=== PATIENT | female | born 1960 | race Caucasian/White ===

== ENCOUNTER 2016-09-26 15:59 | Emergency (ER) | payer BC ==
[~2016-09-26] VITALS: Ht 165.1 cm; Wt 80.0 kg
[~2016-09-26 15:59] MED LIST: AMIO200T PO; APIX5TAB PO; ASPI81 PO; ATEN-102 PO; ATOR80TA PO; CARB25TA PO; CYCL1PAK PO; FURO10S PO; GABA300C3 PO; IMDU30TA PO; IPRAAER IN; JANU50TA PO; LEVACET PO; METF500 PO; NEXI40CA PO; POTA20IN3 PO; RANI150T PO; TOPI100T OR; VENL-39 OR
[2016-09-26 16:07] VITALS: BP 98/54; PULSE 64; RESP 18; TEMP 98.2; O2SAT 94
[2016-09-26 16:12] VITALS: BP 98/54; PULSE 61; RESP 18; O2SAT 100
[2016-09-26] MEDS ORDERED: SODIUM CHLORIDE 0.9% FLUSH 10 ML FLUSH IVF PRN (16:15)
--- NOTE | 2016-09-26 16:16 | PD ---
HPI Chief Complaint: Chest Pain Time Seen by Provider: 16:13 Travel History International Travel<30 days: No Contact w/Intl Traveler<30days: No Traveled to known affect area: No History of Present Illness HPI 55-year-old female presents to the emergency department for evaluation of midsternal chest pain that started around 1 PM this afternoon. Patient states she took aspirin 324 mg by mouth at home and nitroglycerin 1. Patient called EMS stating the pain was severe. When EMS gave her IV fluids and assessed her, the pain resolved. She is currently chest pain-free. She denies any radiation of the pain when she had it. Patient stated the pain is 10/10 when it she had it. She does report history of cardiomyopathy, CHF, A. fib, Lazara-Parkinson- White syndrome. She also has AICD/pacemaker. She denies any recent firing of the AICD stating loss firing was approximately one year ago. Patient denies any recent stress test or cardiac catheterization. She states her last stress test was approximately 2 years ago. Her outreach team member is Dr. Bejarano. Patient is on Eliquis. [facility] Past Medical History Atrial Fibrillation: Yes Cancer: No Cardiovascular Problems: Yes High Cholesterol: Yes Chest Pain: No Congestive Heart Failure: Yes Diabetes: Yes Gastrointestinal Disorders: No GERD: Yes Glaucoma: No Headaches: Yes Hepatitis: No Hiatal Hernia: No Hypertension: Yes Integumentary: No Thyroid Disease: No ?: Not Past Surgical History Cardiac Surgery: Yes (ABLASION X2) Hysterectomy: Yes Pacemaker: Yes Thoracic Surgery: Yes (AICD LEFT CHEST) Social History Alcohol Use: No Tobacco Use: Yes (1PPD) Substance Use: No Allergies-Medications (Allergen,Severity, Reaction): Coded Allergies: Prednisone (Verified Allergy, Severe, 03/03/16) Verapamil (Verified Allergy, Severe, 03/03/16) Zoloft (Verified Allergy, Severe, 03/03/16) Reported Meds & Prescriptions Reported Meds & Active Scripts Active Reported Januvia (Sitagliptin Phosphate) 50 Mg Tab 50 Mg PO DAILY Combivent Respimat (Albuterol/Ipratropium) Respimat Aer 1 Inhalation IN Gabapentin 300 Mg Cap 300 Mg PO BID Potassium Chloride CR 20 meq 20 Meq Tab 1 Tab PO DAILY Furosemide 10 Mg/Ml Elsa 20 Mg PO DAILY Glucophage 500 mg (Metformin HCl) 500 Mg Tab 500 Mg PO DAILY Eliquis (Apixaban) 5 Mg Tab 5 Mg PO BID Sinemet 25/100 (Carbidopa/Levodopa) 25 Mg/100 Mg Tab 1 Tab PO HS Atorvastatin 80 mg (Atorvastatin Calcium) 80 Mg Tab 80 Mg PO HS Atenolol 50 Mg Tab 50 Mg PO BID Topiramate 100 Mg Tab 100 Mg OR BID Venlafaxine Hcl Er (Venlafaxine HCl) 75 Mg Tab 75 Mg OR HS Nexium (Esomeprazole Magnesium) 40 Mg Cap 40 Mg PO DAILY Amiodarone Hcl (Amiodarone HCl) 200 Mg Tab 200 Mg PO DAILY Ranitidine 150 mg (Ranitidine HCl) 150 Mg Tab 150 Mg PO BID Cyclobenzaprine Hcl (Cyclobenzaprine HCl) 10 Mg Tab 10 Mg PO TID Imdur (Isosorbide Mononitrate) 30 Mg Tab 30 Mg PO DAILY Aspirin 81 Mg Tab 325 Mg PO DAILY [Levacet] 1 Tab PO BID Review of Systems Except as stated in HPI: all other systems reviewed are Neg Physical Exam Narrative GENERAL: Well-nourished, well-developed female patient, afebrile. SKIN: Focused skin assessment warm/dry. HEAD: Normocephalic. Atraumatic. EYES: No scleral icterus. No injection or drainage. NECK: Supple, trachea midline. No JVD or lymphadenopathy. CARDIOVASCULAR: Regular rate and rhythm without murmurs, gallops, or rubs. RESPIRATORY: Breath sounds equal bilaterally. No accessory muscle use. Lungs sounds are clear to auscultation. GASTROINTESTINAL: Abdomen soft, non-tender, nondistended. MUSCULOSKELETAL: No cyanosis, or edema. BACK: Nontender without obvious deformity. No CVA tenderness. Data Data Last Documented VS Vital Signs Date Time Temp Pulse Resp B/P Pulse Ox O2 Delivery O2 Flow Rate FiO2 09/26/16 17:51 60 18 95/53 98 Room Air 09/26/16 16:17 2 09/26/16 16:07 98.2 Orders Electrocardiogram (09/26/16 ) Electrocardiogram (09/26/16 16:12) Basic Metabolic Panel (Bmp) (09/26/16 16:12) Ckmb (Isoenzyme) Profile (09/26/16 16:12) Complete Blood Count With Diff (09/26/16 16:12) Magnesium (Mg) (09/26/16 16:12) Prothrombin Time / Inr (Pt) (09/26/16 16:12) Act Partial Throm Time (Ptt) (09/26/16 16:12) Troponin I (09/26/16 16:12) Chest, Single Ap (09/26/16 16:12) Ecg Monitoring (09/26/16 16:12) Bilateral Bp Monitoring (09/26/16 16:12) Iv Access Insert/Monitor (09/26/16 16:12) Oximetry (09/26/16 16:12) Oxygen Administration (09/26/16 16:12) Sodium Chloride 0.9% Flush (Ns Flush) (09/26/16 16:15) B-Type Natriuretic Peptide (09/26/16 16:16) CKMB (09/26/16 16:20) CKMB% (09/26/16 16:20) Labs Laboratory Tests Test 09/26/16 16:20 White Blood Count 5.8 TH/MM3 Red Blood Count 4.77 MIL/MM3 Hemoglobin 10.4 GM/DL Hematocrit 37.2 % Mean Corpuscular Volume 77.9 FL Mean Corpuscular Hemoglobin 21.8 PG Mean Corpuscular Hemoglobin 28.0 % Concent Red Cell Distribution Width 19.7 % Platelet Count 294 TH/MM3 Mean Platelet Volume 9.2 FL Neutrophils (%) (Auto) 58.4 % Lymphocytes (%) (Auto) 28.0 % Monocytes (%) (Auto) 8.8 % Eosinophils (%) (Auto) 3.3 % Basophils (%) (Auto) 1.5 % Neutrophils # (Auto) 3.4 TH/MM3 Lymphocytes # (Auto) 1.6 TH/MM3 Monocytes # (Auto) 0.5 TH/MM3 Eosinophils # (Auto) 0.2 TH/MM3 Basophils # (Auto) 0.1 TH/MM3 CBC Comment AUTO DIFF Differential Comment AUTO DIFF CONFIRMED Platelet Estimate NORMAL Platelet Morphology Comment NORMAL Prothrombin Time 11.4 SEC Prothromb Time International 1.0 RATIO Ratio Activated Partial 25.5 SEC Thromboplast Time Sodium Level 143 MEQ/L Potassium Level 4.5 MEQ/L Chloride Level 111 MEQ/L Carbon Dioxide Level 26.3 MEQ/L Anion Gap 6 MEQ/L Blood Urea Nitrogen 24 MG/DL Creatinine 1.33 MG/DL Estimat Glomerular Filtration 42 ML/MIN Rate Random Glucose 181 MG/DL Calcium Level 8.3 MG/DL Magnesium Level 2.1 MG/DL Total Creatine Kinase 103 U/L Creatine Kinase MB 2.0 NG/ML Troponin I 0.03 NG/ML MDM Medical Decision Making Medical Screen Exam Complete: Yes Emergency Medical Condition: Yes Medical Record Reviewed: Yes Interpretation(s) Last Impressions Chest X-Ray 09/26/16 1612 Signed Impressions: Service Date/Time: Monday, September 26, 2016 16:13 - CONCLUSION: No acute disease. Zohaib Blood MD Differential Diagnosis ACS versus chest wall pain versus atypical chest pain Narrative Course 55-year-old female presents to the emergency department for evaluation of midsternal chest pain that resolved prior to arrival. Patient took nitroglycerin 1 and aspirin 324 mg by mouth prior to arrival. EKG shows sinus rhythm, left ventricular hypertrophy, heart rate 62. CBC, BMP, CK, troponin, magnesium, BNP, PTT, PTT/INR are ordered and pending. Chest x-ray is ordered and pending. CBC shows no acute abnormality, hemoglobin 10.4. BMP shows BUNs 24, creatinine 1.33, glucose 181. CK .is 103. Troponin is 0.03. Magnesium is 2.1. Coags are unremarkable. Chest x-ray shows no acute disease. I discussed the case with my attending physician, Dr. syed, who agrees on chest pain center admission to rule out ACS. I discussed this with the patient who states that she does not want to stay. She states she cannot afford to stay. I discussed the consequences of possibly leaving AGAINST MEDICAL ADVICE up to and including . She verbalizes understanding and states that she wants to leave AGAINST MEDICAL ADVICE. AMA: The risks of leaving against medical advice without further evaluation treatment were discussed with the patient. These risks include cardiac dysfunction, cardiac dysrhythmia, possible heart attack, possible stroke or . The patient indicated understanding of these risks and appeared to have the capacity to make this decision. Diagnosis Primary Impression: Left against medical advice Additional Impression: Chest pain Qualified Code: R07.9 - Chest pain, unspecified type Disposition: 07 AGAINST MEDICAL ADVICE Jo Schulte Sep 26, 2016 16:16
[2016-09-26 16:17] VITALS: BP_SYST 105; BP_SYST 98; BP_DIAS 56; BP_DIAS 58; PULSE 60; RESP 18; O2SAT 100
[2016-09-26 16:31] LABS: AUTOMATED NEUTROPHIL # 3.4 TH/MM3 (1.8-7.7); BASOPHIL # 0.1 TH/MM3 (0-0.2); BASOPHIL % 1.5 % (0.0-2.0); EOSINOPHIL # 0.2 TH/MM3 (0-0.4); EOSINOPHIL % 3.3 % (0.0-4.0); HEMATOCRIT 37.2 % (35.0-46.0); LYMPHOCYTE # 1.6 TH/MM3 (1.0-4.8); MEAN CELL VOLUME 77.9 FL (80.0-100.0); MEAN CORPUSCULAR HEMOGLOBIN 21.8 PG (27.0-34.0); MONO % 8.8 % (0.0-8.0); NEUT % 58.4 % (16.0-70.0); PLATELET COUNT 294 TH/MM3 (150-450); RED BLOOD COUNT 4.77 MIL/MM3 (4.00-5.30); RED CELL DISTRIBUTION WIDTH 19.7 % (11.6-17.2); WHITE BLOOD COUNT 5.8 TH/MM3 (4.0-11.0)
[2016-09-26 16:33] LABS: HEMO FLAGS AUTO DIFF
--- NOTE | 2016-09-26 16:39 | RADRPT ---
EXAM DATE/TIME: 09/26/2016 16:13 [facility] COMPARISON: CHEST SINGLE AP, March 03, 2016, 2:19. INDICATIONS : Chest pain. MEDICAL HISTORY : Chronic obstructive pulmonary disease. SURGICAL HISTORY : Pacemaker. ENCOUNTER: Initial ACUITY: 1 day PAIN SCORE: 2/10 LOCATION: middle chest. FINDINGS: A single view of the chest demonstrates the lungs to be symmetrically aerated without evidence of mas s, infiltrate or effusion. The cardiomediastinal contours are unremarkable. Osseous structures are intact. The left subclavian AV sequential transvenous pacer remains in place. CONCLUSION: No acute disease. Zohaib Blood MD on September 26, 2016 at 16:36 Board Certified Radiologist. This report was verified electronically.
[2016-09-26 16:48] LABS: APTT (PATIENT) 25.5 SEC (24.3-30.1); PROTHROMBIN TIME - PATIENT 11.4 SEC (9.8-11.6)
[2016-09-26 17:01] LABS: ANION GAP 6 MEQ/L (5-15); BICARBONATE 26.3 MEQ/L (21.0-32.0); BLOOD UREA NITROGEN 24 MG/DL (7-18); CHLORIDE 111 MEQ/L (98-107); GLOMERULAR FILTRATION RATE 42 ML/MIN (>89); MAGNESIUM 2.1 MG/DL (1.5-2.5); POTASSIUM 4.5 MEQ/L (3.5-5.1); SODIUM (NA) 143 MEQ/L (136-145)
[2016-09-26 17:05] LABS: CREATINE KINASE 103 U/L (26-192)
[2016-09-26 17:25] LABS: PLATELET ESTIMATE SMEAR NORMAL (NORMAL); PLATELET MORPHOLOGY NORMAL (NORMAL); SCAN/DIFF AUTO DIFF CONFIRMED
[2016-09-26 17:51] VITALS: BP 95/53; PULSE 60; RESP 18; O2SAT 98
--- NOTE | 2016-09-26 18:51 | PD ---
Data Data Last Documented VS Vital Signs Date Time Temp Pulse Resp B/P Pulse Ox O2 Delivery O2 Flow Rate FiO2 09/26/16 17:51 60 18 95/53 98 Room Air 09/26/16 16:17 2 09/26/16 16:07 98.2 Orders Electrocardiogram (09/26/16 ) Electrocardiogram (09/26/16 16:12) Basic Metabolic Panel (Bmp) (09/26/16 16:12) Ckmb (Isoenzyme) Profile (09/26/16 16:12) Complete Blood Count With Diff (09/26/16 16:12) Magnesium (Mg) (09/26/16 16:12) Prothrombin Time / Inr (Pt) (09/26/16 16:12) Act Partial Throm Time (Ptt) (09/26/16 16:12) Troponin I (09/26/16 16:12) Chest, Single Ap (09/26/16 16:12) Ecg Monitoring (09/26/16 16:12) Bilateral Bp Monitoring (09/26/16 16:12) Iv Access Insert/Monitor (09/26/16 16:12) Oximetry (09/26/16 16:12) Oxygen Administration (09/26/16 16:12) Sodium Chloride 0.9% Flush (Ns Flush) (09/26/16 16:15) B-Type Natriuretic Peptide (09/26/16 16:16) CKMB (09/26/16 16:20) CKMB% (09/26/16 16:20) Labs Laboratory Tests Test 09/26/16 09/26/16 16:20 17:50 White Blood Count 5.8 TH/MM3 Red Blood Count 4.77 MIL/MM3 Hemoglobin 10.4 GM/DL Hematocrit 37.2 % Mean Corpuscular Volume 77.9 FL Mean Corpuscular Hemoglobin 21.8 PG Mean Corpuscular Hemoglobin 28.0 % Concent Red Cell Distribution Width 19.7 % Platelet Count 294 TH/MM3 Mean Platelet Volume 9.2 FL Neutrophils (%) (Auto) 58.4 % Lymphocytes (%) (Auto) 28.0 % Monocytes (%) (Auto) 8.8 % Eosinophils (%) (Auto) 3.3 % Basophils (%) (Auto) 1.5 % Neutrophils # (Auto) 3.4 TH/MM3 Lymphocytes # (Auto) 1.6 TH/MM3 Monocytes # (Auto) 0.5 TH/MM3 Eosinophils # (Auto) 0.2 TH/MM3 Basophils # (Auto) 0.1 TH/MM3 CBC Comment AUTO DIFF Differential Comment AUTO DIFF CONFIRMED Platelet Estimate NORMAL Platelet Morphology Comment NORMAL Prothrombin Time 11.4 SEC Prothromb Time International 1.0 RATIO Ratio Activated Partial 25.5 SEC Thromboplast Time Sodium Level 143 MEQ/L Potassium Level 4.5 MEQ/L Chloride Level 111 MEQ/L Carbon Dioxide Level 26.3 MEQ/L Anion Gap 6 MEQ/L Blood Urea Nitrogen 24 MG/DL Creatinine 1.33 MG/DL Estimat Glomerular Filtration 42 ML/MIN Rate Random Glucose 181 MG/DL Calcium Level 8.3 MG/DL Magnesium Level 2.1 MG/DL Total Creatine Kinase 103 U/L Creatine Kinase MB 2.0 NG/ML Troponin I 0.03 NG/ML B-Type Natriuretic Peptide 790 PG/ML MDM Supervised Visit with CARO: Yes Narrative Course The history, exam, and medical decision-making in the associated mid-level provider note were completed with my assistance. I reviewed and agree with the findings presented. I attest that I had a [id number] encounter with the patient on the same day, and personally performed and documented my assessment and findings in the medical record. *My assessment and Findings: 54 year-old woman of multiple medical problems including extensive cardiac history presented emergency department with chest pain. I participated in the patient's evaluation and workup with Jo. When I went to evaluate the patient she was leaving the hospital and she states she cannot afford to stay for observation. Diagnosis Primary Impression: Left against medical advice Additional Impression: Chest pain Qualified Code: R07.9 - Chest pain, unspecified type Disposition: 07 AGAINST MEDICAL ADVICE Robert Loyola MD Sep 26, 2016 18:51
--- NOTE | 2016-09-27 10:56 | EKG ---
Date Performed: 09/26/2016 Time Performed: 16:11:48 PTAGE: 55 years EKG: Sinus rhythm LEFT VENTRICULAR HYPERTROPHY AND ST-T CHANGE ABNORMAL ECG PREVIOUS TRACING : 03/03/2016 01.37 Compared to prior tracing no significant change DOCTOR: Geena Ann Interpretating Date/Time 09/27/2016 10:55:03
== END 2016-09-26 19:02 | disposition left against medical advice (07) ==
LOC: NEPE 15:59
DX: R07.9 Chest pain, unspecified (principal); R94.31 Abnormal electrocardiogram [ECG] [EKG]; I50.9 Heart failure, unspecified
CPT/HCPCS: 71010; 80048; 82550; 82552; 83735; 83880; 84484; 85025; 85610; 85730; 93005

== ENCOUNTER 2017-05-07 08:57 | Emergency (ER) | payer BC ==
[2017-05-07 08:59] VITALS: BP 161/74; PULSE 75; RESP 18; TEMP 98.3; O2SAT 98
[2017-05-07] MEDS ORDERED: ASPIRIN 81 MG CHEW TAB ONE (09:14)
[2017-05-07] MEDS ORDERED: NITROGLYCERIN 0.4 MG SL 25 TABS/BTL SL ONE (09:14)
[2017-05-07] MEDS ORDERED: ASPIRIN 325 MG TAB PO ONE (09:15)
[2017-05-07 09:16] VITALS: BP 175/84; PULSE 73; RESP 24; O2SAT 97
[2017-05-07] MEDS ORDERED: EFFE150C PO (09:19)
[2017-05-07] MEDS ORDERED: VENL75XR PO (09:19)
[2017-05-07] MEDS ORDERED: ARMO60TA PO (09:19)
[2017-05-07] MEDS ORDERED: KLOR20TA3 PO (09:19)
[2017-05-07] MEDS ORDERED: METO50TA PO (09:27)
[2017-05-07] MEDS ORDERED: XARE20TA PO (09:27)
[2017-05-07] MEDS ORDERED: ATOR80TA45 PO (09:27)
[2017-05-07] MEDS ORDERED: ISOS20TA PO (09:27)
[2017-05-07] MEDS ORDERED: GABA300C5 PO (09:27)
[2017-05-07] MEDS ORDERED: GABA600T PO (09:27)
[2017-05-07] MEDS ORDERED: ASPI-516 CHEW (09:27)
[2017-05-07] MEDS ORDERED: FURO20TA PO (09:27)
[2017-05-07] MEDS ORDERED: TOPI200T7 PO (09:27)
[2017-05-07] MEDS ORDERED: IPRAAER INH (09:27)
[2017-05-07] MEDS ORDERED: DULE200A INH (09:27)
[2017-05-07] MEDS: NITROGLYCERIN 0.4 MG SL 25 TABS/BTL SL SCH ×3 (09:28→09:39)
[2017-05-07 09:34] VITALS: BP 133/71; PULSE 67; RESP 17; O2SAT 97
--- NOTE | 2017-05-07 09:44 | PD ---
HPI Chief Complaint: Cardiac Complaint Time Seen by Provider: 09:08 Travel History International Travel<30 days: No Contact w/Intl Traveler<30days: No Traveled to known affect area: No History of Present Illness HPI 56yo F with PMH of cardiomyopathy, CHF, afib, WPW, s/p AICD presents to the ED with c/o midsternal chest pain since yesterday. Said it is sharp, constant and worst with deep breathing. Associated with sob, nausea. Pt is a heavy smoker and has COPD/asthma. Denies any fever, vomiting, abdominal pain, focal weakness or numbness. Pt follows with order booker Dr. Bejarano. Last cardiac cath is [address] Juares. [facility] Past Medical History Hx Anticoagulant Therapy: Yes (XARELTO) Atrial Fibrillation: Yes Cancer: No Cardiovascular Problems: Yes High Cholesterol: Yes Chest Pain: No Congestive Heart Failure: Yes Diabetes: Yes Patient Takes Glucophage: Yes Gastrointestinal Disorders: No GERD: Yes Glaucoma: No Headaches: Yes Hepatitis: No Hiatal Hernia: No Hypertension: Yes Respiratory: Yes Integumentary: No Thyroid Disease: No ?: Not Past Surgical History Cardiac Surgery: Yes (ABLASION X2) Hysterectomy: Yes Pacemaker: Yes Thoracic Surgery: Yes (AICD LEFT CHEST) Social History Alcohol Use: No Tobacco Use: Yes (1PPD) Substance Use: No Allergies-Medications (Allergen,Severity, Reaction): Coded Allergies: prednisone (Verified Allergy, Severe, hives, 05/07/17) sertraline (Verified Allergy, Severe, hives, 05/07/17) verapamil (Verified Allergy, Severe, rash, 05/07/17) Reported Meds & Prescriptions Reported Meds & Active Scripts Active Reported Combivent Respimat Inh (Ipratropium-Albuterol Inh) 20-100 [place]/Act Aero 1 Puff INH QID Xarelto (Rivaroxaban) 20 Mg Tab 20 Mg PO DAILY Dulera 120 Act Inh (Mometasone-Formoterol 120 Act Inh) 200-5 Mcg/Act Inh 1 Puff INH BID Aspirin 81 Mg Chew 81 Mg CHEW DAILY Gabapentin 600 Mg Tab 600 Mg PO HS Gabapentin 300 Mg Cap 300 Mg PO DAILY Isosorbide Mononitrate 20 Mg Tab 30 Mg PO HS Take 2 doses 7 hours apart. Metoprolol Tartrate 50 Mg Tab 50 Mg PO DAILY Topiramate 200 Mg Tab 100 Mg PO BID Atorvastatin (Atorvastatin Calcium) 80 Mg Tab 80 Mg PO HS Furosemide 20 Mg Tab 20 Mg PO DAILY Klor-Con M20 (Potassium Chloride Microencaps) 20 Meq Tab 20 Meq PO DAILY Effexor XR 24 HR (Venlafaxine HCl) 150 Mg Cap 150 Mg PO HS Effexor XR 24 HR (Venlafaxine HCl) 75 Mg Cap 75 Mg PO DAILY [place] Thyroid (Thyroid) 60 Mg Tab 60 Mg PO DAILY Review of Systems Except as stated in HPI: all other systems reviewed are Neg Physical Exam Narrative GENERAL: 56yo F in mild distress. SKIN: Focused skin assessment warm/dry. HEAD: Atraumatic. Normocephalic. EYES: Pupils equal and round. No scleral icterus. No injection or drainage. CARDIOVASCULAR: Regular rate and rhythm. No murmur appreciated. RESPIRATORY: No accessory muscle use. End expiratory wheezing. GASTROINTESTINAL: Abdomen soft, non-tender, nondistended. MUSCULOSKELETAL: No obvious deformities. No clubbing. No cyanosis. No edema. NEUROLOGICAL: Awake and alert. No obvious cranial nerve deficits. Motor grossly within normal limits. Normal speech. PSYCHIATRIC: Appropriate mood and affect; insight and judgment normal. Data Data Last Documented VS Vital Signs Date Time Temp Pulse Resp B/P (MAP) Pulse Ox O2 Delivery O2 Flow Rate FiO2 05/07/17 10:15 97.8 69 17 126/ 97 Room Air 05/07/17 09:50 21 Orders Orders Aspirin Chew (Aspirin Chew) (05/07/17 09:14) Nitroglycerin Sl (Nitrostat Sl) (05/07/17 09:14) Basic Metabolic Panel (Bmp) (05/07/17 09:15) B-Type Natriuretic Peptide (05/07/17 09:15) Complete Blood Count With Diff (05/07/17 09:15) Magnesium (Mg) (05/07/17 09:15) Prothrombin Time / Inr (Pt) (05/07/17 09:15) Act Partial Throm Time (Ptt) (05/07/17 09:15) Troponin I (05/07/17 09:15) Chest, Single Ap (05/07/17 09:15) Aspirin (Aspirin) (05/07/17 09:15) Nitroglycerin Sl (Nitrostat Sl) (05/07/17 09:15) Albuterol-Ipratropium Neb (Duoneb Neb) (05/07/17 09:45) Electrocardiogram (05/07/17 09:12) Labs Laboratory Tests Test 05/07/17 09:21 White Blood Count 7.8 TH/MM3 Red Blood Count 4.06 MIL/MM3 Hemoglobin 10.4 GM/DL Hematocrit 34.2 % Mean Corpuscular Volume 84.2 FL Mean Corpuscular Hemoglobin 25.6 PG Mean Corpuscular Hemoglobin Concent 30.4 % Red Cell Distribution Width 17.7 % Platelet Count 338 TH/MM3 Mean Platelet Volume 8.4 FL Neutrophils (%) (Auto) 57.0 % Lymphocytes (%) (Auto) 28.8 % Monocytes (%) (Auto) 8.3 % Eosinophils (%) (Auto) 4.3 % Basophils (%) (Auto) 1.6 % Neutrophils # (Auto) 4.4 TH/MM3 Lymphocytes # (Auto) 2.2 TH/MM3 Monocytes # (Auto) 0.6 TH/MM3 Eosinophils # (Auto) 0.3 TH/MM3 Basophils # (Auto) 0.1 TH/MM3 CBC Comment DIFF FINAL Differential Comment Prothrombin Time 10.2 SEC Prothromb Time International Ratio 1.0 RATIO Activated Partial Thromboplast Time 24.9 SEC Blood Urea Nitrogen 13 MG/DL Creatinine 1.08 MG/DL Random Glucose 124 MG/DL Calcium Level 9.3 MG/DL Magnesium Level 2.0 MG/DL Sodium Level 139 MEQ/L Potassium Level 4.2 MEQ/L Chloride Level 106 MEQ/L Carbon Dioxide Level 29.6 MEQ/L Anion Gap 3 MEQ/L Estimat Glomerular Filtration Rate 53 ML/MIN Troponin I LESS THAN 0.02 NG/ML MDM Medical Decision Making Medical Screen Exam Complete: Yes Emergency Medical Condition: Yes Interpretation(s) EKG: NSR 71bpm. Normal axis. LVH. St segment elevation aVR, aVL, diffuse ST depression and TWI but these are similar to prior EKG. Only difference is new 1mm ST segment elevation V2. Differential Diagnosis ACS vs. Pneumonia vs. COPD exacerbation vs. pericarditis Narrative Course 56yo F with midsternal chest pain that sounds more pleuritic since yesterday. EKG is concerning but similar to prior EKG. Pt has been here for chest pain before but AMA twice. She was here last for chest pain in 09/2016. I discussed case with Dr. Bejarano, pt's order booker and he agrees with chest pain center. Pt has not had recent stress test due to financial reasons. Labs reviewed, no leukocytosis. H/H 10.4/34.2. This is baseline. Troponin negative. BNP pending. CXR negative. Pt given duonebs x3 but no steroid because she said she is allergic to it. Pt also given aspirin and sublingual nitro which resolved the chest pain. Pt reevaluated at bedside and feels better. Speaking in complete sentences and saturating at 96% on RA. Pt does not want to stay and is signing out against medical advice. AMA: The risks of leaving against medical advice without further evaluation treatment were discussed with the patient. These risks include cardiac dysfunction, cardiac dysrhythmia, possible heart attack, possible stroke or . The patient indicated understanding of these risks and appeared to have the capacity to make this decision. Diagnosis Primary Impression: Chest pain Qualified Codes: R07.9 - Chest pain, unspecified Additional Impression: COPD exacerbation Patient Instructions: General Instructions Departure Forms: Tests/Procedures Additional Instructions: Please follow up with Dr. Bejarano. Return to the ED if symptoms worsen. Med/Other Pt SpecificInfo: Prescription(s) given Scripts Albuterol 18 GM Inh (Ventolin Hfa 18 GM Inh) 90 Mcg/Act Aer 2 PUFF INH Q4H Y for SHORTNESS OF BREATH, #1 INHALER 0 Refills Prov: Dina Corrigan DO 05/07/17 Disposition: 07 AGAINST MEDICAL ADVICE Condition: Stable Dina Corrigan DO May 07, 2017 09:44
[2017-05-07 09:46] LABS: AUTOMATED NEUTROPHIL # 4.4 TH/MM3 (1.8-7.7); BASOPHIL # 0.1 TH/MM3 (0-0.2); BASOPHIL % 1.6 % (0.0-2.0); EOSINOPHIL # 0.3 TH/MM3 (0-0.4); EOSINOPHIL % 4.3 % (0.0-4.0); HEMATOCRIT 34.2 % (35.0-46.0); HEMO FLAGS DIFF FINAL; LYMPH % 28.8 % (9.0-44.0); LYMPHOCYTE # 2.2 TH/MM3 (1.0-4.8); MEAN CELL VOLUME 84.2 FL (80.0-100.0); MEAN CORPUSCULAR HEMOGLOBIN 25.6 PG (27.0-34.0); MEAN CORPUSCULAR HGB CONC 30.4 % (32.0-36.0); MONO % 8.3 % (0.0-8.0); PLATELET COUNT 338 TH/MM3 (150-450); RED BLOOD COUNT 4.06 MIL/MM3 (4.00-5.30); RED CELL DISTRIBUTION WIDTH 17.7 % (11.6-17.2); WHITE BLOOD COUNT 7.8 TH/MM3 (4.0-11.0)
--- NOTE | 2017-05-07 09:46 | RADRPT ---
EXAM DATE/TIME: 05/07/2017 09:20 [facility] COMPARISON: CHEST SINGLE AP, September 26, 2016, 16:13. INDICATIONS : Chest pain and shortness of breath. MEDICAL HISTORY : Congestive heart failure. Gastroesophageal reflux disease. Hypercholesterolemia. Hypertension, AF IB, Diabetes. SURGICAL HISTORY : Ablasion, AICD left chest, Pacemaker. ENCOUNTER: Initial ACUITY: 2 days PAIN SCORE: 8/10 LOCATION: Bilateral chest FINDINGS: Portable AP view of the chest demonstrates a normal-sized cardiac silhouette. No effusion, consolidat ion, or pneumothorax is visualized. The bones and soft tissues demonstrate no acute abnormality. Left chest wall cardiac pacing device/AICD is present. There is mild atelectasis at the lung bases. CONCLUSION: No acute cardiopulmonary abnormality is identified. Khadar Farrell MD on May 07, 2017 at 9:43 Board Certified Radiologist. This report was verified electronically.
[2017-05-07 09:50] VITALS: O2SAT 96
[2017-05-07] MEDS: RESP: ALBUTEROL 2.5 MG/IPRATROPIUM 0.5 MG NEB (SCH) INH ×2 (09:50→09:51)
[2017-05-07 09:54] LABS: APTT (PATIENT) 24.9 SEC (24.3-30.1); PROTHROMBIN TIME - PATIENT 10.2 SEC (9.8-11.6)
[2017-05-07 10:08] LABS: ANION GAP 3 MEQ/L (5-15); BICARBONATE 29.6 MEQ/L (21.0-32.0); BLOOD UREA NITROGEN 13 MG/DL (7-18); CHLORIDE 106 MEQ/L (98-107); GLOMERULAR FILTRATION RATE 53 ML/MIN (>89); POTASSIUM 4.2 MEQ/L (3.5-5.1); SODIUM (NA) 139 MEQ/L (136-145)
[2017-05-07 10:15] VITALS: BP_SYST 126; PULSE 69; RESP 17; TEMP 97.8; O2SAT 97
[2017-05-07] MEDS ORDERED: VENTAER INH (11:26)
[2017-05-07 11:35] VITALS: BP 130/71; TEMP 97.8
--- NOTE | 2017-05-07 19:22 | EKG ---
Date Performed: 05/07/2017 Time Performed: 09:12:19 PTAGE: 56 years EKG: Sinus rhythm POSSIBLE LEFT ATRIAL ENLARGEMENT LEFT VENTRICULAR HYPERTROPHY AND ST-T CHANGE Since previous tracing , no significant change noted ABNORMAL ECG PREVIOUS TRACING : 09/26/2016 16.11.48 DOCTOR: Joe Matos Interpretating Date/Time 05/07/2017 19:20:02
== END 2017-05-07 11:40 | disposition left against medical advice (07) ==
LOC: NEPC 08:57
DX: J44.1 Chronic obstructive pulmonary disease with (acute) exacerbation (principal); R07.89 Other chest pain; I51.7 Cardiomegaly; R94.31 Abnormal electrocardiogram [ECG] [EKG]; I11.0 Hypertensive heart disease with heart failure; I50.9 Heart failure, unspecified; I48.91 Unspecified atrial fibrillation; E11.9 Type 2 diabetes mellitus without complications; I45.6 Pre-excitation syndrome
CPT/HCPCS: 71010; 80048; 83735; 83880; 84484; 85025; 85610; 85730; 93005; 94640; 94664; 99285

== ENCOUNTER 2017-06-18 16:45 | Observation (INO) | payer BC ==
[~2017-06-18] VITALS: Ht 162.6 cm; Wt 75.0 kg
[~2017-06-18 16:45] MED LIST changes: -AMIO200T PO; -APIX5TAB PO; +ARMO60TA PO; +ASPI-516 PO; -ASPI81 PO; -ATEN-102 PO; -ATOR80TA PO; +ATOR80TA45 PO; -CARB25TA PO; -CYCL1PAK PO; +DULE200A INH; +EFFE150C PO; -FURO10S PO; +FURO20TA PO; -GABA300C3 PO; +GABA300C5 PO; +GABA600T PO; -IMDU30TA PO; -IPRAAER IN; +IPRAAER INH; +ISOS20TA PO; -JANU50TA PO; +KLOR20TA3 PO; -LEVACET PO; -METF500 PO; +METO50TA PO; -NEXI40CA PO; -POTA20IN3 PO; -RANI150T PO; -TOPI100T OR; +TOPI200T7 PO; -VENL-39 OR; +VENL75XR PO; +VENTAER INH; +XARE20TA PO
[2017-06-18 16:47] VITALS: BP 196/88; PULSE 120; RESP 18; TEMP 98.1; O2SAT 98
[2017-06-18 17:01] VITALS: BP 152/70; PULSE 103; RESP 26; O2SAT 98
--- NOTE | 2017-06-18 17:11 | PD ---
HPI Chief Complaint: Respiratory Symptoms Time Seen by Provider: 16:58 Travel History International Travel<30 days: No Contact w/Intl Traveler<30days: No Traveled to known affect area: No History of Present Illness HPI 56-year-old noncompliant female with a history of congestive heart failure, A. fib on Xarelto, COPD with tobacco dependence presents emergency department complaining of shortness of breath and chest pain for 1 month. Patient states she decided to come in today because she "cannot handle the pain anymore". States her pain is located on the left sternal border radiating to the left flank and chest wall. Laying supine increases her pain. Denies cough. Says that her legs have been more swollen than usual. States that she also has felt nauseous without vomiting. Patient states that she was here in May and left AMA twice because she "could not afford the bill". Patient has not followed up with a bulk sealer operator but does states she is compliant with medications. Her last heart catheter was in 2011 and no stents were placed. Says her next appointment with cardiology is July. PFSH Past Medical History Hx Anticoagulant Therapy: Yes (Xarelto) Atrial Fibrillation: Yes Cancer: No Cardiovascular Problems: Yes (HTN, A-fib, AICD, cadiomyopathy, CHF) High Cholesterol: Yes Chest Pain: No Congestive Heart Failure: Yes Cerebrovascular Accident: Yes (2014) Diabetes: Yes Patient Takes Glucophage: No Gastrointestinal Disorders: No GERD: Yes Glaucoma: No Headaches: Yes Hepatitis: No Hiatal Hernia: No Hypertension: Yes Respiratory: Yes (COPD) Integumentary: No Thyroid Disease: No ?: Not Past Surgical History Cardiac Surgery: Yes (ABLATION X2) Hysterectomy: Yes Pacemaker: Yes Thoracic Surgery: Yes (AICD LEFT CHEST MEDTRONIC ) Social History Alcohol Use: No Tobacco Use: Yes (1PPD) Substance Use: No Allergies-Medications (Allergen,Severity, Reaction): Coded Allergies: prednisone (Verified Allergy, Severe, hives, 06/18/17) sertraline (Verified Allergy, Severe, hives, 06/18/17) verapamil (Verified Allergy, Severe, rash, 06/18/17) Reported Meds & Prescriptions Reported Meds & Active Scripts Active Ventolin Hfa 18 GM Inh (Albuterol Sulfate) 90 Mcg/Act Aer 2 Puff INH Q4H PRN Reported Stool Softener (Docusate Sodium) 100 Mg Tab 100-200 Mg PO HS Tylenol Extra Strength (Acetaminophen) 500 Mg Tablet 500 Mg PO Q6HR PRN Isosorbide Mononitrate ER (Isosorbide Mononitrate) 30 Mg Leonie 30 Mg PO HS Combivent Respimat Inh (Ipratropium-Albuterol Inh) 20-100 Alf/Act Aero 1 Puff INH QID PRN Xarelto (Rivaroxaban) 20 Mg Tab 20 Mg PO DAILY Dulera 120 Act Inh (Mometasone-Formoterol 120 Act Inh) 200-5 Mcg/Act Inh 1 Puff INH BID Aspirin 81 Mg Chew 81 Mg PO DAILY Gabapentin 600 Mg Tab 600 Mg PO HS Gabapentin 300 Mg Cap 300 Mg PO DAILY Metoprolol Tartrate 50 Mg Tab 50 Mg PO DAILY Topiramate 200 Mg Tab 100 Mg PO BID Atorvastatin (Atorvastatin Calcium) 80 Mg Tab 80 Mg PO HS Klor-Con M20 (Potassium Chloride Microencaps) 20 Meq Tab 20 Meq PO DAILY [place] Thyroid (Thyroid) 60 Mg Tab 60 Mg PO DAILY Review of Systems Except as stated in HPI: all other systems reviewed are Neg Physical Exam Narrative GENERAL: Well-developed well-nourished in moderate distress SKIN: Focused skin assessment warm/dry. HEAD: Atraumatic. Normocephalic. EYES: Pupils equal and round. No scleral icterus. No injection or drainage. ENT: No nasal bleeding or discharge. Mucous membranes pink and moist. NECK: Trachea midline. No JVD. CARDIOVASCULAR: Regular rate and rhythm. No murmur appreciated. RESPIRATORY: No accessory muscle use. Clear to auscultation. Breath sounds equal bilaterally. GASTROINTESTINAL: Abdomen soft, non-tender, nondistended. Hepatic and splenic margins not palpable. no Chest wall tenderness. MUSCULOSKELETAL: No obvious deformities. No clubbing. No cyanosis. No edema. NEUROLOGICAL: Awake and alert. No obvious cranial nerve deficits. Motor grossly within normal limits. Normal speech. PSYCHIATRIC: Appropriate mood and affect; insight and judgment normal. Data Data Last Documented VS Vital Signs Date Time Temp Pulse Resp B/P (MAP) Pulse Ox O2 Delivery O2 Flow Rate FiO2 06/18/17 18:30 110 22 156/72 (100) 97 Room Air 06/18/17 16:47 98.1 Orders Orders Electrocardiogram (06/18/17 17:06) B-Type Natriuretic Peptide (06/18/17 17:06) Ckmb (Isoenzyme) Profile (06/18/17 17:06) Complete Blood Count With Diff (06/18/17 17:06) Comprehensive Metabolic Panel (06/18/17 17:06) Magnesium (Mg) (06/18/17 17:06) Prothrombin Time / Inr (Pt) (06/18/17 17:06) Act Partial Throm Time (Ptt) (06/18/17 17:06) Troponin I (06/18/17 17:06) Lipase (06/18/17 17:06) Chest, Single Ap (06/18/17 17:06) Aspirin Chew (Aspirin Chew) (06/18/17 17:15) Nitroglycerin 2% Oint (Nitroglycerin 2% (06/18/17 17:15) Albuterol-Ipratropium Neb (Duoneb Neb) (06/18/17 17:30) Morphine Inj (Morphine Inj) (06/18/17 18:15) Morphine Inj (Morphine Inj) (06/18/17 18:15) CKMB (06/18/17 17:23) CKMB% (06/18/17 17:23) Furosemide Inj (Lasix Inj) (06/18/17 18:30) Admit Order (Ed Use Only) (06/18/17 ) Consult Cardiology (06/18/17 ) Labs Laboratory Tests Test 06/18/17 17:23 White Blood Count 7.5 TH/MM3 Red Blood Count 4.45 MIL/MM3 Hemoglobin 11.6 GM/DL Hematocrit 36.8 % Mean Corpuscular Volume 82.8 FL Mean Corpuscular Hemoglobin 26.0 PG Mean Corpuscular Hemoglobin Concent 31.4 % Red Cell Distribution Width 17.4 % Platelet Count 479 TH/MM3 Mean Platelet Volume 7.7 FL Neutrophils (%) (Auto) 67.3 % Lymphocytes (%) (Auto) 22.7 % Monocytes (%) (Auto) 5.3 % Eosinophils (%) (Auto) 3.2 % Basophils (%) (Auto) 1.5 % Neutrophils # (Auto) 5.1 TH/MM3 Lymphocytes # (Auto) 1.7 TH/MM3 Monocytes # (Auto) 0.4 TH/MM3 Eosinophils # (Auto) 0.2 TH/MM3 Basophils # (Auto) 0.1 TH/MM3 CBC Comment DIFF FINAL Differential Comment Prothrombin Time 11.4 SEC Prothromb Time International Ratio 1.1 RATIO Activated Partial Thromboplast Time 28.3 SEC Blood Urea Nitrogen 16 MG/DL Creatinine 1.47 MG/DL Random Glucose 160 MG/DL Total Protein 8.4 GM/DL Albumin 4.1 GM/DL Calcium Level 9.4 MG/DL Magnesium Level 1.9 MG/DL Alkaline Phosphatase 169 U/L Aspartate Amino Transf (AST/SGOT) 22 U/L Alanine Aminotransferase (ALT/SGPT) 27 U/L Total Bilirubin 0.3 MG/DL Sodium Level 133 MEQ/L Potassium Level 4.6 MEQ/L Chloride Level 98 MEQ/L Carbon Dioxide Level 27.1 MEQ/L Anion Gap 8 MEQ/L Estimat Glomerular Filtration Rate 37 ML/MIN Total Creatine Kinase 170 U/L Creatine Kinase MB 3.4 NG/ML Troponin I 0.02 NG/ML B-Type Natriuretic Peptide 615 PG/ML Lipase 166 U/L MDM Medical Decision Making Medical Screen Exam Complete: Yes Emergency Medical Condition: Yes Differential Diagnosis CHF, COPD exacerbation, PNA, NSTEMI, atypical chest pain, anxiety Narrative Course 56-year-old noncompliant female with a history of congestive heart failure, A. fib on Xarelto, COPD with tobacco dependence presents emergency department complaining of shortness of breath and chest pain for 1 month. Patient states she decided to come in today because she "cannot handle the pain anymore". States her pain is located on the left sternal border radiating to the left flank and chest wall. Laying supine increases her pain. Denies cough. Says that her legs have been more swollen than usual. States that she also has felt nauseous without vomiting. Patient states that she was here in May and left AMA twice because she "could not afford the bill". Patient has not followed up with a bulk sealer operator but does states she is compliant with medications. Her last heart catheter was in 2011 and no stents were placed. Says her next appointment with cardiology is July. Vital signs- tachycardic at 100-120s. 162 ASA, Nitro paste, lasix, duoneb, and 6mg morphine total administered for persistent chest pain. Pt improved with interventions. Pt in no apparent distress. Please see my attending, Dr. Ahuja's note as well regarding this patient. Chest xay- not acute process. Troponin negative, BNP 615. CKMB elevated. Pt will be admitted to obs for CHF exacerbation. Cardio consult placed for Dr. Bejarano. Possible echo in the morning. Diagnosis Primary Impression: Congestive heart failure Qualified Codes: I50.9 - Heart failure, unspecified Admitting Information Admitting Physician Requests: Admit Scripts Furosemide (Furosemide) 20 Mg Tab 20 MG PO DAILY for Blood Pressure Management, #30 TAB 0 Refills Prov: Irma Francisco MD 06/20/17 Condition: Stable Kanika López Jun 18, 2017 17:11
[2017-06-18] MEDS ORDERED: ASPIRIN 81 MG CHEW TAB PO ONE (17:15)
[2017-06-18] MEDS ORDERED: NITROGLYCERIN 2% OINT 1 GM PACKET TOPICAL ONE (17:15)
--- NOTE | 2017-06-18 17:26 | RADRPT ---
EXAM DATE/TIME: 06/18/2017 17:12 [facility] COMPARISON: CHEST SINGLE AP, May 07, 2017, 9:20. INDICATIONS : Shortness of breath, chest pain MEDICAL HISTORY : Congestive heart failure. Gastroesophageal reflux disease. Hypercholeste rolemia. Hypertension, AFIB, Diabetes. SURGICAL HISTORY : Ablasion, AICD left chest, Pacemaker ENCOUNTER: [employer]ela ACUITY: 1 month PAIN SCORE: 4/10 LOCATION: Bilateral chest FINDINGS: A single view of the chest demonstrates the lungs to be symmetrically aerated without evidence of mas s, infiltrate or effusion. The cardiomediastinal contours are unremarkable. Osseous structures are intact. Pacemaker AICD device again noted to overlie the left hemithorax CONCLUSION: Stable chest. No acute cardiopulmonary process. Rey Stafford MD on June 18, 2017 at 17:22 Board Certified Radiologist. This report was verified electronically.
[2017-06-18] MEDS ORDERED: RESP: ALBUTEROL 2.5 MG/IPRATROPIUM 0.5 MG NEB (SCH) NEB ONE (17:30)
--- NOTE | 2017-06-18 17:30 | PD ---
Physical Exam Date Seen by Provider: Jun 18, 2017 Time Seen by Provider: 17:27 Narrative The patient is a 56-year-old female was initially evaluated by the mid-level provider. Please refer to the initial history, physical, diagnostic evaluation , and treatment modality plan. Data Data Last Documented VS Vital Signs Date Time Temp Pulse Resp B/P (MAP) Pulse Ox O2 Delivery O2 Flow Rate FiO2 06/18/17 17:01 106 26 98 Room Air 06/18/17 17:01 152/70 (97) 06/18/17 16:47 98.1 Orders Orders Electrocardiogram (06/18/17 17:06) B-Type Natriuretic Peptide (06/18/17 17:06) Ckmb (Isoenzyme) Profile (06/18/17 17:06) Complete Blood Count With Diff (06/18/17 17:06) Comprehensive Metabolic Panel (06/18/17 17:06) Magnesium (Mg) (06/18/17 17:06) Prothrombin Time / Inr (Pt) (06/18/17 17:06) Act Partial Throm Time (Ptt) (06/18/17 17:06) Troponin I (06/18/17 17:06) Lipase (06/18/17 17:06) Chest, Single Ap (06/18/17 17:06) Aspirin Chew (Aspirin Chew) (06/18/17 17:15) Nitroglycerin 2% Oint (Nitroglycerin 2% (06/18/17 17:15) Albuterol-Ipratropium Neb (Duoneb Neb) (06/18/17 17:30) Morphine Inj (Morphine Inj) (06/18/17 18:15) Morphine Inj (Morphine Inj) (06/18/17 18:15) CKMB (06/18/17 17:23) CKMB% (06/18/17 17:23) Furosemide Inj (Lasix Inj) (06/18/17 18:30) Labs Laboratory Tests Test 06/18/17 17:23 White Blood Count 7.5 TH/MM3 Red Blood Count 4.45 MIL/MM3 Hemoglobin 11.6 GM/DL Hematocrit 36.8 % Mean Corpuscular Volume 82.8 FL Mean Corpuscular Hemoglobin 26.0 PG Mean Corpuscular Hemoglobin Concent 31.4 % Red Cell Distribution Width 17.4 % Platelet Count 479 TH/MM3 Mean Platelet Volume 7.7 FL Neutrophils (%) (Auto) 67.3 % Lymphocytes (%) (Auto) 22.7 % Monocytes (%) (Auto) 5.3 % Eosinophils (%) (Auto) 3.2 % Basophils (%) (Auto) 1.5 % Neutrophils # (Auto) 5.1 TH/MM3 Lymphocytes # (Auto) 1.7 TH/MM3 Monocytes # (Auto) 0.4 TH/MM3 Eosinophils # (Auto) 0.2 TH/MM3 Basophils # (Auto) 0.1 TH/MM3 CBC Comment DIFF FINAL Differential Comment Prothrombin Time 11.4 SEC Prothromb Time International Ratio 1.1 RATIO Activated Partial Thromboplast Time 28.3 SEC Blood Urea Nitrogen 16 MG/DL Creatinine 1.47 MG/DL Random Glucose 160 MG/DL Total Protein 8.4 GM/DL Albumin 4.1 GM/DL Calcium Level 9.4 MG/DL Magnesium Level 1.9 MG/DL Alkaline Phosphatase 169 U/L Aspartate Amino Transf (AST/SGOT) 22 U/L Alanine Aminotransferase (ALT/SGPT) 27 U/L Total Bilirubin 0.3 MG/DL Sodium Level 133 MEQ/L Potassium Level 4.6 MEQ/L Chloride Level 98 MEQ/L Carbon Dioxide Level 27.1 MEQ/L Anion Gap 8 MEQ/L Estimat Glomerular Filtration Rate 37 ML/MIN Total Creatine Kinase 170 U/L Troponin I 0.02 NG/ML B-Type Natriuretic Peptide 615 PG/ML Lipase 166 U/L [facility] Medical Record Reviewed: Yes Supervised Visit with CARO: Yes Interpretation(s) EKG reveals sinus tachycardia with a heart rate of 102. Left ventricular hypertrophy with inverted T waves in lead V4, V5, V6, 1, aVL, 2, 3, and aVF. Last Impressions Chest X-Ray 06/18/17 2952 Signed Impressions: Service Date/Time: Sunday, June 18, 2017 17:12 - CONCLUSION: Stable chest. No acute cardiopulmonary process. Rey Stafford MD Laboratory Tests Test 06/18/17 17:23 White Blood Count 7.5 TH/MM3 Red Blood Count 4.45 MIL/MM3 Hemoglobin 11.6 GM/DL Hematocrit 36.8 % Mean Corpuscular Volume 82.8 FL Mean Corpuscular Hemoglobin 26.0 PG Mean Corpuscular Hemoglobin Concent 31.4 % Red Cell Distribution Width 17.4 % Platelet Count 479 TH/MM3 Mean Platelet Volume 7.7 FL Neutrophils (%) (Auto) 67.3 % Lymphocytes (%) (Auto) 22.7 % Monocytes (%) (Auto) 5.3 % Eosinophils (%) (Auto) 3.2 % Basophils (%) (Auto) 1.5 % Neutrophils # (Auto) 5.1 TH/MM3 Lymphocytes # (Auto) 1.7 TH/MM3 Monocytes # (Auto) 0.4 TH/MM3 Eosinophils # (Auto) 0.2 TH/MM3 Basophils # (Auto) 0.1 TH/MM3 CBC Comment DIFF FINAL Differential Comment Prothrombin Time 11.4 SEC Prothromb Time International Ratio 1.1 RATIO Activated Partial Thromboplast Time 28.3 SEC Blood Urea Nitrogen 16 MG/DL Creatinine 1.47 MG/DL Random Glucose 160 MG/DL Total Protein 8.4 GM/DL Albumin 4.1 GM/DL Calcium Level 9.4 MG/DL Magnesium Level 1.9 MG/DL Alkaline Phosphatase 169 U/L Aspartate Amino Transf (AST/SGOT) 22 U/L Alanine Aminotransferase (ALT/SGPT) 27 U/L Total Bilirubin 0.3 MG/DL Sodium Level 133 MEQ/L Potassium Level 4.6 MEQ/L Chloride Level 98 MEQ/L Carbon Dioxide Level 27.1 MEQ/L Anion Gap 8 MEQ/L Estimat Glomerular Filtration Rate 37 ML/MIN Total Creatine Kinase 170 U/L Troponin I 0.02 NG/ML B-Type Natriuretic Peptide 615 PG/ML Lipase 166 U/L Differential Diagnosis Differential diagnosis includes cardiomyopathy, congestive heart failure, pulmonary edema, pleural effusion, pulmonary embolism, acute coronary syndrome, pneumonia, bronchitis, arrhythmia. Narrative Course I, Dr. Ahuja, have reviewed the advance practice practitioner's documentation and am in agreement, met with the patient face to face, made the diagnosis, and the medical decision making was done by me. *My assessment and Findings: The patient is a 56-year-old female was initially evaluated by the mid-level provider, please refer to the initial history, physical, diagnostic evaluation, treatment modality plan. The patient does have a history of cardiomyopathy, states she has been sick since the beginning of May. The patient is unable to see her primary physician until later this month and is unable to see her commercial hvac technician, Dr. Bejarano, to the beginning of July. The patient notes increasing shortness of breath that is worse with exertion and lying supine. The patient is currently on Xarelto for history of atrial fibrillation, denies any known history of pulmonary embolism or DVT. The patient's symptoms are moderate, worse with exertion and there are no alleviating factors. Physical examination does reveal sinus tachycardia with a heart rate in the low 100s, she does have some wheezing in the lower lobes bilateral. Chest x-ray was obtained. EKG was ordered and interpreted. BNP level was sent to lab. BNP is elevated greater than 600, x-ray reveals cardiomegaly but no other acute findings. The patient was tachycardic with a heart rate over 100 and then an initial respiratory rate of 26. The patient was administered aspirin, Nitropaste, and Lasix. The patient has a cardiomyopathy with progressing symptoms for one month, may need several days of diuresis and possible echocardiogram. Therefore, patient will be 23 hour observation to the medical service. Sepsis Criteria SIRS Criteria (2 or more): Heart rate over 90, RR > 20 or PaCO2 < 32 Criteria Outcome: Meets SIRS criteria Physician Communication [facility] Communication [facility]. Diagnosis Primary Impression: Congestive heart failure Qualified Codes: I50.9 - Heart failure, unspecified Additional Impressions: Cardiomyopathy Qualified Codes: I42.9 - Cardiomyopathy, unspecified SIRS (systemic inflammatory response syndrome) Admitting Information Admitting Physician Requests: Observation Condition: Stable Jose R Ahuja MD Jun 18, 2017 17:30
[2017-06-18 17:44] LABS: AUTOMATED NEUTROPHIL # 5.1 TH/MM3 (1.8-7.7); BASOPHIL # 0.1 TH/MM3 (0-0.2); BASOPHIL % 1.5 % (0.0-2.0); EOSINOPHIL # 0.2 TH/MM3 (0-0.4); EOSINOPHIL % 3.2 % (0.0-4.0); HEMATOCRIT 36.8 % (35.0-46.0); HEMOGLOBIN 11.6 GM/DL (11.6-15.3); LYMPH % 22.7 % (9.0-44.0); LYMPHOCYTE # 1.7 TH/MM3 (1.0-4.8); MEAN CELL VOLUME 82.8 FL (80.0-100.0); MEAN CORPUSCULAR HGB CONC 31.4 % (32.0-36.0); MEAN PLATELET VOLUME 7.7 FL (7.0-11.0); MONO % 5.3 % (0.0-8.0); MONOCYTE # 0.4 TH/MM3 (0-0.9); NEUT % 67.3 % (16.0-70.0); PLATELET COUNT 479 TH/MM3 (150-450); RED BLOOD COUNT 4.45 MIL/MM3 (4.00-5.30); RED CELL DISTRIBUTION WIDTH 17.4 % (11.6-17.2); WHITE BLOOD COUNT 7.5 TH/MM3 (4.0-11.0)
[2017-06-18] MEDS ORDERED: ACET-822 PO (17:49)
[2017-06-18] MEDS ORDERED: STOO100T PO (17:49)
[2017-06-18] MEDS ORDERED: ISOS30TA3 PO (17:49)
[2017-06-18 17:55] LABS: INTERNATIONAL NORMALIZED RATIO 1.1 RATIO; PROTHROMBIN TIME - PATIENT 11.4 SEC (9.8-11.6)
[2017-06-18 18:12] LABS: ALT (GPT) 27 U/L (10-53)
[2017-06-18 18:15] LABS: ALKALINE PHOSPHATASE 169 U/L (45-117); TOTAL BILIRUBIN ADULT 0.3 MG/DL (0.2-1.0); TOTAL PROTEIN 8.4 GM/DL (6.4-8.2); TROPONIN I 0.02 NG/ML (0.02-0.05)
[2017-06-18] MEDS ORDERED: MORPHINE SULFATE 2 MG/ML INJ IV ONE (18:15)
[2017-06-18] MEDS ORDERED: MORPHINE SULFATE 2 MG/ML INJ IV PUSH ONE (18:15)
[2017-06-18 18:16] LABS: ALBUMIN 4.1 GM/DL (3.4-5.0); AST (GOT) 22 U/L (15-37); BICARBONATE 27.1 MEQ/L (21.0-32.0); BLOOD UREA NITROGEN 16 MG/DL (7-18); CALCIUM 9.4 MG/DL (8.5-10.1); CHLORIDE 98 MEQ/L (98-107); CREATININE 1.47 MG/DL (0.50-1.00); GLOMERULAR FILTRATION RATE 37 ML/MIN (>89); GLUCOSE,RANDOM 160 MG/DL (74-106); LIPASE 166 U/L (73-393); MAGNESIUM 1.9 MG/DL (1.5-2.5); SODIUM (NA) 133 MEQ/L (136-145)
[2017-06-18 18:30] VITALS: BP 156/72; PULSE 110; RESP 22; O2SAT 97
[2017-06-18] MEDS ORDERED: FUROSEMIDE 40 MG/4 ML VIAL IV PUSH ONE (18:30)
[2017-06-18] MEDS ORDERED: SODIUM CHLORIDE 0.9% FLUSH 10 ML FLUSH IV FLUSH PRN (20:15)
[2017-06-18] MEDS ORDERED: NALOXONE HCL 0.4 MG/ML AMP IV PUSH PRN (20:15)
[2017-06-18 20:30] VITALS: BP 133/75; PULSE 103; RESP 20; O2SAT 98
[2017-06-18] MEDS ORDERED: MORPHINE SULFATE 2 MG/ML INJ IM ONE (20:30)
[2017-06-18 22:17] VITALS: BP 134/95; PULSE 95; RESP 17; TEMP 97.7; O2SAT 98
[2017-06-18 23:55] LABS: TROPONIN I 0.02 NG/ML (0.02-0.05)
[2017-06-19] VITALS (8 sets, daily range): BP systolic 102–178; BP diastolic 65–89; PULSE 65–105; RESP 16–18; TEMP 97.2–98.3; O2SAT 94–97
[2017-06-19] MEDS: SODIUM CHLORIDE 0.9% FLUSH 10 ML FLUSH IV FLUSH SCH ×3 (01:01→21:52)
[2017-06-19] MEDS: ONDANSETRON HCL 4 MG/2 ML VIAL IV PUSH PRN (01:02)
[2017-06-19] MEDS: MORPHINE SULFATE 2 MG/ML INJ IV PUSH PRN ×4 (01:03→15:10)
[2017-06-19] MEDS ORDERED: EFFE150C PO (02:33)
--- NOTE | 2017-06-19 05:07 | HHI.HP ---
H[facility] Liz Thorne M.D. Admission Diagnosis CHF exacerbation Diagnoses: Chief Complaint: sob and chest pain Travel History International Travel<30 Days: No Contact w/Intl Traveler <30 Da: No Traveled to Known Affected Are: No History of Present Illness 56 y/o female with a history of CHF, AFIB, HLD, CKD, COPD with tobacco dependance, AICD, and Migraines presented to the ED with complaints of SOB and Chest pain for the last few weeks. She states she hasn't been wanting to come in sooner because she can not afford the bill. She states the pain is 10/10, mid chest with radiation to her arms and back, worse with deep breaths and associated SOB. Morphine IV has been helping her. She states she is compliant with most medications that she can afford, but some she is not and is unsure which ones, but she states she does take her Lasix daily. She did make a suicidal statement to the nurse, but she tells me she does not have a plan and is very stressed due to money issues and caring for her . She denies any fever, chills, nausea or vomiting. PCP DR. Melvin Flight Agent Dr. Bejarano, next appointment Jul. Review of Systems Except as stated in HPI: all other systems reviewed are Neg Past Family Social History Past Medical History CHF AFIB HLD CKD COPD Migraines Past Surgical History AICD Hysterectomy Reported Medications Reported Meds & Active Scripts Active Ventolin Hfa 18 GM Inh (Albuterol Sulfate) 90 Mcg/Act Aer 2 Puff INH Q4H PRN Reported Effexor XR 24 HR (Venlafaxine HCl) 150 Mg Cap 150 Mg PO DAILY Stool Softener (Docusate Sodium) 100 Mg Tab 100-200 Mg PO HS Tylenol Extra Strength (Acetaminophen) 500 Mg Tablet 500 Mg PO Q6HR PRN Isosorbide Mononitrate ER (Isosorbide Mononitrate) 30 Mg Leonie 30 Mg PO HS Combivent Respimat Inh (Ipratropium-Albuterol Inh) 20-100 Detention/Act Aero 1 Puff INH QID PRN Xarelto (Rivaroxaban) 20 Mg Tab 20 Mg PO DAILY Dulera 120 Act Inh (Mometasone-Formoterol 120 Act Inh) 200-5 Mcg/Act Inh 1 Puff INH BID Aspirin 81 Mg Chew 81 Mg PO DAILY Gabapentin 600 Mg Tab 600 Mg PO HS Gabapentin 300 Mg Cap 300 Mg PO DAILY Metoprolol Tartrate 50 Mg Tab 50 Mg PO DAILY Topiramate 200 Mg Tab 100 Mg PO BID Atorvastatin (Atorvastatin Calcium) 80 Mg Tab 80 Mg PO HS Furosemide 20 Mg Tab 20 Mg PO DAILY Klor-Con M20 (Potassium Chloride Microencaps) 20 Meq Tab 20 Meq PO DAILY [place] Thyroid (Thyroid) 60 Mg Tab 60 Mg PO DAILY Allergies: Coded Allergies: prednisone (Verified Allergy, Severe, hives, 06/18/17) sertraline (Verified Allergy, Severe, hives, 06/18/17) verapamil (Verified Allergy, Severe, rash, 06/18/17) Active Ordered Medications Current Medications Medications (Trade) Dose Ordered Sig/[place] Route Start Time Stop Time Status Last Admin (NS Flush) 2 ml UNSCH PRN IV FLUSH 06/18/17 20:15 (NS Flush) 2 ml BID IV FLUSH 06/18/17 21:00 06/19/17 01:01 (Narcan Inj) 0.4 mg UNSCH PRN IV PUSH 06/18/17 20:15 (Lasix Inj) 40 mg BID@,18 IV PUSH 06/19/17 07:00 (Zofran Inj) 4 mg Q6H PRN IV PUSH 06/19/17 00:30 06/19/17 01:02 (Morphine Inj) 2 mg Q3H PRN IV PUSH 06/19/17 00:30 06/19/17 01:03 Family History Mom: heart disease, DM Dad: DM Social History Tobacco use: 1 PPD Alcohol use: Denies Illicit drug use: Denies Physical Exam Vital Signs Vital Signs Date Time Temp Pulse Resp B/P (MAP) Pulse Ox O2 Delivery O2 Flow Rate FiO2 06/19/17 04:34 97.8 94 16 161/75 (103) 95 06/19/17 00:32 89 06/19/17 00:23 97.5 88 16 178/89 (118) 97 06/18/17 22:17 97.7 95 17 134/95 (108) 98 06/18/17 21:15 06/18/17 20:30 103 20 133/75 (94) 98 Room Air 06/18/17 18:30 110 22 156/72 (100) 97 Room Air 06/18/17 17:01 106 26 98 Room Air 06/18/17 17:01 103 26 152/70 (97) 98 Room Air 06/18/17 16:47 98.1 120 18 196/88 (124) 98 Physical Exam GENERAL: This is a well-nourished, well-developed patient, who appears restless and painful SKIN: 3 Round lesions on left davis HEAD: Atraumatic. Normocephalic. EYES: Pupils equal round and reactive. Extraocular motions intact. ENT: Nose without bleeding, purulent drainage or septal hematoma. Airway patent. NECK: Trachea midline. No JVD or lymphadenopathy. Supple, nontender, no meningeal signs. CARDIOVASCULAR: Tachycardic rate and rhythm with S3 gallop heard. RESPIRATORY: Diminished Breath sounds at bases. No wheezes, rales, or rhonchi. GASTROINTESTINAL: Abdomen soft, non-tender, nondistended. No hepato-splenomegaly , or palpable masses. MUSCULOSKELETAL: Extremities without clubbing, cyanosis, or edema. No joint tenderness, effusion, or edema noted. No calf tenderness. NEUROLOGICAL: Awake and alert. Motor and sensory grossly within normal limits.Normal speech. Laboratory Laboratory Tests Test 06/18/17 17:23 06/18/17 23:16 White Blood Count 7.5 Red Blood Count 4.45 Hemoglobin 11.6 Hematocrit 36.8 Mean Corpuscular Volume 82.8 Mean Corpuscular Hemoglobin 26.0 Mean Corpuscular Hemoglobin Concent 31.4 Red Cell Distribution Width 17.4 Platelet Count 479 Mean Platelet Volume 7.7 Neutrophils (%) (Auto) 67.3 Lymphocytes (%) (Auto) 22.7 Monocytes (%) (Auto) 5.3 Eosinophils (%) (Auto) 3.2 Basophils (%) (Auto) 1.5 Neutrophils # (Auto) 5.1 Lymphocytes # (Auto) 1.7 Monocytes # (Auto) 0.4 Eosinophils # (Auto) 0.2 Basophils # (Auto) 0.1 CBC Comment DIFF FINAL Differential Comment Prothrombin Time 11.4 Prothromb Time International Ratio 1.1 Activated Partial Thromboplast Time 28.3 Blood Urea Nitrogen 16 Creatinine 1.47 Random Glucose 160 Total Protein 8.4 Albumin 4.1 Calcium Level 9.4 Magnesium Level 1.9 Alkaline Phosphatase 169 Aspartate Amino Transf (AST/SGOT) 22 Alanine Aminotransferase (ALT/SGPT) 27 Total Bilirubin 0.3 Sodium Level 133 Potassium Level 4.6 Chloride Level 98 Carbon Dioxide Level 27.1 Anion Gap 8 Estimat Glomerular Filtration Rate 37 Total Creatine Kinase 170 193 Creatine Kinase MB 3.4 4.2 Troponin I 0.02 0.02 B-Type Natriuretic Peptide 615 Lipase 166 Creatine Kinase MB % 2.2 Result Diagram: 06/18/17 1723 06/18/17 1723 Imaging Last Impressions Chest X-Ray 06/18/17 1706 Signed Impressions: Service Date/Time: Sunday, June 18, 2017 17:12 - CONCLUSION: Stable chest. No acute cardiopulmonary process. MD Abimbola Reyes VTE Risk Assessment Abimbola VTE Risk Assessment: Mod/High Risk (score >= 2) Caprini Risk Assessment Model Point Value = 1 Point Value = 2 Point Value = 3 Point Value = 5 Age 41-60 Minor surgery BMI > 25 kg/m2 Swollen legs Varicose veins or History of unexplained or recurrent spontaneous Oral contraceptives or hormone replacement Sepsis (< 1 month) Serious lung disease, including pneumonia (< 1 month) Abnormal pulmonary function Acute myocardial infarction Congestive heart failure (< 1 month) History of inflammatory bowel disease Medical patient at bed rest Age 61-74 Arthroscopic surgery Major open surgery (> 45 min) Laparoscopic surgery (> 45 min) Malignancy Confined to bed (> 72 hours) Immobilizing plaster cast Central venous access Age >= 75 History of VTE Family history of VTE Factor V Leiden Prothrombin [id number] Lupus anticoagulant Anticardiolipin antibodies Elevated serum homocysteine Heparin-induced thrombocytopenia Other congenital or acquired thrombophilia Stroke (< 1 month) Elective arthroplasty Hip, pelvis, or leg fracture Acute spinal cord injury (< 1 month) Prophylaxis Regimen Total Risk Factor Score Risk Level Prophylaxis Regimen 0-1 Low Early ambulation 2 Moderate Order ONE of the following: *Sequential Compression Device (SCD) *Heparin 5000 units SQ BID 3-4 Higher Order ONE of the following medications: *Heparin 5000 units SQ TID *Enoxaparin/Lovenox 40 mg SQ daily (WT < 150 kg, CrCl > 30 mL/min) *Enoxaparin/Lovenox 30 mg SQ daily (WT < 150 kg, CrCl > 10-29 mL/min) *Enoxaparin/Lovenox 30 mg SQ BID (WT < 150 kg, CrCl > 30 mL/min) AND/OR *Sequential Compression Device (SCD) 5 or more Highest Order ONE of the following medications: *Heparin 5000 units SQ TID (Preferred with Epidurals) *Enoxaparin/Lovenox 40 mg SQ daily (WT < 150 kg, CrCl > 30 mL/min) *Enoxaparin/Lovenox 30 mg SQ daily (WT < 150 kg, CrCl > 10-29 mL/min) *Enoxaparin/Lovenox 30 mg SQ BID (WT < 150 kg, CrCl > 30 mL/min) AND *Sequential Compression Device (SCD) Assessment and Plan Problem List: (1) Chest pain ICD Code: R07.9 - Chest pain, unspecified Status: Acute (2) Congestive heart failure ICD Code: I50.9 - Heart failure, unspecified Status: Acute (3) Afib ICD Code: I48.91 - Unspecified atrial fibrillation Status: Chronic (4) Suicidal ideation ICD Code: R45.851 - Suicidal ideations Status: Acute Assessment and Plan 56 y/o female with a history of CHF, AFIB, HLD, CKD, COPD with tobacco dependance, AICD, and Migraines presented to the ED with complaints of SOB and Chest pain for the last few weeks. CHF exacerbation, BNP 615 Chest x ray reviewed and shows no acute disease -Lasix IV BID ordered -2D echo ordered -Consult cardiology for recommendations Chest pain, suspect due to CHF, r/o ACS and PE EKG reviewed and shows SR with PVCs, troponin .02 -Serial troponin and EKGs -Morphine IV for pain management -Nitropaste ordered -D dimer ordered Afib, chronic -Monitor tele -Cont home Xarelto, and metoprolol Suicidal ideation, patient made statement to nurse, likely due to stress -Sitter at bedside -Psychiatry consult Fungal infection, left davis, suspect ring worm -clotrimazole BID ordered COPD, chronic -Resume home medications Tobacco abuse, chronic -Encouraged to quit DVT prophylaxis: Xarelto Discussed Condition With Patient Problem Qualifiers (1) Congestive heart failure: Qualified Codes: I50.9 - Heart failure, unspecified (2) Afib: Qualified Codes: I48.2 - Chronic atrial fibrillation Viridiana Bautista Jun 19, 2017 05:07
[2017-06-19] MEDS ORDERED: ALBUTEROL SULFATE 90 MCG/ACT HFA 8 GM INHALER INH PRN (05:15)
[2017-06-19 05:40] LABS: AUTOMATED NEUTROPHIL # 5.7 TH/MM3 (1.8-7.7); BASOPHIL # 0.1 TH/MM3 (0-0.2); BASOPHIL % 1.5 % (0.0-2.0); EOSINOPHIL # 0.3 TH/MM3 (0-0.4); EOSINOPHIL % 3.3 % (0.0-4.0); HEMATOCRIT 34.2 % (35.0-46.0); HEMOGLOBIN 10.5 GM/DL (11.6-15.3); LYMPH % 24.5 % (9.0-44.0); LYMPHOCYTE # 2.2 TH/MM3 (1.0-4.8); MEAN CELL VOLUME 82.6 FL (80.0-100.0); MEAN CORPUSCULAR HEMOGLOBIN 25.4 PG (27.0-34.0); MEAN CORPUSCULAR HGB CONC 30.7 % (32.0-36.0); MEAN PLATELET VOLUME 7.4 FL (7.0-11.0); MONO % 7.8 % (0.0-8.0); MONOCYTE # 0.7 TH/MM3 (0-0.9); NEUT % 62.9 % (16.0-70.0); PLATELET COUNT 413 TH/MM3 (150-450); RED BLOOD COUNT 4.14 MIL/MM3 (4.00-5.30); RED CELL DISTRIBUTION WIDTH 17.5 % (11.6-17.2); WHITE BLOOD COUNT 9.1 TH/MM3 (4.0-11.0)
[2017-06-19 05:58] LABS: BICARBONATE 28.2 MEQ/L (21.0-32.0); CALCIUM 9.2 MG/DL (8.5-10.1); CREATININE 1.25 MG/DL (0.50-1.00)
[2017-06-19] MEDS: FUROSEMIDE 40 MG/4 ML VIAL IV PUSH SCH ×2 (06:09→18:36)
[2017-06-19 06:36] LABS: TROPONIN I 0.04 NG/ML (0.02-0.05)
[2017-06-19] MEDS ORDERED: VENLAFAXINE HCL XR 75 MG CAP PO SCH (09:00)
[2017-06-19] MEDS: ASPIRIN 81 MG CHEW TAB PO SCH (09:00)
[2017-06-19] MEDS: METOPROLOL TARTRATE 50 MG TAB PO SCH (09:00)
[2017-06-19] MEDS: RIVAROXABAN 20 MG TAB PO SCH (09:00)
[2017-06-19] MEDS: POTASSIUM CHLORIDE 20 MEQ CONTROLLED RELEASE TAB PO SCH (09:00)
[2017-06-19] MEDS ORDERED: POLYETHYLENE GLYCOL 17 GM PKG PO ONE ×2 (09:15→14:00)
[2017-06-19] MEDS ORDERED: DOCUSATE SODIUM 50 MG/SENNA 8.6 MG TAB PO ONE (09:15)
[2017-06-19] MEDS ORDERED: GLUCAGON 1 MG/ML VIAL OTHER PRN (09:30)
[2017-06-19] MEDS ORDERED: RESP: ALBUTEROL 2.5 MG/IPRATROPIUM 0.5 MG NEB (PRN) NEB (09:30)
[2017-06-19] MEDS ORDERED: DEXTROSE 50% IN WATER 50 ML VIAL(D50) IV PUSH PRN (09:30)
[2017-06-19] MEDS ORDERED: NITROGLYCERIN 0.4 MG SL 25 TABS/BTL SL PRN (09:30)
--- NOTE | 2017-06-19 09:35 | HHI.PR ---
Subjective Remarks Follow up on patient with dyspnea and chest pain. Patient seen and examined. She reports total body pain. She complains of chest pain, bilateral rib pain and abdominal pain. States her breathing is much improved. Denies any fever or chills. She complains of nausea and diffuse abdominal pain. States she is urinating well with some hesitancy. She denies any dysuria. She reports she's not had a bowel movement since [place]. She has a history of chronic constipation. Objective Vitals Vital Signs Date Time Temp Pulse Resp B/P (MAP) Pulse Ox O2 Delivery O2 Flow Rate FiO2 06/19/17 08:00 98.1 105 18 163/73 (103) 96 06/19/17 04:34 97.8 94 16 161/75 (103) 95 06/19/17 00:32 89 06/19/17 00:23 97.5 88 16 178/89 (118) 97 06/18/17 22:17 97.7 95 17 134/95 (108) 98 06/18/17 21:15 06/18/17 20:30 103 20 133/75 (94) 98 Room Air 06/18/17 18:30 110 22 156/72 (100) 97 Room Air 06/18/17 17:01 106 26 98 Room Air 06/18/17 17:01 103 26 152/70 (97) 98 Room Air 06/18/17 16:47 98.1 120 18 196/88 (124) 98 Result Diagram: 06/19/17 0524 06/19/17 0524 Imaging Last Impressions Chest X-Ray 06/18/17 1706 Signed Impressions: Service Date/Time: Sunday, June 18, 2017 17:12 - CONCLUSION: Stable chest. No acute cardiopulmonary process. Rey Stafford MD Objective Remarks GENERAL: Well-nourished, well-developed overweight female patient in NAD. Awake and alert. Sitter at the bedside. SKIN: Warm and dry. No rash. HEAD: Normocephalic. Atraumatic. EYES: Pupils equal and round. No scleral icterus. No injection or drainage. ENT: No nasal bleeding or discharge. Mucous membranes pink and moist. NECK: Supple. Trachea midline. CARDIOVASCULAR: Tachycardic, (+)murmur RESPIRATORY: Nonlabored. Clear to auscultation. Breath sounds equal bilaterally. GASTROINTESTINAL: Abdomen soft, nondistended. (+)diffuse tenderness to palpation. Normoactive bowel sounds x4. MUSCULOSKELETAL: No obvious deformities. Extremities without clubbing, cyanosis , or edema. NEUROLOGICAL: Awake and alert. Able to move all extremities spontaneously. No focal neurologic finding appreciated. Normal speech. Medications and IVs Current Medications Medications (Trade) Dose Ordered Sig/[place] Route Start Time Stop Time Status Last Admin (NS Flush) 2 ml UNSCH PRN IV FLUSH 06/18/17 20:15 (NS Flush) 2 ml BID IV FLUSH 06/18/17 21:00 06/19/17 01:01 (Narcan Inj) 0.4 mg UNSCH PRN IV PUSH 06/18/17 20:15 (Lasix Inj) 40 mg BID@ IV PUSH 06/19/17 07:00 06/19/17 06:09 (Zofran Inj) 4 mg Q6H PRN IV PUSH 06/19/17 00:30 06/19/17 01:02 (Morphine Inj) 2 mg Q3H PRN IV PUSH 06/19/17 00:30 06/19/17 05:25 (Aspirin Chew) 81 mg DAILY PO 06/19/17 09:00 (Lipitor) 80 mg HS PO 06/19/17 21:00 (Imdur) 30 mg HS PO 06/19/17 21:00 (Lopressor) 50 mg DAILY PO 06/19/17 09:00 (KCl) 20 meq DAILY PO 06/19/17 09:00 (Xarelto) 20 mg DAILY PO 06/19/17 09:00 ([place] Thyroid) 60 mg DAILY PO 06/19/17 09:00 (Topamax) 100 mg BID PO 06/19/17 09:00 (Effexor Xr) 150 mg DAILY PO 06/19/17 09:00 (Proair Hfa Inh) 1 puff QID PRN INH 06/19/17 05:15 (Lotrimin 1% Cream) 1 applic Q12HR TOPICAL 06/19/17 09:00 A/P Problem List: (1) Chest pain ICD Code: R07.9 - Chest pain, unspecified Status: Acute (2) Congestive heart failure ICD Code: I50.9 - Heart failure, unspecified Status: Acute (3) Afib ICD Code: I48.91 - Unspecified atrial fibrillation Status: Chronic (4) Suicidal ideation ICD Code: R45.851 - Suicidal ideations Status: Acute Assessment and Plan 56 y/o female with a history of CHF, AFIB, HLD, CKD, COPD with tobacco dependance, AICD, and Migraines presented to the ED with complaints of SOB and Chest pain for the last few weeks. CHF exacerbation, BNP 615 Chest x ray reviewed and shows no acute disease -Lasix IV BID ordered. Monitor electrolytes. -sodium restricted diet -2D echo ordered/pending -Consult cardiology for recommendations Chest pain, suspect due to CHF, r/o ACS EKG reviewed and shows SR with PVCs, troponin .02 -serial troponins negative -ASA daily -Morphine IV and sl Nitro prn chest pain LUL on CKD -improving -avoid nephrotoxic agents -continue to monitor kidney function Hyperglycemia -no reported hx of diabetes -accuchecks -ISS -obtain HgbA1c Anemia, mild, chronic, hypochromic -iron studies, B12, folate ordered -continue to monitor CBC Afib, chronic -rate controlled -Monitor tele -Cont home Xarelto and metoprolol Suicidal ideation, patient made statement to nurse, likely due to stress -Sitter at bedside -Psychiatry consult, appreciate recommendations Fungal infection, left davis, suspect ring worm -clotrimazole BID ordered COPD, chronic, not in acute exacerbation -Resume home medications -Duonebs prn -continue to monitor respiratory function Tobacco abuse, chronic -counselled on smoking cessation Abdominal pain Constipation -bowel regimen and monitor for BM -obtain UA DVT prophylaxis: Xarelto Problem Qualifiers (1) Congestive heart failure: Qualified Codes: I50.9 - Heart failure, unspecified (2) Afib: Qualified Codes: I48.2 - Chronic atrial fibrillation Dede Long Jun 19, 2017 09:35
--- NOTE | 2017-06-19 10:35 | PD.PSY.CON ---
Provisional Diagnosis Admission Date Jun 18, 2017 at 19:47 [place] I. Adjustment disorder with depressed mood, history of depression [place] II. Deferred [place] III. CHF, AFIB, HLD, CKD, COPD, Migraines, IBS History of Present Illness Service Psychiatry Consult Requested By ER team Reason for Consult SI Primary Care Physician Liz Thorne M.D. HPI The patient is a 56 year old woman, domiciled with her in [facility], unemployed, with psychiatric history of depression, no previous psychiatric hospitalizations, she has a suicidal attempt by overdose and 30 years ago, she is on Effexor 150 mg daily prescribed by PCP, with extensive medical history of CHF, AFIB, HLD, CKD, COPD with tobacco dependance, AICD, and Migraines presented to the ED with complaints of SOB and Chest pain for the last few weeks. She states she hasn't been wanting to come in sooner because she can not afford the bill. She states the pain is 10/10, mid chest with radiation to her arms and back, worse with deep breaths and associated SOB. Morphine IV has been helping her. She states she is compliant with most medications that she can afford, but some she is not and is unsure which ones, but she states she does take her Lasix daily. She did make a suicidal statement to the nurse, but she tells me she does not have a plan and is very stressed due to money issues and caring for her . Patient was consulted to psychiatry for this reason. On psychiatric evaluation the patient is calm, cooperative, pleasant. Patient says that she was misunderstood, she says that she had suicidal thoughts due to her current medical situation and economical struggling, but she will never kill herself. Patient says that she loves her , she knows how to needed and useful she is for him and also for her niece and daughter and she does want to . However, she has been feeling overwhelmed and distressed with medical decompensations, hospital bills and her economical situation. She says that her has been having memory problems and has been more dependent on her. The patient reports sadness, but denies hopelessness, she denies helplessness, she is future oriented, motivated to continue medical recommendations and treatment. She denies suicidal and homicidal ideation, she denies visual and auditory hallucinations. She is fully oriented 3, no attention deficit, no fluctuation of consciousness, no paranoia, agitation or behavior dysregulation noted. I spoke with her Zohaib Hampton, , who confirms that he was here when the patient made a suicidal statement, but he is absolutely sure that she was just frustrated and very anxious and she doesn't want to kill herself. Doesn't have any safety concern about taking his back home once medically clear. Does not think that the patient needs psychiatric hospitalization and she can continue her medical care in outpatient if necessary. Review of Systems Constitutional: DENIES: Diaphoretic episodes, Fatigue, Fever, Weight gain, Weight loss, Chills, Dizziness, Change in appetite, Night Sweats Endocrine: DENIES: Abnorml menstrual pattern, Heat/cold intolerance, Polydipsia , Polyuria, Polyphagia Eyes: DENIES: Blurred vision, Diplopia, Eye inflammation, Eye pain, Vision loss , Photosensitivity, Double Vision Ears, nose, mouth, throat: DENIES: Tinnitus, Hearing loss, Vertigo, Nasal discharge, Oral lesions, Throat pain, Hoarseness, Ear Pain, Running Nose, Epistaxis, Sinus Pain, Toothache, Odynophagia Respiratory: DENIES: Apneas, Cough, Snoring, Wheezing, Hemoptysis, Sputum production, Shortness of breath Cardiovascular: DENIES: Chest pain, Palpitations, Syncope, Dyspnea on Exertion , PND, Lower Extremity Edema, Orthopnea, Claudication Gastrointestinal: DENIES: Abdominal pain, Black stools, Bloody stools, Constipation, Diarrhea, Nausea, Vomiting, Difficulty Swallowing, Anorexia Genitourinary: DENIES: Abnormal vaginal bleeding, Dysmenorrhea, Dyspareunia, Sexual dysfunction, Urinary frequency, Urinary incontinence, Urgency, Hematuria , Dysuria, Nocturia, Vaginal discharge Musculoskeletal: DENIES: Joint pain, Muscle aches, Stiffness, Joint Swelling, Back pain, Neck pain Integumentary: DENIES: Abnormal pigmentation, Pruritus, Rash, Nail changes, Breast masses, Breast skin changes, Nipple discharge Hematologic/lymphatic: DENIES: Bruising, Lymphadenopathy Immunologic/allergic: DENIES: Eczema, Urticaria Neurologic: DENIES: Abnormal gait, Headache, Localized weakness, Paresthesias, Seizures, Speech Problems, Tremor, Poor Balance Psychiatric: COMPLAINS OF: Mood changes, Depression, DENIES: Anxiety, Confusion , Hallucinations, Agitation, Suicidal Ideation, Homicidal Ideation, Delusions Past Family Social History Coded Allergies: prednisone (Verified Allergy, Severe, hives, 06/18/17) sertraline (Verified Allergy, Severe, hives, 06/18/17) verapamil (Verified Allergy, Severe, rash, 06/18/17) Active Scripts Albuterol 18 GM Inh (Ventolin Hfa 18 GM Inh) 90 Mcg/Act Aer, 2 PUFF INH Q4H Y for SHORTNESS OF BREATH, #1 INHALER 0 Refills Prov:Dina Corrigan DO 05/07/17 Reported Medications Venlafaxine ER 24 HR (Effexor XR 24 HR) 150 Mg Cap, 150 MG PO DAILY, #30 CAP 0 Refills 06/19/17 Docusate Sodium (Stool Softener) 100 Mg Tab, 100-200 MG PO HS 06/18/17 Acetaminophen (Tylenol Extra Strength) 500 Mg Tablet, 500 MG PO Q6HR Y for MILD PAIN 06/18/17 Isosorbide Mononitrate ER (Isosorbide Mononitrate ER) 30 Mg Leonie, 30 MG PO HS for Prevent Chest Pain, #30 TAB 0 Refills 06/18/17 Ipratropium-Albuterol Inh (Combivent Respimat Inh) 20-100 Skilled Nursing/Act Aero, 1 PUFF INH QID Y for SHORTNESS OF BREATH, #1 INHALER 0 Refills 05/07/17 Rivaroxaban (Xarelto) 20 Mg Tab, 20 MG PO DAILY for Blood Clot Prevention, TAB 0 Refills 05/07/17 Mometasone-Formoterol 120 Act Inh (Dulera 120 Act Inh) 200-5 Mcg/Act Inh, 1 PUFF INH BID for Asthma Management, #1 INHALER 0 Refills 05/07/17 Aspirin (Aspirin) 81 Mg Chew, 81 MG PO DAILY, TAB 0 Refills 05/07/17 Gabapentin (Gabapentin) 600 Mg Tab, 600 MG PO HS, #30 TAB 0 Refills 05/07/17 Gabapentin (Gabapentin) 300 Mg Cap, 300 MG PO DAILY, #60 CAP 0 Refills 05/07/17 Metoprolol Tartrate (Metoprolol Tartrate) 50 Mg Tab, 50 MG PO DAILY, #30 TAB 0 Refills 05/07/17 Topiramate (Topiramate) 200 Mg Tab, 100 MG PO BID for Control Seizures, #60 TAB 0 Refills 05/07/17 Atorvastatin (Atorvastatin) 80 Mg Tab, 80 MG PO HS for Cholesterol Management, # 30 TAB 0 Refills 05/07/17 Furosemide (Furosemide) 20 Mg Tab, 20 MG PO DAILY, #30 TAB 0 Refills 05/07/17 Potassium Chloride Microencaps (Klor-Con M20) 20 Meq Tab, 20 MEQ PO DAILY for Electrolyte Replacement, #30 TAB 0 Refills 05/07/17 Thyroid ([place] Thyroid) 60 Mg Tab, 60 MG PO DAILY for Thyroid Supplement, #30 TAB 0 Refills 05/07/17 Discontinued Reported Medications Isosorbide Mononitrate (Isosorbide Mononitrate) 20 Mg Tab, 30 MG PO HS for Prevent Chest Pain, #60 TAB 0 Refills Take 2 doses 7 hours apart. 05/07/17 Venlafaxine ER 24 HR (Effexor XR 24 HR) 150 Mg Cap, 150 MG PO HS, #30 CAP 0 Refills 05/07/17 Venlafaxine ER 24 HR (Effexor XR 24 HR) 75 Mg Cap, 75 MG PO DAILY, #30 CAP 0 Refills 05/07/17 Current Medications Medications (Trade) Dose Ordered Sig/[place] Route Start Time Stop Time Status Last Admin (NS Flush) 2 ml UNSCH PRN IV FLUSH 06/18/17 20:15 (NS Flush) 2 ml BID IV FLUSH 06/18/17 21:00 06/19/17 01:01 (Narcan Inj) 0.4 mg UNSCH PRN IV PUSH 06/18/17 20:15 (Lasix Inj) 40 mg BID@,18 IV PUSH 06/19/17 07:00 06/19/17 06:09 (Zofran Inj) 4 mg Q6H PRN IV PUSH 06/19/17 00:30 06/19/17 01:02 (Aspirin Chew) 81 mg DAILY PO 06/19/17 09:00 (Lipitor) 80 mg HS PO 06/19/17 21:00 (Imdur) 30 mg HS PO 06/19/17 21:00 (Lopressor) 50 mg DAILY PO 06/19/17 09:00 (KCl) 20 meq DAILY PO 06/19/17 09:00 (Xarelto) 20 mg DAILY PO 06/19/17 09:00 ([place] Thyroid) 60 mg DAILY PO 06/19/17 09:00 (Topamax) 100 mg BID PO 06/19/17 09:00 (Effexor Xr) 150 mg DAILY PO 06/19/17 09:00 (Proair Hfa Inh) 1 puff QID PRN INH 06/19/17 05:15 (Lotrimin 1% Cream) 1 applic Q12HR TOPICAL 06/19/17 09:00 (Izabela-Colace) 1 tab BID PO 06/19/17 21:00 (Nitrostat Sl) 0.4 mg Q5M PRN SL 06/19/17 09:30 (Morphine Inj) 2 mg Q3H PRN IV PUSH 06/19/17 09:30 (D50w (Vial) Inj) 50 ml UNSCH PRN IV PUSH 06/19/17 09:30 (Glucagon Inj) 1 mg UNSCH PRN OTHER 06/19/17 09:30 (NovoLOG SUPPLEMENTAL SCALE) 1 ACHS SLIDING SCALE SQ 06/19/17 12:00 (Duoneb Neb) 1 ampule Q4HR NEB PRN NEB 06/19/17 09:30 Family Psych History Patient denies family psychiatric history Social History She was born and raised in [place], she lives in [facility] with her , she is unemployed, her highest level of education is 12th grade Patient's Strengths (min. 2) Family support Physical Exam No tremors, no EPS, no psychomotor retardation or agitation, no stiffness Vital Signs Vital Signs Date Time Temp Pulse Resp B/P (MAP) Pulse Ox O2 Delivery O2 Flow Rate FiO2 06/19/17 08:00 98.1 105 18 163/73 (103) 96 06/18/17 20:30 Room Air Lab Results Test 06/18/17 17:23 06/18/17 23:16 06/19/17 05:24 White Blood Count 7.5 TH/MM3 9.1 TH/MM3 Red Blood Count 4.45 MIL/MM3 4.14 MIL/MM3 Hemoglobin 11.6 GM/DL 10.5 GM/DL Hematocrit 36.8 % 34.2 % Mean Corpuscular Volume 82.8 FL 82.6 FL Mean Corpuscular Hemoglobin 26.0 PG 25.4 PG Mean Corpuscular Hemoglobin Concent 31.4 % 30.7 % Red Cell Distribution Width 17.4 % 17.5 % Platelet Count 479 TH/MM3 413 TH/MM3 Mean Platelet Volume 7.7 FL 7.4 FL Neutrophils (%) (Auto) 67.3 % 62.9 % Lymphocytes (%) (Auto) 22.7 % 24.5 % Monocytes (%) (Auto) 5.3 % 7.8 % Eosinophils (%) (Auto) 3.2 % 3.3 % Basophils (%) (Auto) 1.5 % 1.5 % Neutrophils # (Auto) 5.1 TH/MM3 5.7 TH/MM3 Lymphocytes # (Auto) 1.7 TH/MM3 2.2 TH/MM3 Monocytes # (Auto) 0.4 TH/MM3 0.7 TH/MM3 Eosinophils # (Auto) 0.2 TH/MM3 0.3 TH/MM3 Basophils # (Auto) 0.1 TH/MM3 0.1 TH/MM3 CBC Comment DIFF FINAL DIFF FINAL Differential Comment Prothrombin Time 11.4 SEC Prothromb Time International Ratio 1.1 RATIO Activated Partial Thromboplast Time 28.3 SEC Blood Urea Nitrogen 16 MG/DL 17 MG/DL Creatinine 1.47 MG/DL 1.25 MG/DL Random Glucose 160 MG/DL 198 MG/DL Total Protein 8.4 GM/DL Albumin 4.1 GM/DL Calcium Level 9.4 MG/DL 9.2 MG/DL Magnesium Level 1.9 MG/DL Alkaline Phosphatase 169 U/L Aspartate Amino Transf (AST/SGOT) 22 U/L Alanine Aminotransferase (ALT/SGPT) 27 U/L Total Bilirubin 0.3 MG/DL Sodium Level 133 MEQ/L 133 MEQ/L Potassium Level 4.6 MEQ/L 4.1 MEQ/L Chloride Level 98 MEQ/L 98 MEQ/L Carbon Dioxide Level 27.1 MEQ/L 28.2 MEQ/L Anion Gap 8 MEQ/L 7 MEQ/L Estimat Glomerular Filtration Rate 37 ML/MIN 45 ML/MIN Total Creatine Kinase 170 U/L 193 U/L 582 U/L Creatine Kinase MB 3.4 NG/ML 4.2 NG/ML 6.7 NG/ML Troponin I 0.02 NG/ML 0.02 NG/ML 0.04 NG/ML B-Type Natriuretic Peptide 615 PG/ML Lipase 166 U/L Creatine Kinase MB % 2.2 % 1.2 % D-Dimer Quantitative (PE/DVT) 0.42 MG/L FEU Mental Status Examination Appearance: Appropriate Consciousness: Alert Orientation: x4 Motor Activity: Normal gait Speech: Unremarkable Language: Adequate Fund of Knowledge: Adequate Attention and Concentration: Adequate Memory: Unremarkable Mood: Sad Affect: Appropriate Thought Process & Associations: Intact Thought Content: Appropriate Hallucination Type: None Delusion Type: None Suicidal Ideation: No Suicidal Plan: No Suicidal Intention: No Homicidal Ideation: No Homicidal Plan: No Homicidal Intention: No Insight: Adequate Judgment: Adequate Assessment & Plan Problem List: (1) Adjustment disorder with depressed mood ICD Codes: F43.21 - Adjustment disorder with depressed mood Assessment & Plan: At the moment of this evaluation the patient presents increase sense of frustration, overwhelmingness, sadness in the context of acute medical problems and increased economical struggling. She denies hopelessness, she denies helplessness, she denies anhedonia, she denies sense of worthlessness, she denies suicidal and homicidal ideation, she denies visual and auditory hallucinations. The patient is logical, coherent and relevant. Oriented 3. She does not meet criteria for involuntary psychiatric admission at this moment. For her depressive symptoms I will increase Effexor to 225 mg daily, patient can continue psychiatric or outpatient. I will follow up while the patient is in the hospital Assessment & Plan Estimated LOS: Chidi Muller MD Jun 19, 2017 10:35
[2017-06-19 10:37] LABS: CHOLESTEROL 215 MG/DL (120-200); IRON (FE) 20 MCG/DL (50-170)
[2017-06-19 11:02] LABS: % SATURATION IRON PROFILE 4.2 % (20-50); CHOLESTEROL/ HDL RATIO 5.32 RATIO; FERRITIN 19 NG/ML (8-252); FOLATE 15.9 NG/ML (3.1-17.5); HDL CHOLESTEROL 40.4 MG/DL (40.0-60.0); LDL CHOLESTEROL 151 MG/DL (0-99); TOTAL IRON BINDING CAPACITY 479 MCG/DL (250-450); TRIGLYCERIDES 119 MG/DL (42-150)
[2017-06-19] MEDS: CLOTRIMAZOLE 1% CREAM 15 GM TOPICAL SCH ×2 (11:38→21:51)
[2017-06-19] MEDS: THYROID 60 MG TAB PO SCH (11:39)
[2017-06-19] MEDS: TOPIRAMATE 100 MG TAB PO SCH ×2 (11:39→21:52)
[2017-06-19] MEDS: INSULIN ASPART SUPPLEMENTAL SCALE SQ SCH ×3 (12:00→22:08)
[2017-06-19] MEDS ORDERED: PILL SPLITTER OTHER PRN (14:00)
--- NOTE | 2017-06-19 15:35 | EKG ---
Date Performed: 06/18/2017 Time Performed: 17:06:04 PTAGE: 56 years EKG: SINUS TACHYCARDIA POSSIBLE LEFT ATRIAL ENLARGEMENT LEFT VENTRICULAR HYPERTROPHY AND ST-T CH JEFFRY Since previous tracing, no significant change noted ABNORMAL ECG PREVIOUS TRACING : 05/07/2017 09.12 DOCTOR: Jessica Ashton Interpretating Date/Time 06/19/2017 15:35:33
--- NOTE | 2017-06-19 15:38 | EKG ---
Date Performed: 06/19/2017 Time Performed: 05:31:25 PTAGE: 56 years EKG: Sinus rhythm WITH SHORT [place] INTERVAL Since previous tracing, no significant change noted ABNORMAL ECG PREVIOUS TRACING : 06/19/2017 00.28 DOCTOR: Jessica Ashton Interpretating Date/Time 06/19/2017 15:36:13
--- NOTE | 2017-06-19 15:38 | EKG ---
Date Performed: 06/19/2017 Time Performed: 00:28:25 PTAGE: 56 years EKG: Sinus rhythm WITH SHORT MO INTERVAL WITH OCCASIONAL VENTRICULAR PREMATURE COMPLEXES LEFT VENTRICULAR HYPERTROPHY AND ST-T CHANGE Since previous tracing, no significant change noted ABNORMAL ECG PREVIOUS TRACING : 06/18/2017 17.06 DOCTOR: Jessica Ashton Interpretating Date/Time 06/19/2017 15:35:53
[2017-06-19 18:22] LABS: BILIRUBIN, URINE NEG (NEG); BLOOD, URINE NEG (NEG); GLUCOSE,URINE NEG (NEG); KETONE, URINE NEG (NEG); NITRITE,URINE NEG (NEG); PH, URINE 7.5 (5.0-8.5); SQUAMOUS EPITHELIAL CELL URINE 1 /hpf (0-5); URINE COLOR LIGHT-YELLOW (YELLW/STRAW); URINE LEUKOCYTE ESTERASE NEG (NEG)
--- NOTE | 2017-06-19 18:27 | MB ---
cc: DEJA PANIAGUA M.D. DATE OF CONSULTATION: 06/19/2017 REASON FOR CARDIOLOGY CONSULTATION: Epigastric pain since May 12, 2017. HISTORY OF PRESENT ILLNESS This is a 56-year-old white female with history of COPD, atrial fibrillation, renal insufficiency, ventricular tachycardia, WPW and paroxysmal atrial fibrillation. She has been followed by Dr. Bejarano. The last visit was February. At that time the patient had epigastric pain already. Nuclear stress test showed fixed anterior defect according Dr. Bejarano's note. On a good day she cannot walk more than ten feet without fatigue. She is very depressed. She said that pressing on the epigastric area will reproduce the pain. The pain also went down to the lower abdomen. She has been constipated. She is known to have hypertension, diabetes, and hyperlipidemia. She still smokes a pack of cigarettes a day. She is a nondrinkr. In 2013, the patient had revision of her defibrillator lead and since then there has been no ICD discharge. In February 2017, ICD interrogation showed paroxysmal atrial fibrillation and flutter, and some nonsustained ventricular tachycardia. The patient is known to have asystole in the past. Her echocardiogram according to Dr. Bejarano's note showed normal ejection fraction. MEDICATIONS: At home: According to Dr. Bejarano's note: 1. [place] thyroid 120 milligrams, 1/2 tablet daily. 2. Baby aspirin a day. 3. Atenolol 100 milligrams twice a day. 4. Lipitor 80 milligrams daily. 5. Combivent inhaler 2 puffs twice a day. 6. Effexor 75 milligrams daily. 7. Eliquis 5 milligrams twice a day. 8. Lasix 20 milligrams daily. 9. Neurontin 600 milligrams, 1/2 in the morning, one tablet in the evening. 10. Imdur 30 milligrams daily. 11. Potassium chloride 20 milliequivalents daily. 12. Metoprolol 50 mg b.i.d. 13. Nexium 20 milligrams daily. 14. Zantac 150 milligrams twice a day. 15. Topiramate 100 milligrams twice a day. 16. Tylenol p.r.n. SOCIAL HISTORY: The patient is and retired. FAMILY HISTORY: Father age 77 of coronary artery disease. Mother age 66 of coronary artery disease. PAST MEDICAL HISTORY: 1. Paroxysmal atrial fibrillation. 2. Ventricular fibrillation. 3. Asystole. 4. WPW. 5. ICD implant. 6. COPD. 7. Hypertension. 8. Diabetes. 9. Hyperlipidemia. 10. Renal failure. 11. Depression. REVIEW OF SYSTEMS: As stated in the chart. ALLERGIES: Prednisone, sertraline and verapamil. PHYSICAL EXAMINATION: VITAL SIGNS: Blood pressure 120/65, pulse 65 per minute, afebrile. CHEST: Decreased air entry with severe degree of bronchospasm. CARDIOVASCULAR: Normal neck veins, S1-S2 normal. No S3. No murmur. ABDOMEN: Reveals tenderness on palpation of the epigastric area, voluntary guarding. DIRECTOR PHYSICAL THERAPY: The patient is very anxious. She wants to go home. Moving all four limbs. ASSESSMENT: 1. Epigastric pain since May 12 with normal enzymes, EKG was unchanged and the pain can be reproduced by pressing at there epigastric area. I doubt very much this is cardiac ischemia in origin. 2. Paroxysmal atrial fibrillation and nonsustained ventricular tachycardia from ICD interrogation in February. 3. Hypertension, diabetes and hyperlipidemia. 4. Renal insufficiency. PLAN From cardiac standpoint the patient can be discharged to be followed by Dr. Bejarano. MD OSITO Aguilar/ELVI /5:30 PM /5:48 PM
--- NOTE | 2017-06-19 19:56 | ECHRPT ---
Indication: Heart failure, unspecified CONCLUSIONS Technically limited study. The left ventricular systolic function is mildly reduced with an estimated ejection fraction of 45%. Wall thickness is normal. Normal left ventricular size. BP: 161 / 75 HR: 94 Rhythm: Sinus MEASUREMENTS (Male / Female) Normal Values Technical Quality:Technically difficult study 2D ECHO LV Diastolic Diameter PLAX 3.2 cm 4.2 - 5.9 / 3.9 - 5.3 cm LV Systolic Diameter PLAX 2.7 cm IVS Diastolic Thickness 0.8 cm 0.6 - 1.0 / 0.6 - 0.9 cm LVPW Diastolic Thickness 0.8 cm 0.6 - 1.0 / 0.6 - 0.9 cm LV Relative Wall Thickness 0.5 LVOT Diameter 1.8 cm DOPPLER AV Peak Velocity 126.0 cm/s AV Peak Gradient 6.4 mmHg LVOT Peak Velocity 57.3 cm/s LVOT Peak Gradient 1.3 mmHg AV Area Cont Eq pk 1.2 cm PV Peak Velocity 111.0 cm/s PV Peak Gradient 4.9 mmHg FINDINGS LEFT VENTRICLE Technically limited study. The left ventricular systolic function is mildly reduced with an estimated ejection fraction of 45%. Wall thickness is normal. Normal left ventricular size. RIGHT VENTRICLE Normal right ventricular size and systolic function. LEFT ATRIUM The left atrial size is normal. RIGHT ATRIUM The right atrial size is normal. ATRIAL SEPTUM Normal atrial septal thickness without atrial level shunting by limited color doppler interrogation. AORTA The aortic root and proximal ascending aorta are normal in size on limited imaging. MITRAL VALVE Structurally normal mitral valve. No mitral valve stenosis or regurgitation. AORTIC VALVE Trileaflet aortic valve. No aortic valve stenosis or regurgitation. TRICUSPID VALVE Structurally normal tricuspid valve. No tricuspid valve stenosis or regurgitation. PULMONARY VALVE The pulmonary valve is not well visualized. VESSELS The inferior vena cava is normal in size. PERICARDIUM No pericardial effusion. Delano Torrez MD, FACC (Electronically Signed) Final Date:19 June 2017 19:55
[2017-06-19] MEDS ORDERED: ISOSORBIDE MONONITRATE 30 MG TAB PO SCH (21:00)
[2017-06-19] MEDS ORDERED: ATORVASTATIN 80 MG TAB PO SCH (21:00)
[2017-06-19] MEDS: FERROUS SULFATE 325 MG (65 MG ELEMENTAL IRON) TAB PO SCH (21:52)
[2017-06-19] MEDS: DOCUSATE SODIUM 50 MG/SENNA 8.6 MG TAB PO SCH (21:52)
[2017-06-19] MEDS: ASCORBIC ACID 500 MG TAB PO SCH (21:52)
[2017-06-20 00:05] VITALS: PULSE 86
[2017-06-20 02:18] VITALS: BP 119/73; PULSE 86; RESP 18; TEMP 98.2; O2SAT 93
[2017-06-20 07:13] VITALS: BP 120/67; PULSE 89; RESP 18; TEMP 98.1; O2SAT 92
[2017-06-20 08:40] VITALS: PULSE 87
[2017-06-20] MEDS ORDERED: VENLAFAXINE HCL XR 75 MG CAP PO SCH (09:00)
[2017-06-20] MEDS: THYROID 60 MG TAB PO SCH (09:22)
[2017-06-20] MEDS: POTASSIUM CHLORIDE 20 MEQ CONTROLLED RELEASE TAB PO SCH (09:23)
[2017-06-20] MEDS: DOCUSATE SODIUM 50 MG/SENNA 8.6 MG TAB PO SCH (09:23)
[2017-06-20] MEDS: METOPROLOL TARTRATE 50 MG TAB PO SCH (09:23)
[2017-06-20] MEDS: RIVAROXABAN 20 MG TAB PO SCH (09:24)
[2017-06-20] MEDS: TOPIRAMATE 100 MG TAB PO SCH (09:24)
[2017-06-20] MEDS: FERROUS SULFATE 325 MG (65 MG ELEMENTAL IRON) TAB PO SCH (09:24)
[2017-06-20] MEDS: ASPIRIN 81 MG CHEW TAB PO SCH (09:24)
[2017-06-20] MEDS: FUROSEMIDE 40 MG/4 ML VIAL IV PUSH SCH (09:26)
[2017-06-20] MEDS: SODIUM CHLORIDE 0.9% FLUSH 10 ML FLUSH IV FLUSH SCH (09:26)
[2017-06-20] MEDS: CLOTRIMAZOLE 1% CREAM 15 GM TOPICAL SCH (09:27)
[2017-06-20] MEDS: ASCORBIC ACID 500 MG TAB PO SCH (09:27)
[2017-06-20] MEDS: INSULIN ASPART SUPPLEMENTAL SCALE SQ SCH ×2 (09:39→12:18)
[2017-06-20 09:44] LABS: AUTOMATED NEUTROPHIL # 5.5 TH/MM3 (1.8-7.7); BASOPHIL # 0.1 TH/MM3 (0-0.2); BASOPHIL % 1.1 % (0.0-2.0); EOSINOPHIL # 0.2 TH/MM3 (0-0.4); EOSINOPHIL % 2.5 % (0.0-4.0); HEMATOCRIT 36.1 % (35.0-46.0); HEMOGLOBIN 11.1 GM/DL (11.6-15.3); LYMPH % 22.2 % (9.0-44.0); LYMPHOCYTE # 1.9 TH/MM3 (1.0-4.8); MEAN CELL VOLUME 82.2 FL (80.0-100.0); MEAN CORPUSCULAR HEMOGLOBIN 25.4 PG (27.0-34.0); MEAN CORPUSCULAR HGB CONC 30.9 % (32.0-36.0); MEAN PLATELET VOLUME 7.8 FL (7.0-11.0); MONO % 9.3 % (0.0-8.0); MONOCYTE # 0.8 TH/MM3 (0-0.9); NEUT % 64.9 % (16.0-70.0); PLATELET COUNT 427 TH/MM3 (150-450); RED BLOOD COUNT 4.39 MIL/MM3 (4.00-5.30); RED CELL DISTRIBUTION WIDTH 17.7 % (11.6-17.2); WHITE BLOOD COUNT 8.5 TH/MM3 (4.0-11.0)
[2017-06-20 10:28] LABS: BICARBONATE 29.3 MEQ/L (21.0-32.0); CALCIUM 9.5 MG/DL (8.5-10.1); CREATININE 1.27 MG/DL (0.50-1.00)
[2017-06-20] MEDS ORDERED: FURO20TA PO (11:07)
--- NOTE | 2017-06-20 11:07 | HHI.DCPOC ---
Discharge Care Plan Goals to Promote Your Health * To prevent worsening of your condition and complications * To maintain your health at the optimal level Directions to Meet Your Goals Take your medications as prescribed Follow your dietary instruction Follow activity as directed Keep your appointments as scheduled Take your immunizations and boosters as scheduled If your symptoms worsen call your PCP, if no PCP go to Urgent Care Center or Emergency Room Smoking is Dangerous to Your Health. Avoid second hand smoke Call the 24-hour hour crisis hotline for domestic abuse at Irma Francisco MD Jun 20, 2017 11:07
[2017-06-20 11:11] VITALS: BP 98/64; PULSE 75; RESP 18; TEMP 98.4; O2SAT 96
--- NOTE | 2017-06-20 11:12 | HHI.PR ---
Subjective Remarks Patient in nad. She is breathing well on room air. No sob, cp, lightheadedness. No LE edema. No abd pain. Denies n/v/d Feels good and wants to go home. Says she doesn't have money to buy meds Objective Vitals Vital Signs Date Time Temp Pulse Resp B/P (MAP) Pulse Ox O2 Delivery O2 Flow Rate FiO2 06/20/17 07:13 98.1 89 18 120/67 (84) 92 06/20/17 02:18 98.2 86 18 119/73 (88) 93 06/20/17 00:05 86 06/19/17 21:21 98.3 76 18 102/66 (78) 94 06/19/17 20:08 73 06/19/17 16:00 97.9 65 17 120/65 (83) 95 06/19/17 15:17 18 06/19/17 12:00 97.2 83 17 121/66 (84) 94 I/O 06/19/17 06/19/17 06/19/17 06/20/17 06/20/17 06/20/17 07:00 15:00 23:00 07:00 15:00 23:00 Intake Total 1680 ml 240 ml Output Total 300 ml Balance 1380 ml 240 ml Intake Oral 1680 ml 240 ml Output Urine Total 300 ml # Voids 6 1 # Bowel Movements 0 Result Diagram: 06/20/17 0840 06/20/17 0840 Imaging Last Impressions Chest X-Ray 06/18/17 1706 Signed Impressions: Service Date/Time: Sunday, June 18, 2017 17:12 - CONCLUSION: Stable chest. No acute cardiopulmonary process. Rey Stafford MD Objective Remarks GENERAL: Well-nourished, well-developed overweight female patient in [facility]. Awake and alert. Sitter at the bedside. CARDIOVASCULAR: Tachycardic, (+)murmur RESPIRATORY: Nonlabored. Clear to auscultation. Breath sounds equal bilaterally. GASTROINTESTINAL: Abdomen soft, nondistended. (+)diffuse tenderness to palpation. Normoactive bowel sounds x4. MUSCULOSKELETAL: No obvious deformities. Extremities without clubbing, cyanosis , or edema. NEUROLOGICAL: Awake and alert. Able to move all extremities spontaneously. No focal neurologic finding appreciated. Normal speech. A/P Problem List: (1) Chest pain ICD Code: R07.9 - Chest pain, unspecified Status: Acute (2) Congestive heart failure ICD Code: I50.9 - Heart failure, unspecified Status: Acute (3) Afib ICD Code: I48.91 - Unspecified atrial fibrillation Status: Chronic (4) Suicidal ideation ICD Code: R45.851 - Suicidal ideations Status: Acute Assessment and Plan 56 y/o female with a history of CHF, AFIB, HLD, CKD, COPD with tobacco dependance, AICD, and Migraines presented to the ED with complaints of SOB and Chest pain for the last few weeks. CHF exacerbation, BNP 615 Chest x ray reviewed and shows no acute disease -Lasix IV BID ordered. Monitor electrolytes. -sodium restricted diet -2D echo ordered/pending -Consult cardiology for recommendations Chest pain, suspect due to CHF, r/o ACS EKG reviewed and shows SR with PVCs, troponin .02 -serial troponins negative -ASA daily -Morphine IV and sl Nitro prn chest pain LUL on CKD -improving -avoid nephrotoxic agents -continue to monitor kidney function Hyperglycemia -no reported hx of diabetes -accuchecks -ISS -obtain HgbA1c Anemia, mild, chronic, hypochromic -iron studies, B12, folate ordered -continue to monitor CBC Afib, chronic -rate controlled -Monitor tele -Cont home Xarelto and metoprolol Suicidal ideation, patient made statement to nurse, likely due to stress -Sitter at bedside -Psychiatry consult, appreciate recommendations Fungal infection, left davis, suspect ring worm -clotrimazole BID ordered COPD, chronic, not in acute exacerbation -Resume home medications -Duonebs prn -continue to monitor respiratory function Tobacco abuse, chronic -counselled on smoking cessation Abdominal pain Constipation -bowel regimen and monitor for BM -obtain UA DVT prophylaxis: Xarelto Discussed with the patient, nurse Discharge Planning DC home in stable condition to follow up as OP with PCP and consultants Diet healthy heart diet Activity ad ulices as tolerated Meds per med reconciliations Problem Qualifiers (1) Congestive heart failure: Qualified Codes: I50.9 - Heart failure, unspecified (2) Afib: Qualified Codes: I48.2 - Chronic atrial fibrillation Irma Francisco MD Jun 20, 2017 11:12
[2017-06-20] MEDS: ONDANSETRON HCL 4 MG/2 ML VIAL IV PUSH PRN (12:12)
[2017-06-20] MEDS ORDERED: SOD PHOSPHATE/SOD BIPHOSPHATE (ADULT) ENEMA 133ML RECTAL ONE (12:15)
[2017-06-20] MEDS ORDERED: BISACODYL 10 MG SUPP RECTAL ONE (12:15)
[2017-06-20 15:14] VITALS: BP 124/67; PULSE 62; RESP 20; TEMP 97.3; O2SAT 95
[2017-06-20 16:27] LABS: HEMOGLOBIN A1C 7.5 % (4.3-6.0)
== END 2017-06-20 18:22 | disposition home or self-care (01) ==
LOC: NEPC 16:45 → NEDA 19:47 → NEPGCP 21:16
PROVIDERS: ADMIT Hospitalist; ATTEND Hospitalist
DX: I50.9 Heart failure, unspecified (principal); I13.0 Hypertensive heart and chronic kidney disease with heart failure and stage 1 through stage 4 chronic kidney disease, or unspecified chronic kidney disease; N18.9 Chronic kidney disease, unspecified; N17.9 Acute kidney failure, unspecified; D63.1 Anemia in chronic kidney disease; I48.2 Chronic atrial fibrillation; I48.92 Unspecified atrial flutter; J44.9 Chronic obstructive pulmonary disease, unspecified; R45.851 Suicidal ideations; I42.9 Cardiomyopathy, unspecified; R65.10 Systemic inflammatory response syndrome (SIRS) of non-infectious origin without acute organ dysfunction; F43.21 Adjustment disorder with depressed mood; E78.5 Hyperlipidemia, unspecified; E11.65 Type 2 diabetes mellitus with hyperglycemia; K59.00 Constipation, unspecified; K21.9 Gastro-esophageal reflux disease without esophagitis; F17.210 Nicotine dependence, cigarettes, uncomplicated; Z79.01 Long term (current) use of anticoagulants; Z79.84 Long term (current) use of oral hypoglycemic drugs; Z86.73 Personal history of transient ischemic attack (TIA), and cerebral infarction without residual deficits; Z86.74 Personal history of sudden cardiac arrest; Z90.710 Acquired absence of both cervix and uterus; Z91.19 Patient's noncompliance with other medical treatment and regimen; Z91.5 Personal history of self-harm
CPT/HCPCS: 71045; 80048; 80053; 80061; 81001; 82550; 82552; 82607; 82728; 82746; 82948; 83036; 83540; 83550; 83690; 83735; 83880; 84443; 84484; 85025; 85379; 85610; 85730; 93005; 93306; 94664; 96372; 96374; 96375; 96376; 99285; G0378; J1815; J1940; J2270; J2405

== ENCOUNTER 2017-07-30 02:55 | Inpatient (IN) | payer BC ==
[~2017-07-30] VITALS: Ht 162.6 cm; Wt 80.0 kg
[2017-07-30] VITALS (12 sets, daily range): BP systolic 107–186; BP diastolic 62–117; PULSE 94–151; RESP 16–24; TEMP 97.8; O2SAT 98–100
[~2017-07-30 02:55] MED LIST changes: +ACET-822 PO; -ISOS20TA PO; +ISOS30TA3 PO; +STOO100T PO; -VENL75XR PO
[2017-07-30] MEDS ORDERED: NITROGLYCERIN 2% OINT 1 GM PACKET TOPICAL ONE (03:15)
[2017-07-30] MEDS ORDERED: ASPIRIN 325 MG TAB PO ONE (03:15)
[2017-07-30] MEDS: METOPROLOL TARTRATE 5 MG/5 ML VIAL IV PUSH PRN ×3 (03:15→03:37)
[2017-07-30] MEDS ORDERED: SODIUM CHLORIDE 0.9% FLUSH 10 ML FLUSH IVF PRN (03:15)
[2017-07-30] MEDS ORDERED: ONDANSETRON HCL 4 MG/2 ML VIAL ONE (03:17)
[2017-07-30] MEDS ORDERED: ONDANSETRON HCL 4 MG/2 ML VIAL IV PUSH ONE (03:30)
[2017-07-30 03:31] LABS: AUTOMATED NEUTROPHIL # 3.5 TH/MM3 (1.8-7.7); BASOPHIL # 0.2 TH/MM3 (0-0.2); BASOPHIL % 2.5 % (0.0-2.0); EOSINOPHIL # 0.2 TH/MM3 (0-0.4); EOSINOPHIL % 2.9 % (0.0-4.0); HEMATOCRIT 32.7 % (35.0-46.0); HEMOGLOBIN 10.2 GM/DL (11.6-15.3); LYMPHOCYTE # 2.2 TH/MM3 (1.0-4.8); MEAN CELL VOLUME 79.8 FL (80.0-100.0); MEAN CORPUSCULAR HEMOGLOBIN 24.9 PG (27.0-34.0); MEAN CORPUSCULAR HGB CONC 31.2 % (32.0-36.0); MEAN PLATELET VOLUME 7.6 FL (7.0-11.0); MONO % 7.2 % (0.0-8.0); MONOCYTE # 0.5 TH/MM3 (0-0.9); NEUT % 53.4 % (16.0-70.0); PLATELET COUNT 381 TH/MM3 (150-450); RED CELL DISTRIBUTION WIDTH 18.2 % (11.6-17.2); WHITE BLOOD COUNT 6.5 TH/MM3 (4.0-11.0)
[2017-07-30 03:42] LABS: INTERNATIONAL NORMALIZED RATIO 1.1 RATIO; PROTHROMBIN TIME - PATIENT 11.4 SEC (9.8-11.6)
[2017-07-30 03:45] LABS: D-DIMER 1.22 MG/L FEU (0.00-0.50)
[2017-07-30 03:53] LABS: ALBUMIN 3.9 GM/DL (3.4-5.0); AST (GOT) 28 U/L (15-37); BICARBONATE 29.1 MEQ/L (21.0-32.0); BLOOD UREA NITROGEN 13 MG/DL (7-18); CALCIUM 9.1 MG/DL (8.5-10.1); CHLORIDE 105 MEQ/L (98-107); CREATININE 1.13 MG/DL (0.50-1.00); GLOMERULAR FILTRATION RATE 50 ML/MIN (>89); GLUCOSE,RANDOM 182 MG/DL (74-106); MAGNESIUM 2.1 MG/DL (1.5-2.5); SODIUM (NA) 140 MEQ/L (136-145)
[2017-07-30 03:58] LABS: ALKALINE PHOSPHATASE 121 U/L (45-117); ALT (GPT) 30 U/L (10-53); TOTAL BILIRUBIN ADULT 0.5 MG/DL (0.2-1.0); TOTAL PROTEIN 7.5 GM/DL (6.4-8.2); TROPONIN I 0.03 NG/ML (0.02-0.05)
[2017-07-30] MEDS ORDERED: HEPARIN-D5W 25,000 U/250 ML 250 ML IV PRN (04:15)
[2017-07-30] MEDS ORDERED: HEPARIN SODIUM - IV 10,000 UNITS/10 ML VIAL IV PUSH ONE (04:15)
--- NOTE | 2017-07-30 04:17 | RADRPT ---
EXAM DATE/TIME: 07/30/2017 03:12 [facility] COMPARISON: CHEST SINGLE AP, June 18, 2017, 17:12. INDICATIONS : Nausea and radiating chest pain MEDICAL HISTORY : Diabetes mellitus type II. Hypertension Hypercholesterolemia. CHF, COPD, GERD, CVA SURGICAL HISTORY : Pacemaker. ENCOUNTER: Initial ACUITY: 2 days PAIN SCORE: 8/10 LOCATION: Bilateral chest FINDINGS: A single view of the chest demonstrates the lungs to be symmetrically aerated without evidence of mas s, infiltrate or effusion. Stable dual-lead AICD device. The cardiomediastinal contours are unremark able. Osseous structures are intact. CONCLUSION: 1. No acute cardiopulmonary disease. Devonte Zhang MD on July 30, 2017 at 4:12 Board Certified Radiologist. This report was verified electronically.
[2017-07-30] MEDS ORDERED: HEPARIN SODIUM - IV 10,000 UNITS/10 ML VIAL ONE (04:18)
[2017-07-30] MEDS ORDERED: IOHEXOL 350 MG/ML 10 ML VIAL (for RAD DIAG) IVCONTRAST ONE (04:37)
--- NOTE | 2017-07-30 05:10 | RADRPT ---
EXAM DATE/TIME: 07/30/2017 04:27 [facility] COMPARISON: No previous studies available for comparison. INDICATIONS : Shortness of breath, elevated d-dimer and patient has not taken her blood thinners; rule out pulmonar y embolus IV CONTRAST: 93 cc Omnipaque 350 (iohexol) IV ; Cumulative dose for multiple exams. RADIATION DOSE: 18.03 CTDIvol (mGy) MEDICAL HISTORY : Cardiovascular disease. Hypertension. Chronic obstructive pulmonary disease.GERD SURGICAL HISTORY : Pacemaker. Hysterectomy. ENCOUNTER: Initial ACUITY: 2 days PAIN SCALE: 3/10 LOCATION: chest TECHNIQUE: Volumetric scanning of the chest was performed using a pulmonary embolism protocol MIP images were re constructed. Using automated exposure control and adjustment of the mA and/or kV according to patien t size, radiation dose was kept as low as reasonably achievable to obtain optimal diagnostic quality images. DICOM format image data is available electronically for review and comparison. Follow-up recommendations for detected pulmonary nodules are based at a minimum on nodule size and pa tient risk factors according to Fleischner Society Guidelines. FINDINGS: PULMONARY ARTERIES: No filling defects are seen in the pulmonary arteries through the segmental level. LUNGS: Diffuse ground glass opacities versus mosaic attenuation. PLEURAE: There is no pleural thickening or pleural effusion. MEDIASTINUM: There is good visualization of the great vessels of the middle mediastinum. No evidence of mediastin al or hilar adenopathy/mass. MUSCULOSKELETAL: Within normal limits for patient age. MISCELLANEOUS: The visualized upper abdominal organs demonstrate no acute abnormality. CONCLUSION: 1. No CT evidence of pulmonary artery embolism. 2. Diffuse groundglass opacities versus mosaic attenuation, favor mosaic attenuation. Differential co nsiderations include small reactive airway disease, air-trapping or less likely infiltrative disease. Devonte Zhang MD on July 30, 2017 at 5:02 Board Certified Radiologist. This report was verified electronically.
--- NOTE | 2017-07-30 05:11 | PD ---
HPI . Chest pain Chief Complaint: Chest Pain Time Seen by Provider: 03:05 Travel History International Travel<30 days: No Contact w/Intl Traveler<30days: No Traveled to known affect area: No History of Present Illness HPI 56-year-old female presents with having acute left sided chest pain, palpitations, tachycardia. Patient is a history of atrial fibrillation with RVR , is noncompliant with medications secondary lobule to afford that, is not had medication for the past 3 months. Patient is a smoker as well. Patient denies having any significant leg pain or leg swelling, notes chest pain is a dull heavy ache in the anterior aspect of her chest which is nonradiating. Patient has no associated diaphoresis. Denies fevers chills sweats. Patient also notes having diffuse abdominal pain is crampy in nature over the past several days. PFSH Past Medical History Narrative Medical Past medical history reviewed Hx Anticoagulant Therapy: Yes (Xarelto) Atrial Fibrillation: Yes Anxiety: No Depression: Yes Cancer: No Cardiovascular Problems: Yes (HTN, A-fib, AICD, cadiomyopathy, CHF) High Cholesterol: Yes Chest Pain: No Congestive Heart Failure: Yes COPD: Yes Cerebrovascular Accident: Yes (2014) Diabetes: Yes (CONTROLLED WITH DIET) Patient Takes Glucophage: No Endocrine: Yes Gastrointestinal Disorders: Yes (GERD) GERD: Yes Glaucoma: No Genitourinary: Yes (HESITANCY) Headaches: Yes Hepatitis: No Hiatal Hernia: No Hypertension: Yes Immune Disorder: No Implanted Vascular Access Dvce: Yes Musculoskeletal: No Neurologic: Yes (BAD BALANCE) Psychiatric: Yes Reproductive: No Respiratory: Yes (COPD) Integumentary: No Thyroid Disease: No ?: Not Past Surgical History Body Medical Devices: AICD Cardiac Surgery: Yes (ABLATION X2) Hysterectomy: Yes Pacemaker: Yes Thoracic Surgery: Yes (AICD LEFT CHEST MEDTRONIC ) Other Surgery: Yes Social History Alcohol Use: No Tobacco Use: Yes (1PPD) Substance Use: No Allergies-Medications (Allergen,Severity, Reaction): Coded Allergies: prednisone (Verified Allergy, Severe, hives, 07/30/17) sertraline (Verified Allergy, Severe, hives, 07/30/17) verapamil (Verified Allergy, Severe, rash, 07/30/17) Reported Meds & Prescriptions Reported Meds & Active Scripts Active Furosemide 20 Mg Tab 20 Mg PO DAILY Ventolin Hfa 18 GM Inh (Albuterol Sulfate) 90 Mcg/Act Aer 2 Puff INH Q4H PRN Reported Effexor XR 24 HR (Venlafaxine HCl) 150 Mg Cap 150 Mg PO DAILY Stool Softener (Docusate Sodium) 100 Mg Tab 100-200 Mg PO HS Tylenol Extra Strength (Acetaminophen) 500 Mg Tablet 500 Mg PO Q6HR PRN Isosorbide Mononitrate ER (Isosorbide Mononitrate) 30 Mg Leonie 30 Mg PO HS Combivent Respimat Inh (Ipratropium-Albuterol Inh) 20-100 Fdc/Act Aero 1 Puff INH QID PRN Xarelto (Rivaroxaban) 20 Mg Tab 20 Mg PO DAILY Dulera 120 Act Inh (Mometasone-Formoterol 120 Act Inh) 200-5 Mcg/Act Inh 1 Puff INH BID Aspirin 81 Mg Chew 81 Mg PO DAILY Gabapentin 300 Mg Cap 300 Mg PO DAILY Metoprolol Tartrate 50 Mg Tab 50 Mg PO DAILY Topiramate 200 Mg Tab 100 Mg PO BID Atorvastatin (Atorvastatin Calcium) 80 Mg Tab 80 Mg PO HS Klor-Con M20 (Potassium Chloride Microencaps) 20 Meq Tab 20 Meq PO DAILY [place] Thyroid (Thyroid) 60 Mg Tab 60 Mg PO DAILY Narrative Medication Allergies and medications reviewed Review of Systems Except as stated in HPI: all other systems reviewed are Neg General / Constitutional: No: Fever Eyes: No: Visual changes HENT: No: Headaches Cardiovascular: Positive: Chest Pain or Discomfort, Palpitations, Tachycardia, Dyspnea on exertion, No: Diaphoresis, Syncope, Varicosities, Edema Respiratory: Positive: Shortness of Breath, No: Cough, Wheezing, Sneezing, Orthopnea, Hemoptysis, Stridor, Night Sweats, Pleuritic Pain Gastrointestinal: Positive: Nausea, Abdominal Pain, No: Vomiting, Diarrhea, Hematemesis, Hematochezia Genitourinary: No: Urgency, Frequency, Dysuria, Hematuria Musculoskeletal: No: Edema, Pain Skin: No Rash Neurologic: No: Weakness Psychiatric: No: Depression Endocrine: No: Polydipsia Hematologic/Lymphatic: No: Easy Bruising Physical Exam Narrative GENERAL: Awake and alert, oriented 3, moderate distress. Heart rate tachycardic at 150 bpm irregularly irregular, atrial fibrillation with a dependency on shelter monitor. Markedly hypertensive 186/110. Afebrile SKIN: Warm and dry. Skin slightly sallow, no cyanosis diaphoresis or pallor HEAD: Atraumatic. Normocephalic. EYES: Pupils equal and round. No scleral icterus. No injection or drainage. ENT: No nasal bleeding or discharge. Mucous membranes pink and moist. NECK: Trachea midline. No JVD. Supple full range of motion no stridor no goiter appreciated CARDIOVASCULAR: Tachycardia as noted above 150 bpm, irregularly irregular, difficult to appreciate heart sounds distinctly, no obvious murmurs rubs or gallops RESPIRATORY: No accessory muscle use. Clear to auscultation. Breath sounds equal bilaterally. GASTROINTESTINAL: Abdomen soft, non-tender, nondistended. Hepatic and splenic margins not palpable. MUSCULOSKELETAL: Extremities without clubbing, cyanosis, or edema. No obvious deformities. NEUROLOGICAL: Awake and alert. No obvious gross focal deficits PSYCHIATRIC: Appropriate mood and affect; insight and judgment normal. Pleasant Data Data Last Documented VS Vital Signs Date Time Temp Pulse Resp B/P (MAP) Pulse Ox O2 Delivery O2 Flow Rate FiO2 07/30/17 05:00 114 16 120/100 (107) 100 Room Air 2.00 07/30/17 02:56 97.8 Orders Orders Electrocardiogram (07/30/17 03:05) B-Type Natriuretic Peptide (07/30/17 03:05) Ckmb (Isoenzyme) Profile (07/30/17 03:05) Complete Blood Count With Diff (07/30/17 03:05) Comprehensive Metabolic Panel (07/30/17 03:05) D-Dimer (07/30/17 03:05) Magnesium (Mg) (07/30/17 03:05) Prothrombin Time / Inr (Pt) (07/30/17 03:05) Act Partial Throm Time (Ptt) (07/30/17 03:05) Troponin I (07/30/17 03:05) Chest, Single Ap (07/30/17 03:05) Ecg Monitoring (07/30/17 03:05) Bilateral Bp Monitoring (07/30/17 03:05) Iv Access Insert/Monitor (07/30/17 03:05) Oximetry (07/30/17 03:05) Oxygen Administration (07/30/17 03:05) Sodium Chloride 0.9% Flush (Ns Flush) (07/30/17 03:15) Metoprolol Tartrate Inj (Lopressor Inj) (07/30/17 03:15) Nitroglycerin 2% Oint (Nitroglycerin 2% (07/30/17 03:15) Aspirin (Aspirin) (07/30/17 03:15) Ondansetron Inj (Zofran Inj) (07/30/17 03:30) Ondansetron Inj (Zofran Inj) (07/30/17 03:17) Lactic Acid (07/30/17 03:19) Ct Pulmonary Angiogram (07/30/17 ) Ct Abd/Pel W Iv Contrast(Rout) (07/30/17 ) CKMB (07/30/17 03:10) CKMB% (07/30/17 03:10) Electrocardiogram (07/30/17 ) Heparin Inj (Heparin Inj) (07/30/17 04:15) Heparin-D5w 25,000 U/250 Ml (Heparin-D5w (07/30/17 04:15) Act Partial Throm Time (Ptt) (07/30/17 04:13) Prothrombin Time / Inr (Pt) (07/30/17 04:13) Cbc No Diff, Includes Plts (07/30/17 04:13) Cbc No Diff, Includes Plts (08/02/17 06:00) Act Partial Throm Time (Ptt) (07/30/17 11:13) Occult Blood (Hemoccult) Stool (07/30/17 04:13) Heparin Inj (Heparin Inj) (07/30/17 04:18) Iohexol 350 Inj (Omnipaque 350 Inj) (07/30/17 04:37) Admit Order (Ed Use Only) (07/30/17 05:54) Us Abdomen Gallbladder (07/30/17 ) Labs Laboratory Tests Test 07/30/17 03:10 07/30/17 03:25 White Blood Count 6.5 TH/MM3 Red Blood Count 4.10 MIL/MM3 Hemoglobin 10.2 GM/DL Hematocrit 32.7 % Mean Corpuscular Volume 79.8 FL Mean Corpuscular Hemoglobin 24.9 PG Mean Corpuscular Hemoglobin Concent 31.2 % Red Cell Distribution Width 18.2 % Platelet Count 381 TH/MM3 Mean Platelet Volume 7.6 FL Neutrophils (%) (Auto) 53.4 % Lymphocytes (%) (Auto) 34.0 % Monocytes (%) (Auto) 7.2 % Eosinophils (%) (Auto) 2.9 % Basophils (%) (Auto) 2.5 % Neutrophils # (Auto) 3.5 TH/MM3 Lymphocytes # (Auto) 2.2 TH/MM3 Monocytes # (Auto) 0.5 TH/MM3 Eosinophils # (Auto) 0.2 TH/MM3 Basophils # (Auto) 0.2 TH/MM3 CBC Comment DIFF FINAL Differential Comment Prothrombin Time 11.4 SEC Prothromb Time International Ratio 1.1 RATIO Activated Partial Thromboplast Time 23.9 SEC D-Dimer Quantitative (PE/DVT) 1.22 MG/L FEU Blood Urea Nitrogen 13 MG/DL Creatinine 1.13 MG/DL Random Glucose 182 MG/DL Total Protein 7.5 GM/DL Albumin 3.9 GM/DL Calcium Level 9.1 MG/DL Magnesium Level 2.1 MG/DL Alkaline Phosphatase 121 U/L Aspartate Amino Transf (AST/SGOT) 28 U/L Alanine Aminotransferase (ALT/SGPT) 30 U/L Total Bilirubin 0.5 MG/DL Sodium Level 140 MEQ/L Potassium Level 4.2 MEQ/L Chloride Level 105 MEQ/L Carbon Dioxide Level 29.1 MEQ/L Anion Gap 6 MEQ/L Estimat Glomerular Filtration Rate 50 ML/MIN Total Creatine Kinase 221 U/L Creatine Kinase MB 2.7 NG/ML Creatine Kinase MB % 1.2 % Troponin I 0.03 NG/ML B-Type Natriuretic Peptide 550 PG/ML Lactic Acid Level 1.2 mmol/L MDM Medical Decision Making Medical Screen Exam Complete: Yes Emergency Medical Condition: Yes Medical Record Reviewed: Yes Differential Diagnosis Chest pain, atrial fibrillation with RVR, ischemic bowel, pulmonary embolus, Narrative Course EKG atrial fibrillation with RVR rate approximately 150 bpm with aberrancy, probable left bundle branch block Chest x-ray no acute infiltrates, no pulmonary edema appreciated. Laboratory examinations reviewed, patient has elevated d-dimer. Patient is BNP is mildly elevated at 500. Consideration for patient's probable prolonged atrial fibrillation uncontrolled rate with RVR, and diffuse abdominal pain and mild tenderness, patient has high risk for ischemic bowel. CT chest abdomen pelvis performed pulmonary angiogram , no pulmonary embolus seen, mild emphysematous disease. Patient has increased thickening of bowel wall diffusely left lower. Patient also has a slightly enlarged gallbladder with wall enhanced slightly thickened wall. No shan- cholecystic fluid noted. Secondary to patient's chest pain, prolonged atrial fibrillation with RVR, and abdominal pain noted above, patient was started on heparin ACS protocol, for treatment of potential acute coronary syndrome, ischemic bowel, and anticoagulation for possible spontaneous and/or elective cardioversion. Patient has a history of chest pain with verapamil, upon presentation was administered Lopressor 5 mg every 5 minutes, aspirin 325 mg orally, nitro paste to chest wall, With resolution of patient's tachycardia, rate controlled 90s to low 100s, pressure 119/65, chest pain-free. Patient states she feels greatly improved Patient quite concerned about her who is newly diagnosed with Alzheimer' s being home alone. Patient feels significantly approved, has decided to sign AGAINST MEDICAL ADVICE. Extensive conversation with patient regarding the nature of her disease, and strong recommendation that the patient takes medications as prescribed. Case management called to evaluate to for assistance for patient for medication regimen as outpatient. Patient expressed understanding of the potential for significant worsening of her disease process , significant morbidity and potential mortality. Patient also instructed that she is welcome to come back and get care at the [facility] if needed at any time despite signing out AGAINST MEDICAL ADVICE. Diagnosis Primary Impression: Atrial fibrillation with RVR Additional Impression: Abdominal pain Qualified Codes: R10.84 - Generalized abdominal pain Scripts Thyroid ([place] Thyroid) 120 Mg Tab 120 MG PO DAILY for Thyroid Supplement, #30 TAB 0 Refills Prov: Moses Wilkerson MD 07/30/17 Isosorbide Mononitrate (Isosorbide Mononitrate) 10 Mg Tab 10 MG PO BID for Prevent Chest Pain, #60 TAB Take 2 doses 7 hours apart. Prov: Moses Wilkerson MD 07/30/17 Topiramate (Topiramate) 50 Mg Tab 50 MG PO BID for Control Seizures, #60 TAB 0 Refills Prov: Moses Wilkerson MD 07/30/17 Metoprolol Tartrate (Metoprolol Tartrate) 50 Mg Tab 50 MG PO BID, #60 TAB 0 Refills Prov: Moses Wilkerson MD 07/30/17 Rivaroxaban (Xarelto) 20 Mg Tab 20 MG PO DAILY for Blood Clot Prevention, #30 TAB 0 Refills Prov: Moses Wilkerson MD 07/30/17 Ipratropium-Albuterol Inh (Combivent Respimat Inh) 20-100 Fdc/Act Aero 1 PUFF INH QID for Asthma Management, #1 INHALER 0 Refills Prov: Moses Wilkerson MD 07/30/17 Disposition: 07 AGAINST MEDICAL ADVICE Condition: Fair Moses Wilkerson MD Jul 30, 2017 05:11
--- NOTE | 2017-07-30 05:23 | RADRPT ---
EXAM DATE/TIME: 07/30/2017 04:27 [facility] COMPARISON: No previous studies available for comparison. INDICATIONS : Abdominal pain with nausea X 2 days. IV CONTRAST: 93 cc Omnipaque 350 (iohexol) IV ; Cumulative dose for multiple exams. ORAL CONTRAST: No oral contrast ingested. RADIATION DOSE: 10.73 CTDIvol (mGy) MEDICAL HISTORY : Cardiovascular disease. Chronic obstructive pulmonary disease. Hypertension.GERD SURGICAL HISTORY : Pacemaker. Hysterectomy. ENCOUNTER: Initial ACUITY: 2 days PAIN SCALE: 6/10 LOCATION: abdomen TECHNIQUE: Volumetric scanning of the abdomen and pelvis was performed. Using automated exposure control and ad justment of the mA and/or kV according to patient size, radiation dose was kept as low as reasonably achievable to obtain optimal diagnostic quality images. DICOM format image data is available electro nically for review and comparison. FINDINGS: LIVER: Diffusely decreased hepatic density. Liver is enlarged measuring up to 21 cm. No focal hepatic mass o r intrahepatic ductal dilatation. There is mild diffuse gallbladder wall thickening. No calcified gal lstones. SPLEEN: Normal size without lesion. PANCREAS: Within normal limits. KIDNEYS: Normal in size and shape. There is no mass, stone or hydronephrosis. ADRENAL GLANDS: Within normal limits. VASCULAR: There is no aortic aneurysm. BOWEL/MESENTERY: Appendix is visualized and normal in appearance. The cecum is in the left lower quadrant but not dist ended and otherwise unremarkable. Bowel appears unremarkable without evidence for obstruction. Trace amount of free fluid in the deep pelvis. ABDOMINAL WALL: Within normal limits. RETROPERITONEUM: There is no lymphadenopathy. BLADDER: No wall thickening or mass. REPRODUCTIVE: Uterus is surgically absent. INGUINAL: There is no lymphadenopathy or hernia. MUSCULOSKELETAL: Within normal limits for patient age. CONCLUSION: 1. Cecum is in the left lower quadrant but otherwise unremarkable without evidence for obstruction or inflammatory change. This likely reflects a mobile cecum rather than cecal volvulus. 2. Normal appendix. 3. Trace free fluid in the deep pelvis. Given lack of correlative findings, this may be physiologic. 4. Hepatomegaly with diffusely decreased density consistent with hepatic steatosis. Devonte Zhang MD on July 30, 2017 at 5:10 Board Certified Radiologist. This report was verified electronically.
[2017-07-30] MEDS ORDERED: SODIUM CHLOR 0.9% 1000 ML INJ 1,000 ML IV SCH (05:55)
[2017-07-30] MEDS ORDERED: LACTULOSE SYRUP 20 GM/30 ML CUP PO PRN (06:00)
[2017-07-30] MEDS ORDERED: BISACODYL 10 MG SUPP RECTAL PRN (06:00)
[2017-07-30] MEDS ORDERED: NON-FORMULARY DRUG (Ipratropium-Albuterol Inh (Combivent Respimat Inh) 1 PUFF) INH PRN (06:00)
[2017-07-30] MEDS ORDERED: MORPHINE SULFATE 2 MG/ML INJ IV PUSH PRN (06:00)
[2017-07-30] MEDS ORDERED: ONDANSETRON HCL 4 MG/2 ML VIAL IVP PRN (06:00)
[2017-07-30] MEDS ORDERED: MAGNESIUM HYDROXIDE SUSP 30 ML CUP PO PRN (06:00)
[2017-07-30] MEDS ORDERED: ALBUTEROL SULFATE 90 MCG/ACT HFA 8 GM INHALER INH PRN (06:00)
[2017-07-30] MEDS ORDERED: SENNOSIDES 8.6 MG TAB PO PRN (06:00)
[2017-07-30] MEDS ORDERED: SODIUM CHLORIDE 0.9% FLUSH 10 ML FLUSH IV FLUSH PRN (06:00)
[2017-07-30] MEDS ORDERED: ACETAMINOPHEN 325 MG TAB PO PRN (06:00)
[2017-07-30] MEDS ORDERED: ACETAMINOPHEN/HYDROcodone 325 MG/5 MG TAB PO PRN (06:00)
[2017-07-30] MEDS ORDERED: METOPROLOL TARTRATE 5 MG/5 ML VIAL IV PUSH ONE (07:30)
[2017-07-30] MEDS ORDERED: METOPROLOL TARTRATE 50 MG TAB PO ONE (07:30)
[2017-07-30] MEDS ORDERED: METO50TA PO (07:35)
[2017-07-30] MEDS ORDERED: TOPI50TA7 PO (07:35)
[2017-07-30] MEDS ORDERED: ISOS10TA3 PO (07:35)
[2017-07-30] MEDS ORDERED: IPRAAER INH (07:35)
[2017-07-30] MEDS ORDERED: XARE20TA PO (07:35)
[2017-07-30] MEDS ORDERED: ARMO120T PO (07:35)
[2017-07-30] MEDS ORDERED: TIOTROPIUM BROMIDE 18 MCG INH INH SCH (09:00)
[2017-07-30] MEDS ORDERED: METOPROLOL TARTRATE 50 MG TAB PO SCH (09:00)
[2017-07-30] MEDS ORDERED: ASPIRIN 81 MG CHEW TAB PO SCH (09:00)
[2017-07-30] MEDS ORDERED: DOCUSATE SODIUM 50 MG/SENNA 8.6 MG TAB PO SCH (09:00)
[2017-07-30] MEDS ORDERED: ALBUTEROL SULFATE 90 MCG/ACT HFA 8 GM INHALER INH SCH ×2 (09:00)
[2017-07-30] MEDS ORDERED: SODIUM CHLORIDE 0.9% FLUSH 10 ML FLUSH IV FLUSH SCH (09:00)
[2017-07-30] MEDS ORDERED: VENLAFAXINE HCL XR 75 MG CAP PO SCH (09:00)
[2017-07-30] MEDS ORDERED: TOPIRAMATE 200 MG TAB PO SCH (09:00)
[2017-07-30] MEDS ORDERED: GABAPENTIN 300 MG CAP PO SCH (09:00)
[2017-07-30] MEDS ORDERED: FUROSEMIDE 20 MG TAB PO SCH (09:00)
[2017-07-30] MEDS ORDERED: MOMETASONE FORMOTEROL INH SCH (09:00)
--- NOTE | 2017-07-30 15:29 | EKG ---
Date Performed: 07/30/2017 Time Performed: 03:04:54 PTAGE: 56 years EKG: ATRIAL FIBRILLATION WITH RAPID VENTRICULAR RESPONSE POSSIBLE LEFT VENTRICULAR HYPERTROPHY S T DEVIATION AND MARKED T-WAVE ABNORMALITY, CONSIDER LATERAL ISCHEMIA ST DEVIATION AND MARKED T-WAVE A BNORMALITY, CONSIDER INFERIOR ISCHEMIA Compared to previous tracing, atrial fibrillation is new. [place] parul QRS and ST changes are largely unchanged Clinical correlation is recommended ABNORMAL ECG NO PREVIOUS TRACING DOCTOR: Heber Delgado Interpretating Date/Time 07/30/2017 15:28:52
--- NOTE | 2017-07-30 15:30 | PD.AMA ---
Against Medical Advice Note Diagnosis: (1) Afib (2) Left against medical advice (3) Arrhythmia (4) Chest pain Discharge Disposition: Against Medical Advice Pt Condition on Discharge: Fair AMA Statement Patient Telma Hampton has decided to leave the hospital against medical advice. This patient has the capacity to refuse care and understands the risks of leaving, including permanent disability and/or , and has had an opportunity to ask questions about her condition. The patient has been informed that she may return for care at any time, and follow up has been arranged/ advised. Richy Ta MD Jul 30, 2017 15:30
--- NOTE | 2017-07-30 15:30 | EKG ---
Date Performed: 07/30/2017 Time Performed: 04:08:59 PTAGE: 56 years EKG: ATRIAL FIBRILLATION WITH RAPID VENTRICULAR RESPONSE POSSIBLE LEFT VENTRICULAR HYPERTROPHY S T DEVIATION AND MARKED T-WAVE ABNORMALITY, CONSIDER ANTEROLATERAL ISCHEMIA ST DEVIATION AND MARKED T- WAVE ABNORMALITY, CONSIDER INFERIOR ISCHEMIA Compared to previous tracing, rate has slowed but atrial fibrillation persists. Pacer spike is noted Clinical correlation is recommended ABNORMAL ECG PREVIOUS TRACING : 06/19/2017 05.31 DOCTOR: Heber Delgado Interpretating Date/Time 07/30/2017 15:29:24
[2017-07-30] MEDS ORDERED: ISOSORBIDE MONONITRATE 30 MG CR TAB (IMDUR) PO SCH (21:00)
[2017-07-30] MEDS ORDERED: ATORVASTATIN 80 MG TAB PO SCH (21:00)
== END 2017-07-30 08:49 | disposition left against medical advice (07) | DRG 310 ==
LOC: NEPC 02:55 → NEDA 05:57
PROVIDERS: ADMIT Hospitalist; ATTEND Hospitalist
DX: I48.91 Unspecified atrial fibrillation (principal); I11.0 Hypertensive heart disease with heart failure; R10.84 Generalized abdominal pain; E78.00 Pure hypercholesterolemia, unspecified; J44.9 Chronic obstructive pulmonary disease, unspecified; I44.7 Left bundle-branch block, unspecified; E11.9 Type 2 diabetes mellitus without complications; R00.0 Tachycardia, unspecified; K82.8 Other specified diseases of gallbladder; K21.9 Gastro-esophageal reflux disease without esophagitis; Z95.810 Presence of automatic (implantable) cardiac defibrillator; F17.210 Nicotine dependence, cigarettes, uncomplicated; Z86.73 Personal history of transient ischemic attack (TIA), and cerebral infarction without residual deficits; Z91.14 Patient's other noncompliance with medication regimen; Z79.01 Long term (current) use of anticoagulants
CPT/HCPCS: 71045; 71275; 74177; 80053; 82550; 82552; 83605; 83735; 83880; 84484; 85025; 85379; 85610; 85730; 93005; 96365; 96375; J1644; J2405; Q9967

== ENCOUNTER 2017-08-10 16:52 | Inpatient (IN) | payer BC ==
[2017-08-10] VITALS (7 sets, daily range): BP systolic 112–162; BP diastolic 78–98; PULSE 108–162; RESP 18; TEMP 97.8–98.2; O2SAT 99–100
[~2017-08-10] VITALS: Ht 162.6 cm; Wt 77.2 kg
[~2017-08-10 16:52] MED LIST changes: +ARMO120T PO; -GABA600T PO; +ISOS10TA3 PO; +TOPI50TA7 PO
[2017-08-10] MEDS ORDERED: SODIUM CHLORIDE 0.9% FLUSH 10 ML FLUSH IVF PRN (17:00)
[2017-08-10] MEDS ORDERED: DILTIAZEM HCL 25 MG/5 ML VIAL IV PUSH ONE (17:15)
[2017-08-10] MEDS ORDERED: METOPROLOL TARTRATE 5 MG/5 ML VIAL IV PUSH STA ×2 (17:17→19:13)
--- NOTE | 2017-08-10 17:24 | RADRPT ---
EXAM DATE/TIME: 08/10/2017 17:09 [facility] COMPARISON: CHEST SINGLE AP, July 30, 2017, 3:12. INDICATIONS : Chest pain 30 mins ago and shortness of breath for 2 days. MEDICAL HISTORY : Congetive heart failure. Cerebral vascular accident. Diabetes mellitus type II. Hypertension Hypercho lesterolemia.COPD, GERD. SURGICAL HISTORY : Pacemaker, defibrillator. ENCOUNTER: Initial ACUITY: 1 day PAIN SCORE: 9/10 LOCATION: Bilateral chest middle of chest FINDINGS: A single view of the chest demonstrates the lungs to be symmetrically aerated without evidence of mas s, infiltrate or effusion. The cardiomediastinal contours are unremarkable. Osseous structures are intact. Pacing device overlies the left chest. CONCLUSION: No acute disease. Kole Whitney Jr., MD on August 10, 2017 at 17:20 Board Certified Radiologist. This report was verified electronically.
--- NOTE | 2017-08-10 17:28 | PD ---
HPI Chief Complaint: Chest Pain Time Seen by Provider: 16:53 Travel History International Travel<30 days: No Contact w/Intl Traveler<30days: No Traveled to known affect area: No History of Present Illness HPI 56-year-old female presents with palpitations and chest pain. She states she has been off her medications since she left the hospital. She states she left the hospital because she had to take care of her demented . She states she has someone here to help her with her now. She states she can still not afford her medication. She states she feels short of breath as well. She denies specific modifying factors other than movement. Patient is a poor historian. PFSH Past Medical History Hx Anticoagulant Therapy: Yes (Xarelto) Atrial Fibrillation: Yes Anxiety: No Depression: Yes Cancer: No Cardiovascular Problems: Yes (HTN, A-fib, AICD, cadiomyopathy, CHF) High Cholesterol: Yes Chest Pain: No Congestive Heart Failure: Yes COPD: Yes Cerebrovascular Accident: Yes (2014) Diabetes: Yes (CONTROLLED WITH DIET) Endocrine: Yes Gastrointestinal Disorders: Yes (GERD) GERD: Yes Glaucoma: No Genitourinary: Yes (HESITANCY) Headaches: Yes Hepatitis: No Hiatal Hernia: No Hypertension: Yes Immune Disorder: No Implanted Vascular Access Dvce: Yes Musculoskeletal: No Neurologic: Yes (BAD BALANCE) Psychiatric: Yes Reproductive: No Respiratory: Yes (COPD) Integumentary: No Thyroid Disease: No ?: Not Past Surgical History Body Medical Devices: AICD Cardiac Surgery: Yes (ABLATION X2) Hysterectomy: Yes Pacemaker: Yes Thoracic Surgery: Yes (AICD LEFT CHEST MEDTRONIC ) Other Surgery: Yes Social History Alcohol Use: No Tobacco Use: Yes (1PPD) Substance Use: No Allergies-Medications (Allergen,Severity, Reaction): Coded Allergies: prednisone (Verified Allergy, Severe, hives, 07/30/17) sertraline (Verified Allergy, Severe, hives, 07/30/17) verapamil (Verified Allergy, Severe, rash, 07/30/17) Reported Meds & Prescriptions Reported Meds & Active Scripts Active Metoprolol Tartrate 50 Mg Tab 50 Mg PO BID Xarelto (Rivaroxaban) 20 Mg Tab 20 Mg PO DAILY Furosemide 20 Mg Tab 20 Mg PO DAILY Ventolin Hfa 18 GM Inh (Albuterol Sulfate) 90 Mcg/Act Aer 2 Puff INH Q4H PRN Reported Effexor XR 24 HR (Venlafaxine HCl) 150 Mg Cap 150 Mg PO DAILY Tylenol Extra Strength (Acetaminophen) 500 Mg Tablet 500 Mg PO Q6HR PRN Isosorbide Mononitrate ER (Isosorbide Mononitrate) 30 Mg Leonie 30 Mg PO HS Dulera 120 Act Inh (Mometasone-Formoterol 120 Act Inh) 200-5 Mcg/Act Inh 1 Puff INH BID Aspirin 81 Mg Chew 81 Mg PO DAILY Klor-Con M20 (Potassium Chloride Microencaps) 20 Meq Tab 20 Meq PO DAILY Review of Systems ROS Limitations: Poor Historian Except as stated in HPI: all other systems reviewed are Neg Physical Exam Exam Limitations: Poor Historian Narrative GENERAL: 56-year-old female in no apparent distress SKIN: Focused skin assessment warm/dry. HEAD: Atraumatic. Normocephalic. EYES: No scleral icterus. No injection or drainage. ENT: No nasal bleeding or discharge. Mucous membranes pink and moist. NECK: Trachea midline. No JVD. CARDIOVASCULAR: irregular rate and rhythm. RESPIRATORY: No accessory muscle use. Clear to auscultation. Breath sounds equal bilaterally. GASTROINTESTINAL: Abdomen soft, non-tender, nondistended. MUSCULOSKELETAL: No obvious deformities. No clubbing. No cyanosis. NEUROLOGICAL: Awake. Motor grossly within normal limits. Normal speech. Data Data Last Documented VS Vital Signs Date Time Temp Pulse Resp B/P (MAP) Pulse Ox O2 Delivery O2 Flow Rate FiO2 08/10/17 18:13 112 18 99 Nasal Cannula 2.00 08/10/17 18:13 132/98 (109) 08/10/17 16:57 98.2 Orders Orders Electrocardiogram (08/10/17 16:54) B-Type Natriuretic Peptide (08/10/17 16:54) Ckmb (Isoenzyme) Profile (08/10/17 16:54) Complete Blood Count With Diff (08/10/17 16:54) Comprehensive Metabolic Panel (08/10/17 16:54) Magnesium (Mg) (08/10/17 16:54) Prothrombin Time / Inr (Pt) (08/10/17 16:54) Act Partial Throm Time (Ptt) (08/10/17 16:54) Troponin I (08/10/17 16:54) Chest, Single Ap (08/10/17 16:54) Ecg Monitoring (08/10/17 16:54) Bilateral Bp Monitoring (08/10/17 16:54) Iv Access Insert/Monitor (08/10/17 16:54) Oximetry (08/10/17 16:54) Sodium Chloride 0.9% Flush (Ns Flush) (08/10/17 17:00) Metoprolol Tartrate Inj (Lopressor Inj) (08/10/17 17:17) Ondansetron Inj (Zofran Inj) (08/10/17 17:30) Metoprolol Tartrate (Lopressor) (08/10/17 18:00) CKMB (08/10/17 17:08) CKMB% (08/10/17 17:08) Metoprolol Tartrate Inj (Lopressor Inj) (08/10/17 19:13) Admit Order (Ed Use Only) (08/10/17 19:13) Labs Laboratory Tests Test 08/10/17 17:08 White Blood Count 8.3 TH/MM3 Red Blood Count 4.24 MIL/MM3 Hemoglobin 10.0 GM/DL Hematocrit 33.5 % Mean Corpuscular Volume 79.0 FL Mean Corpuscular Hemoglobin 23.6 PG Mean Corpuscular Hemoglobin Concent 29.9 % Red Cell Distribution Width 18.2 % Platelet Count 587 TH/MM3 Mean Platelet Volume 7.6 FL Neutrophils (%) (Auto) 73.4 % Lymphocytes (%) (Auto) 18.4 % Monocytes (%) (Auto) 4.9 % Eosinophils (%) (Auto) 1.9 % Basophils (%) (Auto) 1.4 % Neutrophils # (Auto) 6.1 TH/MM3 Lymphocytes # (Auto) 1.5 TH/MM3 Monocytes # (Auto) 0.4 TH/MM3 Eosinophils # (Auto) 0.2 TH/MM3 Basophils # (Auto) 0.1 TH/MM3 CBC Comment DIFF FINAL Differential Comment Prothrombin Time 12.3 SEC Prothromb Time International Ratio 1.2 RATIO Activated Partial Thromboplast Time 25.6 SEC Blood Urea Nitrogen 16 MG/DL Creatinine 1.36 MG/DL Random Glucose 138 MG/DL Total Protein 8.1 GM/DL Albumin 4.0 GM/DL Calcium Level 9.0 MG/DL Magnesium Level 2.2 MG/DL Alkaline Phosphatase 117 U/L Aspartate Amino Transf (AST/SGOT) 65 U/L Alanine Aminotransferase (ALT/SGPT) 36 U/L Total Bilirubin 0.7 MG/DL Sodium Level 138 MEQ/L Potassium Level 5.6 MEQ/L Chloride Level 105 MEQ/L Carbon Dioxide Level 25.4 MEQ/L Anion Gap 8 MEQ/L Estimat Glomerular Filtration Rate 41 ML/MIN Total Creatine Kinase 317 U/L Creatine Kinase MB 4.7 NG/ML Creatine Kinase MB % 1.5 % Troponin I LESS THAN 0.02 NG/ML B-Type Natriuretic Peptide 309 PG/ML MDM Medical Decision Making Medical Screen Exam Complete: Yes Emergency Medical Condition: Yes Medical Record Reviewed: Yes (Past history confirmed) Interpretation(s) CBC & BMP Diagram 08/10/17 17:08 Total Protein 8.1, Albumin 4.0, Calcium Level 9.0, Magnesium Level 2.2, Alkaline Phosphatase 117, Aspartate Amino Transf (AST/SGOT) 65 H, Alanine Aminotransferase (ALT/SGPT) 36, Total Bilirubin 0.7 Last 24 hours Impressions Chest X-Ray 08/10/17 1654 Signed Impressions: Service Date/Time: Thursday, August 10, 2017 17:09 - CONCLUSION: No acute disease. Kole Whitney Jr., MD Differential Diagnosis Anemia, A. fib with RVR, SVT, electrolyte abnormality, CHF Narrative Course We will check blood work, chest x-ray and place back on metoprolol and reevaluate Patient with persistent tachycardia will dose with home metoprolol and reevaluate Patient with persistent tachycardia will repeat bolus and admit Critical Care Narrative Aggregate critical care time was 31 minutes. Time to perform other separately billable procedures was not included in the critical care time. My time did not include minutes spent treating any other patients simultaneously or on activities that did not directly contribute to the patient's treatment. The services I provided to this patient were to treat and/or prevent clinically significant deterioration that could result in: Persistent tachycardia, arrhythmia I provided critical care services requiring my management, as noted below: Chart data review, documentation time, medication orders and management, vital sign assessments/reviewing monitor data, ordering and reviewing lab tests, ordering and interpreting/reviewing x-rays and diagnostic studies, care of the patient and discussion of the patient with the admitting physicians. Physician Communication Physician Communication dr hartley agrees to admit Diagnosis Primary Impression: Atrial fibrillation with RVR Additional Impression: Chest pain Qualified Codes: R07.9 - Chest pain, unspecified Admitting Information Admitting Physician Requests: Admit Dorinda Gordon MD Aug 10, 2017 17:28
[2017-08-10] MEDS ORDERED: ONDANSETRON HCL 4 MG/2 ML VIAL IV PUSH ONE (17:30)
[2017-08-10 17:54] LABS: INTERNATIONAL NORMALIZED RATIO 1.2 RATIO; PROTHROMBIN TIME - PATIENT 12.3 SEC (9.8-11.6)
[2017-08-10 18:00] LABS: ALT (GPT) 36 U/L (10-53); AST (GOT) 65 U/L (15-37); BICARBONATE 25.4 MEQ/L (21.0-32.0); BLOOD UREA NITROGEN 16 MG/DL (7-18); CHLORIDE 105 MEQ/L (98-107); CREATININE 1.36 MG/DL (0.50-1.00); GLOMERULAR FILTRATION RATE 41 ML/MIN (>89); GLUCOSE,RANDOM 138 MG/DL (74-106); MAGNESIUM 2.2 MG/DL (1.5-2.5); SODIUM (NA) 138 MEQ/L (136-145)
[2017-08-10] MEDS ORDERED: METOPROLOL TARTRATE 50 MG TAB PO ONE (18:00)
[2017-08-10 18:02] LABS: ALKALINE PHOSPHATASE 117 U/L (45-117); TOTAL BILIRUBIN ADULT 0.7 MG/DL (0.2-1.0); TOTAL PROTEIN 8.1 GM/DL (6.4-8.2); TROPONIN I LESS THAN 0.02 NG/ML (0.02-0.05)
[2017-08-10 18:11] LABS: AUTOMATED NEUTROPHIL # 6.1 TH/MM3 (1.8-7.7); BASOPHIL # 0.1 TH/MM3 (0-0.2); BASOPHIL % 1.4 % (0.0-2.0); EOSINOPHIL # 0.2 TH/MM3 (0-0.4); EOSINOPHIL % 1.9 % (0.0-4.0); HEMATOCRIT 33.5 % (35.0-46.0); LYMPH % 18.4 % (9.0-44.0); LYMPHOCYTE # 1.5 TH/MM3 (1.0-4.8); MEAN CORPUSCULAR HEMOGLOBIN 23.6 PG (27.0-34.0); MEAN CORPUSCULAR HGB CONC 29.9 % (32.0-36.0); MEAN PLATELET VOLUME 7.6 FL (7.0-11.0); MONO % 4.9 % (0.0-8.0); MONOCYTE # 0.4 TH/MM3 (0-0.9); NEUT % 73.4 % (16.0-70.0); PLATELET COUNT 587 TH/MM3 (150-450); RED BLOOD COUNT 4.24 MIL/MM3 (4.00-5.30); RED CELL DISTRIBUTION WIDTH 18.2 % (11.6-17.2); WHITE BLOOD COUNT 8.3 TH/MM3 (4.0-11.0)
--- NOTE | 2017-08-10 19:22 | HHI.HP ---
HPI Service [facility] Primary Care Physician Liz Thorne M.D. Admission Diagnosis afib with rvr Diagnoses: (1) Atrial fibrillation with RVR Diagnosis: Principal (2) Chest pain Diagnosis: Principal (3) COPD (chronic obstructive pulmonary disease) Diagnosis: Principal (4) Tobacco abuse Diagnosis: Principal Travel History International Travel<30 Days: No Contact w/Intl Traveler <30 Da: No Traveled to Known Affected Are: No History of Present Illness This is a 56-year-old female with a PMH of HTN, COPD, A. fib on Xarelto, Depression, CHF (Echo 06/19/17 w/ EF 45%), s/p AICD, Diet-Controlled DM, GERD and Tobacco Abuse who presented to the ER w/ complaints of chest pain and palpitations starting earlier today. Previous ER presentation on 07/30/17 for similar complaints, patient offered admission however LEFT AMA to take care of her who has Dementia. Returns now w/ ongoing complaints. Does not have Cardiology follow up. Reports chest pain is substernal, intermittent, 8/10 , associated w/ SOB, worse w/ movement. Denies fever, chills or cough. On arrival, patient found to be in A. fib with RVR, HR 155, BP 162/83, O2 sat 100% on 2L NC, Afebrile. CBC essentially at baseline. Creatinine 1.36, producing 1.13 on 07/30/17. Troponin negative. BNP 309. CPK 317. CXR with no acute findings. Reports h/o ALLERGY to Verapamil w/ hives/rash, however doesn't know if she has allergy to Cardizem. S/p Metoprolol IV and PO in ER, HR 120's. Review of Systems Except as stated in HPI: all other systems reviewed are Neg ROS: 14 point review of systems otherwise negative. Past Family Social History Past Medical History PMH: HTN, COPD, A. fib on Xarelto, Depression, CHF (Echo 06/19/17 w/ EF 45%), s/ p AICD, Diet-Controlled DM, GERD and Tobacco Abuse Past Surgical History PAST SURGICAL HISTORY: AICD, Cardiac Ablation, Hysterectomy Allergies: Coded Allergies: prednisone (Verified Allergy, Severe, hives, 07/30/17) sertraline (Verified Allergy, Severe, hives, 07/30/17) verapamil (Verified Allergy, Severe, rash, 07/30/17) Family History PAST FAMILY HISTORY: Reviewed. No h/o DM or CAD Social History PAST SOCIAL HISTORY: Negative for alcohol or drugs. Positive for tobacco. Physical Exam Vital Signs Vital Signs Date Time Temp Pulse Resp B/P (MAP) Pulse Ox O2 Delivery O2 Flow Rate FiO2 08/10/17 18:13 112 18 99 Nasal Cannula 2.00 08/10/17 18:13 125 18 132/98 (109) 99 Nasal Cannula 2.00 08/10/17 17:00 162 162/83 (109) 158/80 (106) 08/10/17 16:57 98.2 155 18 162/83 (109) 100 Nasal Cannula 2.00 08/10/17 16:55 18 100 Room Air Physical Exam PE: GENERAL: Middle-aged white female in no acute distress. HEENT: PERRLA, EOMI. No scleral icterus or conjunctival pallor. No lid lag or facial droop. CARDIOVASCULAR: Irregularly irregular, in A. fib, HR 120s. No obvious murmurs to auscultation. No chest tenderness to palpation. RESPIRATORY: No obvious rhonchi or wheezing. Clear to auscultation. Breath sounds equal bilaterally. GASTROINTESTINAL: Abdomen soft, non-tender, nondistended. BS normal. MUSCULOSKELETAL: Extremities without clubbing, cyanosis, or edema. No obvious deformities. NEUROLOGICAL: Awake, alert and oriented x4. No focal neurologic deficits. Moving both upper and lower extremities spontaneously. Laboratory Laboratory Tests Test 08/10/17 17:08 White Blood Count 8.3 Red Blood Count 4.24 Hemoglobin 10.0 Hematocrit 33.5 Mean Corpuscular Volume 79.0 Mean Corpuscular Hemoglobin 23.6 Mean Corpuscular Hemoglobin Concent 29.9 Red Cell Distribution Width 18.2 Platelet Count 587 Mean Platelet Volume 7.6 Neutrophils (%) (Auto) 73.4 Lymphocytes (%) (Auto) 18.4 Monocytes (%) (Auto) 4.9 Eosinophils (%) (Auto) 1.9 Basophils (%) (Auto) 1.4 Neutrophils # (Auto) 6.1 Lymphocytes # (Auto) 1.5 Monocytes # (Auto) 0.4 Eosinophils # (Auto) 0.2 Basophils # (Auto) 0.1 CBC Comment DIFF FINAL Differential Comment Prothrombin Time 12.3 Prothromb Time International Ratio 1.2 Activated Partial Thromboplast Time 25.6 Blood Urea Nitrogen 16 Creatinine 1.36 Random Glucose 138 Total Protein 8.1 Albumin 4.0 Calcium Level 9.0 Magnesium Level 2.2 Alkaline Phosphatase 117 Aspartate Amino Transf (AST/SGOT) 65 Alanine Aminotransferase (ALT/SGPT) 36 Total Bilirubin 0.7 Sodium Level 138 Potassium Level 5.6 Chloride Level 105 Carbon Dioxide Level 25.4 Anion Gap 8 Estimat Glomerular Filtration Rate 41 Total Creatine Kinase 317 Creatine Kinase MB 4.7 Creatine Kinase MB % 1.5 Troponin I LESS THAN 0.02 B-Type Natriuretic Peptide 309 Result Diagram: 08/10/17170708/10/171707 Caprini VTE Risk Assessment Caprini VTE Risk Assessment: Mod/High Risk (score >= 2) Caprini Risk Assessment Model Point Value = 1 Point Value = 2 Point Value = 3 Point Value = 5 Age 41-60 Minor surgery BMI > 25 kg/m2 Swollen legs Varicose veins or History of unexplained or recurrent spontaneous Oral contraceptives or hormone replacement Sepsis (< 1 month) Serious lung disease, including pneumonia (< 1 month) Abnormal pulmonary function Acute myocardial infarction Congestive heart failure (< 1 month) History of inflammatory bowel disease Medical patient at bed rest Age 61-74 Arthroscopic surgery Major open surgery (> 45 min) Laparoscopic surgery (> 45 min) Malignancy Confined to bed (> 72 hours) Immobilizing plaster cast Central venous access Age >= 75 History of VTE Family history of VTE Factor V Leiden Prothrombin [id number] Lupus anticoagulant Anticardiolipin antibodies Elevated serum homocysteine Heparin-induced thrombocytopenia Other congenital or acquired thrombophilia Stroke (< 1 month) Elective arthroplasty Hip, pelvis, or leg fracture Acute spinal cord injury (< 1 month) Prophylaxis Regimen Total Risk Factor Score Risk Level Prophylaxis Regimen 0-1 Low Early ambulation 2 Moderate Order ONE of the following: *Sequential Compression Device (SCD) *Heparin 5000 units SQ BID 3-4 Higher Order ONE of the following medications: *Heparin 5000 units SQ TID *Enoxaparin/Lovenox 40 mg SQ daily (WT < 150 kg, CrCl > 30 mL/min) *Enoxaparin/Lovenox 30 mg SQ daily (WT < 150 kg, CrCl > 10-29 mL/min) *Enoxaparin/Lovenox 30 mg SQ BID (WT < 150 kg, CrCl > 30 mL/min) AND/OR *Sequential Compression Device (SCD) 5 or more Highest Order ONE of the following medications: *Heparin 5000 units SQ TID (Preferred with Epidurals) *Enoxaparin/Lovenox 40 mg SQ daily (WT < 150 kg, CrCl > 30 mL/min) *Enoxaparin/Lovenox 30 mg SQ daily (WT < 150 kg, CrCl > 10-29 mL/min) *Enoxaparin/Lovenox 30 mg SQ BID (WT < 150 kg, CrCl > 30 mL/min) AND *Sequential Compression Device (SCD) Assessment and Plan Problem List: (1) Atrial fibrillation with RVR ICD Code: I48.91 - Unspecified atrial fibrillation Status: Acute (2) Chest pain ICD Code: R07.9 - Chest pain, unspecified Status: Acute (3) COPD (chronic obstructive pulmonary disease) ICD Code: J44.9 - Chronic obstructive pulmonary disease, unspecified (4) Tobacco abuse ICD Code: Z72.0 - Tobacco use Assessment and Plan A/P: 1. A. fib w/ RVR: Recurrent, recent ER presentation for same 07/30/17 however LEFT AMA, returns now w/ HR 150's in A-fib, questionable ALLERGY to Cardizem, pt unsure. S/p Metoprolol IV and PO x3 doses in ER w/ HR 120's. Continue w/ Metoprolol. Admit to [facility], telemetry. Consult Cardiology for further recommendations regarding management. Resume Xarelto. 2. Chest Pain: Likely secondary to above. Trop negative, check serial cardiac enzymes to eval for underlying ischemia. ASA, Metoprolol, start Statin. NTG/Morphine prn. 3. COPD: Chronic Respiratory Failure, CXR w/ no acute findings, images reviewed by me. Resume home medications, caution w/ DuoNeb-switch to Xopenex in light of A-fib 4. Tobacco Abuse: Pt counselled. No NicoDerm to avoid vasoconstriction. Ativan prn if needed. 5. DVT Prophylaxis: Resume Xarelto 6. Social work for DC planning as needed. 7. Case discussed at length with ER physician, lab/records/imaging reviewed by me. Physician Certification 2 Midnight Certification Type: Admission for Inpatient Services Order for Inpatient Services The services are ordered in accordance with Medicare regulations or non- Medicare payer requirements, as applicable. In the case of services not specified as inpatient-only, they are appropriately provided as inpatient services in accordance with the 2-midnight benchmark. Estimated LOS (days): 2 days is the estimated time the patient will need to remain in the hospital, assuming treatment plan goals are met and no additional complications. Post-Hospital Plan: Not yet determined Problem Qualifiers (1) Chest pain: Qualified Codes: R07.9 - Chest pain, unspecified Anu Donald MD Aug 10, 2017 19:22
[2017-08-10] MEDS ORDERED: BISACODYL 10 MG SUPP RECTAL PRN (19:30)
[2017-08-10] MEDS ORDERED: SENNOSIDES 8.6 MG TAB PO PRN (19:30)
[2017-08-10] MEDS ORDERED: LACTULOSE SYRUP 20 GM/30 ML CUP PO PRN (19:30)
[2017-08-10] MEDS ORDERED: SODIUM CHLORIDE 0.9% FLUSH 10 ML FLUSH IV FLUSH PRN (19:30)
[2017-08-10] MEDS ORDERED: MAGNESIUM HYDROXIDE SUSP 30 ML CUP PO PRN (19:30)
[2017-08-10] MEDS ORDERED: NITROGLYCERIN 2% OINT 1 GM PACKET TOPICAL PRN (20:15)
[2017-08-10] MEDS: MORPHINE SULFATE 2 MG/ML INJ IV PUSH PRN ×2 (20:36→23:24)
[2017-08-10] MEDS: ONDANSETRON HCL 4 MG/2 ML VIAL IVP PRN (20:38)
[2017-08-10] MEDS ORDERED: FORMOTEROL INH SCH (21:00)
[2017-08-10] MEDS: SODIUM CHLORIDE 0.9% FLUSH 10 ML FLUSH IV FLUSH SCH (21:00)
[2017-08-10] MEDS ORDERED: MOMETASONE INH SCH (21:00)
[2017-08-10] MEDS: ISOSORBIDE MONONITRATE 30 MG CR TAB (IMDUR) PO SCH (21:23)
[2017-08-10] MEDS: SODIUM CHLOR 0.9% 1000 ML INJ 1,000 ML IV SCH (21:23)
[2017-08-10] MEDS: DOCUSATE SODIUM 50 MG/SENNA 8.6 MG TAB PO SCH (21:23)
[2017-08-10] MEDS: METOPROLOL TARTRATE 25 MG TAB PO SCH (21:23)
[2017-08-10] MEDS: ACETAMINOPHEN/HYDROcodone 325 MG/5 MG TAB PO PRN (22:49)
[2017-08-10] MEDS ORDERED: PROCHLORPERAZINE INJ 10 MG/2 ML VIAL IV PUSH ONE (23:15)
[2017-08-11] VITALS (27 sets, daily range): BP systolic 101–146; BP diastolic 70–89; PULSE 96–134; RESP 18–20; TEMP 97.3–97.7; O2SAT 92–100
[2017-08-11] MEDS: ACETAMINOPHEN/HYDROcodone 325 MG/5 MG TAB PO PRN ×4 (04:04→23:12)
[2017-08-11] MEDS: ONDANSETRON HCL 4 MG/2 ML VIAL IVP PRN (04:04)
[2017-08-11] MEDS: SODIUM CHLOR 0.9% 1000 ML INJ 1,000 ML IV SCH ×3 (05:18→19:42)
[2017-08-11] MEDS: METOPROLOL TARTRATE 25 MG TAB PO SCH ×3 (05:42→21:10)
[2017-08-11 05:47] LABS: AUTOMATED NEUTROPHIL # 6.3 TH/MM3 (1.8-7.7); BASOPHIL # 0.1 TH/MM3 (0-0.2); BASOPHIL % 1.2 % (0.0-2.0); EOSINOPHIL # 0.1 TH/MM3 (0-0.4); EOSINOPHIL % 0.8 % (0.0-4.0); HEMATOCRIT 29.6 % (35.0-46.0); HEMOGLOBIN 8.8 GM/DL (11.6-15.3); LYMPH % 16.8 % (9.0-44.0); LYMPHOCYTE # 1.4 TH/MM3 (1.0-4.8); MEAN CELL VOLUME 80.2 FL (80.0-100.0); MEAN CORPUSCULAR HEMOGLOBIN 23.8 PG (27.0-34.0); MEAN PLATELET VOLUME 7.5 FL (7.0-11.0); MONO % 7.6 % (0.0-8.0); MONOCYTE # 0.7 TH/MM3 (0-0.9); NEUT % 73.6 % (16.0-70.0); PLATELET COUNT 455 TH/MM3 (150-450); RED BLOOD COUNT 3.69 MIL/MM3 (4.00-5.30); RED CELL DISTRIBUTION WIDTH 17.5 % (11.6-17.2); WHITE BLOOD COUNT 8.6 TH/MM3 (4.0-11.0)
[2017-08-11 06:03] LABS: MEAN CORPUSCULAR HGB CONC 29.7 % (32.0-36.0)
[2017-08-11 06:04] LABS: ALBUMIN 3.6 GM/DL (3.4-5.0); AST (GOT) 40 U/L (15-37); BICARBONATE 25.8 MEQ/L (21.0-32.0); BLOOD UREA NITROGEN 24 MG/DL (7-18); CALCIUM 8.6 MG/DL (8.5-10.1); CHLORIDE 104 MEQ/L (98-107); CREATININE 1.45 MG/DL (0.50-1.00); GLOMERULAR FILTRATION RATE 38 ML/MIN (>89); GLUCOSE,RANDOM 181 MG/DL (74-106); SODIUM (NA) 135 MEQ/L (136-145)
[2017-08-11 06:06] LABS: ALT (GPT) 42 U/L (10-53)
[2017-08-11 06:09] LABS: ALKALINE PHOSPHATASE 109 U/L (45-117); TOTAL BILIRUBIN ADULT 0.7 MG/DL (0.2-1.0); TOTAL PROTEIN 6.9 GM/DL (6.4-8.2); TROPONIN I LESS THAN 0.02 NG/ML (0.02-0.05)
--- NOTE | 2017-08-11 09:14 | HHI.PR ---
Subjective Remarks This is a 56-year-old female with a PMH of HTN, COPD, A. fib on Xarelto, Depression, CHF (Echo 06/19/17 w/ EF 45%), s/p AICD, Diet-Controlled DM, GERD and Tobacco Abuse who presented to the ER w/ complaints of chest pain and palpitations starting earlier today. Previous ER presentation on 07/30/17 for similar complaints, patient offered admission however LEFT AMA to take care of her who has Dementia. Returns now w/ ongoing complaints. Does not have Cardiology follow up. Reports chest pain is substernal, intermittent, 01/11, associated w/ SOB, worse w/ movement. Denies fever, chills or cough. On arrival, patient found to be in A. fib with RVR, HR 155, BP 162/83, O2 sat 100% on 2L NC, Afebrile. CBC essentially at baseline. Creatinine 1.36, producing 1.13 on 07/30/17. Troponin negative. BNP 309. CPK 317. CXR with no acute findings. Reports h/o ALLERGY to Verapamil w/ hives/rash, however doesn't know if she has allergy to Cardizem. S/p Metoprolol IV and PO in ER, HR 120's. Seen in her bedroom, wants to go home, awaiting management by employment training specialist. Objective Vital Signs Date Time Temp Pulse Resp B/P (MAP) Pulse Ox O2 Delivery O2 Flow Rate FiO2 08/11/17 07:00 127 08/11/17 06:00 124 08/11/17 05:00 126 08/11/17 04:19 97.6 111 111/78 (89) 97 08/11/17 04:00 130 08/11/17 03:00 117 08/11/17 02:00 120 08/11/17 01:00 114 08/11/17 00:00 122 08/11/17 00:00 97.3 121 110/70 (83) 100 08/10/17 23:00 108 08/10/17 22:00 110 08/10/17 20:45 97.8 108 112/78 (89) 100 08/10/17 20:45 123 08/10/17 18:13 112 18 99 Nasal Cannula 2.00 08/10/17 18:13 125 18 132/98 (109) 99 Nasal Cannula 2.00 08/10/17 17:00 162 162/83 (109) 158/80 (106) 08/10/17 16:57 98.2 155 18 162/83 (109) 100 Nasal Cannula 2.00 08/10/17 16:55 18 100 Room Air I/O 08/10/17 08/10/17 08/10/17 08/11/17 08/11/17 08/11/17 07:00 15:00 23:00 07:00 15:00 23:00 Intake Total 240 ml Output Total 350 ml Balance -110 ml Intake Oral 240 ml Output Urine Total 350 ml # Voids 1 Result Diagram: 08/11/17 0507 08/11/17 0507 Imaging Last Impressions Chest X-Ray 08/10/17 1654 Signed Impressions: Service Date/Time: Thursday, August 10, 2017 17:09 - CONCLUSION: No acute disease. Kole Whitney Jr., MD Procedures None Other Results Laboratory Tests Test 08/10/17 17:08 08/11/17 05:07 Prothrombin Time 12.3 SEC Prothromb Time International Ratio 1.2 RATIO Activated Partial Thromboplast Time 25.6 SEC Blood Urea Nitrogen 16 MG/DL 24 MG/DL Creatinine 1.36 MG/DL 1.45 MG/DL Random Glucose 138 MG/DL 181 MG/DL Total Protein 8.1 GM/DL 6.9 GM/DL Albumin 4.0 GM/DL 3.6 GM/DL Calcium Level 9.0 MG/DL 8.6 MG/DL Magnesium Level 2.2 MG/DL Alkaline Phosphatase 117 U/L 109 U/L Aspartate Amino Transf (AST/SGOT) 65 U/L 40 U/L Alanine Aminotransferase (ALT/SGPT) 36 U/L 42 U/L Total Bilirubin 0.7 MG/DL 0.7 MG/DL Sodium Level 138 MEQ/L 135 MEQ/L Potassium Level 5.6 MEQ/L 5.3 MEQ/L Chloride Level 105 MEQ/L 104 MEQ/L Carbon Dioxide Level 25.4 MEQ/L 25.8 MEQ/L Total Creatine Kinase 317 U/L Creatine Kinase MB 4.7 NG/ML Creatine Kinase MB % 1.5 % B-Type Natriuretic Peptide 309 PG/ML White Blood Count 8.6 TH/MM3 Red Blood Count 3.69 MIL/MM3 Hemoglobin 8.8 GM/DL Hematocrit 29.6 % Mean Corpuscular Volume 80.2 FL Mean Corpuscular Hemoglobin 23.8 PG Mean Corpuscular Hemoglobin Concent 29.7 % Red Cell Distribution Width 17.5 % Platelet Count 455 TH/MM3 Mean Platelet Volume 7.5 FL Neutrophils (%) (Auto) 73.6 % Lymphocytes (%) (Auto) 16.8 % Monocytes (%) (Auto) 7.6 % Eosinophils (%) (Auto) 0.8 % Basophils (%) (Auto) 1.2 % Neutrophils # (Auto) 6.3 TH/MM3 Lymphocytes # (Auto) 1.4 TH/MM3 Monocytes # (Auto) 0.7 TH/MM3 Eosinophils # (Auto) 0.1 TH/MM3 Basophils # (Auto) 0.1 TH/MM3 CBC Comment DIFF FINAL Differential Comment Anion Gap 5 MEQ/L Estimat Glomerular Filtration Rate 38 ML/MIN Troponin I LESS THAN 0.02 NG/ML Objective Remarks GENERAL: Middle-aged white female in no acute distress. HEENT: PERRLA, EOMI. No scleral icterus or conjunctival pallor. No lid lag or facial droop. CARDIOVASCULAR: Irregularly irregular, in A. fib, HR 120s. No obvious murmurs to auscultation. No chest tenderness to palpation. RESPIRATORY: No obvious rhonchi or wheezing. Clear to auscultation. Breath sounds equal bilaterally. GASTROINTESTINAL: Abdomen soft, non-tender, nondistended. BS normal. MUSCULOSKELETAL: Extremities without clubbing, cyanosis, or edema. No obvious deformities. NEUROLOGICAL: Awake, alert and oriented x4. No focal neurologic deficits. Moving both upper and lower extremities spontaneously. Medications and IVs Current Medications Medications (Trade) Dose Ordered Sig/[place] Route Start Time Stop Time Status Last Admin (Lopressor) 25 mg Q8HR PO 08/10/17 22:00 08/11/17 05:42 Sodium Chloride 1,000 ml @ 100 mls/hr Q10H IV 08/10/17 19:18 08/10/17 21:23 (NS Flush) 2 ml UNSCH PRN IV FLUSH 08/10/17 19:30 (NS Flush) 2 ml BID IV FLUSH 08/10/17 21:00 08/10/17 21:00 (Zofran Inj) 4 mg Q6H PRN IVP 08/10/17 19:30 08/11/17 04:04 (Tylenol) 650 mg Q6H PRN PO 08/10/17 19:30 ([place] 5-325 Mg) 1 tab Q4H PRN PO 08/10/17 19:30 08/11/17 04:04 (Morphine Inj) 2 mg Q3H PRN IV PUSH 08/10/17 19:30 08/10/17 23:24 ([place]-Colace) 1 tab BID PO 08/10/17 21:00 08/10/17 21:23 (Milk Of Magnesia Liq) 30 ml Q12H PRN PO 08/10/17 19:30 (Senokot) 17.2 mg Q12H PRN PO 08/10/17 19:30 (Dulcolax Supp) 10 mg DAILY PRN RECTAL 08/10/17 19:30 (Lactulose Liq) 30 ml DAILY PRN PO 08/10/17 19:30 (Aspirin Chew) 81 mg DAILY PO 08/11/17 09:00 (Lasix) 20 mg DAILY PO 08/11/17 09:00 (Imdur) 30 mg HS PO 08/10/17 21:00 08/10/17 21:23 (Xarelto) 20 mg DAILY PO 08/11/17 09:00 (Effexor Xr) 150 mg DAILY PO 08/11/17 09:00 Patient Own Medication PT OWN MED: Inhale Mometasone-Formot... BID INH 08/10/17 21:00 Future Hold (Pravachol) 40 mg DAILY PO 08/11/17 09:00 (Nitroglycerin 2% Oint) 0.5 inch Q6HR PRN TOPICAL 08/10/17 20:15 08/10/17 21:30 A/P Assessment and Plan (1) Atrial fibrillation with RVR ICD Code: I48.91 - Unspecified atrial fibrillation Status: Acute (2) Chest pain ICD Code: R07.9 - Chest pain, unspecified Status: Acute (3) COPD (chronic obstructive pulmonary disease) ICD Code: J44.9 - Chronic obstructive pulmonary disease, unspecified (4) Tobacco abuse ICD Code: Z72.0 - Tobacco use Assessment and Plan A/P: 1. A. fib w/ RVR: Recurrent, recent ER presentation for same 07/30/17 however LEFT AMA, returns now w/ HR 150's in A-fib, questionable ALLERGY to Cardizem, pt unsure. S/p Metoprolol IV and PO x3 doses in ER w/ HR 120's. Continue w/ Metoprolol. Admit to [facility], telemetry. Consult Cardiology for further recommendations regarding management. Resume Xarelto. 2. Chest Pain: Likely secondary to above. Trop negative, check serial cardiac enzymes to eval for underlying ischemia. ASA, Metoprolol, start Statin. NTG/Morphine prn. 3. COPD: Chronic Respiratory Failure, CXR w/ no acute findings, images reviewed by me. Resume home medications, caution w/ DuoNeb-switch to Xopenex in light of A-fib 4. Tobacco Abuse: Pt counselled. No NicoDerm to avoid vasoconstriction. Ativan prn if needed. 5. Obesity strongly recommended diet and exercise. DVT Prophylaxis: Resume Xarelto Discharge Planning once cleared by employment training specialist. Loc Clemons MD Aug 11, 2017 09:14
[2017-08-11] MEDS: RIVAROXABAN 20 MG TAB PO SCH (09:26)
[2017-08-11] MEDS: DOCUSATE SODIUM 50 MG/SENNA 8.6 MG TAB PO SCH ×2 (09:26→21:10)
[2017-08-11] MEDS: VENLAFAXINE HCL XR 75 MG CAP PO SCH (09:26)
[2017-08-11] MEDS: FUROSEMIDE 20 MG TAB PO SCH (09:26)
[2017-08-11] MEDS: PRAVASTATIN SOD 40 MG TAB PO SCH (09:26)
[2017-08-11] MEDS: ASPIRIN 81 MG CHEW TAB PO SCH (09:26)
[2017-08-11] MEDS: SODIUM CHLORIDE 0.9% FLUSH 10 ML FLUSH IV FLUSH SCH ×2 (09:27→21:00)
[2017-08-11] MEDS ORDERED: DIGOXIN 0.5 MG/2 ML VIAL IV PUSH ONE (12:00)
[2017-08-11] MEDS ORDERED: AMIODARONE 150 MG/D5W 97 ML BOLUS 60 MINUTES IV ONE ×2 (18:00)
[2017-08-11] MEDS: AMIODARONE INJ 450 MG in SODIUM CHLOR 0.9% (EXCEL) INJ 241 ML IV PRN (18:56)
[2017-08-11] MEDS: RESP: IPRATROPIUM 0.5 MG/2.5 ML NEB NEB SCH ×2 (19:49→23:31)
[2017-08-11] MEDS: guaiFENesin E.R. 600 MG TAB PO SCH (21:10)
[2017-08-11] MEDS: ISOSORBIDE MONONITRATE 30 MG CR TAB (IMDUR) PO SCH (21:10)
[2017-08-12] VITALS (25 sets, daily range): BP systolic 115–143; BP diastolic 86–95; PULSE 67–120; RESP 16–20; TEMP 97–98.8; O2SAT 94–97
--- NOTE | 2017-08-12 00:19 | EKG ---
Date Performed: 08/10/2017 Time Performed: 16:46:24 PTAGE: 56 years EKG: ATRIAL FIBRILLATION WITH RAPID VENTRICULAR RESPONSE POSSIBLE LEFT VENTRICULAR HYPERTROPHY S T DEVIATION AND MODERATE T-WAVE ABNORMALITY, CONSIDER ANTEROLATERAL ISCHEMIA ST DEVIATION AND MARKED T-WAVE ABNORMALITY, CONSIDER INFERIOR ISCHEMIA ABNORMAL ECG INTERPRETATION BASED ON A DEFAULT AGE OF 40 YEARS PREVIOUS TRACING : 07/30/2017 04.08 Since the prior tracing, there has been no significan t change DOCTOR: Daljit Lira Interpretating Date/Time 08/12/2017 00:17:50
[2017-08-12] MEDS: RESP: IPRATROPIUM 0.5 MG/2.5 ML NEB NEB SCH ×5 (03:28→21:59)
--- NOTE | 2017-08-12 04:47 | MB ---
cc: Marquez Collier MD DATE OF CONSULT: 08/11/2017 REASON FOR CARDIOLOGY CONSULTATION: Atrial fibrillation and chest pain. HISTORY OF PRESENT ILLNESS: This is a 56-year-old white female who was seen here in June for upper quadrant pain, chest pain and neck pain. The pain was reproduced by pressing on the abdomen and chest wall at that time. She was sent home and the pain continued for 3 months. She could not get to the hospital again because nobody has been taking care of her until today. She has had history of cardiomyopathy with ejection fraction about 45%. She has been followed by Dr. Bejarano with ICD implant. Dr. Bejarano also had done ablation for WPW syndrome. She is know to have paroxysmal atrial fibrillation. After admission she was found to have atrial fibrillation and fast ventricular rate. Three to four years ago the patient had nuclear stress test which showed fixed anterior defect according to Dr. Bejarano's note. She is known to have hypertension, hyperlipidemia and diabetes. She continues to smoke a pack of cigarettes a day. On a good day the patient could not walk more than 20 feet because of the shortness of breath. SOCIAL STATUS: The patient is and retired. has Alzheimer disease. FAMILY HISTORY: Father age 77 of coronary artery disease. Mother at age 66 of coronary artery disease. PAST MEDICAL HISTORY: Paroxysmal atrial fibrillation, ventricular fibrillation, asystole, WPW, ICD implant, COPD, hypertension, diabetes, hyperlipidemia, renal failure and depression. REVIEW OF SYSTEMS: As stated in the chart. ALLERGIES: TO PREDNISONE, SERTRALINE AND VERAPAMIL. MEDICATIONS AT HOME: The patient is taking Xarelto and the rest of it is stated in the chart. PHYSICAL EXAMINATION ON DAY OF CONSULTATION: VITAL SIGNS: Showed blood pressure of 130/90, pulse is 90-100 per minute, irregular. HEAD AND NECK: Showed normal oral exam. Neck was supple. CHEST: Showed decreased air entry. CARDIOVASCULAR: Normal ____ S1, S2, decreased, irregular, no murmur. ABDOMEN: Revealed liver and spleen not palpable. Some tenderness on palpation of the upper quadrants both sides. No mass felt. MUSCULOSKELETAL: Tenderness on palpation of the chest wall and moving the neck. CENTRAL NERVOUS SYSTEM: The patient is very anxious and depressed. DIAGNOSTIC IMPRESSION: 1. Chronic chest pain for 3 months with normal enzymes. Electrocardiogram showed atrial fibrillation and fast ventricular rate. 2. Paroxysmal atrial fibrillation with fast ventricular rate. History of VT and PAF from implantable cardioverter defibrillator interrogation 02/2017. 3. Hypertension, diabetes and hyperlipidemia. 4. Renal insufficiency. 5. Hemoglobin drops 1 gm may be from hydration, rule out gastrointestinal bleed. PLAN: I would start IV amiodarone to load her up and hopefully this will convert her back to normal sinus rhythm. I would recommend watching her hemoglobin and a stool for occult blood. Will continue metoprolol. MD OSITO Aguilar/rt , 07:05 PM , 04:46 AM MTDD
[2017-08-12] MEDS: METOPROLOL TARTRATE 25 MG TAB PO SCH (05:47)
[2017-08-12] MEDS: AMIODARONE INJ 450 MG in SODIUM CHLOR 0.9% (EXCEL) INJ 241 ML IV PRN ×2 (05:48→23:11)
[2017-08-12] MEDS: SODIUM CHLOR 0.9% 1000 ML INJ 1,000 ML IV SCH ×2 (05:48→20:49)
[2017-08-12] MEDS: ACETAMINOPHEN 325 MG TAB PO PRN ×2 (05:50→19:41)
--- NOTE | 2017-08-12 06:03 | PD.CARD.PN ---
Subjective Subjective Remarks She is still in AF with rate slightly better on IV amiodarone. CP has bone. Trop normal. Objective Medications Current Medications Medications (Trade) Dose Ordered Sig/[place] Route Start Time Stop Time Status Last Admin (Lopressor) 25 mg Q8HR PO 08/10/17 22:00 08/12/17 05:47 Sodium Chloride 1,000 ml @ 100 mls/hr Q10H IV 08/10/17 19:18 08/12/17 05:48 (NS Flush) 2 ml UNSCH PRN IV FLUSH 08/10/17 19:30 (NS Flush) 2 ml BID IV FLUSH 08/10/17 21:00 08/10/17 21:00 (Zofran Inj) 4 mg Q6H PRN IVP 08/10/17 19:30 08/11/17 04:04 (Tylenol) 650 mg Q6H PRN PO 08/10/17 19:30 08/12/17 05:50 ([place] 5-325 Mg) 1 tab Q4H PRN PO 08/10/17 19:30 08/11/17 23:12 (Morphine Inj) 2 mg Q3H PRN IV PUSH 08/10/17 19:30 08/10/17 23:24 (Izabela-Colace) 1 tab BID PO 08/10/17 21:00 08/11/17 21:10 (Milk Of Magnesia Liq) 30 ml Q12H PRN PO 08/10/17 19:30 (Senokot) 17.2 mg Q12H PRN PO 08/10/17 19:30 (Dulcolax Supp) 10 mg DAILY PRN RECTAL 08/10/17 19:30 (Lactulose Liq) 30 ml DAILY PRN PO 08/10/17 19:30 (Aspirin Chew) 81 mg DAILY PO 08/11/17 09:00 08/11/17 09:26 (Lasix) 20 mg DAILY PO 08/11/17 09:00 08/11/17 09:26 (Imdur) 30 mg HS PO 08/10/17 21:00 08/11/17 21:10 (Xarelto) 20 mg DAILY PO 08/11/17 09:00 08/11/17 09:26 (Effexor Xr) 150 mg DAILY PO 3/10/18 09:00 08/11/17 09:26 Patient Own Medication PT OWN MED: Inhale Mometasone-Formot... BID INH 08/10/17 21:00 Future Hold (Pravachol) 40 mg DAILY PO 08/11/17 09:00 08/11/17 09:26 (Nitroglycerin 2% Oint) 0.5 inch Q6HR PRN TOPICAL 08/10/17 20:15 08/10/17 21:30 Amiodarone HCl 450 mg/Sodium Chloride 250 ml @ 33.33 mls/ hr TITRATE PRN IV 08/11/17 18:00 08/12/17 05:48 (Atrovent Neb) 0.5 mg Q4HR NEB NEB 08/11/17 20:00 08/12/17 03:28 (Mucinex Er) 600 mg BID PO 08/11/17 21:00 08/11/17 21:10 Vital Signs / I&O Vital Signs Date Time Temp Pulse Resp B/P (MAP) Pulse Ox O2 Delivery O2 Flow Rate FiO2 08/12/17 05:48 95 08/12/17 04:11 96 20 127/92 (104) 95 08/12/17 03:00 109 08/12/17 01:46 101 08/12/17 01:00 104 08/12/17 00:00 102 08/11/17 23:00 107 20 139/87 (104) 92 08/11/17 23:00 113 08/11/17 22:00 104 08/11/17 21:00 108 08/11/17 20:00 108 08/11/17 20:00 97.6 114 20 146/86 (106) 95 08/11/17 19:00 96 08/11/17 18:56 108 146/87 08/11/17 18:03 128 08/11/17 17:51 121 131/97 08/11/17 17:03 110 08/11/17 16:05 109 08/11/17 16:05 97.6 109 18 124/74 (91) 97 08/11/17 15:00 127 08/11/17 14:00 116 08/11/17 13:02 18 08/11/17 13:00 134 08/11/17 12:00 131 08/11/17 11:35 97.6 115 18 114/89 (97) 95 08/11/17 11:00 111 08/11/17 10:00 127 08/11/17 09:00 127 08/11/17 08:00 122 08/11/17 07:05 97.7 117 18 101/75 (84) 94 08/11/17 07:00 127 08/11/17 06:00 124 I/O 08/11/17 08/11/17 08/11/17 08/12/17 08/12/17 08/12/17 07:00 15:00 23:00 07:00 15:00 23:00 Intake Total 240 ml 1000 ml 2399 ml 240 ml Output Total 350 ml 350 ml 450 ml Balance -110 ml 1000 ml 2049 ml -210 ml Intake Oral 240 ml 480 ml 240 ml IV Total 1000 ml 1919 ml Output Urine Total 350 ml 350 ml 450 ml Stool Total 0 ml # Voids 1 Physical Exam GENERAL: SKIN: Warm and dry. HEAD: Normocephalic. EYES: No scleral icterus. No injection or drainage. NECK: Supple, trachea midline. No JVD or lymphadenopathy. CARDIOVASCULAR: irregular and at times fast RESPIRATORY: Breath sounds equal bilaterally. No accessory muscle use. GASTROINTESTINAL: Abdomen soft, non-tender, nondistended. MUSCULOSKELETAL: No cyanosis, or edema. BACK: Nontender without obvious deformity. No CVA tenderness. Assessment and Plan Problem List: (1) Atrial fibrillation with RVR ICD Codes: I48.91 - Unspecified atrial fibrillation Status: Acute Plan: will increase betablocker. Continue IV amiodarone. ECHO and IV Lexiscan to be performed (2) Chest pain ICD Codes: R07.9 - Chest pain, unspecified Status: Acute (3) COPD (chronic obstructive pulmonary disease) ICD Codes: J44.9 - Chronic obstructive pulmonary disease, unspecified (4) Arrhythmia ICD Codes: I49.9 - Cardiac arrhythmia, unspecified Status: Acute Problem Qualifiers (1) Chest pain: Qualified Codes: R07.9 - Chest pain, unspecified Marquez Collier MD Aug 12, 2017 06:03
[2017-08-12] MEDS: VENLAFAXINE HCL XR 75 MG CAP PO SCH (09:38)
[2017-08-12] MEDS: FUROSEMIDE 20 MG TAB PO SCH (09:38)
[2017-08-12] MEDS: ASPIRIN 81 MG CHEW TAB PO SCH (09:39)
[2017-08-12] MEDS: DOCUSATE SODIUM 50 MG/SENNA 8.6 MG TAB PO SCH ×2 (09:39→20:46)
[2017-08-12] MEDS: RIVAROXABAN 20 MG TAB PO SCH (09:39)
[2017-08-12] MEDS: guaiFENesin E.R. 600 MG TAB PO SCH ×2 (09:39→20:46)
[2017-08-12] MEDS: METOPROLOL TARTRATE 50 MG TAB PO SCH ×2 (09:39→20:46)
[2017-08-12] MEDS: PRAVASTATIN SOD 40 MG TAB PO SCH (09:41)
[2017-08-12] MEDS: SODIUM CHLORIDE 0.9% FLUSH 10 ML FLUSH IV FLUSH SCH ×2 (09:41→20:45)
--- NOTE | 2017-08-12 12:51 | HHI.PR ---
Subjective Remarks This is a 56-year-old female with a PMH of HTN, COPD, A. fib on Xarelto, Depression, CHF (Echo 06/19/17 w/ EF 45%), s/p AICD, Diet-Controlled DM, GERD and Tobacco Abuse who presented to the ER w/ complaints of chest pain and palpitations starting earlier today. Previous ER presentation on 07/30/17 for similar complaints, patient offered admission however LEFT AMA to take care of her who has Dementia. Returns now w/ ongoing complaints. Does not have Cardiology follow up. Reports chest pain is substernal, intermittent, 01/11, associated w/ SOB, worse w/ movement. Denies fever, chills or cough. On arrival, patient found to be in A. fib with RVR, HR 155, BP 162/83, O2 sat 100% on 2L NC, Afebrile. CBC essentially at baseline. Creatinine 1.36, producing 1.13 on 07/30/17. Troponin negative. BNP 309. CPK 317. CXR with no acute findings. Reports h/o ALLERGY to Verapamil w/ hives/rash, however doesn't know if she has allergy to Cardizem. S/p Metoprolol IV and PO in ER, HR 120's. Seen in her bedroom, wants to go home, awaiting management by biomedical equipment specialist. 08/12: Seen in her bedroom in the presence of her Mr. Zohaib Hampton and her Daughter Miss Culp they are trying to convince the patient to wait for Cardiology workup to be complete she is been started on Amiodarone IV, her Beta gloria was increased Echo and IV Lexiscan to be performed Not yet clear for discharge by biomedical equipment specialist. No nausea, vomit or diarrhea. Objective Vital Signs Date Time Temp Pulse Resp B/P (MAP) Pulse Ox O2 Delivery O2 Flow Rate FiO2 08/12/17 07:30 97.0 120 18 143/95 (111) 95 08/12/17 07:30 120 08/12/17 06:00 106 08/12/17 05:48 95 08/12/17 05:00 120 08/12/17 04:11 96 20 127/92 (104) 95 08/12/17 04:00 108 08/12/17 03:00 109 08/12/17 01:46 101 08/12/17 01:00 104 08/12/17 00:00 102 08/11/17 23:00 107 20 139/87 (104) 92 08/11/17 23:00 113 08/11/17 22:00 104 08/11/17 21:00 108 08/11/17 20:00 108 08/11/17 20:00 97.6 114 20 146/86 (106) 95 08/11/17 19:00 96 08/11/17 18:56 108 146/87 08/11/17 18:03 128 08/11/17 17:51 121 131/97 08/11/17 17:03 110 08/11/17 16:05 109 08/11/17 16:05 97.6 109 18 124/74 (91) 97 08/11/17 15:00 127 08/11/17 14:00 116 08/11/17 13:02 18 08/11/17 13:00 134 I/O 08/11/17 08/11/17 08/11/17 08/12/17 08/12/17 08/12/17 07:00 15:00 23:00 07:00 15:00 23:00 Intake Total 240 ml 1000 ml 2399 ml 1490 ml Output Total 350 ml 350 ml 450 ml Balance -110 ml 1000 ml 2049 ml 1040 ml Intake Oral 240 ml 480 ml 240 ml IV Total 1000 ml 1919 ml 1250 ml Output Urine Total 350 ml 350 ml 450 ml Stool Total 0 ml # Voids 1 Result Diagram: 08/11/17 0507 08/11/17 0507 Imaging Last Impressions Chest X-Ray 08/10/17 1654 Signed Impressions: Service Date/Time: Thursday, August 10, 2017 17:09 - CONCLUSION: No acute disease. Kole Whitney Jr., MD Procedures None Other Results Laboratory Tests Test 08/10/17 17:08 08/11/17 05:07 Prothrombin Time 12.3 SEC Prothromb Time International Ratio 1.2 RATIO Activated Partial Thromboplast Time 25.6 SEC Blood Urea Nitrogen 16 MG/DL 24 MG/DL Creatinine 1.36 MG/DL 1.45 MG/DL Random Glucose 138 MG/DL 181 MG/DL Total Protein 8.1 GM/DL 6.9 GM/DL Albumin 4.0 GM/DL 3.6 GM/DL Calcium Level 9.0 MG/DL 8.6 MG/DL Magnesium Level 2.2 MG/DL Alkaline Phosphatase 117 U/L 109 U/L Aspartate Amino Transf (AST/SGOT) 65 U/L 40 U/L Alanine Aminotransferase (ALT/SGPT) 36 U/L 42 U/L Total Bilirubin 0.7 MG/DL 0.7 MG/DL Sodium Level 138 MEQ/L 135 MEQ/L Potassium Level 5.6 MEQ/L 5.3 MEQ/L Chloride Level 105 MEQ/L 104 MEQ/L Carbon Dioxide Level 25.4 MEQ/L 25.8 MEQ/L Total Creatine Kinase 317 U/L Creatine Kinase MB 4.7 NG/ML Creatine Kinase MB % 1.5 % B-Type Natriuretic Peptide 309 PG/ML White Blood Count 8.6 TH/MM3 Red Blood Count 3.69 MIL/MM3 Hemoglobin 8.8 GM/DL Hematocrit 29.6 % Mean Corpuscular Volume 80.2 FL Mean Corpuscular Hemoglobin 23.8 PG Mean Corpuscular Hemoglobin Concent 29.7 % Red Cell Distribution Width 17.5 % Platelet Count 455 TH/MM3 Mean Platelet Volume 7.5 FL Neutrophils (%) (Auto) 73.6 % Lymphocytes (%) (Auto) 16.8 % Monocytes (%) (Auto) 7.6 % Eosinophils (%) (Auto) 0.8 % Basophils (%) (Auto) 1.2 % Neutrophils # (Auto) 6.3 TH/MM3 Lymphocytes # (Auto) 1.4 TH/MM3 Monocytes # (Auto) 0.7 TH/MM3 Eosinophils # (Auto) 0.1 TH/MM3 Basophils # (Auto) 0.1 TH/MM3 CBC Comment DIFF FINAL Differential Comment Anion Gap 5 MEQ/L Estimat Glomerular Filtration Rate 38 ML/MIN Troponin I LESS THAN 0.02 NG/ML Objective Remarks GENERAL: Middle-aged white female in no acute distress. HEENT: PERRLA, EOMI. No scleral icterus or conjunctival pallor. No lid lag or facial droop. CARDIOVASCULAR: Irregularly irregular, in A. fib, HR 120s. No obvious murmurs to auscultation. No chest tenderness to palpation. RESPIRATORY: No obvious rhonchi or wheezing. Clear to auscultation. Breath sounds equal bilaterally. GASTROINTESTINAL: Abdomen soft, non-tender, nondistended. BS normal. MUSCULOSKELETAL: Extremities without clubbing, cyanosis, or edema. No obvious deformities. NEUROLOGICAL: Awake, alert and oriented x4. No focal neurologic deficits. Moving both upper and lower extremities spontaneously. Medications and IVs Current Medications Medications (Trade) Dose Ordered Sig/[place] Route Start Time Stop Time Status Last Admin Sodium Chloride 1,000 ml @ 100 mls/hr Q10H IV 08/10/17 19:18 08/12/17 05:48 (NS Flush) 2 ml UNSCH PRN IV FLUSH 08/10/17 19:30 (NS Flush) 2 ml BID IV FLUSH 08/10/17 21:00 08/12/17 09:41 (Zofran Inj) 4 mg Q6H PRN IVP 08/10/17 19:30 08/11/17 04:04 (Tylenol) 650 mg Q6H PRN PO 08/10/17 19:30 08/12/17 05:50 ([place] 5-325 Mg) 1 tab Q4H PRN PO 08/10/17 19:30 08/11/17 23:12 (Morphine Inj) 2 mg Q3H PRN IV PUSH 08/10/17 19:30 08/10/17 23:24 (Izabela-Colace) 1 tab BID PO 08/10/17 21:00 08/12/17 09:39 (Milk Of Magnesia Liq) 30 ml Q12H PRN PO 08/10/17 19:30 (Senokot) 17.2 mg Q12H PRN PO 08/10/17 19:30 (Dulcolax Supp) 10 mg DAILY PRN RECTAL 08/10/17 19:30 (Lactulose Liq) 30 ml DAILY PRN PO 08/10/17 19:30 (Aspirin Chew) 81 mg DAILY PO 08/11/17 09:00 08/12/17 09:39 (Lasix) 20 mg DAILY PO 08/11/17 09:00 08/12/17 09:38 (Imdur) 30 mg HS PO 08/10/17 21:00 08/11/17 21:10 (Xarelto) 20 mg DAILY PO 08/11/17 09:00 08/12/17 09:39 (Effexor Xr) 150 mg DAILY PO 08/11/17 09:00 08/12/17 09:38 Patient Own Medication PT OWN MED: Inhale Mometasone-Formot... BID INH 08/10/17 21:00 Future Hold (Pravachol) 40 mg DAILY PO 08/11/17 09:00 08/12/17 09:41 (Nitroglycerin 2% Oint) 0.5 inch Q6HR PRN TOPICAL 08/10/17 20:15 08/10/17 21:30 Amiodarone HCl 450 mg/Sodium Chloride 250 ml @ 33.33 mls/ hr TITRATE PRN IV 08/11/17 18:00 08/12/17 05:48 (Atrovent Neb) 0.5 mg Q4HR NEB NEB 08/11/17 20:00 08/12/17 09:11 (Mucinex Er) 600 mg BID PO 08/11/17 21:00 08/12/17 09:39 (Lopressor) 50 mg BID PO 08/12/17 09:00 08/12/17 09:39 A/P Assessment and Plan (1) Atrial fibrillation with RVR ICD Code: I48.91 - Unspecified atrial fibrillation Status: Acute (2) Chest pain ICD Code: R07.9 - Chest pain, unspecified Status: Acute (3) COPD (chronic obstructive pulmonary disease) ICD Code: J44.9 - Chronic obstructive pulmonary disease, unspecified (4) Tobacco abuse ICD Code: Z72.0 - Tobacco use Assessment and Plan A/P: 1. A. fib w/ RVR: Recurrent, recent ER presentation for same 07/30/17 however LEFT AMA, returns now w/ HR 150's in A-fib, questionable ALLERGY to Cardizem, pt unsure. S/p Metoprolol IV and PO x3 doses in ER w/ HR 120's. Continue w/ Metoprolol. Admit to [facility], telemetry. Resume Xarelto. at this time on Amiodarone Drip and increased Beta gloria by Cardiology also recommended for Stress test and Echocardiogram. 2. Chest Pain: Likely secondary to above. Trop negative, check serial cardiac enzymes to eval for underlying ischemia. ASA, Metoprolol, start Statin. NTG/Morphine prn. Cardiac enzymes negative awaiting for Stress test and Echocardiogram. 3. COPD: Non exacerbated, continue Bronchodilator, Mucolytic and incentive spirometry. 4. Tobacco Abuse: she smokes 3 to 4 packs daily. as per her and Daughter, No NicoDerm to avoid vasoconstriction. Ativan prn if needed. 5. Obesity strongly recommended diet and exercise. discussed on MDR, patient wanted to sign AMA but her family convinced to be here and await for Cardiac Workup. DVT Prophylaxis: Resume Xarelto Discharge Planning once cleared by biomedical equipment specialist. Loc Clemons MD Aug 12, 2017 12:51
[2017-08-12] MEDS: ISOSORBIDE MONONITRATE 30 MG CR TAB (IMDUR) PO SCH (20:46)
[2017-08-13] VITALS (27 sets, daily range): BP systolic 117–148; BP diastolic 68–95; PULSE 78–112; RESP 18–20; TEMP 97.1–98.5; O2SAT 93–95
[2017-08-13] MEDS: RESP: IPRATROPIUM 0.5 MG/2.5 ML NEB NEB SCH ×6 (04:26→23:36)
[2017-08-13] MEDS: SODIUM CHLOR 0.9% 1000 ML INJ 1,000 ML IV SCH ×2 (06:23→18:30)
[2017-08-13] MEDS: VENLAFAXINE HCL XR 75 MG CAP PO SCH (08:02)
[2017-08-13] MEDS: ASPIRIN 81 MG CHEW TAB PO SCH (08:02)
[2017-08-13] MEDS: RIVAROXABAN 20 MG TAB PO SCH (08:02)
[2017-08-13] MEDS: DOCUSATE SODIUM 50 MG/SENNA 8.6 MG TAB PO SCH ×2 (08:02→21:40)
[2017-08-13] MEDS: PRAVASTATIN SOD 40 MG TAB PO SCH (08:02)
[2017-08-13] MEDS: METOPROLOL TARTRATE 50 MG TAB PO SCH ×2 (08:02→21:40)
[2017-08-13] MEDS: guaiFENesin E.R. 600 MG TAB PO SCH ×2 (08:02→21:40)
[2017-08-13] MEDS: FUROSEMIDE 20 MG TAB PO SCH (08:02)
[2017-08-13] MEDS: SODIUM CHLORIDE 0.9% FLUSH 10 ML FLUSH IV FLUSH SCH ×2 (08:02→21:00)
[2017-08-13] MEDS ORDERED: REGADENOSON INJ 0.4 MG/5 ML SYR ONE (08:49)
--- NOTE | 2017-08-13 09:10 | HHI.PR ---
Subjective Remarks This is a 56-year-old female with a PMH of HTN, COPD, A. fib on Xarelto, Depression, CHF (Echo 06/19/17 w/ EF 45%), s/p AICD, Diet-Controlled DM, GERD and Tobacco Abuse who presented to the ER w/ complaints of chest pain and palpitations starting earlier today. Previous ER presentation on 07/30/17 for similar complaints, patient offered admission however LEFT AMA to take care of her who has Dementia. Returns now w/ ongoing complaints. Does not have Cardiology follow up. Reports chest pain is substernal, intermittent, 01/11, associated w/ SOB, worse w/ movement. Denies fever, chills or cough. On arrival, patient found to be in A. fib with RVR, HR 155, BP 162/83, O2 sat 100% on 2L NC, Afebrile. CBC essentially at baseline. Creatinine 1.36, producing 1.13 on 07/30/17. Troponin negative. BNP 309. CPK 317. CXR with no acute findings. Reports h/o ALLERGY to Verapamil w/ hives/rash, however doesn't know if she has allergy to Cardizem. S/p Metoprolol IV and PO in ER, HR 120's. Seen in her bedroom, wants to go home, awaiting management by hvac specialist. 08/12: Seen in her bedroom in the presence of her Mr. Zohaib Hampton and her Daughter Miss Culp they are trying to convince the patient to wait for Cardiology workup to be complete she is been started on Amiodarone IV, her Beta gloria was increased Echo and IV Lexiscan to be performed 08/13: Stable in her bedroom, still awaiting final recommendations By hvac specialist, no nausea, vomit or diarrhea. denies chest pain, sleeping comfortable. Objective Vital Signs Date Time Temp Pulse Resp B/P (MAP) Pulse Ox O2 Delivery O2 Flow Rate FiO2 08/13/17 06:00 102 08/13/17 05:00 98 08/13/17 04:10 98 20 148/95 (112) 95 08/13/17 04:00 104 08/13/17 03:00 78 08/13/17 02:00 94 08/13/17 01:00 98 08/13/17 00:00 98 08/12/17 23:11 98 115/89 08/12/17 23:10 98 20 115/89 (98) 94 08/12/17 23:00 67 08/12/17 22:00 96 08/12/17 21:00 110 08/12/17 20:00 102 08/12/17 19:40 97.6 105 16 141/86 (104) 97 08/12/17 19:00 116 08/12/17 18:00 108 08/12/17 17:00 100 08/12/17 16:00 108 08/12/17 15:30 96 08/12/17 15:30 98.8 100 18 128/90 (103) 96 08/12/17 15:00 96 08/12/17 14:00 102 08/12/17 12:00 104 08/12/17 11:00 98.8 100 18 138/93 (108) 96 08/12/17 11:00 100 08/12/17 11:00 100 08/12/17 10:00 105 I/O 08/12/17 08/12/17 08/12/17 08/13/17 08/13/17 08/13/17 07:00 15:00 23:00 07:00 15:00 23:00 Intake Total 1490 ml 2141 ml 1490 ml Output Total 450 ml 600 ml 450 ml Balance 1040 ml 1541 ml 1040 ml Intake Oral 240 ml 960 ml 240 ml IV Total 1250 ml 1181 ml 1250 ml Output Urine Total 450 ml 600 ml 450 ml Stool Total 0 ml # Bowel Movements 0 0 Result Diagram: 08/11/17 0507 08/11/17 0507 Imaging Last Impressions Chest X-Ray 08/10/17 1654 Signed Impressions: Service Date/Time: Thursday, August 10, 2017 17:09 - CONCLUSION: No acute disease. Kole Whitney Jr., MD Procedures None Other Results Laboratory Tests Test 08/10/17 17:08 08/11/17 05:07 Prothrombin Time 12.3 SEC Prothromb Time International Ratio 1.2 RATIO Activated Partial Thromboplast Time 25.6 SEC Blood Urea Nitrogen 16 MG/DL 24 MG/DL Creatinine 1.36 MG/DL 1.45 MG/DL Random Glucose 138 MG/DL 181 MG/DL Total Protein 8.1 GM/DL 6.9 GM/DL Albumin 4.0 GM/DL 3.6 GM/DL Calcium Level 9.0 MG/DL 8.6 MG/DL Magnesium Level 2.2 MG/DL Alkaline Phosphatase 117 U/L 109 U/L Aspartate Amino Transf (AST/SGOT) 65 U/L 40 U/L Alanine Aminotransferase (ALT/SGPT) 36 U/L 42 U/L Total Bilirubin 0.7 MG/DL 0.7 MG/DL Sodium Level 138 MEQ/L 135 MEQ/L Potassium Level 5.6 MEQ/L 5.3 MEQ/L Chloride Level 105 MEQ/L 104 MEQ/L Carbon Dioxide Level 25.4 MEQ/L 25.8 MEQ/L Total Creatine Kinase 317 U/L Creatine Kinase MB 4.7 NG/ML Creatine Kinase MB % 1.5 % B-Type Natriuretic Peptide 309 PG/ML White Blood Count 8.6 TH/MM3 Red Blood Count 3.69 MIL/MM3 Hemoglobin 8.8 GM/DL Hematocrit 29.6 % Mean Corpuscular Volume 80.2 FL Mean Corpuscular Hemoglobin 23.8 PG Mean Corpuscular Hemoglobin Concent 29.7 % Red Cell Distribution Width 17.5 % Platelet Count 455 TH/MM3 Mean Platelet Volume 7.5 FL Neutrophils (%) (Auto) 73.6 % Lymphocytes (%) (Auto) 16.8 % Monocytes (%) (Auto) 7.6 % Eosinophils (%) (Auto) 0.8 % Basophils (%) (Auto) 1.2 % Neutrophils # (Auto) 6.3 TH/MM3 Lymphocytes # (Auto) 1.4 TH/MM3 Monocytes # (Auto) 0.7 TH/MM3 Eosinophils # (Auto) 0.1 TH/MM3 Basophils # (Auto) 0.1 TH/MM3 CBC Comment DIFF FINAL Differential Comment Anion Gap 5 MEQ/L Estimat Glomerular Filtration Rate 38 ML/MIN Troponin I LESS THAN 0.02 NG/ML Objective Remarks GENERAL:No acute distress. HEENT: PERRLA, EOMI. CARDIOVASCULAR: Irregularly irregular, in A. fib, HR 120s. RESPIRATORY: Decreased breath sounds bilateral, GASTROINTESTINAL: Abdomen soft, non-tender, nondistended. BS normal. MUSCULOSKELETAL: Extremities without clubbing, cyanosis, or edema. NEUROLOGICAL: Awake, alert and oriented x4. No focal neurologic deficits. Medications and IVs Current Medications Medications (Trade) Dose Ordered Sig/[place] Route Start Time Stop Time Status Last Admin Sodium Chloride 1,000 ml @ 100 mls/hr Q10H IV 08/10/17 19:18 08/13/17 06:23 (NS Flush) 2 ml UNSCH PRN IV FLUSH 08/10/17 19:30 (NS Flush) 2 ml BID IV FLUSH 08/10/17 21:00 08/13/17 08:02 (Zofran Inj) 4 mg Q6H PRN IVP 08/10/17 19:30 08/11/17 04:04 (Tylenol) 650 mg Q6H PRN PO 08/10/17 19:30 08/12/17 19:41 ([place] 5-325 Mg) 1 tab Q4H PRN PO 08/10/17 19:30 08/11/17 23:12 (Morphine Inj) 2 mg Q3H PRN IV PUSH 08/10/17 19:30 08/10/17 23:24 (Izabela-Colace) 1 tab BID PO 08/10/17 21:00 08/13/17 08:02 (Milk Of Magnesia Liq) 30 ml Q12H PRN PO 08/10/17 19:30 (Senokot) 17.2 mg Q12H PRN PO 08/10/17 19:30 (Dulcolax Supp) 10 mg DAILY PRN RECTAL 08/10/17 19:30 (Lactulose Liq) 30 ml DAILY PRN PO 08/10/17 19:30 (Aspirin Chew) 81 mg DAILY PO 08/11/17 09:00 08/13/17 08:02 (Lasix) 20 mg DAILY PO 08/11/17 09:00 08/13/17 08:02 (Imdur) 30 mg HS PO 08/10/17 21:00 08/12/17 20:46 (Xarelto) 20 mg DAILY PO 08/11/17 09:00 08/13/17 08:02 (Effexor Xr) 150 mg DAILY PO 08/11/17 09:00 08/13/17 08:02 Patient Own Medication PT OWN MED: Inhale Mometasone-Formot... BID INH 08/10/17 21:00 Future Hold (Pravachol) 40 mg DAILY PO 08/11/17 09:00 08/13/17 08:02 (Nitroglycerin 2% Oint) 0.5 inch Q6HR PRN TOPICAL 08/10/17 20:15 08/10/17 21:30 Amiodarone HCl 450 mg/Sodium Chloride 250 ml @ 33.33 mls/ hr TITRATE PRN IV 08/11/17 18:00 08/12/17 23:11 (Atrovent Neb) 0.5 mg Q4HR NEB NEB 08/11/17 20:00 08/12/17 09:11 (Mucinex Er) 600 mg BID PO 08/11/17 21:00 08/13/17 08:02 (Lopressor) 50 mg BID PO 08/12/17 09:00 08/13/17 08:02 A/P Assessment and Plan (1) Atrial fibrillation with RVR ICD Code: I48.91 - Unspecified atrial fibrillation Status: Acute (2) Chest pain ICD Code: R07.9 - Chest pain, unspecified Status: Acute (3) COPD (chronic obstructive pulmonary disease) ICD Code: J44.9 - Chronic obstructive pulmonary disease, unspecified (4) Tobacco abuse ICD Code: Z72.0 - Tobacco use Assessment and Plan A/P: 1. A. fib w/ RVR: Recurrent, recent ER presentation for same 07/30/17 however LEFT AMA, returns now w/ HR 150's in A-fib, questionable ALLERGY to Cardizem, pt unsure. S/p Metoprolol IV and PO x3 doses in ER w/ HR 120's. Continue w/ Metoprolol. continue Cardiac Monitoring, Xarelto, Metoprolol, Aspirin, Furosemide, Isosorbide mononitrate. Amiodarone drip, Stress test no ischemia, EF 24%, Not yet cleared by Cardiology for discharge. 2. Congestive Heart failure with reduced Systolic function. EF 24%. Severely reduced left ventricular systolic function. 3. Chest Pain: Likely secondary to above. Trop negative, check serial cardiac enzymes to eval for underlying ischemia. ASA, Metoprolol, start Statin. NTG/Morphine prn. Cardiac enzymes negative. 4. COPD: Non exacerbated, continue Bronchodilator, Mucolytic and incentive spirometry. 5. Tobacco Abuse: she smokes 3 to 4 packs daily. as per her and Daughter, No NicoDerm to avoid vasoconstriction. Ativan prn if needed. 6. Obesity strongly recommended diet and exercise. 7. CKD III stable. DVT Prophylaxis: Resume Xarelto Discharge Planning once cleared by hvac specialist. Loc Clemons MD Aug 13, 2017 09:10
--- NOTE | 2017-08-13 11:00 | RADRPT ---
EXAM DATE/TIME: 08/12/2017 12:40 [place] COMPARISON: No previous studies available for comparison. INDICATIONS : Cardiomyopathy. Angina. Atrial fibrillation. DOSE: 31.2 mCi Tc99m Myoview at stress. 30.1 mCi Tc99m Myoview at rest. 0.4 mg Lexiscan STRESS SYMPTOMS: Nausea and hot. EJECTION FRACTION: 24% MEDICAL HISTORY : Hypertension. Chronic obstructive pulmonary disease. SURGICAL HISTORY : Pacemaker. ENCOUNTER: Initial ACUITY: 1 day PAIN SCALE: 3/10 LOCATION: Bilateral chest TECHNIQUE: The patient underwent pharmacologic stress with infusion of prescribed dose. Continuous ECG tracing was monitored during stress. Gated SPECT imaging was performed after stress and conventional SPECT i maging was performed at rest. The examination was performed on a SPECT/CT scanner, both attenuation and non-corrected datasets were reviewed. FINDINGS: DISTRIBUTION: The maximum perfused segment at stress is in the anteroseptal wall. PERFUSION STUDY: The pattern of perfusion at stress is within normal limits. GATED STUDY: There is diffuse global hypokinesia. CONCLUSION: 1. No evidence for stress-induced ischemia or infarction. 2. Global hypokinesia with reduced EF of 24%. RISK CATEGORY: High (>3% Annual Mortality Rate) Devonte Zhang MD on August 13, 2017 at 10:56 Board Certified Radiologist. This report was verified electronically.
[2017-08-13 11:38] LABS: BICARBONATE 21.8 MEQ/L (21.0-32.0); CALCIUM 8.1 MG/DL (8.5-10.1); CREATININE 1.34 MG/DL (0.50-1.00)
[2017-08-13] MEDS: AMIODARONE INJ 450 MG in SODIUM CHLOR 0.9% (EXCEL) INJ 241 ML IV PRN (16:17)
--- NOTE | 2017-08-13 17:17 | ECHRPT ---
Indication: ATRIAL FIB/FLUTTER CONCLUSIONS Normal left ventricular size. Mild concentric left ventricular hypertrophy. The left ventricular systolic function is low normal with an estimated ejection fraction in the rang e of 50- 55%. A pacemaker wire is noted. The left atrial size is moderately dilated. There is a pacemaker wire present in the right atrial cavity. The right atrial size is dkgi-yn-geaybqmwbs dilated. Mitf-hn-gowcnsqt mitral valve regurgitation. Aortic valve sclerosis is present. There is mild to moderate tricuspid valve regurgitation. The estimated pulmonary arterial pressure is 58 mmHg. Mild pulmonary valve regurgitation. BP: 143 / 95 HR: 111 Rhythm: Atrial fibrillation, Atrial flut ter MEASUREMENTS (Male / Female) Normal Values Technical Quality:Fair 2D ECHO LV Diastolic Diameter PLAX 4.3 cm 4.2 - 5.9 / 3.9 - 5.3 cm LV Systolic Diameter PLAX 3.3 cm IVS Diastolic Thickness 1.3 cm 0.6 - 1.0 / 0.6 - 0.9 cm LVPW Diastolic Thickness 1.3 cm 0.6 - 1.0 / 0.6 - 0.9 cm LV Relative Wall Thickness 0.6 RV Internal Dim ED PLAX 3.0 cm LVOT Diameter 2.2 cm LA Systolic Diameter LX 4.0 cm 3.0 - 4.0 / 2.7 - 3.8 cm M-MODE Aortic Root Diameter MM 2.6 cm LA Systolic Diameter MM 3.9 cm LA Ao Ratio MM 1.5 AV Cusp Separation MM 1.2 cm DOPPLER AV Peak Velocity 171.0 cm/s AV Peak Gradient 11.7 mmHg AV Mean Gradient 6.0 mmHg AV Velocity Time Integral 30.6 cm LVOT Peak Velocity 56.4 cm/s LVOT Peak Gradient 1.3 mmHg LVOT Velocity Time Integral 11.0 cm LVOT Cardiac Index 2411.2 cm/minm AV Area Cont Eq vti 1.4 cm AV Area Cont Eq pk 1.3 cm MV Area PHT 3.6 cm MR Peak Velocity 473.0 cm/s MR Peak Gradient 89.5 mmHg Mitral E Point Velocity 112.0 cm/s Mitral A Point Velocity 29.6 cm/s Mitral E to A Ratio 3.8 LV E' Lateral Velocity 6.2 cm/s Mitral E to LV E' Lateral Ratio 17.9 LV E' Septal Velocity 6.6 cm/s Mitral E to LV E' Septal Ratio 16.9 TR Peak Velocity 347.0 cm/s TR Peak Gradient 48.2 mmHg Right Atrial Pressure 10.0 mmHg Pulmonary Artery Systolic Pressu 58.2 mmHg Right Ventricular Systolic Press 58.2 mmHg FINDINGS LEFT VENTRICLE Normal left ventricular size. Mild concentric left ventricular hypertrophy. The left ventricular systolic function is low normal with an estimated ejection fraction in the rang e of 50- 55%. RIGHT VENTRICLE A pacemaker wire is noted. Normal right ventricular size and systolic function. LEFT ATRIUM The left atrial size is moderately dilated. RIGHT ATRIUM There is a pacemaker wire present in the right atrial cavity. The right atrial size is qmnj-zn-bwyoofjowc dilated. ATRIAL SEPTUM The interatrial septum not well visualized. AORTA The aortic root and proximal ascending aorta are not well visualized. MITRAL VALVE Qvmq-zi-byqsamat mitral valve regurgitation. AORTIC VALVE Aortic valve sclerosis is present. TRICUSPID VALVE There is mild to moderate tricuspid valve regurgitation. The estimated pulmonary arterial pressure is __ mmHg. PULMONARY VALVE Mild pulmonary valve regurgitation. VESSELS The inferior vena cava is normal in size. PERICARDIUM No pericardial effusion. Robert Garcia MD, FACC (Electronically Signed) Final Date:13 August 2017 17:16
[2017-08-13] MEDS: ISOSORBIDE MONONITRATE 30 MG CR TAB (IMDUR) PO SCH (21:40)
--- NOTE | 2017-08-13 22:51 | PD.CARD.PN ---
Subjective Subjective Remarks Feeling better, no chest pain. Tele afib HR 80-150s Objective Medications Current Medications Medications (Trade) Dose Ordered Sig/[place] Route Start Time Stop Time Status Last Admin Sodium Chloride 1,000 ml @ 100 mls/hr Q10H IV 08/10/17 19:18 08/13/17 18:30 (NS Flush) 2 ml UNSCH PRN IV FLUSH 08/10/17 19:30 (NS Flush) 2 ml BID IV FLUSH 08/10/17 21:00 08/13/17 08:02 (Zofran Inj) 4 mg Q6H PRN IVP 08/10/17 19:30 08/11/17 04:04 (Tylenol) 650 mg Q6H PRN PO 08/10/17 19:30 08/12/17 19:41 ([place] 5-325 Mg) 1 tab Q4H PRN PO 08/10/17 19:30 08/11/17 23:12 (Morphine Inj) 2 mg Q3H PRN IV PUSH 08/10/17 19:30 08/10/17 23:24 ([place]-Colace) 1 tab BID PO 08/10/17 21:00 08/13/17 21:40 (Milk Of Magnesia Liq) 30 ml Q12H PRN PO 08/10/17 19:30 (Senokot) 17.2 mg Q12H PRN PO 08/10/17 19:30 (Dulcolax Supp) 10 mg DAILY PRN RECTAL 08/10/17 19:30 (Lactulose Liq) 30 ml DAILY PRN PO 08/10/17 19:30 (Aspirin Chew) 81 mg DAILY PO 08/11/17 09:00 08/13/17 08:02 (Lasix) 20 mg DAILY PO 08/11/17 09:00 08/13/17 08:02 (Imdur) 30 mg HS PO 08/10/17 21:00 08/13/17 21:40 (Effexor Xr) 150 mg DAILY PO 08/11/17 09:00 08/13/17 08:02 Patient Own Medication PT OWN MED: Inhale Mometasone-Formot... BID INH 08/10/17 21:00 Future Hold (Pravachol) 40 mg DAILY PO 08/11/17 09:00 08/13/17 08:02 (Nitroglycerin 2% Oint) 0.5 inch Q6HR PRN TOPICAL 08/10/17 20:15 08/10/17 21:30 Amiodarone HCl 450 mg/Sodium Chloride 250 ml @ 33.33 mls/ hr TITRATE PRN IV 08/11/17 18:00 08/13/17 16:17 (Atrovent Neb) 0.5 mg Q4HR NEB NEB 08/11/17 20:00 08/12/17 09:11 (Mucinex Er) 600 mg BID PO 08/11/17 21:00 08/13/17 21:40 (Lopressor) 50 mg BID PO 08/12/17 09:00 08/13/17 21:40 (Xarelto) 15 mg DAILY PO 08/14/17 09:00 Vital Signs / I&O Vital Signs Date Time Temp Pulse Resp B/P (MAP) Pulse Ox O2 Delivery O2 Flow Rate FiO2 08/13/17 18:00 106 08/13/17 17:00 84 08/13/17 16:17 98 125/68 08/13/17 16:00 96 08/13/17 15:34 98.1 98 18 125/68 (87) 94 08/13/17 15:00 100 08/13/17 14:00 96 08/13/17 13:01 84 08/13/17 12:01 97.3 87 18 134/91 (105) 93 08/13/17 12:00 88 08/13/17 11:00 82 08/13/17 08:15 97.1 100 18 139/87 (104) 93 08/13/17 08:00 106 08/13/17 07:01 98 08/13/17 06:00 102 08/13/17 05:00 98 08/13/17 04:10 98 20 148/95 (112) 95 08/13/17 04:00 104 08/13/17 03:00 78 08/13/17 02:00 94 08/13/17 01:00 98 08/13/17 00:00 98 08/12/17 23:11 98 115/89 08/12/17 23:10 98 20 115/89 (98) 94 08/12/17 23:00 67 I/O 3/11/18 3/04/2108/12/17 08/13/17 08/13/17 08/13/17 07:00 15:00 23:00 07:00 15:00 23:00 Intake Total 1490 ml 2141 ml 1490 ml 1730 ml Output Total 450 ml 600 ml 450 ml 600 ml Balance 1040 ml 1541 ml 1040 ml 1130 ml Intake Oral 240 ml 960 ml 240 ml 480 ml IV Total 1250 ml 1181 ml 1250 ml 1250 ml Output Urine Total 450 ml 600 ml 450 ml 600 ml Stool Total 0 ml # Voids 2 # Bowel Movements 0 0 0 Physical Exam GENERAL: resting comfortable. Obese. SKIN: Warm and dry. HEAD: Normocephalic. EYES: No scleral icterus. No injection or drainage. NECK: Supple, trachea midline. No JVD or lymphadenopathy. CARDIOVASCULAR: irregular and at times fast RESPIRATORY: Breath sounds equal bilaterally. No accessory muscle use. GASTROINTESTINAL: Abdomen soft, non-tender, nondistended. MUSCULOSKELETAL: No cyanosis, or edema. BACK: Nontender without obvious deformity. No CVA tenderness. Laboratory Laboratory Tests Test 08/13/17 10:32 Blood Urea Nitrogen 31 MG/DL Creatinine 1.34 MG/DL Random Glucose 140 MG/DL Calcium Level 8.1 MG/DL Sodium Level 134 MEQ/L Potassium Level 4.6 MEQ/L Chloride Level 104 MEQ/L Carbon Dioxide Level 21.8 MEQ/L Anion Gap 8 MEQ/L Estimat Glomerular Filtration Rate 41 ML/MIN Assessment and Plan Problem List: (1) Atrial fibrillation with RVR ICD Codes: I48.91 - Unspecified atrial fibrillation Status: Acute Plan: ON Xarelto for stroke prevention [place] nuclear stress test today showed no ischemia Echo today showed LVEF 55%, mild to moderate MR and TR PASP in 50s HR still need to be better controlled. Will stop IV Amiodarone, start PO Amiodarone 200 mg BID, Continue Metoprolol 50mg BID. Will add Cardizem 60 mg TID. OK to be discharged home tomorrow from cardiology standpoint, if HR better control. Follow up with her records management engineer Dr Bejarano in 1 week. (2) Chest pain ICD Codes: R07.9 - Chest pain, unspecified Status: Acute (3) COPD (chronic obstructive pulmonary disease) ICD Codes: J44.9 - Chronic obstructive pulmonary disease, unspecified (4) Arrhythmia ICD Codes: I49.9 - Cardiac arrhythmia, unspecified Status: Acute Problem Qualifiers (1) Chest pain: Qualified Codes: R07.9 - Chest pain, unspecified Wing Zaira Mcgrath MD Aug 13, 2017 22:51
[2017-08-13] MEDS ORDERED: AMIODARONE 200 MG TAB PO ONE (23:00)
[2017-08-14] VITALS (8 sets, daily range): BP systolic 133–151; BP diastolic 85–97; PULSE 90–107; RESP 18–20; TEMP 98.4–98.9; O2SAT 94–97
[2017-08-14] MEDS ORDERED: DILTIAZEM HCL 60 MG TAB PO SCH
[2017-08-14] MEDS: RESP: IPRATROPIUM 0.5 MG/2.5 ML NEB NEB SCH ×2 (03:29→07:45)
[2017-08-14] MEDS: SODIUM CHLOR 0.9% 1000 ML INJ 1,000 ML IV SCH (04:18)
[2017-08-14] MEDS ORDERED: AMIODARONE 200 MG TAB PO SCH (09:00)
[2017-08-14] MEDS ORDERED: RIVAROXABAN 15 MG TAB PO SCH (09:00)
[2017-08-14] MEDS: SODIUM CHLORIDE 0.9% FLUSH 10 ML FLUSH IV FLUSH SCH (09:00)
--- NOTE | 2017-08-14 09:13 | HHI.PR ---
Subjective Remarks This is a 56-year-old female with a PMH of HTN, COPD, A. fib on Xarelto, Depression, CHF (Echo 06/19/17 w/ EF 45%), s/p AICD, Diet-Controlled DM, GERD and Tobacco Abuse who presented to the ER w/ complaints of chest pain and palpitations starting earlier today. Previous ER presentation on 07/30/17 for similar complaints, patient offered admission however LEFT AMA to take care of her who has Dementia. Returns now w/ ongoing complaints. Does not have Cardiology follow up. Reports chest pain is substernal, intermittent, 01/11, associated w/ SOB, worse w/ movement. Denies fever, chills or cough. On arrival, patient found to be in A. fib with RVR, HR 155, BP 162/83, O2 sat 100% on 2L NC, Afebrile. CBC essentially at baseline. Creatinine 1.36, producing 1.13 on 07/30/17. Troponin negative. BNP 309. CPK 317. CXR with no acute findings. Reports h/o ALLERGY to Verapamil w/ hives/rash, however doesn't know if she has allergy to Cardizem. S/p Metoprolol IV and PO in ER, HR 120's. Seen in her bedroom, wants to go home, awaiting management by consumer insights specialist. 08/12: Seen in her bedroom in the presence of her Mr. Zohaib Hampton and her Daughter Miss Culp they are trying to convince the patient to wait for Cardiology workup to be complete she is been started on Amiodarone IV, her Beta gloria was increased Echo and IV Lexiscan to be performed 08/13: Stable in her bedroom, still awaiting final recommendations By consumer insights specialist. 08/14: Seen in her bedroom, stable no complaint, rate controlled, Continue Xarelto, Lexiscan no ischemia, Echocardiogram LVEF 55%, Mild to moderate MR and TR, not yet controlled rate, stopped IV Amiodarone started on Amiodarone 200 mg BID, continue Metoprolol 50 mg BID, Cardizem 60 mg TID okay to discharge by Cardiology and follow by Doctor Bejarano in one week. Objective Vital Signs Date Time Temp Pulse Resp B/P (MAP) Pulse Ox O2 Delivery O2 Flow Rate FiO2 08/14/17 06:00 107 08/14/17 05:00 107 08/14/17 04:00 103 08/14/17 04:00 98.9 98 20 133/85 (101) 94 08/14/17 03:00 94 08/14/17 02:00 90 08/14/17 01:00 98 08/14/17 00:00 94 08/13/17 23:15 98.5 87 20 117/90 (99) 94 08/13/17 23:00 90 08/13/17 22:00 110 08/13/17 21:00 110 08/13/17 20:00 112 08/13/17 20:00 97.9 111 20 147/89 (108) 94 08/13/17 19:00 104 08/13/17 18:00 106 08/13/17 17:00 84 08/13/17 16:17 98 125/68 08/13/17 16:00 96 08/13/17 15:34 98.1 98 18 125/68 (87) 94 08/13/17 15:00 100 08/13/17 14:00 96 08/13/17 13:01 84 08/13/17 12:01 97.3 87 18 134/91 (105) 93 08/13/17 12:00 88 08/13/17 11:00 82 I/O 08/13/17 08/13/17 08/13/17 08/14/17 08/14/17 08/14/17 07:00 15:00 23:00 07:00 15:00 23:00 Intake Total 1490 ml 1730 ml 240 ml Output Total 450 ml 600 ml 350 ml Balance 1040 ml 1130 ml -110 ml Intake Oral 240 ml 480 ml 240 ml IV Total 1250 ml 1250 ml Output Urine Total 450 ml 600 ml 350 ml # Voids 2 # Bowel Movements 0 0 0 Result Diagram: 08/11/17 0507 08/13/17 1032 Imaging Last Impressions Myocardial Perfusion Scan Nuc Med 08/12/17 0000 Signed Impressions: Service Date/Time: Saturday, August 12, 2017 12:40 - CONCLUSION: 1. No evidence for stress-induced ischemia or infarction. 2. Global hypokinesia with reduced EF of 24%%. RISK CATEGORY: High (>3%% Annual Mortality Rate) Devonte Zhang MD Chest X-Ray 08/10/17 2175 Signed Impressions: Service Date/Time: Thursday, August 10, 2017 17:09 - CONCLUSION: No acute disease. Kole Whitney Jr., MD Procedures None Other Results Laboratory Tests Test 08/10/17 17:08 08/11/17 05:07 08/13/17 10:32 Prothrombin Time 12.3 SEC Prothromb Time International Ratio 1.2 RATIO Activated Partial Thromboplast Time 25.6 SEC Blood Urea Nitrogen 16 MG/DL 24 MG/DL 31 MG/DL Creatinine 1.36 MG/DL 1.45 MG/DL 1.34 MG/DL Random Glucose 138 MG/DL 181 MG/DL 140 MG/DL Total Protein 8.1 GM/DL 6.9 GM/DL Albumin 4.0 GM/DL 3.6 GM/DL Calcium Level 9.0 MG/DL 8.6 MG/DL 8.1 MG/DL Magnesium Level 2.2 MG/DL Alkaline Phosphatase 117 U/L 109 U/L Aspartate Amino Transf (AST/SGOT) 65 U/L 40 U/L Alanine Aminotransferase (ALT/SGPT) 36 U/L 42 U/L Total Bilirubin 0.7 MG/DL 0.7 MG/DL Sodium Level 138 MEQ/L 135 MEQ/L 134 MEQ/L Potassium Level 5.6 MEQ/L 5.3 MEQ/L 4.6 MEQ/L Chloride Level 105 MEQ/L 104 MEQ/L 104 MEQ/L Carbon Dioxide Level 25.4 MEQ/L 25.8 MEQ/L 21.8 MEQ/L Total Creatine Kinase 317 U/L Creatine Kinase MB 4.7 NG/ML Creatine Kinase MB % 1.5 % B-Type Natriuretic Peptide 309 PG/ML White Blood Count 8.6 TH/MM3 Red Blood Count 3.69 MIL/MM3 Hemoglobin 8.8 GM/DL Hematocrit 29.6 % Mean Corpuscular Volume 80.2 FL Mean Corpuscular Hemoglobin 23.8 PG Mean Corpuscular Hemoglobin Concent 29.7 % Red Cell Distribution Width 17.5 % Platelet Count 455 TH/MM3 Mean Platelet Volume 7.5 FL Neutrophils (%) (Auto) 73.6 % Lymphocytes (%) (Auto) 16.8 % Monocytes (%) (Auto) 7.6 % Eosinophils (%) (Auto) 0.8 % Basophils (%) (Auto) 1.2 % Neutrophils # (Auto) 6.3 TH/MM3 Lymphocytes # (Auto) 1.4 TH/MM3 Monocytes # (Auto) 0.7 TH/MM3 Eosinophils # (Auto) 0.1 TH/MM3 Basophils # (Auto) 0.1 TH/MM3 CBC Comment DIFF FINAL Differential Comment Troponin I LESS THAN 0.02 NG/ML Anion Gap 8 MEQ/L Estimat Glomerular Filtration Rate 41 ML/MIN Objective Remarks GENERAL:No acute distress. HEENT: PERRLA, EOMI. CARDIOVASCULAR: Irregularly irregular, in A. fib, controlled rate. RESPIRATORY: Decreased breath sounds bilateral, GASTROINTESTINAL: Abdomen soft, non-tender, nondistended. BS normal. MUSCULOSKELETAL: Extremities without clubbing, cyanosis, or edema. NEUROLOGICAL: Awake, alert and oriented x4. No focal neurologic deficits. Medications and IVs Current Medications Medications (Trade) Dose Ordered Sig/[place] Route Start Time Stop Time Status Last Admin Sodium Chloride 1,000 ml @ 100 mls/hr Q10H IV 08/10/17 19:18 08/14/17 04:18 (NS Flush) 2 ml UNSCH PRN IV FLUSH 08/10/17 19:30 (NS Flush) 2 ml BID IV FLUSH 08/10/17 21:00 08/13/17 08:02 (Zofran Inj) 4 mg Q6H PRN IVP 08/10/17 19:30 08/11/17 04:04 (Tylenol) 650 mg Q6H PRN PO 08/10/17 19:30 08/12/17 19:41 ([place] 5-325 Mg) 1 tab Q4H PRN PO 08/10/17 19:30 08/11/17 23:12 (Morphine Inj) 2 mg Q3H PRN IV PUSH 08/10/17 19:30 08/10/17 23:24 ([place]-Colace) 1 tab BID PO 08/10/17 21:00 08/13/17 21:40 (Milk Of Magnesia Liq) 30 ml Q12H PRN PO 08/10/17 19:30 (Senokot) 17.2 mg Q12H PRN PO 08/10/17 19:30 (Dulcolax Supp) 10 mg DAILY PRN RECTAL 08/10/17 19:30 (Lactulose Liq) 30 ml DAILY PRN PO 08/10/17 19:30 (Aspirin Chew) 81 mg DAILY PO 08/11/17 09:00 08/13/17 08:02 (Lasix) 20 mg DAILY PO 08/11/17 09:00 08/13/17 08:02 (Imdur) 30 mg HS PO 08/10/17 21:00 08/13/17 21:40 (Effexor Xr) 150 mg DAILY PO 08/11/17 09:00 08/13/17 08:02 Patient Own Medication PT OWN MED: Inhale Mometasone-Formot... BID INH 08/10/17 21:00 Future Hold (Pravachol) 40 mg DAILY PO 08/11/17 09:00 08/13/17 08:02 (Nitroglycerin 2% Oint) 0.5 inch Q6HR PRN TOPICAL 08/10/17 20:15 08/10/17 21:30 (Atrovent Neb) 0.5 mg Q4HR NEB NEB 08/11/17 20:00 08/14/17 07:45 (Mucinex Er) 600 mg BID PO 08/11/17 21:00 08/13/17 21:40 (Lopressor) 50 mg BID PO 08/12/17 09:00 08/13/17 21:40 (Xarelto) 15 mg DAILY PO 08/14/17 09:00 (Cordarone) 200 mg Q12HR PO 08/14/17 09:00 (Cardizem) 60 mg Q6HR PO 08/14/17 00:00 Future Hold A/P Assessment and Plan (1) Atrial fibrillation with RVR ICD Code: I48.91 - Unspecified atrial fibrillation Status: Acute (2) Chest pain ICD Code: R07.9 - Chest pain, unspecified Status: Acute (3) COPD (chronic obstructive pulmonary disease) ICD Code: J44.9 - Chronic obstructive pulmonary disease, unspecified (4) Tobacco abuse ICD Code: Z72.0 - Tobacco use Assessment and Plan A/P: 1. A. fib w/ RVR: Recurrent, recent ER presentation for same 07/30/17 however LEFT AMA, returns now w/ HR 150's in A-fib, questionable ALLERGY to Cardizem, pt unsure. S/p Metoprolol IV and PO x3 doses in ER w/ HR 120's. Continue w/ Metoprolol. continue Cardiac Monitoring, Xarelto, Metoprolol, Aspirin, Furosemide, Isosorbide mononitrate. Amiodarone drip, Stress test no ischemia, EF 24%, stable no complaint, rate controlled, Continue Xarelto, Lexiscan no ischemia, Echocardiogram LVEF 55%, Mild to moderate MR and TR, not yet controlled rate, stopped IV Amiodarone started on Amiodarone 200 mg BID, continue Metoprolol 50 mg BID, Cardizem 60 mg TID okay to discharge by Cardiology and follow by Doctor Bejarano in one week. 2. Congestive Heart failure with reduced Systolic function. EF 24%. Severely reduced left ventricular systolic function. Chronic Systolic heart failure. will need to follow with consumer insights specialist and follow her Cardiac function, may need Defibrillator depending if improve in the next three months. 3. Chest Pain: Likely secondary to above. Trop negative, check serial cardiac enzymes to eval for underlying ischemia. ASA, Metoprolol, start Statin. NTG/Morphine prn. Cardiac enzymes negative. 4. COPD: Non exacerbated, continue Bronchodilator, Mucolytic and incentive spirometry. 5. Tobacco Abuse: she smokes 3 to 4 packs daily. as per her and Daughter, No NicoDerm to avoid vasoconstriction. Ativan prn if needed. strongly recommended to stop smoking. 6. Obesity strongly recommended diet and exercise. 7. CKD III stable. DVT Prophylaxis: Resume Xarelto Discharge Planning discharge home today and follow with PCP and consumer insights specialist. Loc Clemons MD Aug 14, 2017 09:13
[2017-08-14] MEDS: guaiFENesin E.R. 600 MG TAB PO SCH (09:40)
[2017-08-14] MEDS: METOPROLOL TARTRATE 50 MG TAB PO SCH (09:40)
[2017-08-14] MEDS: FUROSEMIDE 20 MG TAB PO SCH (09:40)
[2017-08-14] MEDS: DOCUSATE SODIUM 50 MG/SENNA 8.6 MG TAB PO SCH (09:40)
[2017-08-14] MEDS: PRAVASTATIN SOD 40 MG TAB PO SCH (09:40)
[2017-08-14] MEDS: ASPIRIN 81 MG CHEW TAB PO SCH (09:40)
[2017-08-14] MEDS: VENLAFAXINE HCL XR 75 MG CAP PO SCH (09:40)
[2017-08-14] MEDS ORDERED: DILT60TA33 PO (11:09)
[2017-08-14] MEDS ORDERED: XARE15TA PO (11:09)
[2017-08-14] MEDS ORDERED: guaiFENesin ER PO (11:09)
[2017-08-14] MEDS ORDERED: PRAV40TA PO (11:09)
[2017-08-14] MEDS ORDERED: AMIO200T PO (11:09)
--- NOTE | 2017-08-14 11:13 | HHI.DS ---
Discharge Summary Admission Date Aug 10, 2017 at 19:17 Discharge Date: Aug 14, 2017 Admitting Diagnosis afib with rvr (1) Atrial fibrillation with RVR ICD Code: I48.91 - Unspecified atrial fibrillation Diagnosis: Principal Status: Acute (2) Chest pain ICD Code: R07.9 - Chest pain, unspecified Diagnosis: Principal Status: Acute (3) COPD (chronic obstructive pulmonary disease) ICD Code: J44.9 - Chronic obstructive pulmonary disease, unspecified Diagnosis: Principal (4) Tobacco abuse ICD Code: Z72.0 - Tobacco use Diagnosis: Principal Procedures None Brief History - From Admission This is a 56-year-old female with a PMH of HTN, COPD, A. fib on Xarelto, Depression, CHF (Echo 06/19/17 w/ EF 45%), s/p AICD, Diet-Controlled DM, GERD and Tobacco Abuse who presented to the ER w/ complaints of chest pain and palpitations starting earlier today. Previous ER presentation on 07/30/17 for similar complaints, patient offered admission however LEFT AMA to take care of her who has Dementia. Returns now w/ ongoing complaints. Does not have Cardiology follow up. Reports chest pain is substernal, intermittent, 01/11 , associated w/ SOB, worse w/ movement. Denies fever, chills or cough. On arrival, patient found to be in A. fib with RVR, HR 155, BP 162/83, O2 sat 100% on 2L NC, Afebrile. CBC essentially at baseline. Creatinine 1.36, producing 1.13 on 07/30/17. Troponin negative. BNP 309. CPK 317. CXR with no acute findings. Reports h/o ALLERGY to Verapamil w/ hives/rash, however doesn't know if she has allergy to Cardizem. S/p Metoprolol IV and PO in ER, HR 120's. CBC/BMP: 08/11/17 0507 08/13/17 1032 Significant Findings Laboratory Tests Test 08/13/17 10:32 Blood Urea Nitrogen 31 MG/DL (7-18) Creatinine 1.34 MG/DL (0.50-1.00) Random Glucose 140 MG/DL (74-106) Calcium Level 8.1 MG/DL (8.5-10.1) Sodium Level 134 MEQ/L (136-145) Estimat Glomerular Filtration Rate 41 ML/MIN (>89) Imaging Last Impressions Myocardial Perfusion Scan Nuc Med 08/12/17 0000 Signed Impressions: Service Date/Time: Saturday, August 12, 2017 12:40 - CONCLUSION: 1. No evidence for stress-induced ischemia or infarction. 2. Global hypokinesia with reduced EF of 24%%. RISK CATEGORY: High (>3%% Annual Mortality Rate) Devonte Zhang MD Chest X-Ray 08/10/17 1658 Signed Impressions: Service Date/Time: Thursday, August 10, 2017 17:09 - CONCLUSION: No acute disease. Kole Whitney Jr., MD PE at Discharge GENERAL:No acute distress. HEENT: PERRLA, EOMI. CARDIOVASCULAR: Irregularly irregular, in A. fib, controlled rate. RESPIRATORY: Decreased breath sounds bilateral, GASTROINTESTINAL: Abdomen soft, non-tender, nondistended. BS normal. MUSCULOSKELETAL: Extremities without clubbing, cyanosis, or edema. NEUROLOGICAL: Awake, alert and oriented x4. No focal neurologic deficits. Hospital Course This is a 56-year-old female with a PMH of HTN, COPD, A. fib on Xarelto, Depression, CHF (Echo 06/19/17 w/ EF 45%), s/p AICD, Diet-Controlled DM, GERD and Tobacco Abuse who presented to the ER w/ complaints of chest pain and palpitations starting earlier today. Previous ER presentation on 07/30/17 for similar complaints, patient offered admission however LEFT AMA to take care of her who has Dementia. Returns now w/ ongoing complaints. Does not have Cardiology follow up. Reports chest pain is substernal, intermittent, /, associated w/ SOB, worse w/ movement. Denies fever, chills or cough. On arrival, patient found to be in A. fib with RVR, HR 155, BP 162/83, O2 sat 100% on 2L NC, Afebrile. CBC essentially at baseline. Creatinine 1.36, producing 1.13 on 07/30/17. Troponin negative. BNP 309. CPK 317. CXR with no acute findings. Reports h/o ALLERGY to Verapamil w/ hives/rash, however doesn't know if she has allergy to Cardizem. S/p Metoprolol IV and PO in ER, HR 120's. Seen in her bedroom, wants to go home, awaiting management by marketing graphics specialist. 08/12: Seen in her bedroom in the presence of her Mr. Zohaib Hampton and her Daughter Miss Culp they are trying to convince the patient to wait for Cardiology workup to be complete she is been started on Amiodarone IV, her Beta gloria was increased Echo and IV Lexiscan to be performed 08/13: Stable in her bedroom, still awaiting final recommendations By marketing graphics specialist. 08/14: Seen in her bedroom, stable no complaint, rate controlled, Continue Xarelto, Lexiscan no ischemia, Echocardiogram LVEF 55%, Mild to moderate MR and TR, not yet controlled rate, stopped IV Amiodarone started on Amiodarone 200 mg BID, continue Metoprolol 50 mg BID, Cardizem 60 mg TID okay to discharge by Cardiology and follow by Doctor Bejarano in one week. Assessment and Plan A/P: 1. A. fib w/ RVR: Recurrent, recent ER presentation for same 07/30/17 however LEFT AMA, returns now w/ HR 150's in A-fib, questionable ALLERGY to Cardizem, pt unsure. S/p Metoprolol IV and PO x3 doses in ER w/ HR 120's. Continue w/ Metoprolol. continue Cardiac Monitoring, Xarelto, Metoprolol, Aspirin, Furosemide, Isosorbide mononitrate. Amiodarone drip, Stress test no ischemia, EF 24%, stable no complaint, rate controlled, Continue Xarelto, Lexiscan no ischemia, Echocardiogram LVEF 55%, Mild to moderate MR and TR, not yet controlled rate, stopped IV Amiodarone started on Amiodarone 200 mg BID, continue Metoprolol 50 mg BID, Cardizem 60 mg TID okay to discharge by Cardiology and follow by Doctor Bejarano in one week. 2. Congestive Heart failure with reduced Systolic function. EF 24%. Severely reduced left ventricular systolic function. Chronic Systolic heart failure. will need to follow with marketing graphics specialist and follow her Cardiac function, may need Defibrillator depending if improve in the next three months. 3. Chest Pain: Likely secondary to above. Trop negative, check serial cardiac enzymes to eval for underlying ischemia. ASA, Metoprolol, start Statin. NTG/Morphine prn. Cardiac enzymes negative. 4. COPD: Non exacerbated, continue Bronchodilator, Mucolytic and incentive spirometry. 5. Tobacco Abuse: she smokes 3 to 4 packs daily. as per her and Daughter, No NicoDerm to avoid vasoconstriction. Ativan prn if needed. strongly recommended to stop smoking. 6. Obesity strongly recommended diet and exercise. 7. CKD III stable. DVT Prophylaxis: Resume Xarelto Discharge Planning discharge home today and follow with PCP and marketing graphics specialist. Pt Condition on Discharge: Good Discharge Disposition: Discharge Home Discharge Time: > 30 minutes Discharge Instructions DIET: Follow Instructions for: Heart Healthy Diet Activities you can perform: Regular-No Restrictions Loc Clemons MD Aug 14, 2017 11:13
== END 2017-08-14 11:56 | disposition home or self-care (01) | DRG 309 ==
LOC: NEPC 16:52 → NEDA 19:17 → HCIS 20:48
PROVIDERS: ADMIT Internal Medicine; ATTEND Internal Medicine
DX: I48.0 Paroxysmal atrial fibrillation (principal); I50.22 Chronic systolic (congestive) heart failure; J96.10 Chronic respiratory failure, unspecified whether with hypoxia or hypercapnia; I42.9 Cardiomyopathy, unspecified; I13.0 Hypertensive heart and chronic kidney disease with heart failure and stage 1 through stage 4 chronic kidney disease, or unspecified chronic kidney disease; E11.22 Type 2 diabetes mellitus with diabetic chronic kidney disease; N18.3 Chronic kidney disease, stage 3 (moderate); J44.9 Chronic obstructive pulmonary disease, unspecified; K21.9 Gastro-esophageal reflux disease without esophagitis; F17.210 Nicotine dependence, cigarettes, uncomplicated; G89.29 Other chronic pain; E78.5 Hyperlipidemia, unspecified; F32.9 Major depressive disorder, single episode, unspecified; E66.9 Obesity, unspecified; Z68.29 Body mass index [BMI] 29.0-29.9, adult; Z79.01 Long term (current) use of anticoagulants; Z95.810 Presence of automatic (implantable) cardiac defibrillator; Z86.73 Personal history of transient ischemic attack (TIA), and cerebral infarction without residual deficits
CPT/HCPCS: 71045; 78452; 80048; 80053; 82550; 82552; 83735; 83880; 84484; 85025; 85610; 85730; 93005; 93017; 93306; 94150; 94640; 94664; 96374; 96375; A9502; J0282; J0780; J1160; J2270; J2405; J2785; J7030; J7050; J7644

== ENCOUNTER 2017-08-14 18:52 | Inpatient (IN) | payer BC ==
[~2017-08-14] VITALS: Ht 162.6 cm; Wt 78.0 kg
[~2017-08-14 18:52] MED LIST changes: +AMIO200T PO; -ARMO120T PO; -ARMO60TA PO; -ATOR80TA45 PO; +DILT60TA33 PO; -GABA300C5 PO; -IPRAAER INH; -ISOS10TA3 PO; +PRAV40TA PO; -STOO100T PO; -TOPI200T7 PO; -TOPI50TA7 PO; +XARE15TA PO; +guaiFENesin ER PO
[2017-08-14 19:04] VITALS: BP 179/93; PULSE 136; RESP 22; O2SAT 98
[2017-08-14] MEDS ORDERED: methylPREDNISolone SOD SUCC 125 MG/2 ML VIAL IV PUSH ONE (19:15)
[2017-08-14] MEDS ORDERED: MAGNESIUM SULFATE 1 GM PREMIX 100 ML IV ONE (19:15)
[2017-08-14] MEDS ORDERED: FUROSEMIDE 40 MG/4 ML VIAL IVP ONE (19:15)
--- NOTE | 2017-08-14 19:28 | PD ---
HPI Chief Complaint: Altered Mental Status Time Seen by Provider: 19:04 Travel History International Travel<30 days: No Contact w/Intl Traveler<30days: No Traveled to known affect area: No History of Present Illness HPI Patient was recently admitted for A. fib with RVR and discharge from the hospital. However after being held for a short while the patient was returned to the ER because she was not acting herself, seem more sleepy and confused and also had couple of episodes of nosebleeds which are now resolved. The history is provided by triage since family is no longer at the bedside. And patient is relatively unable to give a great history. Allergy to Prednisone sertraline and verapamil Past medical history significant for hypertension, atrial fibrillation, AICD, congestive heart failure, cardiomyopathy, ablation 2, Xarelto use due to A. fib , COPD hypercholesterolemia, hypertension diabetes, hysterectomy, GERD. PFSH Past Medical History Hx Anticoagulant Therapy: Yes (Xarelto) Atrial Fibrillation: Yes Anxiety: No Depression: Yes Cancer: No Cardiovascular Problems: Yes (HTN, A-fib, AICD, cadiomyopathy, CHF) High Cholesterol: Yes Chest Pain: No Congestive Heart Failure: Yes COPD: Yes Cerebrovascular Accident: Yes (2014) Diabetes: Yes (CONTROLLED WITH DIET) Patient Takes Glucophage: No Endocrine: Yes Gastrointestinal Disorders: Yes (GERD) GERD: Yes Glaucoma: No Genitourinary: Yes (HESITANCY) Headaches: Yes Hepatitis: No Hiatal Hernia: No Hypertension: Yes Immune Disorder: No Implanted Vascular Access Dvce: Yes Musculoskeletal: No Neurologic: Yes (BAD BALANCE) Psychiatric: Yes Reproductive: No Respiratory: Yes (COPD) Integumentary: No Thyroid Disease: No ?: Not Past Surgical History Body Medical Devices: AICD Cardiac Surgery: Yes (ABLATION X2) Hysterectomy: Yes Pacemaker: Yes Thoracic Surgery: Yes (AICD LEFT CHEST MEDTRONIC ) Other Surgery: Yes Social History Alcohol Use: No Tobacco Use: Yes (1PPD) Substance Use: No Allergies-Medications (Allergen,Severity, Reaction): Coded Allergies: prednisone (Verified Allergy, Severe, hives, 07/30/17) sertraline (Verified Allergy, Severe, hives, 07/30/17) verapamil (Verified Allergy, Severe, rash, 07/30/17) Reported Meds & Prescriptions Reported Meds & Active Scripts Active [guaiFENesin ER] 600 MG Tabcr 600 Mg PO BID Cardizem (Diltiazem HCl) 60 Mg Tab 60 Mg PO Q6HR Pravachol (Pravastatin) 40 Mg Tab 40 Mg PO DAILY Amiodarone (Amiodarone HCl) 200 Mg Tab 200 Mg PO Q12HR Xarelto (Rivaroxaban) 15 Mg Tab 15 Mg PO DAILY Metoprolol Tartrate 50 Mg Tab 50 Mg PO BID Furosemide 20 Mg Tab 20 Mg PO DAILY Ventolin Hfa 18 GM Inh (Albuterol Sulfate) 90 Mcg/Act Aer 2 Puff INH Q4H PRN Reported Effexor XR 24 HR (Venlafaxine HCl) 150 Mg Cap 150 Mg PO DAILY Tylenol Extra Strength (Acetaminophen) 500 Mg Tablet 500 Mg PO Q6HR PRN Isosorbide Mononitrate ER (Isosorbide Mononitrate) 30 Mg Leonie 30 Mg PO HS Dulera 120 Act Inh (Mometasone-Formoterol 120 Act Inh) 200-5 Mcg/Act Inh 1 Puff INH BID Aspirin 81 Mg Chew 81 Mg PO DAILY Review of Systems ROS Limitations: Altered Mental Status General / Constitutional: No: Fever Eyes: No: Visual changes HENT: No: Headaches Cardiovascular: Positive: Palpitations, Irregular Rhythm Respiratory: Positive: Shortness of Breath, Wheezing Gastrointestinal: No: Abdominal Pain Genitourinary: No: Dysuria Musculoskeletal: No: Pain Skin: No Rash Neurologic: No: Weakness Psychiatric: No: Depression Endocrine: No: Polydipsia Hematologic/Lymphatic: No: Easy Bruising Physical Exam Exam Limitations: Altered Mental Status Narrative GENERAL: SKIN: Warm and dry. HEAD: Atraumatic. Normocephalic. EYES: Pupils equal and round. No scleral icterus. No injection or drainage. ENT: No nasal bleeding or discharge. Mucous membranes pink and moist. NECK: Trachea midline. No JVD. CARDIOVASCULAR: Tachycardic rate but irregularly irregular rhythm RESPIRATORY: No accessory muscle use. Bilateral wheezing throughout lung campo , decreased tidal volume, tachypneic GASTROINTESTINAL: Abdomen soft, non-tender, nondistended. MUSCULOSKELETAL: Extremities without clubbing, cyanosis, or edema. No obvious deformities. NEUROLOGICAL: Awake and alert. No obvious cranial nerve deficits. Motor grossly within normal limits. Five out of 5 muscle strength in the arms and legs. Normal speech. PSYCHIATRIC: Appropriate mood and affect; insight and judgment normal. Data Data Last Documented VS Vital Signs Date Time Temp Pulse Resp B/P (MAP) Pulse Ox O2 Delivery O2 Flow Rate FiO2 08/14/17 20:00 141 22 162/92 (115) 96 Room Air Orders Orders Electrocardiogram (08/14/17:12) Complete Blood Count With Diff (08/14/17 19:12) Comprehensive Metabolic Panel (08/14/17:12) Creatine Kinase (Cpk) (08/14/17:12) Prothrombin Time / Inr (Pt) (08/14/17:) Act Partial Throm Time (Ptt) (08/14/17:12) Troponin I (08/14/17:) Urinalysis - C+S If Indicated (08/14/17:) Arterial Blood Gas (Abg) (08/14/17:) Chest, Single Ap (08/14/17 19:12) Ct Brain W/O Iv Contrast(Rout) (08/14/17:12) Resp Bipap / Cpap Non Invas Vt (08/14/17:12) Blood Glucose (08/14/17:) Ecg Monitoring (08/14/17:12) Iv Access Insert/Monitor (08/14/17:) Oximetry (08/14/17:12) Sodium Chloride 0.9% Flush (Ns Flush) (08/14/17 19:15) Drug Screen, Random Urine (08/14/17 19:12) Alcohol (Ethanol) (08/14/17 19:12) Tylenol (Acetaminophen) (08/14/17:12) Salicylates (Aspirin) (08/14/17:12) Furosemide Inj (Lasix Inj) (08/14/17 19:15) Methylprednisolone So Succ Inj (Solumedr (08/14/17 19:15) Albuterol Neb (Albuterol Neb) (08/14/17 19:15) Magnesium Sulfate 1 Gm Premix (Magnesium (08/14/17 19:15) CKMB (08/14/17 19:24) CKMB% (08/14/17 19:24) Ammonia (08/14/17 20:21) Ct Abd/Pel W Iv Contrast(Rout) (08/14/17 20:21) Iohexol 350 Inj (Omnipaque 350 Inj) (08/14/17 21:14) Urine Culture (08/14/17 20:29) Metronidazole 500 Mg Inj (Flagyl 500 Mg (08/14/17 22:45) Piperacil-Tazo 3.375 Gm Premix (Zosyn 3. (08/14/17 22:45) Admit Order (Ed Use Only) (08/14/17 23:06) Labs Laboratory Tests Test 08/14/17 19:20 08/14/17 19:24 08/14/17 20:29 08/14/17 20:37 Blood Gas Puncture Site LT RADIAL Blood Gas Patient Temperature 98.6 Blood Gas HCO3 23 mmol/L Blood Gas Base Excess -0.7 mmol/L Blood Gas Oxygen Saturation 91 % Arterial Blood pH 7.41 Arterial Blood Partial Pressure CO2 37 mmHg Arterial Blood Partial Pressure O2 68 mmHG Arterial Blood Oxygen Content 11.1 Vol % Arterial Blood Carboxyhemoglobin 2.5 % Arterial Blood Methemoglobin 0.6 % Blood Gas Hemoglobin 8.7 G/DL Oxygen Delivery Device ROOM AIR Blood Gas Inspired Oxygen 21 % White Blood Count 11.4 TH/MM3 Red Blood Count 3.82 MIL/MM3 Hemoglobin 8.7 GM/DL Hematocrit 30.6 % Mean Corpuscular Volume 80.2 FL Mean Corpuscular Hemoglobin 22.8 PG Mean Corpuscular Hemoglobin Concent 28.4 % Red Cell Distribution Width 18.1 % Platelet Count 451 TH/MM3 Mean Platelet Volume 7.9 FL Neutrophils (%) (Auto) 78.1 % Lymphocytes (%) (Auto) 11.1 % Monocytes (%) (Auto) 9.6 % Eosinophils (%) (Auto) 0.5 % Basophils (%) (Auto) 0.7 % Neutrophils # (Auto) 8.9 TH/MM3 Lymphocytes # (Auto) 1.3 TH/MM3 Monocytes # (Auto) 1.1 TH/MM3 Eosinophils # (Auto) 0.1 TH/MM3 Basophils # (Auto) 0.1 TH/MM3 CBC Comment DIFF FINAL Differential Comment Prothrombin Time 23.5 SEC Prothromb Time International Ratio 2.3 RATIO Activated Partial Thromboplast Time 34.4 SEC Blood Urea Nitrogen 24 MG/DL Creatinine 1.14 MG/DL Random Glucose 127 MG/DL Total Protein 6.7 GM/DL Albumin 3.4 GM/DL Calcium Level 8.4 MG/DL Alkaline Phosphatase 125 U/L Aspartate Amino Transf (AST/SGOT) 1884 U/L Alanine Aminotransferase (ALT/SGPT) 1606 U/L Total Bilirubin 0.8 MG/DL Sodium Level 132 MEQ/L Potassium Level 4.2 MEQ/L Chloride Level 99 MEQ/L Carbon Dioxide Level 25.1 MEQ/L Anion Gap 8 MEQ/L Estimat Glomerular Filtration Rate 50 ML/MIN Total Creatine Kinase 257 U/L Creatine Kinase MB 3.4 NG/ML Creatine Kinase MB % 1.3 % Troponin I LESS THAN 0.02 NG/ML Lipase 240 U/L Salicylates Level LESS THAN 1.7 MG/DL Acetaminophen Level LESS THAN 2.0 MCG/ML Ethyl Alcohol Level LESS THAN 3 MG/DL Urine Color YELLOW Urine Turbidity CLEAR Urine pH 5.5 Urine Specific [place] 1.019 Urine Protein TRACE mg/dL Urine Glucose (UA) NEG mg/dL Urine Ketones NEG mg/dL Urine Occult Blood NEG Urine Nitrite NEG Urine Bilirubin NEG Urine Urobilinogen LESS THAN 2.0 MG/DL Urine Leukocyte Esterase TRACE Urine RBC 1 /hpf Urine WBC 3 /hpf Urine Squamous Epithelial Cells 2 /hpf Urine Bacteria RARE /hpf Microscopic Urinalysis Comment CATH-CULTURE IND Ammonia 29 MCMOL/L MDM Medical Decision Making Medical Screen Exam Complete: Yes Emergency Medical Condition: Yes Medical Record Reviewed: Yes Interpretation(s) EKG shows A. fib with RVR at 124, no evidence of ST elevation at this present time, there is some nonspecific ST-T wave changes ABG: On room air, pH is 7.41, PCO2 of 37, PaO2 of 68, this is all consistent with no hypercapnia and no severe hypoxemia noted. Differential Diagnosis Hypercapnic respiratory failure versus COPD exacerbation versus intracranial hemorrhage versus sepsis Narrative Course CBC & BMP Diagram 08/14/17 19:24 Total Protein 6.7, Albumin 3.4, Calcium Level 8.4 L, Alkaline Phosphatase 125 H , Aspartate Amino Transf (AST/SGOT) 1884 H, Alanine Aminotransferase (ALT/SGPT) 1606 H, Total Bilirubin 0.8 Coagulation profile shows an INR of 2.3 which is consistent with good anticoagulation. Toxicology there is negative Tylenol negative alcohol Chemistry shows sodium 132 BUN of 24 over creatinine 1.14 GFR of 50 however the major abnormalities on this finding today are AST of 1884 ALT of 1606 alk phos of 125 total bilirubin normal at 0.8 the troponin is negative. This is consistent with prerenal azotemia, as well as transaminitis rule out hepatitis versus due to the patient being on Xarelto any type of bleeding into the liver may be causing the elevation of liver enzymes. The patient will be getting a CAT scan of the abdomen and pelvis. Of additional note on August 10 the patient's LFT was 65 August 11 it was 40 and on August 14 is 1884 Diagnosis Primary Impression: COPD (chronic obstructive pulmonary disease) Qualified Codes: J44.1 - Chronic obstructive pulmonary disease with (acute) exacerbation Additional Impression: cholecystitis vs cholangitis Osorio Stephens MD Aug 14, 2017 19:28
[2017-08-14] MEDS: RESP: ALBUTEROL 2.5 MG/3 ML NEB (SCH) INH (19:41)
[2017-08-14 19:47] LABS: INTERNATIONAL NORMALIZED RATIO 2.3 RATIO; PROTHROMBIN TIME - PATIENT 23.5 SEC (9.8-11.6)
[2017-08-14 19:59] LABS: ALBUMIN 3.4 GM/DL (3.4-5.0); BICARBONATE 25.1 MEQ/L (21.0-32.0); BLOOD UREA NITROGEN 24 MG/DL (7-18); CALCIUM 8.4 MG/DL (8.5-10.1); CHLORIDE 99 MEQ/L (98-107); CREATININE 1.14 MG/DL (0.50-1.00); GLOMERULAR FILTRATION RATE 50 ML/MIN (>89); GLUCOSE,RANDOM 127 MG/DL (74-106); SODIUM (NA) 132 MEQ/L (136-145)
[2017-08-14 20:00] VITALS: BP 162/92; PULSE 141; RESP 22; O2SAT 96
[2017-08-14 20:01] LABS: ACETAMINOPHEN LESS THAN 2.0 MCG/ML (10.0-30.0)
--- NOTE | 2017-08-14 20:06 | RADRPT ---
EXAM DATE/TIME: 08/14/2017 19:23 [facility] COMPARISON: CHEST SINGLE AP, August 10, 2017, 17:09. INDICATIONS : Shortness of breath with altered mental status. MEDICAL HISTORY : Congetive heart failure. Cerebral vascular accident. Diabetes mellitus typeII. Hypertension Hyperchol esterolemia.COPD, GERD. SURGICAL HISTORY : Pacemaker, defibrillator. ENCOUNTER: Initial ACUITY: 1 day PAIN SCORE: Non-responsive. LOCATION: Bilateral chest FINDINGS: No infiltrate, effusion or pneumothorax demonstrated. Heart size stable, within normal limits. Cardiac pacer/defibrillator again seen. CONCLUSION: No acute cardiopulmonary disease demonstrated. Khadar Díaz MD on August 14, 2017 at 20:03 Board Certified Radiologist. This report was verified electronically.
--- NOTE | 2017-08-14 20:09 | RADRPT ---
EXAM DATE/TIME: 08/14/2017 19:32 [facility] COMPARISON: No previous studies available for comparison. INDICATIONS : Altered mental status. RADIATION DOSE: 56.35 CTDIvol (mGy) MEDICAL HISTORY : Stroke. Hypertension. SURGICAL HISTORY : Pacemaker. ENCOUNTER: Initial ACUITY: 1 day PAIN SCALE: Non-responsive LOCATION: cranial TECHNIQUE: Multiple contiguous axial images were obtained of the head. Using automated exposure control and adj ustment of the mA and/or kV according to patient size, radiation dose was kept as low as reasonably a chievable to obtain optimal diagnostic quality images. DICOM format image data is available electro nically for review and comparison. FINDINGS: CEREBRUM: The ventricles are normal for age. No evidence of midline shift, mass lesion, hemorrhage or acute in farction. No extra-axial fluid collections are seen. POSTERIOR FOSSA: The cerebellum and brainstem are intact. The 4th ventricle is midline. The cerebellopontine angle i s unremarkable. EXTRACRANIAL: The visualized portion of the orbits is intact. SKULL: The calvaria is intact. No evidence of skull fracture. CONCLUSION: Negative noncontrast head CT. Khadar Díaz MD on August 14, 2017 at 20:07 Board Certified Radiologist. This report was verified electronically.
[2017-08-14 20:13] LABS: ALKALINE PHOSPHATASE 125 U/L (45-117); ALT (GPT) 1606 U/L (10-53); AST (GOT) 1884 U/L (15-37); TOTAL BILIRUBIN ADULT 0.8 MG/DL (0.2-1.0); TOTAL PROTEIN 6.7 GM/DL (6.4-8.2); TROPONIN I LESS THAN 0.02 NG/ML (0.02-0.05)
[2017-08-14] MEDS: SODIUM CHLORIDE 0.9% FLUSH 10 ML FLUSH IV FLUSH PRN (20:20)
[2017-08-14 20:30] LABS: AUTOMATED NEUTROPHIL # 8.9 TH/MM3 (1.8-7.7); BASOPHIL # 0.1 TH/MM3 (0-0.2); BASOPHIL % 0.7 % (0.0-2.0); EOSINOPHIL # 0.1 TH/MM3 (0-0.4); EOSINOPHIL % 0.5 % (0.0-4.0); HEMATOCRIT 30.6 % (35.0-46.0); HEMOGLOBIN 8.7 GM/DL (11.6-15.3); LYMPH % 11.1 % (9.0-44.0); LYMPHOCYTE # 1.3 TH/MM3 (1.0-4.8); MEAN CELL VOLUME 80.2 FL (80.0-100.0); MEAN CORPUSCULAR HEMOGLOBIN 22.8 PG (27.0-34.0); MEAN PLATELET VOLUME 7.9 FL (7.0-11.0); MONO % 9.6 % (0.0-8.0); MONOCYTE # 1.1 TH/MM3 (0-0.9); NEUT % 78.1 % (16.0-70.0); PLATELET COUNT 451 TH/MM3 (150-450); RED BLOOD COUNT 3.82 MIL/MM3 (4.00-5.30); RED CELL DISTRIBUTION WIDTH 18.1 % (11.6-17.2); WHITE BLOOD COUNT 11.4 TH/MM3 (4.0-11.0)
[2017-08-14 20:35] LABS: MEAN CORPUSCULAR HGB CONC 28.4 % (32.0-36.0)
[2017-08-14] MEDS ORDERED: IOHEXOL 350 MG/ML 10 ML VIAL (for RAD DIAG) IVCONTRAST ONE (21:14)
--- NOTE | 2017-08-14 21:47 | RADRPT ---
EXAM DATE/TIME: 08/14/2017 21:10 [facility] COMPARISON: CT ABDOMEN & PELVIS W CONTRAST, July 30, 2017, 4:27. INDICATIONS : Abdominal pain, hemoptysis, elevated liver enzymes. IV CONTRAST: 100 cc Omnipaque 350 (iohexol) IV ORAL CONTRAST: No oral contrast ingested. RADIATION DOSE: 10.09 CTDIvol (mGy) ; Patient motion MEDICAL HISTORY : Stroke. Hypertension. Congestive heart failure.GERD. SURGICAL HISTORY : Hysterectomy. Pacemaker. ENCOUNTER: Initial ACUITY: 1 day PAIN SCALE: 4/10 LOCATION: All quadrants. TECHNIQUE: Volumetric scanning of the abdomen and pelvis was performed. Using automated exposure control and ad justment of the mA and/or kV according to patient size, radiation dose was kept as low as reasonably achievable to obtain optimal diagnostic quality images. DICOM format image data is available electro nically for review and comparison. FINDINGS: Motion degraded study. Small ascites has developed. There is also body wall edema/anasarca and tiny r ight pleural effusion, all new. There is mild right base consolidation. Persistent wall thickening of the gallbladder. Probably some sludge and/or tiny gravel-like stones. Kidneys are excreting contrast. No obstructive uropathy. Liver, spleen, pancreas and adrenal glands a re without focal abnormality. No obstruction or acute inflammatory changes are seen of the gastrointe stinal tract. CONCLUSION: 1. Small, nonspecific ascites has developed. Also anasarca and small right pleural effusion with mild right base atelectasis, all new. 2. Persistent wall thickening and pericholecystic fluid the gallbladder. 3. No acute abnormality seen of the liver. No evidence of biliary obstruction. Khadar Díaz MD on August 14, 2017 at 21:40 Board Certified Radiologist. This report was verified electronically.
[2017-08-14 22:00] LABS: BACTERIA, URINE RARE /hpf; BILIRUBIN, URINE NEG (NEG); BLOOD, URINE NEG (NEG); GLUCOSE,URINE NEG (NEG); KETONE, URINE NEG (NEG); NITRITE,URINE NEG (NEG); PH, URINE 5.5 (5.0-8.5); SQUAMOUS EPITHELIAL CELL URINE 2 /hpf (0-5); URINE COLOR YELLOW (YELLW/STRAW); URINE LEUKOCYTE ESTERASE TRACE (NEG)
[2017-08-14] MEDS ORDERED: PIPERACIL-TAZO 3.375 GM PREMIX 50 ML IV ONE (22:45)
[2017-08-14] MEDS ORDERED: metroNIDAZOLE 500 MG INJ 100 ML IV ONE (22:45)
[2017-08-14 23:14] VITALS: BP 149/84; PULSE 108; RESP 18; O2SAT 94
[2017-08-15] VITALS (13 sets, daily range): BP systolic 119–145; BP diastolic 63–77; PULSE 87–118; RESP 13–18; TEMP 97.5–98.2; O2SAT 93–98
[2017-08-15] MEDS ORDERED: RESP: ALBUTEROL 2.5 MG/3 ML NEB (PRN) INH (00:45)
[2017-08-15] MEDS ORDERED: CHLORHEXIDINE GLUCONATE 2 % 1 PACK (2 CLOTHS) TOP PRN (00:45)
[2017-08-15] MEDS ORDERED: SENNOSIDES 8.6 MG TAB PO PRN (00:45)
[2017-08-15] MEDS ORDERED: LACTULOSE SYRUP 20 GM/30 ML CUP PO PRN (00:45)
[2017-08-15] MEDS ORDERED: ONDANSETRON HCL 4 MG/2 ML VIAL IV PUSH PRN (00:45)
[2017-08-15] MEDS ORDERED: BISACODYL 10 MG SUPP RECTAL PRN (00:45)
[2017-08-15] MEDS ORDERED: SODIUM CHLORIDE 0.9% FLUSH 10 ML FLUSH IV FLUSH PRN (00:45)
[2017-08-15] MEDS ORDERED: MAGNESIUM HYDROXIDE SUSP 30 ML CUP PO PRN (00:45)
[2017-08-15] MEDS ORDERED: MISCELLANEOUS NURSING INFORMATION XX SCH (00:45)
[2017-08-15] MEDS ORDERED: WATER IV ONE ×2 (01:00)
[2017-08-15] MEDS ORDERED: ACETYLCYSTEINE IV ONE ×6 (01:00→06:00)
[2017-08-15] MEDS ORDERED: SODIUM CHLOR 0.9% 1000 ML INJ 1,000 ML IV SCH (01:00)
[2017-08-15] MEDS ORDERED: DEXTROSE 5% IV ONE ×6 (01:00→06:00)
[2017-08-15] MEDS ORDERED: MORPHINE SULFATE 2 MG/ML INJ IV PRN (01:00)
[2017-08-15 01:15] LABS: PHOSPHORUS 1.8 MG/DL (2.5-4.9)
--- NOTE | 2017-08-15 01:24 | HHI.HP ---
HPI Service Critical Care Medicine Primary Care Physician Liz Thorne M.D. Admission Diagnosis Hepatitis ?Cholecystitis Diagnosis: (1) Pacemaker Diagnosis: Secondary (2) HTN (hypertension) Diagnosis: Secondary (3) Atrial fibrillation with RVR Diagnosis: Secondary (4) Systolic heart failure, chronic Diagnosis: Secondary (5) CKD (chronic kidney disease) stage 3, GFR 30-59 ml/min Diagnosis: Secondary (6) Tobacco abuse Diagnosis: Secondary (7) Coagulopathy Diagnosis: Secondary (8) Hepatitis Diagnosis: Principal (9) COPD (chronic obstructive pulmonary disease) Diagnosis: Secondary Travel History International Travel<30 Days: No Contact w/Intl Traveler <30 Da: No Traveled to Known Affected Are: No History of Present Illness Patient is a difficult historian, lethargic. 56 yo with PMH HTN, chronic systolic heart failure EF 45%, AICD, atrial fibrillation status post ablation, chronic anticoagulation with Xarelto, COPD, hyperlipidemia, diabetes, tobacco abuse who was recently admitted to [facility] 08/10-08/14 for atrial fibrillation RVR. She was brought back to the ED due to confusion and was noted to have RUQ tenderness. Transaminases are elevated withh AST 1884 and ALT 1606. Bilirubin is normal and alk phos mildly elevated. CT abd/pelvis shows thickening of gallbladder wall with pericholecystic fluid. There is anasarca. No obstruction. Prior CT from 07/30 showed hepatomegaly and probable hepatic steatosis; there was gallbladder wall thickening at that time as well. No gallstones. WBC is 11.4. INR is 2.3 She states she does not drink EtOH, no travel. During most recent admission she was started on amiodarone drip 08/11-08/13 and then transitioned to amiodarone po bid. She does state she has been taking " a lot of tylenol" due to R shoulder pain for the last week. When she clarifies, she states she is taking about 2 gram/day . She states she has been nauseated and had 2 episodes of nonbloody nonbilious emesis today. No diarrhea. Review of Systems ROS Limitations: Clinical Condition Past Family Social History Allergies: Coded Allergies: prednisone (Verified Allergy, Severe, hives, 08/20/17) sertraline (Verified Allergy, Severe, hives, 08/20/17) verapamil (Verified Allergy, Severe, rash, 08/20/17) Past Medical History Hypertension COPD Atrial fibrillation on chronic anticoagulation with Xarelto Chronic systolic heart failure with ejection pressure 45% GERD Diabetes CK D stage III AICD Tobacco abuse Past Surgical History AICD Afib Ablation Hysterectomy Reported Medications Xarelto 30 mg by mouth daily albuterol 2 puffs every 4 hours Amiodarone 200 mg by mouth every 12 hours Pravastatin 40 mg by mouth daily Albuterol 2 puffs inhaled every 4 hours as needed isosorbide mononitrate 30 mg by mouth daily at bedtime Metoprolol 50 mg by mouth twice a day Cardizem 60 mg by mouth every 6 hours Aspirin 81 mill grams by mouth daily Tylenol 500 mg every 6 hours Effexor 150 mg by mouth daily Lasix 20 mg by mouth daily Dulera 1 puff inhaled twice a day Family History Unable to obtain from patient due to clinical condition. Reviewed EMR which indicates there was no family medical history of diabetes or coronary artery disease. Social History One pack per day smoker No alcohol or illicit drug use Physical Exam Vital Signs Vital Signs Date Time Temp Pulse Resp B/P (MAP) Pulse Ox O2 Delivery O2 Flow Rate FiO2 08/14/17 23:14 108 18 149/84 (105) 94 Room Air 08/14/17 20:00 141 22 162/92 (115) 96 Room Air 08/14/17 19:04 136 22 179/93 (121) 98 Physical Exam GENERAL: Ill appearing female laying in ED stretcher. SKIN: Warm and dry. HEAD: Atraumatic. Normocephalic. EYES: Pupils equal and round, 2mm and reactive No scleral icterus. No injection or drainage. ENT: No nasal bleeding or discharge. Mucous membranes pink , dry NECK: Trachea midline. No JVD. CARDIOVASCULAR: irregularly irregular, tachycardic in the 130s, no mrg. RESPIRATORY: Mildly tachypneic with no accessory muscle use. Bibasilar rales. No wheeze or rhonchi. GASTROINTESTINAL: Abdomen soft, mildly distended with tenderness in epigastrium/ RUQ. No rebound or guarding. \\ MUSCULOSKELETAL: Extremities without clubbing, cyanosis. 1+ pedal edema. NEUROLOGICAL: Lethargic, awakens to voice and answers questions. Oriented to self and place. Moves all extremities to command Laboratory Laboratory Tests Test 08/14/17 19:20 08/14/17 19:24 08/14/17 20:29 08/14/17 20:37 Blood Gas Puncture Site LT RADIAL Blood Gas Patient Temperature 98.6 Blood Gas HCO3 23 Blood Gas Base Excess -0.7 Blood Gas Oxygen Saturation 91 Arterial Blood pH 7.41 Arterial Blood Partial Pressure CO2 37 Arterial Blood Partial Pressure O2 68 Arterial Blood Oxygen Content 11.1 Arterial Blood Carboxyhemoglobin 2.5 Arterial Blood Methemoglobin 0.6 Blood Gas Hemoglobin 8.7 Oxygen Delivery Device ROOM AIR Blood Gas Inspired Oxygen 21 White Blood Count 11.4 Red Blood Count 3.82 Hemoglobin 8.7 Hematocrit 30.6 Mean Corpuscular Volume 80.2 Mean Corpuscular Hemoglobin 22.8 Mean Corpuscular Hemoglobin Concent 28.4 Red Cell Distribution Width 18.1 Platelet Count 451 Mean Platelet Volume 7.9 Neutrophils (%) (Auto) 78.1 Lymphocytes (%) (Auto) 11.1 Monocytes (%) (Auto) 9.6 Eosinophils (%) (Auto) 0.5 Basophils (%) (Auto) 0.7 Neutrophils # (Auto) 8.9 Lymphocytes # (Auto) 1.3 Monocytes # (Auto) 1.1 Eosinophils # (Auto) 0.1 Basophils # (Auto) 0.1 CBC Comment DIFF FINAL Differential Comment Prothrombin Time 23.5 Prothromb Time International Ratio 2.3 Activated Partial Thromboplast Time 34.4 Blood Urea Nitrogen 24 Creatinine 1.14 Random Glucose 127 Total Protein 6.7 Albumin 3.4 Calcium Level 8.4 Alkaline Phosphatase 125 Aspartate Amino Transf (AST/SGOT) 1884 Alanine Aminotransferase (ALT/SGPT) 1606 Total Bilirubin 0.8 Sodium Level 132 Potassium Level 4.2 Chloride Level 99 Carbon Dioxide Level 25.1 Anion Gap 8 Estimat Glomerular Filtration Rate 50 Total Creatine Kinase 257 Creatine Kinase MB 3.4 Creatine Kinase MB % 1.3 Troponin I LESS THAN 0.02 Lipase 240 Salicylates Level LESS THAN 1.7 Acetaminophen Level LESS THAN 2.0 Ethyl Alcohol Level LESS THAN 3 Urine Color YELLOW Urine Turbidity CLEAR Urine pH 5.5 Urine Specific [place] 1.019 Urine Protein TRACE Urine Glucose (UA) NEG Urine Ketones NEG Urine Occult Blood NEG Urine Nitrite NEG Urine Bilirubin NEG Urine Urobilinogen LESS THAN 2.0 Urine Leukocyte Esterase TRACE Urine RBC 1 Urine WBC 3 Urine Squamous Epithelial Cells 2 Urine Bacteria RARE Microscopic Urinalysis Comment CATH-CULTURE IND Ammonia 29 Test 08/15/17 00:36 08/15/17 00:41 Phosphorus Level 1.8 Magnesium Level 2.0 Lactic Acid Level 1.9 Date/Time Source Procedure Growth Status 08/15/17 00:41 Blood Peripheral Aerobic Blood Culture Pending Received 08/15/17 00:41 Blood Peripheral Anaerobic Blood Culture Pending Received 08/14/17 20:29 Urine Catheterized Urine Urine Culture Pending Received Result Diagram: 08/14/17192308/14/171923 Caprini VTE Risk Assessment Caprini VTE Risk Assessment: Mod/High Risk (score >= 2) VTE Pharm Contraindication: Coagulopathy,INR elevated Caprini Risk Assessment Model Point Value = 1 Point Value = 2 Point Value = 3 Point Value = 5 Age 41-60 Minor surgery BMI > 25 kg/m2 Swollen legs Varicose veins or History of unexplained or recurrent spontaneous Oral contraceptives or hormone replacement Sepsis (< 1 month) Serious lung disease, including pneumonia (< 1 month) Abnormal pulmonary function Acute myocardial infarction Congestive heart failure (< 1 month) History of inflammatory bowel disease Medical patient at bed rest Age 61-74 Arthroscopic surgery Major open surgery (> 45 min) Laparoscopic surgery (> 45 min) Malignancy Confined to bed (> 72 hours) Immobilizing plaster cast Central venous access Age >= 75 History of VTE Family history of VTE Factor V Leiden Prothrombin [id number] Lupus anticoagulant Anticardiolipin antibodies Elevated serum homocysteine Heparin-induced thrombocytopenia Other congenital or acquired thrombophilia Stroke (< 1 month) Elective arthroplasty Hip, pelvis, or leg fracture Acute spinal cord injury (< 1 month) Prophylaxis Regimen Total Risk Factor Score Risk Level Prophylaxis Regimen 0-1 Low Early ambulation 2 Moderate Order ONE of the following: *Sequential Compression Device (SCD) *Heparin 5000 units SQ BID 3-4 Higher Order ONE of the following medications: *Heparin 5000 units SQ TID *Enoxaparin/Lovenox 40 mg SQ daily (WT < 150 kg, CrCl > 30 mL/min) *Enoxaparin/Lovenox 30 mg SQ daily (WT < 150 kg, CrCl > 10-29 mL/min) *Enoxaparin/Lovenox 30 mg SQ BID (WT < 150 kg, CrCl > 30 mL/min) AND/OR *Sequential Compression Device (SCD) 5 or more Highest Order ONE of the following medications: *Heparin 5000 units SQ TID (Preferred with Epidurals) *Enoxaparin/Lovenox 40 mg SQ daily (WT < 150 kg, CrCl > 30 mL/min) *Enoxaparin/Lovenox 30 mg SQ daily (WT < 150 kg, CrCl > 10-29 mL/min) *Enoxaparin/Lovenox 30 mg SQ BID (WT < 150 kg, CrCl > 30 mL/min) AND *Sequential Compression Device (SCD) Assessment and Plan Problem List: (1) Hepatitis ICD Code: K75.9 - Inflammatory liver disease, unspecified Status: Acute (2) Coagulopathy ICD Code: D68.9 - Coagulation defect, unspecified Status: Chronic (3) Atrial fibrillation with RVR ICD Code: I48.91 - Unspecified atrial fibrillation Status: Acute (4) CKD (chronic kidney disease) stage 3, GFR 30-59 ml/min ICD Code: N18.3 - Chronic kidney disease, stage 3 (moderate) Status: Chronic (5) HTN (hypertension) ICD Code: I10 - Essential (primary) hypertension Status: Chronic (6) Systolic heart failure, chronic ICD Code: I50.22 - Chronic systolic (congestive) heart failure Status: Chronic (7) Tobacco abuse ICD Code: Z72.0 - Tobacco use Status: Chronic (8) COPD (chronic obstructive pulmonary disease) ICD Code: J44.9 - Chronic obstructive pulmonary disease, unspecified Status: Chronic (9) Pacemaker ICD Code: Z95.0 - Presence of cardiac pacemaker Status: Chronic (10) On rivaroxaban therapy ICD Code: Z79.01 - intermodal dispatcher (current) use of anticoagulants Status: Chronic Assessment and Plan NEURO: Acute toxic metabolic encephalopathy Depression h/o suicidal ideation in past 3/13CT brain negative Ammonia normal. Avoid sedative opioids on hold for hida RESP: COPD Tobacco abuse DuoNeb every 6 hours. Albuterol every 2 hours as needed CXR with cardiomegaly, vascular congestion otherwise clear. Has bilateral rales on exam and I>0 during most recent admission, diurese. CV: Atrial fibrillation RVR status post ablation 2 on chronic anticoagulation with rivaroxaban Hypertension Chronic systolic heart failure pacemaker/ICD in place Echo 06/19/17 EF 45% Echo 08/13/17 EF 50-55%. Left and right atrial dilation, mild to moderate MR, pulmonary artery pressure 50 mmHg Will hold amiodarone due to elevated LFTs. Cardizem drip initiated for rate control Hold Xarelto due to elevated INR, may require procedure Volume status +7 L last admission. Received Lasix 40 mg IV in the ED, continue Lasix 40 mg IV q12. Hold pravastatin due to elevated LFTs GI: Acute hepatitis Hepatic steatosis GERD ? Cholecystitis Gallbladder wall thickening and pericholecystic fluid noted on CT 07/30 and . No evidence of obstruction. Not sure if this is pathologic or related to volume overload/anasarca. F/u RUQ u/s. HIDA scan to evaluate cholecystitis, defer to GI. Transaminitis and elevated INR (on rivaroxaban which can elevate INR though INR previously normal so suspect this is related to hepatic dysfunction). ? secondary to amiodarone started 08/11 (ast mildly elevated 08/10). ?component of congestive as volume status is up. No episodes of hypotension during recent hospitalization. No EtOH use. Tylenol level normal. Pt states taking frequent tyelnol but was not given toxic doses of tylenol during admission. Nontheless with consideration of drug induced liver injury and concomitant tylenol use, will place on Mucomyst. Check viral hepatitis panel Gastroenterology consult Check lipase--> normal. ED discussed with general surgery and Dr. Hogue called and discussed with me. FEN/RENAL: Chronic kidney disease stage III Insert Avalos Lasix as per above ID: Send UA and blood cultures Received Zosyn and Flagyl in the emergency department. Continue Zosyn 3.375 IV every 6 hours HEME: Coagulopathy Chronic anticoagulation with rivaroxaban Last dose of rivaroxaban was in the a.m. 08/14. Will hold in view of coagulopathy , may require cholecystostomy Concerned INR elevation secondary to hepatic dysfunction. Not actively bleeding. Will f/u INR trend. ENDO: Euglycemic PROPH: SCDs for DVT prophylaxis. No pharmacologic DVT prophylaxis currently due to coagulopathy, may require depending on INR trend. Protonix 40 mg IV daily for stress ulcer prophylaxis ACCESS: Peripheral IV providing adequate access at this time. Discussed with Dr. Headley, Discussed with Dr. Hogue. Full code Level 3 H and P Problem Qualifiers (1) HTN (hypertension): Qualified Codes: I10 - Essential (primary) hypertension Anjali Snow MD Aug 15, 2017 01:24
[2017-08-15] MEDS ORDERED: DILTIAZEM HCL 50 MG/10 ML VIAL IV ONE (01:30)
[2017-08-15] MEDS ORDERED: SODIUM PHOSPHATE INJ 15 MMOL in SODIUM CHLORIDE 0.9% INJ 150 ML IV ONE (01:30)
[2017-08-15] MEDS ORDERED: WATE IV ONE ×4 (02:00→06:00)
[2017-08-15] MEDS: DILTIAZEM INJ 125 MG in SODIUM CHLORIDE 0.9% INJ 100 ML IV PRN ×2 (02:03→21:20)
[2017-08-15] MEDS: SODIUM CHLORIDE 0.9% FLUSH 10 ML FLUSH IV FLUSH SCH ×2 (02:03→21:18)
[2017-08-15] MEDS: RESP: ALBUTEROL 2.5 MG/IPRATROPIUM 0.5 MG NEB (SCH) INH ×4 (03:15→21:32)
[2017-08-15] MEDS: CHLORHEXIDINE GLUCONATE 2 % 1 PACK (2 CLOTHS) TOP SCH (04:00)
[2017-08-15] MEDS: FUROSEMIDE 40 MG/4 ML VIAL IV PUSH SCH ×2 (04:23→14:27)
[2017-08-15] MEDS: PIPERACIL-TAZO 3.375 GM PREMIX 50 ML IV SCH ×4 (05:28→21:19)
[2017-08-15] MEDS: PANTOPRAZOLE SODIUM 40 MG VIAL IV PUSH SCH (08:41)
[2017-08-15] MEDS: DOCUSATE SODIUM 50 MG/SENNA 8.6 MG TAB PO SCH ×2 (08:41→21:18)
[2017-08-15] MEDS: SODIUM CHLORIDE 0.9% FLUSH 10 ML FLUSH IV FLUSH PRN ×2 (08:41→14:27)
[2017-08-15] MEDS ORDERED: MOMETASONE FORMOTEROL INH SCH (09:00)
--- NOTE | 2017-08-15 10:32 | PD.CONS ---
cc: Zohaib Hogue MD [facility] Service General Surgery Consult Requested By Dr. Snow Reason for Consult Cholangitis Primary Care Physician Liz Thorne M.D. History of Present Illness This is a 56 year old female with a past medical history of chronic systolic heart failure, atrial fibrillation s/p ablation on Xarelto, COPD, dyslipidemia and diabetes mellitus. Of note, the patient was admitted to [facility] from August 10- for atrial fibrillation, placed on a amiodarone drip and transitioned to oral amiodarone and discharged home. Per reports, after she got home her family reports that she was lethargic, confused and had several episodes of nosebleeds. A CT abdomen/pelvis was obtained which revealed ascites and persistent gallbladder wall thickening and pericholecystic fluid; there is no evidence of biliary obstruction. She has an elevated WBC of 11.4; Hmg 8.7; Hct 30.6; Plt 451. Her liver enzymes are elevated: Total bilirubin 0.8 ; AST 1884; ALT 1606; Alkaline phosphatase 125. She does report nausea but no vomiting. She states she has unintentionally lost 100 pounds over the last 12 months. A General Surgery consultation has been requested. Review of Systems Constitutional: COMPLAINS OF: Fatigue, Weight loss, Change in appetite, DENIES : Fever Endocrine: DENIES: Polydipsia, Polyuria, Polyphagia Eyes: DENIES: Diplopia, Eye inflammation Ears, nose, mouth, throat: DENIES: Hearing loss Respiratory: DENIES: Apneas, Cough Cardiovascular: DENIES: Chest pain Gastrointestinal: COMPLAINS OF: Abdominal pain, Constipation, Nausea, DENIES: Vomiting Genitourinary: DENIES: Urinary frequency Musculoskeletal: DENIES: Joint pain Integumentary: DENIES: Abnormal pigmentation Hematologic/lymphatic: DENIES: Bruising Immunologic/allergic: DENIES: Eczema Neurologic: DENIES: Abnormal gait, Headache, Localized weakness Psychiatric: COMPLAINS OF: Confusion, DENIES: Mood changes Past Family Social History Past Medical History Chronic systolic heart failure Atrial fibrillation s/p ablation on Xarelto COPD---not on oxygen Dyslipidemia Diabetes mellitus ---not on insulin Past Surgical History Hysterectomy Reported Medications Ventolin inhaler Xarelto Amiodarone Pravastatin Isosorbide Metoprolol Diltiazem Aspirin Acetaminophen Eddexor Furosemide Dulera inhaler Mucinex Allergies: Coded Allergies: prednisone (Verified Allergy, Severe, hives, 08/20/17) sertraline (Verified Allergy, Severe, hives, 08/20/17) verapamil (Verified Allergy, Severe, rash, 08/20/17) Active Ordered Medications Current Medications Medications (Trade) Dose Ordered Sig/[place] Route Start Time Stop Time Status Last Admin (NS Flush) 2 ml UNSCH PRN IV FLUSH 08/14/17 19:15 08/15/17 08:41 Acetylcysteine 7750 mg/Dextrose 1,038.75 ml @ 62.5 mls/ hr ONCE ONCE IV 08/15/17 06:00 08/15/17 22:37 08/15/17 06:40 Patient Own Medication PT OWN MED: (Mometasone-Formoter... BID INH 08/15/17 09:00 Future Hold Diltiazem HCl 125 mg/Sodium Chloride 125 ml @ 5 mls/hr TITRATE PRN IV 08/15/17 00:45 08/15/17 02:03 (NS Flush) 2 ml UNSCH PRN IV FLUSH 08/15/17 00:45 (NS Flush) 2 ml BID IV FLUSH 08/15/17 09:00 08/15/17 02:03 (Morphine Inj) 2 mg Q2H PRN IV 08/15/17 01:00 Future Hold 08/15/17 01:03 (Protonix Inj) 40 mg DAILY IV PUSH 08/15/17 09:00 08/15/17 08:41 (Zofran Inj) 4 mg Q6H PRN IV PUSH 08/15/17 00:45 08/15/17 01:03 (Duoneb Neb) 1 ampule Q6HR NEB INH 08/15/17 04:00 08/15/17 09:11 (Albuterol Neb) 2.5 mg Q2HR NEB PRN INH 08/15/17 00:45 Miscellaneous Information 1 Q361D XX 08/15/17 00:45 (Chlorhexidine 2% Cloth) 3 pack Taper DAILY@04 TOP 08/15/17 04:00 08/11/18 03:59 08/15/17 04:00 (Chlorhexidine 2% Cloth) 3 pack UNSCH PRN TOP 08/15/17 00:45 (Izaebla-Colace) 1 tab BID PO 08/15/17 09:00 (Milk Of Magnesia Liq) 30 ml Q12H PRN PO 08/15/17 00:45 (Senokot) 17.2 mg Q12H PRN PO 08/15/17 00:45 (Dulcolax Supp) 10 mg DAILY PRN RECTAL 08/15/17 00:45 (Lactulose Liq) 30 ml DAILY PRN PO 08/15/17 00:45 Piperacillin Sod/ Tazobactam Sod 50 ml @ 100 mls/hr Q6H IV 08/15/17 05:00 08/15/17 05:28 (Lasix Inj) 40 mg Q12H IV PUSH 08/15/17 04:00 08/15/17 04:23 Family History Noncontributory Social History + tobacco use-- 1 ppd Denies ETOH use Denies illicit drug use Patient is unemployed. She lives with her and niece. Physical Exam Vital Signs Vital Signs Date Time Temp Pulse Resp B/P (MAP) Pulse Ox O2 Delivery O2 Flow Rate FiO2 08/15/17 10:00 97 08/15/17 09:11 96 08/15/17 08:00 87 08/15/17 08:00 97.5 87 14 139/77 (97) 97 08/15/17 06:00 92 08/15/17 05:24 98 119/74 08/15/17 05:18 97.9 106 16 119/74 (89) 97 08/15/17 04:14 94 16 133/71 (91) 98 Room Air 08/15/17 03:17 98 08/15/17 02:06 118 18 127/67 (87) 98 Room Air 08/15/17 02:03 103 127/67 08/14/17 23:14 108 18 149/84 (105) 94 Room Air 08/14/17 20:00 141 22 162/92 (115) 96 Room Air 08/14/17 19:04 136 22 179/93 (121) 98 Physical Exam GENERAL: 56 year old female resting in bed in no acute distress. SKIN: Warm and dry. Numerous tattoos over BUE, trunk and BLE. HEAD: Atraumatic. Normocephalic. EYES: Pupils equal and round. No scleral icterus. No injection or drainage. ENT: No nasal bleeding or discharge. Mucous membranes pink and moist. NECK: Trachea midline. CARDIOVASCULAR: Regular rate and rhythm. RESPIRATORY: No accessory muscle use. Clear to auscultation. Breath sounds equal bilaterally. GASTROINTESTINAL: Abdomen soft; distended; Tenderness to palpation in RUQ and RLQ. MUSCULOSKELETAL: Extremities without clubbing, cyanosis, or edema. No obvious deformities. NEUROLOGICAL: Awake and alert. No obvious cranial nerve deficits. Motor grossly within normal limits. Five out of 5 muscle strength in the arms and legs. Normal speech. PSYCHIATRIC: Appropriate mood and affect; insight and judgment normal. Laboratory Laboratory Tests Test 08/14/17 19:20 08/14/17 19:24 08/14/17 20:29 08/14/17 20:37 Blood Gas Puncture Site LT RADIAL Blood Gas Patient Temperature 98.6 Blood Gas HCO3 23 Blood Gas Base Excess -0.7 Blood Gas Oxygen Saturation 91 Arterial Blood pH 7.41 Arterial Blood Partial Pressure CO2 37 Arterial Blood Partial Pressure O2 68 Arterial Blood Oxygen Content 11.1 Arterial Blood Carboxyhemoglobin 2.5 Arterial Blood Methemoglobin 0.6 Blood Gas Hemoglobin 8.7 Oxygen Delivery Device ROOM AIR Blood Gas Inspired Oxygen 21 White Blood Count 11.4 Red Blood Count 3.82 Hemoglobin 8.7 Hematocrit 30.6 Mean Corpuscular Volume 80.2 Mean Corpuscular Hemoglobin 22.8 Mean Corpuscular Hemoglobin Concent 28.4 Red Cell Distribution Width 18.1 Platelet Count 451 Mean Platelet Volume 7.9 Neutrophils (%) (Auto) 78.1 Lymphocytes (%) (Auto) 11.1 Monocytes (%) (Auto) 9.6 Eosinophils (%) (Auto) 0.5 Basophils (%) (Auto) 0.7 Neutrophils # (Auto) 8.9 Lymphocytes # (Auto) 1.3 Monocytes # (Auto) 1.1 Eosinophils # (Auto) 0.1 Basophils # (Auto) 0.1 CBC Comment DIFF FINAL Differential Comment Prothrombin Time 23.5 Prothromb Time International Ratio 2.3 Activated Partial Thromboplast Time 34.4 Blood Urea Nitrogen 24 Creatinine 1.14 Random Glucose 127 Total Protein 6.7 Albumin 3.4 Calcium Level 8.4 Alkaline Phosphatase 125 Aspartate Amino Transf (AST/SGOT) 1884 Alanine Aminotransferase (ALT/SGPT) 1606 Total Bilirubin 0.8 Sodium Level 132 Potassium Level 4.2 Chloride Level 99 Carbon Dioxide Level 25.1 Anion Gap 8 Estimat Glomerular Filtration Rate 50 Total Creatine Kinase 257 Creatine Kinase MB 3.4 Creatine Kinase MB % 1.3 Troponin I LESS THAN 0.02 Lipase 240 Salicylates Level LESS THAN 1.7 Acetaminophen Level LESS THAN 2.0 Ethyl Alcohol Level LESS THAN 3 Urine Color YELLOW Urine Turbidity CLEAR Urine pH 5.5 Urine Specific [place] 1.019 Urine Protein TRACE Urine Glucose (UA) NEG Urine Ketones NEG Urine Occult Blood NEG Urine Nitrite NEG Urine Bilirubin NEG Urine Urobilinogen LESS THAN 2.0 Urine Leukocyte Esterase TRACE Urine RBC 1 Urine WBC 3 Urine Squamous Epithelial Cells 2 Urine Bacteria RARE Microscopic Urinalysis Comment CATH-CULTURE IND Urine Opiates Screen NEG Urine Barbiturates Screen NEG Urine Amphetamines Screen NEG Urine Benzodiazepines Screen NEG Urine Cocaine Screen NEG Urine Cannabinoids Screen NEG Ammonia 29 Test 08/15/17 00:36 08/15/17 00:41 08/15/17 01:19 08/15/17 05:00 Phosphorus Level 1.8 Magnesium Level 2.0 Lactic Acid Level 1.9 B-Type Natriuretic Peptide 1442 Date/Time Source Procedure Growth Status 08/15/17 00:41 Blood Peripheral Aerobic Blood Culture Pending Received 08/15/17 00:41 Blood Peripheral Anaerobic Blood Culture Pending Received 08/14/17 20:29 Urine Catheterized Urine Urine Culture Pending Received Result Diagram: 08/14/17192308/14/171923 Imaging Last 48 hours Impressions Abdomen/Pelvis CT 08/14/172020 Signed Impressions: Service Date/Time: Monday, August 14, 2017 21:10 - CONCLUSION: 1. Small, nonspecific ascites has developed. Also anasarca and small right pleural effusion with mild right base atelectasis, all new. 2. Persistent wall thickening and pericholecystic fluid the gallbladder. 3. No acute abnormality seen of the liver. No evidence of biliary obstruction. Khadar Díaz MD Head CT 08/14/171911 Signed Impressions: Service Date/Time: Monday, August 14, 2017 19:32 - CONCLUSION: Negative noncontrast head CT. Khadar Díaz MD Chest X-Ray 08/14/171911 Signed Impressions: Service Date/Time: Monday, August 14, 2017 19:23 - CONCLUSION: No acute cardiopulmonary disease demonstrated. Khadar Díaz MD Assessment and Plan Assessment and Plan 56 year old female with abdominal pain; epistaxis; recent admission for atrial fibrillation -NPO -Recommend hepatitis panel and tumor markers -GI consult pending -Continue to control HR -No acute GS issue at this time; Will continue to follow -Thank you for this consult Attending Note - Dr. Hogue Patient seen and examined Findings more consistent with acute hepatitis No surgery at this time; will follow with you The exam, history, and the medical decision-making described in the above note were completed with the assistance of the mid-level provider. I reviewed and agree with the findings presented. I attest that I had a [id number] encounter with the patient on the same day, and personally performed and documented my assessment and findings in the medical record. Discussed Condition With Claudia Elizalde Ms./Vp Cardiovascular ARNP Aug 15, 2017 10:32 Zohaib Hogue MD Aug 20, 2017 20:33
[2017-08-15] MEDS ORDERED: SINCALIDE 5 MCG/5 ML VIAL IV ONE (11:07)
--- NOTE | 2017-08-15 11:41 | RADRPT ---
EXAM DATE/TIME: 08/15/2017 07:56 [facility] COMPARISON: No previous studies available for comparison. INDICATIONS : Increased lab values. MEDICAL HISTORY : Chronic obstructive pulmonary disease. Gastroesophageal reflux disease. Hypertension. CVA. Atrial fib rillation. Cardiomyopathy. Congestive heart failure. Diabetes. SURGICAL HISTORY : Hysterectomy. Cardiac ablation. ENCOUNTER: Initial ACUITY: 1 day PAIN SCORE: 7/10 LOCATION: Bilateral Abdomen. MEASUREMENTS: LIVER: 19.4 cm length COMMON DUCT: 8 mm RIGHT KIDNEY: 11.6 x 3.9 x 4.2 cm SPLEEN: 7.9 cm length FINDINGS: Slightly increased liver echogenicity and enlargement to 2.4 cm mass effect is mild fatty infiltratio n. Trace fluid around the gallbladder and spleen and liver. Sludge in gallbladder for gallstones. Abo ut 5 mm. Common bile duct measures about 8 mm in diameter. Right kidney unremarkable without hydronep hrosis. CONCLUSION: 1. Fatty liver enlarged at 19.4 cm. 2. Gallbladder sludge with gallbladder wall thickening and mild biliary ductal dilatation. 3. Trace free fluid. Landon Green MD on August 15, 2017 at 11:36 Board Certified Radiologist. This report was verified electronically.
--- NOTE | 2017-08-15 12:03 | RADRPT ---
EXAM DATE/TIME: 08/15/2017 10:02 [facility] COMPARISON: No previous studies available for comparison. INDICATIONS : Ascending cholangitis. Abdominal pain. DOSE: 4.4 mCi Tc99m Mebrofenin IV MEDICATION: 1.7 mcg Cholecystokinin IV; No symptomatic response. Cholecystokinin was administered by slow infusion over 8 minutes beginning at 60 minutes. MEDICAL HISTORY : Gastroesophageal reflux disease. Chronic obstructive pulmonary disease. Congestive heart failure. SURGICAL HISTORY : Hemorrhoidectomy. ENCOUNTER: Initial ACUITY: 3 days PAIN SCALE: 4/10 LOCATION: Right upper quadrant TECHNIQUE: Following the intravenous administration of radiotracer, dynamic sequential image were performed with continuous acquisition. Time-activity curves were generated. FINDINGS: HEPATIC KINETICS: The Tracer is taken up by the liver the is a diminished rate of excretion.. BILIARY CLEARANCE: Activity is first seen in the extrahepatic biliary system at 20 minutes. GALLBLADDER: Activity is first seen in the gallbladder at 20 minutes. POST CHOLECYSTOKININ: After Cholecystokinin administration, there is no significant emptying of the gallbladder with a less than 20 % ejection fraction. Common bile duct kinetics are normal and there is no evidence of bilia ry obstruction. BILIARY ENTERIC REFLUX: None observed. CONCLUSION: 1. Diminished rate of excretion of contrast from the liver which could be related to hepatocellular d ysfunction or distal biliary obstruction. 2. There is no cystic duct obstruction. However, activity does not pass beyond the area of the distal common duct at 90 minutes. This is suggestive of at least a partial biliary obstruction. It is uncle ar if some of the activity is within the duodenum at 90 minutes. Landon Green MD on August 15, 2017 at 11:55 Board Certified Radiologist. This report was verified electronically.
--- NOTE | 2017-08-15 14:29 | PD.CONS ---
HPI History of Present Illness This is a 56 year old female with AF on xarelto and s/p ablation, systolic heart failure who presented with confusion and "a bloody nose." GI has been consulted for questionable liver failure and cholecystitis. Pt admits constant mid abdominal abd pain for the last 2 months along with nausea, vomiting. Yesterday she saw red blood in her vomit. She admits constipation and blood in her stool but says she hasn't had a BM in 2 weeks. She denies etoh consumption. She denies prior problems with gallbladder or liver. She says she has not been eating. She last had xarelto 2 days ago. Her last colonoscopy was 4 y ago in [facility] and polyps were found. She is a reluctant historian. (Poornima Agrawal) PFSH Past Medical History AF IBS COPD DM HTN Past Surgical History noncontributory (Poornima Agrawal) Coded Allergies: prednisone (Verified Allergy, Severe, hives, 07/30/17) sertraline (Verified Allergy, Severe, hives, 07/30/17) verapamil (Verified Allergy, Severe, rash, 07/30/17) Family History noncontributory Social History denies etoh smokes 1ppd denies illicit drug use (Poornima Agrawal) Review of Systems Constitutional: COMPLAINS OF: Weight loss Endocrine: DENIES: Polydipsia Eyes: DENIES: Blurred vision Ears, nose, mouth, throat: DENIES: Hearing loss Respiratory: DENIES: Cough Cardiovascular: DENIES: Chest pain Gastrointestinal: COMPLAINS OF: Abdominal pain, Bloody stools, Constipation, Nausea, Vomiting, Hematemesis, DENIES: Black stools, Diarrhea Genitourinary: DENIES: Urinary incontinence Musculoskeletal: DENIES: Joint pain Integumentary: DENIES: Abnormal pigmentation Hematologic/lymphatic: DENIES: Bruising Immunologic/allergic: DENIES: Eczema Neurologic: DENIES: Headache Psychiatric: COMPLAINS OF: Confusion (Poornima Agrawal) GI Exam Vitals I&O Vital Signs Date Time Temp Pulse Resp B/P (MAP) Pulse Ox O2 Delivery O2 Flow Rate FiO2 08/15/17 12:00 90 08/15/17 12:00 97.9 90 13 121/63 (82) 95 08/15/17 10:00 97 08/15/17 09:11 96 08/15/17 08:00 87 08/15/17 08:00 97.5 87 14 139/77 (97) 97 08/15/17 06:00 92 08/15/17 05:24 98 119/74 08/15/17 05:18 97.9 106 16 119/74 (89) 97 08/15/17 04:14 94 16 133/71 (91) 98 Room Air 08/15/17 03:17 98 08/15/17 02:06 118 18 127/67 (87) 98 Room Air 08/15/17 02:03 103 127/67 08/14/17 23:14 108 18 149/84 (105) 94 Room Air 08/14/17 20:00 141 22 162/92 (115) 96 Room Air 08/14/17 19:04 136 22 179/93 (121) 98 I/O 08/14/17 08/14/17 08/14/17 08/15/17 08/15/17 08/15/17 07:00 15:00 23:00 07:00 15:00 23:00 Intake Total 100 ml 1132.25 ml Output Total 2400 ml 1900 ml Balance 100 ml -1267.75 ml -1900 ml Intake IV Total 100 ml 1132.25 ml Output Urine Total 2400 ml 1900 ml # Voids 1 Imaging Last Impressions Liver Ultrasound 08/15/17 0000 Signed Impressions: Service Date/Time: Tuesday, August 15, 2017 07:56 - CONCLUSION: 1. Fatty liver enlarged at 19.4 cm. 2. Gallbladder sludge with gallbladder wall thickening and mild biliary ductal dilatation. 3. Trace free fluid. Landon Green MD Hepatobiliary Scan Nuclear Medicine 08/15/17 0000 Signed Impressions: Service Date/Time: Tuesday, August 15, 2017 10:02 - CONCLUSION: 1. Diminished rate of excretion of contrast from the liver which could be related to hepatocellular dysfunction or distal biliary obstruction. 2. There is no cystic duct obstruction. However, activity does not pass beyond the area of the distal common duct at 90 minutes. This is suggestive of at least a partial biliary obstruction. It is unclear if some of the activity is within the duodenum at 90 minutes. Landon Green MD Abdomen/Pelvis CT 08/14/172020 Signed Impressions: Service Date/Time: Monday, August 14, 2017 21:10 - CONCLUSION: 1. Small, nonspecific ascites has developed. Also anasarca and small right pleural effusion with mild right base atelectasis, all new. 2. Persistent wall thickening and pericholecystic fluid the gallbladder. 3. No acute abnormality seen of the liver. No evidence of biliary obstruction. Khadar Díaz MD Head CT 08/14/171911 Signed Impressions: Service Date/Time: Monday, August 14, 2017 19:32 - CONCLUSION: Negative noncontrast head CT. Khadar Díaz MD Chest X-Ray 08/14/171911 Signed Impressions: Service Date/Time: Monday, August 14, 2017 19:23 - CONCLUSION: No acute cardiopulmonary disease demonstrated. Khadar Díaz MD Laboratory Test 08/14/17 19:20 08/14/17 19:24 08/14/17 20:29 08/14/17 20:37 Blood Gas Puncture Site LT RADIAL Blood Gas Patient Temperature 98.6 Blood Gas HCO3 23 mmol/L Blood Gas Base Excess -0.7 mmol/L Blood Gas Oxygen Saturation 91 % Arterial Blood pH 7.41 Arterial Blood Partial Pressure CO2 37 mmHg Arterial Blood Partial Pressure O2 68 mmHG Arterial Blood Oxygen Content 11.1 Vol % Arterial Blood Carboxyhemoglobin 2.5 % Arterial Blood Methemoglobin 0.6 % Blood Gas Hemoglobin 8.7 G/DL Oxygen Delivery Device ROOM AIR Blood Gas Inspired Oxygen 21 % White Blood Count 11.4 TH/MM3 Red Blood Count 3.82 MIL/MM3 Hemoglobin 8.7 GM/DL Hematocrit 30.6 % Mean Corpuscular Volume 80.2 FL Mean Corpuscular Hemoglobin 22.8 PG Mean Corpuscular Hemoglobin Concent 28.4 % Red Cell Distribution Width 18.1 % Platelet Count 451 TH/MM3 Mean Platelet Volume 7.9 FL Neutrophils (%) (Auto) 78.1 % Lymphocytes (%) (Auto) 11.1 % Monocytes (%) (Auto) 9.6 % Eosinophils (%) (Auto) 0.5 % Basophils (%) (Auto) 0.7 % Neutrophils # (Auto) 8.9 TH/MM3 Lymphocytes # (Auto) 1.3 TH/MM3 Monocytes # (Auto) 1.1 TH/MM3 Eosinophils # (Auto) 0.1 TH/MM3 Basophils # (Auto) 0.1 TH/MM3 CBC Comment DIFF FINAL Differential Comment Prothrombin Time 23.5 SEC Prothromb Time International Ratio 2.3 RATIO Activated Partial Thromboplast Time 34.4 SEC Blood Urea Nitrogen 24 MG/DL Creatinine 1.14 MG/DL Random Glucose 127 MG/DL Total Protein 6.7 GM/DL Albumin 3.4 GM/DL Calcium Level 8.4 MG/DL Alkaline Phosphatase 125 U/L Aspartate Amino Transf (AST/SGOT) 1884 U/L Alanine Aminotransferase (ALT/SGPT) 1606 U/L Total Bilirubin 0.8 MG/DL Sodium Level 132 MEQ/L Potassium Level 4.2 MEQ/L Chloride Level 99 MEQ/L Carbon Dioxide Level 25.1 MEQ/L Anion Gap 8 MEQ/L Estimat Glomerular Filtration Rate 50 ML/MIN Total Creatine Kinase 257 U/L Creatine Kinase MB 3.4 NG/ML Creatine Kinase MB % 1.3 % Troponin I LESS THAN 0.02 NG/ML Lipase 240 U/L Salicylates Level LESS THAN 1.7 MG/DL Acetaminophen Level LESS THAN 2.0 MCG/ML Ethyl Alcohol Level LESS THAN 3 MG/DL Urine Color YELLOW Urine Turbidity CLEAR Urine pH 5.5 Urine Specific [place] 1.019 Urine Protein TRACE mg/dL Urine Glucose (UA) NEG mg/dL Urine Ketones NEG mg/dL Urine Occult Blood NEG Urine Nitrite NEG Urine Bilirubin NEG Urine Urobilinogen LESS THAN 2.0 MG/DL Urine Leukocyte Esterase TRACE Urine RBC 1 /hpf Urine WBC 3 /hpf Urine Squamous Epithelial Cells 2 /hpf Urine Bacteria RARE /hpf Microscopic Urinalysis Comment CATH-CULTURE IND Urine Opiates Screen NEG Urine Barbiturates Screen NEG Urine Amphetamines Screen NEG Urine Benzodiazepines Screen NEG Urine Cocaine Screen NEG Urine Cannabinoids Screen NEG Ammonia 29 MCMOL/L Test 08/15/17 00:36 08/15/17 00:41 08/15/17 01:19 08/15/17 05:00 Phosphorus Level 1.8 MG/DL Magnesium Level 2.0 MG/DL Lactic Acid Level 1.9 mmol/L B-Type Natriuretic Peptide 1442 PG/ML Nasal Screen MRSA (PCR) MRSA NOT DETECTED Date/Time Source Procedure Growth Status 08/15/17 00:41 Blood Peripheral Aerobic Blood Culture Pending Received 08/15/17 00:41 Blood Peripheral Anaerobic Blood Culture Pending Received 08/14/17 20:29 Urine Catheterized Urine Urine Culture Pending Received Physical Examination HEENT: PERRL; normocephalic; atraumatic; no jaundice. CHEST: CTA CARDIAC: irr HR, tachy ABDOMEN: Soft, distended, diffuse TTP; bowel sounds hypoactive EXTREMITIES: No clubbing, cyanosis, + BLE edema SKIN: Normal; no rash; no jaundice. 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 liver dz vs gallbladder. US showed fatty liver , GB sludge with GB wall thickening and mild biliary ductal dilatations. HIDA suggestive hepatocellular dysfunction vs distal biliary obstruction, no cystic duct obstruction, poss partial biliary obstruction. GS consulted. hep panel and liver w/u are pending. - anemia, hematemesis, hematochezia - hgb 8.7 on admission and microcytic. blood in vomit yesterday, pt admits bloody stools prior but says she hasn't had BM in 2 weeks, last colonoscopy 4y ago and polyps found. - coagulopathy- INR 2.3 -leukocytosis - wbc 11 ON ADMISSION PLAN - NPO per GS - EGD and colonoscopy, timing TBD - notify GI of active bleeding - await liver w/u - await hepatitis panel - await CA 19-9, CEA - further recs as case unfolds pt seen by myself and Dr Capps and this note is on his behalf (Poornima Agrawal) Physician Comments Agree with above plan. Thank you for the consult. (Ashleigh Capps MD) Poornima Agrawal Aug 15, 2017 14:29 Ashleigh Capps MD Aug 16, 2017 09:37
[2017-08-15 14:37] LABS: AUTOMATED NEUTROPHIL # 6.2 TH/MM3 (1.8-7.7); BASOPHIL % 0.2 % (0.0-2.0); HEMATOCRIT 29.1 % (35.0-46.0); HEMOGLOBIN 8.7 GM/DL (11.6-15.3); LYMPH % 5.6 % (9.0-44.0); LYMPHOCYTE # 0.4 TH/MM3 (1.0-4.8); MEAN CELL VOLUME 76.5 FL (80.0-100.0); MEAN CORPUSCULAR HEMOGLOBIN 22.8 PG (27.0-34.0); MEAN PLATELET VOLUME 7.7 FL (7.0-11.0); MONO % 5.4 % (0.0-8.0); MONOCYTE # 0.4 TH/MM3 (0-0.9); NEUT % 88.8 % (16.0-70.0); PLATELET COUNT 410 TH/MM3 (150-450); RED BLOOD COUNT 3.81 MIL/MM3 (4.00-5.30); RED CELL DISTRIBUTION WIDTH 18.1 % (11.6-17.2)
[2017-08-15 14:39] LABS: MEAN CORPUSCULAR HGB CONC 29.7 % (32.0-36.0)
[2017-08-15 14:49] LABS: INTERNATIONAL NORMALIZED RATIO 1.8 RATIO; PROTHROMBIN TIME - PATIENT 18.7 SEC (9.8-11.6)
[2017-08-15 15:03] LABS: CARCINOEMBRYONIC ANTIGEN 13.5 NG/ML (0.2-5.0)
[2017-08-15 15:20] LABS: ALBUMIN 3.2 GM/DL (3.4-5.0); ALKALINE PHOSPHATASE 103 U/L (45-117); ALT (GPT) 1362 U/L (10-53); AST (GOT) 951 U/L (15-37); BICARBONATE 28.8 MEQ/L (21.0-32.0); BLOOD UREA NITROGEN 17 MG/DL (7-18); CALCIUM 8.9 MG/DL (8.5-10.1); CHLORIDE 96 MEQ/L (98-107); CREATININE 1.01 MG/DL (0.50-1.00); GLOMERULAR FILTRATION RATE 57 ML/MIN (>89); GLUCOSE,RANDOM 259 MG/DL (74-106); MAGNESIUM 1.7 MG/DL (1.5-2.5); SODIUM (NA) 137 MEQ/L (136-145); TOTAL BILIRUBIN ADULT 0.8 MG/DL (0.2-1.0); TOTAL PROTEIN 6.6 GM/DL (6.4-8.2); TROPONIN I 0.02 NG/ML (0.02-0.05)
[2017-08-15 15:39] LABS: CA 19-9 29.2 U/ML (0.0-35.0)
[2017-08-15] MEDS: INSULIN ASPART SUPPLEMENTAL SCALE SQ SCH ×3 (16:24→23:33)
[2017-08-15] MEDS ORDERED: ICU - MAGNESIUM OXIDE 400 MG TAB PO PRN (19:30)
[2017-08-15] MEDS ORDERED: ICU - MAGNESIUM SULFATE 2 GM/NS 100 ML IV PRN ×2 (19:30)
[2017-08-15] MEDS ORDERED: POTASSIUM CHLORIDE 25 MEQ EFFERVESCENT TAB PO PRN (19:30)
[2017-08-15] MEDS ORDERED: ICU - POTASSIUM PHOSPHATE MONOBASIC 500 MG TAB PO PRN (19:30)
[2017-08-15] MEDS ORDERED: ICU - SODIUM PHOSPHATE 30 MMOL/NS 250 ML IV PRN ×2 (19:30)
[2017-08-15] MEDS ORDERED: ICU - MAGNESIUM SULFATE 4 GM/NS 100 ML IV PRN ×2 (19:30)
[2017-08-15] MEDS ORDERED: ICU - POTASSIUM CHLORIDE/AQUEOUS SOLN 40 MEQ/100 ML IVPB IV PRN (19:30)
[2017-08-15] MEDS ORDERED: ICU - CALL ORDERING PHYSICIAN PRN (19:30)
[2017-08-15] MEDS ORDERED: ICU - POTASSIUM PHOSPHATE 30 MMOL/NS 250 ML IV PRN ×2 (19:30)
[2017-08-15] MEDS ORDERED: ICU - D/C ICU ELECTROLYTE ORDERS PRN (19:30)
[2017-08-15] MEDS: ICU - POTASSIUM CHLORIDE/AQUEOUS SOLN 20 MEQ/100 ML IVPB IV PRN (23:34)
--- NOTE | 2017-08-15 23:37 | EKG ---
Date Performed: 08/14/2017 Time Performed: 19:05:32 PTAGE: 56 years EKG: ATRIAL FIBRILLATION WITH RAPID VENTRICULAR RESPONSE ST DEVIATION AND MODERATE T-WAVE ABNORM ALITY, CONSIDER ANTEROLATERAL ISCHEMIA ST DEVIATION AND MODERATE T-WAVE ABNORMALITY, CONSIDER INFERIO R ISCHEMIA ABNORMAL ECG NO PREVIOUS TRACING DOCTOR: Prabhu Cueto Interpretating Date/Time 08/15/2017 23:34:15
[2017-08-15] MEDS ORDERED: MORPHINE SULFATE 2 MG/ML INJ IV PUSH PRN (23:45)
[2017-08-16] VITALS (7 sets, daily range): BP systolic 121–133; BP diastolic 58–68; PULSE 97–120; RESP 10–23; TEMP 98.1–98.4; O2SAT 93–96
[2017-08-16] MEDS: FUROSEMIDE 40 MG/4 ML VIAL IV PUSH SCH ×2 (02:32→15:35)
[2017-08-16] MEDS: ICU - POTASSIUM CHLORIDE/AQUEOUS SOLN 20 MEQ/100 ML IVPB IV PRN ×4 (02:32→23:39)
[2017-08-16 03:31] LABS: INTERNATIONAL NORMALIZED RATIO 1.7 RATIO; PROTHROMBIN TIME - PATIENT 17.4 SEC (9.8-11.6)
[2017-08-16 03:54] LABS: BLOOD UREA NITROGEN 12 MG/DL (7-18)
[2017-08-16] MEDS: CHLORHEXIDINE GLUCONATE 2 % 1 PACK (2 CLOTHS) TOP SCH (04:00)
[2017-08-16] MEDS: RESP: ALBUTEROL 2.5 MG/IPRATROPIUM 0.5 MG NEB (SCH) INH ×4 (04:11→21:21)
[2017-08-16] MEDS: INSULIN ASPART SUPPLEMENTAL SCALE SQ SCH ×5 (04:45→20:00)
[2017-08-16] MEDS: PIPERACIL-TAZO 3.375 GM PREMIX 50 ML IV SCH ×4 (04:46→22:54)
[2017-08-16] MEDS: SODIUM CHLORIDE 0.9% FLUSH 10 ML FLUSH IV FLUSH SCH ×2 (08:33→21:03)
[2017-08-16] MEDS: PANTOPRAZOLE SODIUM 40 MG VIAL IV PUSH SCH (08:34)
[2017-08-16] MEDS: DOCUSATE SODIUM 50 MG/SENNA 8.6 MG TAB PO SCH ×2 (08:34→21:00)
[2017-08-16 09:27] LABS: CREATININE 1.04 MG/DL (0.50-1.00); GLOMERULAR FILTRATION RATE 55 ML/MIN (>89); GLUCOSE,RANDOM 164 MG/DL (74-106)
[2017-08-16 09:28] LABS: ALBUMIN 3.2 GM/DL (3.4-5.0); ALKALINE PHOSPHATASE 96 U/L (45-117); AST (GOT) 378 U/L (15-37); CALCIUM 9.4 MG/DL (8.5-10.1); MAGNESIUM 1.9 MG/DL (1.5-2.5); PHOSPHORUS 1.9 MG/DL (2.5-4.9)
[2017-08-16 09:29] LABS: ALT (GPT) 1021 U/L (10-53); BICARBONATE 34.7 MEQ/L (21.0-32.0); CHLORIDE 97 MEQ/L (98-107); SODIUM (NA) 139 MEQ/L (136-145)
--- NOTE | 2017-08-16 13:47 | HHI.GIFU ---
Subjective Remarks Pt resting in bed Family at bedside She reports no BM in two weeks, however states she had a small one with blood in it Reports emesis yesterday with BRB (Ana Hughes) Objective Vitals I&O Vital Signs Date Time Temp Pulse Resp B/P (MAP) Pulse Ox O2 Delivery O2 Flow Rate FiO2 08/16/17 12:00 98.3 101 15 123/66 (85) 94 08/16/17 12:00 101 08/16/17 08:00 97 08/16/17 08:00 98.1 97 13 132/66 (88) 95 08/16/17 04:00 98 08/16/17 04:00 98.1 98 10 121/58 (79) 95 08/16/17 00:00 102 08/16/17 00:00 98.2 102 16 128/68 (88) 96 08/15/17 21:32 96 21 08/15/17 21:20 98 147/74 08/15/17 20:00 98.2 102 17 145/71 (95) 96 08/15/17 20:00 102 08/15/17 16:00 97.8 98 15 119/69 (86) 93 08/15/17 16:00 98 08/15/17 14:00 95 I/O 08/15/17 08/15/17 08/15/17 08/16/17 08/16/17 08/16/17 07:00 15:00 23:00 07:00 15:00 23:00 Intake Total 1132.25 ml 50 ml 1100 ml 960 ml Output Total 2400 ml 1900 ml 2700 ml 3150 ml Balance -1267.75 ml -1850 ml -1600 ml -2190 ml Intake Oral 240 ml IV Total 1132.25 ml 50 ml 860 ml 960 ml Output Urine Total 2400 ml 1900 ml 2700 ml 3150 ml # Voids 1 # Bowel Movements 0 Laboratory Laboratory Tests Test 08/15/17 14:03 08/16/17 03:00 08/16/17 08:32 White Blood Count 7.0 Red Blood Count 3.81 Hemoglobin 8.7 Hematocrit 29.1 Mean Corpuscular Volume 76.5 Mean Corpuscular Hemoglobin 22.8 Mean Corpuscular Hemoglobin Concent 29.7 Red Cell Distribution Width 18.1 Platelet Count 410 Mean Platelet Volume 7.7 Neutrophils (%) (Auto) 88.8 Lymphocytes (%) (Auto) 5.6 Monocytes (%) (Auto) 5.4 Eosinophils (%) (Auto) 0.0 Basophils (%) (Auto) 0.2 Neutrophils # (Auto) 6.2 Lymphocytes # (Auto) 0.4 Monocytes # (Auto) 0.4 Eosinophils # (Auto) 0.0 Basophils # (Auto) 0.0 CBC Comment AUTO DIFF Differential Comment AUTO DIFF CONFIRMED Prothrombin Time 18.7 17.4 Prothromb Time International Ratio 1.8 1.7 Fibrinogen 376 Blood Urea Nitrogen 17 12 Creatinine 1.01 1.04 Random Glucose 259 164 Total Protein 6.6 6.0 Albumin 3.2 3.2 Calcium Level 8.9 9.4 Magnesium Level 1.7 1.9 Alkaline Phosphatase 103 96 Aspartate Amino Transf (AST/SGOT) 951 378 Alanine Aminotransferase (ALT/SGPT) 1362 1021 Total Bilirubin 0.8 1.0 Sodium Level 137 139 Potassium Level 3.2 3.4 Chloride Level 96 97 Carbon Dioxide Level 28.8 34.7 Anion Gap 12 7 Estimat Glomerular Filtration Rate 57 55 Troponin I 0.02 B-Type Natriuretic Peptide 1162 Tumor Marker Alpha Fetoprotein 2.0 Carcinoembryonic Antigen 13.5 CA 19-9 Antigen 29.2 Ammonia 50 Phosphorus Level 1.9 Date/Time Source Procedure Growth Status 08/15/17 00:41 Blood Peripheral Aerobic Blood Culture - Preliminary NO GROWTH IN 1 DAY Resulted 08/15/17 00:41 Blood Peripheral Anaerobic Blood Culture - Preliminary NO GROWTH IN 1 DAY Resulted 08/14/17 20:29 Urine Catheterized Urine Urine Culture - Final 50-100,000 CFU/ML MIXED GRAM POSITIVE... Complete Imaging Last Impressions Liver Ultrasound 08/15/17 0000 Signed Impressions: Service Date/Time: Tuesday, August 15, 2017 07:56 - CONCLUSION: 1. Fatty liver enlarged at 19.4 cm. 2. Gallbladder sludge with gallbladder wall thickening and mild biliary ductal dilatation. 3. Trace free fluid. Landon Green MD Hepatobiliary Scan Nuclear Medicine 08/15/17 0000 Signed Impressions: Service Date/Time: Tuesday, August 15, 2017 10:02 - CONCLUSION: 1. Diminished rate of excretion of contrast from the liver which could be related to hepatocellular dysfunction or distal biliary obstruction. 2. There is no cystic duct obstruction. However, activity does not pass beyond the area of the distal common duct at 90 minutes. This is suggestive of at least a partial biliary obstruction. It is unclear if some of the activity is within the duodenum at 90 minutes. Landon Green MD Abdomen/Pelvis CT 08/14/172020 Signed Impressions: Service Date/Time: Monday, August 14, 2017 21:10 - CONCLUSION: 1. Small, nonspecific ascites has developed. Also anasarca and small right pleural effusion with mild right base atelectasis, all new. 2. Persistent wall thickening and pericholecystic fluid the gallbladder. 3. No acute abnormality seen of the liver. No evidence of biliary obstruction. Khadar Díaz MD Head CT 08/14/171911 Signed Impressions: Service Date/Time: Monday, August 14, 2017 19:32 - CONCLUSION: Negative noncontrast head CT. Khadar Díaz MD Chest X-Ray 08/14/171911 Signed Impressions: Service Date/Time: Monday, August 14, 2017 19:23 - CONCLUSION: No acute cardiopulmonary disease demonstrated. Khadar Díaz MD Physical Exam HEENT: Normocephalic; atraumatic CHEST: Even/unlabored CARDIAC: Irregularly irregular, rate controlled ABDOMEN: Soft, nondistended, diffuse TTP, bowel sounds active SKIN: Normal; no rash; no jaundice. POLICY LOAN CALCULATOR: No focal deficits; alert and oriented times three. (Ana Hughes) Assessment and Plan Plan ASSESSMENT - elevated LFTs - unk etiology. liver dz vs gallbladder. US showed fatty liver , GB sludge with GB wall thickening and mild biliary ductal dilatations. HIDA suggestive hepatocellular dysfunction vs distal biliary obstruction, no cystic duct obstruction, poss partial biliary obstruction. GS consulted. hep panel and liver w/u are pending. - anemia, hematemesis, hematochezia - hgb 8.7 on admission and microcytic. blood in vomit yesterday, pt admits bloody stools prior but says she hasn't had BM in 2 weeks, last colonoscopy 4y ago and polyps found. - coagulopathy- INR 2.3 -leukocytosis - wbc 11 ON ADMISSION (08/16) --> Pt complaining of continued nausea, emesis yesterday and states BRB. Denies BM in two weeks but states had a small BM yesterday with BRB. Continued abdominal pain. Transaminitis- LFTs trending down. Liver ANDERSON pending. Xarelto on hold for coagulopathy and reports of epistaxis on admission Unintentional weight loss of 100lbs over past year Tumor markers noted- CEA-13.5 CA 19-9 29.2 AFP-2 PLAN - EGD/colonoscopy tomorrow - Obtain consent - Clear liquids today - GoLytely prep - NPO after MN - Repeat CBC - Monitor LFTs - Liver ANDERSON pending - Further recommendations to follow based on findings of above Pt has been seen and examined by myself and Dr. Capps and this note is written on his behalf (Ana Hughes) Physician Comments Agree with plan as above. EGD and Colonoscopy in AM. (Ashleigh Capps MD) Ana Hughes Aug 16, 2017 13:47 Ashleigh Capps MD Aug 16, 2017 14:46
--- NOTE | 2017-08-16 13:59 | EKG ---
Date Performed: 08/15/2017 Time Performed: 14:06:03 PTAGE: 56 years EKG: ATRIAL FIBRILLATION MODERATE INTRAVENTRICULAR CONDUCTION DELAY ST DEVIATION AND MODERATE T- WAVE ABNORMALITY, CONSIDER ANTEROLATERAL ISCHEMIA ST DEVIATION AND MODERATE T-WAVE ABNORMALITY, CONSI ZITA INFERIOR ISCHEMIA Left ventricular hypertrophy Compared to previous tracing atrial fibrillation i s under better control. There has been some slight variation in the nonspecific ST T wave changes ass ociated with the LVH but no other significant serial change ABNORMAL ECG PREVIOUS TRACING : 08/14/2017 19.05 DOCTOR: Jessica Ashton Interpretating Date/Time 08/16/2017 13:53:07
[2017-08-16 14:08] LABS: SMOOTH MUSCLE TOTAL AUTOABS Negative (Negative)
[2017-08-16 15:10] LABS: ALPHA-1-ANTITRYPSIN 275 mg/dL (100 - 190)
[2017-08-16] MEDS ORDERED: PEG (High)/E-LYTE SOLN 4000 ML BTL PO ONE (16:00)
--- NOTE | 2017-08-16 16:40 | HHI.PR ---
Subjective Remarks Resting in bed no acute distress Still having nausea no vomiting today No significant abdominal pain Objective Vitals Vital Signs Date Time Temp Pulse Resp B/P (MAP) Pulse Ox O2 Delivery O2 Flow Rate FiO2 08/16/17 12:00 98.3 101 15 123/66 (85) 94 08/16/17 12:00 101 08/16/17 08:00 97 08/16/17 08:00 98.1 97 13 132/66 (88) 95 08/16/17 04:00 98 08/16/17 04:00 98.1 98 10 121/58 (79) 95 08/16/17 00:00 102 08/16/17 00:00 98.2 102 16 128/68 (88) 96 08/15/17 21:32 96 21 08/15/17 21:20 98 147/74 08/15/17 20:00 98.2 102 17 145/71 (95) 96 08/15/17 20:00 102 I/O 08/15/17 08/15/17 08/15/17 08/16/17 08/16/17 08/16/17 07:00 15:00 23:00 07:00 15:00 23:00 Intake Total 1132.25 ml 50 ml 1100 ml 960 ml Output Total 2400 ml 1900 ml 2700 ml 3150 ml Balance -1267.75 ml -1850 ml -1600 ml -2190 ml Intake Oral 240 ml IV Total 1132.25 ml 50 ml 860 ml 960 ml Output Urine Total 2400 ml 1900 ml 2700 ml 3150 ml # Voids 1 # Bowel Movements 0 Result Diagram: 08/15/17 1403 08/16/17 0832 Objective Remarks GENERAL: This is a well-appearing obese female CARDIOVASCULAR: Irregularly irregular RESPIRATORY: Fair air entry bilaterally y. No wheezes, rales, or rhonchi. GASTROINTESTINAL: Abdomen soft, non-tender, nondistended. Normal active bowel sounds MUSCULOSKELETAL: Extremities without clubbing, cyanosis, or edema. NEURO: Alert & Oriented x4 to person, place, time, situation. Moves all ext x4 A/P Assessment and Plan 08/16: Resting comfortably in bed, pending hepatitis panel and tumor marker, GS and GI on board, plan for EUS, monitor CMP CBC Acute hepatitis Hepatic steatosis GERD ? Cholecystitis Gallbladder wall thickening and pericholecystic fluid noted on CT 07/30 and . No evidence of obstruction. Not sure if this is pathologic or related to volume overload/anasarca. F/u RUQ u/s. HIDA scan to evaluate cholecystitis, defer to GI. Transaminitis and elevated INR (on rivaroxaban which can elevate INR though INR previously normal so suspect this is related to hepatic dysfunction). ? secondary to amiodarone started 08/11 (ast mildly elevated 08/10). ?component of congestive as volume status is up. No episodes of hypotension during recent hospitalization. No EtOH use. Tylenol level normal. Pt states taking frequent tyelnol but was not given toxic doses of tylenol during admission. Nontheless with consideration of drug induced liver injury and concomitant tylenol use, will place on Mucomyst. Check viral hepatitis panel Gastroenterology consult Check lipase--> normal. ED discussed with general surgery and Dr. Hogue called and discussed with me. Acute toxic metabolic encephalopathy Depression h/o suicidal ideation in past 13CT brain negative Ammonia normal. Avoid sedative opioids on hold for hida COPD Tobacco abuse DuoNeb every 6 hours. Albuterol every 2 hours as needed CXR with cardiomegaly, vascular congestion otherwise clear. Has bilateral rales on exam and I>0 during most recent admission, diurese. Atrial fibrillation RVR status post ablation 2 on chronic anticoagulation with rivaroxaban Hypertension Chronic systolic heart failure pacemaker/ICD in place Echo 06/19/17 EF 45% Echo 08/13/17 EF 50-55%. Left and right atrial dilation, mild to moderate MR, pulmonary artery pressure 50 mmHg Will hold amiodarone due to elevated LFTs. Cardizem drip initiated for rate control Hold Xarelto due to elevated INR, may require procedure Volume status +7 L last admission. Received Lasix 40 mg IV in the ED, continue Lasix 40 mg IV q12. Hold pravastatin due to elevated LFTs Chronic kidney disease stage III Insert Avalos Lasix as per above Send UA and blood cultures Received Zosyn and Flagyl in the emergency department. Continue Zosyn 3.375 IV every 6 hours Coagulopathy Chronic anticoagulation with rivaroxaban Last dose of rivaroxaban was in the a.m. 08/14. Will hold in view of coagulopathy , may require cholecystostomy Concerned INR elevation secondary to hepatic dysfunction. Not actively bleeding. Will f/u INR trend. ENDO: Euglycemic PROPH: SCDs for DVT prophylaxis. No pharmacologic DVT prophylaxis currently due to coagulopathy, may require depending on INR trend. Protonix 40 mg IV daily for stress ulcer prophylaxis ACCESS: Peripheral IV providing adequate access at this time. Courtney De La Cruz MD Aug 16, 2017 16:40
[2017-08-16 18:13] LABS: BASOPHIL % 0.1 % (0.0-2.0); EOSINOPHIL % 0.1 % (0.0-4.0); HEMATOCRIT 30.4 % (35.0-46.0); LYMPH % 8.3 % (9.0-44.0); LYMPHOCYTE # 1.1 TH/MM3 (1.0-4.8); MEAN CELL VOLUME 77.1 FL (80.0-100.0); MEAN CORPUSCULAR HEMOGLOBIN 22.9 PG (27.0-34.0); MEAN PLATELET VOLUME 7.8 FL (7.0-11.0); MONO % 4.9 % (0.0-8.0); MONOCYTE # 0.6 TH/MM3 (0-0.9); NEUT % 86.6 % (16.0-70.0); PLATELET COUNT 439 TH/MM3 (150-450); RED BLOOD COUNT 3.94 MIL/MM3 (4.00-5.30); RED CELL DISTRIBUTION WIDTH 17.9 % (11.6-17.2); WHITE BLOOD COUNT 12.8 TH/MM3 (4.0-11.0)
[2017-08-16 18:30] LABS: MEAN CORPUSCULAR HGB CONC 29.7 % (32.0-36.0)
--- NOTE | 2017-08-16 19:10 | HHI.PR ---
cc: Zohaib Hogue MD Subjective Subjective Notes Resting in bed Beginning bowel prep for scope tomorrow Objective Vitals/I&O Vital Signs Date Time Temp Pulse Resp B/P (MAP) Pulse Ox O2 Delivery O2 Flow Rate FiO2 08/16/17 16:00 98.4 111 15 133/68 (89) 94 08/15/17 21:32 21 08/15/17 04:14 Room Air Labs Laboratory Tests Test 08/16/17 03:00 08/16/17 08:32 08/16/17 14:22 08/16/17 16:51 Prothrombin Time 17.4 Prothromb Time International Ratio 1.7 Ammonia 50 Blood Urea Nitrogen 12 Creatinine 1.04 Random Glucose 164 Total Protein 6.0 Albumin 3.2 Calcium Level 9.4 Phosphorus Level 1.9 Magnesium Level 1.9 Alkaline Phosphatase 96 Aspartate Amino Transf (AST/SGOT) 378 Alanine Aminotransferase (ALT/SGPT) 1021 Total Bilirubin 1.0 Sodium Level 139 Potassium Level 3.4 3.1 Chloride Level 97 Carbon Dioxide Level 34.7 Anion Gap 7 Estimat Glomerular Filtration Rate 55 White Blood Count 12.8 Red Blood Count 3.94 Hemoglobin 9.0 Hematocrit 30.4 Mean Corpuscular Volume 77.1 Mean Corpuscular Hemoglobin 22.9 Mean Corpuscular Hemoglobin Concent 29.7 Red Cell Distribution Width 17.9 Platelet Count 439 Mean Platelet Volume 7.8 Neutrophils (%) (Auto) 86.6 Lymphocytes (%) (Auto) 8.3 Monocytes (%) (Auto) 4.9 Eosinophils (%) (Auto) 0.1 Basophils (%) (Auto) 0.1 Neutrophils # (Auto) 11.0 Lymphocytes # (Auto) 1.1 Monocytes # (Auto) 0.6 Eosinophils # (Auto) 0.0 Basophils # (Auto) 0.0 CBC Comment DIFF FINAL Differential Comment Date/Time Source Procedure Growth Status 08/15/17 00:41 Blood Peripheral Aerobic Blood Culture - Preliminary NO GROWTH IN 1 DAY Resulted 08/15/17 00:41 Blood Peripheral Anaerobic Blood Culture - Preliminary NO GROWTH IN 1 DAY Resulted 3/13/18 20:29 Urine Catheterized Urine Urine Culture - Final 50-100,000 CFU/ML MIXED GRAM POSITIVE... Complete Radiology Last 48 hours Impressions Abdomen/Pelvis CT 08/14/172020 Signed Impressions: Service Date/Time: Monday, August 14, 2017 21:10 - CONCLUSION: 1. Small, nonspecific ascites has developed. Also anasarca and small right pleural effusion with mild right base atelectasis, all new. 2. Persistent wall thickening and pericholecystic fluid the gallbladder. 3. No acute abnormality seen of the liver. No evidence of biliary obstruction. Khadar Díaz MD Head CT 08/14/171911 Signed Impressions: Service Date/Time: Monday, August 14, 2017 19:32 - CONCLUSION: Negative noncontrast head CT. Khadar Díaz MD Chest X-Ray 08/14/171911 Signed Impressions: Service Date/Time: Monday, August 14, 2017 19:23 - CONCLUSION: No acute cardiopulmonary disease demonstrated. Khadar Díaz MD Cardiovascular: Regular Lungs: Clear Abdomen: Other Extremities: No edema A/P Assessment and Plan 56 year old female with afib on OAC; abdominal pain -Await hepatitis panal -GI following--plan for scope tomorrow -Clear liquids; NPO after MN -No acute GS issues at the time Attending Note - Dr. Hogue Abdomen soft, still with RUQ discomfort The exam, history, and the medical decision-making described in the above note were completed with the assistance of the mid-level provider. I reviewed and agree with the findings presented. I attest that I had a [id number] encounter with the patient on the same day, and personally performed and documented my assessment and findings in the medical record. Claudia MoraP/Director Of Agriculture DAWN Aug 16, 2017 19:10 Zohaib Hogue MD Aug 20, 2017 20:31
[2017-08-16] MEDS: DILTIAZEM INJ 125 MG in SODIUM CHLORIDE 0.9% INJ 100 ML IV PRN (22:02)
[2017-08-17] VITALS: BP 118/63; PULSE 113; RESP 17; TEMP 98.4; O2SAT 93
[2017-08-17] MEDS: RESP: ALBUTEROL 2.5 MG/IPRATROPIUM 0.5 MG NEB (SCH) INH ×2 (03:27→09:28)
[2017-08-17] MEDS: ICU - POTASSIUM CHLORIDE/AQUEOUS SOLN 20 MEQ/100 ML IVPB IV PRN ×2 (03:56→07:34)
[2017-08-17 04:00] VITALS: BP 127/67; PULSE 117; RESP 16; TEMP 98.3; O2SAT 96
[2017-08-17] MEDS: CHLORHEXIDINE GLUCONATE 2 % 1 PACK (2 CLOTHS) TOP SCH (04:00)
[2017-08-17] MEDS: INSULIN ASPART SUPPLEMENTAL SCALE SQ SCH ×3 (04:00→07:38)
[2017-08-17] MEDS: FUROSEMIDE 40 MG/4 ML VIAL IV PUSH SCH (04:12)
[2017-08-17] MEDS: PIPERACIL-TAZO 3.375 GM PREMIX 50 ML IV SCH (04:13)
[2017-08-17 08:00] VITALS: BP 110/63; PULSE 111; RESP 17; TEMP 98.9; O2SAT 93
[2017-08-17] MEDS: PANTOPRAZOLE SODIUM 40 MG VIAL IV PUSH SCH (08:41)
[2017-08-17] MEDS: DOCUSATE SODIUM 50 MG/SENNA 8.6 MG TAB PO SCH (08:41)
--- NOTE | 2017-08-18 00:05 | HHI.DS ---
Discharge Summary Admission Date Aug 14, 2017 at 23:09 Discharge Date: Aug 18, 2017 Admitting Diagnosis Hepatitis ?Cholecystitis (1) Systolic heart failure, chronic ICD Code: I50.22 - Chronic systolic (congestive) heart failure Status: Chronic (2) Atrial fibrillation with RVR ICD Code: I48.91 - Unspecified atrial fibrillation Status: Chronic (3) CKD (chronic kidney disease) stage 3, GFR 30-59 ml/min ICD Code: N18.3 - Chronic kidney disease, stage 3 (moderate) Status: Chronic (4) HTN (hypertension) ICD Code: I10 - Essential (primary) hypertension Status: Chronic (5) Tobacco abuse ICD Code: Z72.0 - Tobacco use (6) Hepatitis ICD Code: K75.9 - Inflammatory liver disease, unspecified Status: Acute (7) Coagulopathy ICD Code: D68.9 - Coagulation defect, unspecified Status: Acute (8) COPD (chronic obstructive pulmonary disease) ICD Code: J44.9 - Chronic obstructive pulmonary disease, unspecified Status: Chronic (9) Left against medical advice ICD Code: Z53.20 - Procedure and treatment not carried out because of patient' s decision for unspecified reasons Status: Acute (10) Afib ICD Code: I48.91 - Unspecified atrial fibrillation Status: Chronic Procedures See below Brief History - From Admission Patient is a difficult historian, lethargic. 56 yo with PMH HTN, chronic systolic heart failure EF 45%, AICD, atrial fibrillation status post ablation, chronic anticoagulation with Xarelto, COPD, hyperlipidemia, diabetes, tobacco abuse who was recently admitted to [facility] 08/10-08/14 for atrial fibrillation RVR. She was brought back to the ED due to confusion and was noted to have RUQ tenderness. Transaminases are elevated withh AST 1884 and ALT 1606. Bilirubin is normal and alk phos mildly elevated. CT abd/pelvis shows thickening of gallbladder wall with pericholecystic fluid. There is anasarca. No obstruction. Prior CT from 07/30 showed hepatomegaly and probable hepatic steatosis; there was gallbladder wall thickening at that time as well. No gallstones. WBC is 11.4. INR is 2.3 She states she does not drink EtOH, no travel. During most recent admission she was started on amiodarone drip 08/11-08/13 and then transitioned to amiodarone po bid. She does state she has been taking " a lot of tylenol" due to R shoulder pain for the last week. When she clarifies, she states she is taking about 2 gram/day . She states she has been nauseated and had 2 episodes of nonbloody nonbilious emesis today. No diarrhea. CBC/BMP: 08/16/17 1651 08/16/17 1422 Significant Findings Laboratory Tests Test 08/15/17 00:36 08/15/17 00:41 08/15/17 01:19 08/15/17 05:00 Phosphorus Level 1.8 MG/DL (2.5-4.9) B-Type Natriuretic Peptide 1442 PG/ML (0-100) Test 08/15/17 14:03 08/16/17 03:00 08/16/17 08:32 08/16/17 14:22 Red Blood Count 3.81 MIL/MM3 (4.00-5.30) Hemoglobin 8.7 GM/DL (11.6-15.3) Hematocrit 29.1 % (35.0-46.0) Mean Corpuscular Volume 76.5 FL (80.0-100.0) Mean Corpuscular Hemoglobin 22.8 PG (27.0-34.0) Mean Corpuscular Hemoglobin Concent 29.7 % (32.0-36.0) Red Cell Distribution Width 18.1 % (11.6-17.2) Neutrophils (%) (Auto) 88.8 % (16.0-70.0) Lymphocytes (%) (Auto) 5.6 % (9.0-44.0) Lymphocytes # (Auto) 0.4 TH/MM3 (1.0-4.8) Prothrombin Time 18.7 SEC (9.8-11.6) 17.4 SEC (9.8-11.6) Creatinine 1.01 MG/DL (0.50-1.00) 1.04 MG/DL (0.50-1.00) Random Glucose 259 MG/DL (74-106) 164 MG/DL (74-106) Albumin 3.2 GM/DL (3.4-5.0) 3.2 GM/DL (3.4-5.0) Aspartate Amino Transf (AST/SGOT) 951 U/L (15-37) 378 U/L (15-37) Alanine Aminotransferase (ALT/SGPT) 1362 U/L (10-53) 1021 U/L (10-53) Potassium Level 3.2 MEQ/L (3.5-5.1) 3.4 MEQ/L (3.5-5.1) 3.1 MEQ/L (3.5-5.1) Chloride Level 96 MEQ/L (98-107) 97 MEQ/L (98-107) Estimat Glomerular Filtration Rate 57 ML/MIN (>89) 55 ML/MIN (>89) B-Type Natriuretic Peptide 1162 PG/ML (0-100) [id number] 275 mg/dL (100 - 190) Carcinoembryonic Antigen 13.5 NG/ML (0.2-5.0) Ammonia 50 MCMOL/L (11-32) Total Protein 6.0 GM/DL (6.4-8.2) Phosphorus Level 1.9 MG/DL (2.5-4.9) Carbon Dioxide Level 34.7 MEQ/L (21.0-32.0) Test 08/16/17 16:51 08/17/17 02:18 White Blood Count 12.8 TH/MM3 (4.0-11.0) Red Blood Count 3.94 MIL/MM3 (4.00-5.30) Hemoglobin 9.0 GM/DL (11.6-15.3) Hematocrit 30.4 % (35.0-46.0) Mean Corpuscular Volume 77.1 FL (80.0-100.0) Mean Corpuscular Hemoglobin 22.9 PG (27.0-34.0) Mean Corpuscular Hemoglobin Concent 29.7 % (32.0-36.0) Red Cell Distribution Width 17.9 % (11.6-17.2) Neutrophils (%) (Auto) 86.6 % (16.0-70.0) Lymphocytes (%) (Auto) 8.3 % (9.0-44.0) Neutrophils # (Auto) 11.0 TH/MM3 (1.8-7.7) PE at Discharge GENERAL: This is a well-appearing obese female CARDIOVASCULAR: Irregularly irregular RESPIRATORY: Fair air entry bilaterally y. No wheezes, rales, or rhonchi. GASTROINTESTINAL: Abdomen soft, non-tender, nondistended. Normal active bowel sounds MUSCULOSKELETAL: Extremities without clubbing, cyanosis, or edema. NEURO: Alert & Oriented x4 to person, place, time, situation. Moves all ext x4 Hospital Course 56 years old female admitted with acute hepatitis hepatic steatosis possible suspected cholecystitis acute toxic metabolic encephalopathy, GI consulted workup has been done, which include colonoscopy patient is started on colon prep however on 08/17 I was called by the nurse to be notified that the patient decided to go AGAINST MEDICAL ADVICE. Noted that patient had a history of atrial fibrillation RVR status post ablation CHF and hypertension he had a pacemaker and ICD. Patient left the hospital AGAINST MEDICAL ADVICE Pt Condition on Discharge: Deteriorating Discharge Disposition: Discharge Home Discharge Time: <= 30 minutes Courtney De La Cruz MD Aug 18, 2017 00:05
[2017-08-18 19:53] LABS: CERULOPLASMIN 55 mg/dL (18-53)
[2017-08-19 23:52] LABS: MITOCHONDRIAL ABS LESS THAN 20.0 U (<=20.0)
== END 2017-08-17 09:40 | disposition left against medical advice (07) | DRG 441 ==
LOC: NEPE 18:52 → NEDA 23:09 → HIMN 08-15 05:10
PROVIDERS: ADMIT Hospitalist; ATTEND Hospitalist
DX: B17.9 Acute viral hepatitis, unspecified (principal); G93.41 Metabolic encephalopathy; K92.0 Hematemesis; D68.9 Coagulation defect, unspecified; I42.9 Cardiomyopathy, unspecified; E11.22 Type 2 diabetes mellitus with diabetic chronic kidney disease; I50.22 Chronic systolic (congestive) heart failure; N18.3 Chronic kidney disease, stage 3 (moderate); I13.0 Hypertensive heart and chronic kidney disease with heart failure and stage 1 through stage 4 chronic kidney disease, or unspecified chronic kidney disease; K81.9 Cholecystitis, unspecified; I48.91 Unspecified atrial fibrillation; K76.0 Fatty (change of) liver, not elsewhere classified; J44.9 Chronic obstructive pulmonary disease, unspecified; K21.9 Gastro-esophageal reflux disease without esophagitis; F17.210 Nicotine dependence, cigarettes, uncomplicated; F32.9 Major depressive disorder, single episode, unspecified; E78.5 Hyperlipidemia, unspecified; K58.9 Irritable bowel syndrome, unspecified; D50.9 Iron deficiency anemia, unspecified; E78.00 Pure hypercholesterolemia, unspecified; R63.4 Abnormal weight loss; R74.0 Nonspecific elevation of levels of transaminase and lactic acid dehydrogenase [LDH]; Z79.01 Long term (current) use of anticoagulants; Z95.0 Presence of cardiac pacemaker; Z95.810 Presence of automatic (implantable) cardiac defibrillator; Z86.73 Personal history of transient ischemic attack (TIA), and cerebral infarction without residual deficits
CPT/HCPCS: 36600; 51702; 70450; 71045; 74177; 76705; 78227; 80053; 80074; 80307; 81001; 82103; 82105; 82140; 82378; 82390; 82550; 82552; 82805; 83520; 83605; 83690; 83735; 83880; 84100; 84132; 84484; 85025; 85384; 85610; 85730; 86038; 86255; 86301; 86850; 86900; 86901; 87040; 87086; 87641; 93005; 94640; 94664; 96365; 96375; A9537; C9113; J0132; J1815; J1940; J2270; J2405; J2543; J2805; J2930; J3475; J3480; J7050; J7060; J7070; J7613; Q9967

== ENCOUNTER 2017-08-20 05:38 | Inpatient (IN) | payer BC ==
[2017-08-20] VITALS (15 sets, daily range): BP systolic 86–157; BP diastolic 55–84; PULSE 87–145; RESP 16–25; TEMP 97.6–98; O2SAT 96–100
[~2017-08-20] VITALS: Ht 152.4 cm; Wt 75.5 kg
[~2017-08-20 05:38] MED LIST changes: -KLOR20TA3 PO; -XARE20TA PO
[2017-08-20] MEDS ORDERED: DILTIAZEM HCL 50 MG/10 ML VIAL ONE (06:04)
[2017-08-20] MEDS ORDERED: DILTIAZEM HCL 25 MG/5 ML VIAL IV PUSH ONE (06:15)
[2017-08-20] MEDS ORDERED: SODIUM CHLORIDE 0.9% FLUSH 10 ML FLUSH IV FLUSH PRN (06:15)
--- NOTE | 2017-08-20 06:23 | PD ---
HPI Chief Complaint: Respiratory Symptoms Time Seen by Provider: 05:55 Travel History International Travel<30 days: No Contact w/Intl Traveler<30days: No Traveled to known affect area: No History of Present Illness HPI The patient is a 56 year old female who presents to the [facility] emergency department with a history of left-sided chest pain, shortness of breath, a cough productive of green sputum that began 2 days ago when she left the hospital AGAINST MEDICAL ADVICE. The patient was in the hospital related to A. fib with RVR and an associated encephalopathy with possible cholecystitis. The patient reports that she was being prepped for colonoscopy when she was told that she needed to drink another glass of GoLYTELY. She reports that she had already been in the hospital for several days and could not stay any longer to wait to complete the prep for the colonoscopy as the patient has a at home that suffers from dementia. She reports that since she has been home she has not been able to take any of her medications as she cannot afford them. She reports that she has not been on any anticoagulation with Xarelto for a couple of months. She reports that her primary care physician is Dr. Liz Thorne. She reports that the pain in her chest is in the left side of her chest and comes and goes and is worse with taking a deep breath. She reports that she is trying to quit smoking. She has a history of COPD. She has been smoking up to a pack of cigarettes per day. 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 She denies having any known recent fevers,neck pain, chest pain, vomiting, diarrhea, urinary symptoms, or neurologic symptoms. The patient reports that for the last 2 days she has had increasing lower extremity edema. She reports having abdominal pain that is generalized but worse in the right upper quadrant of the abdomen. She reports having nausea. She reports that she last moved her bowels on the 17. She denies having any blood in her stool. [facility]LY [facility] Past Medical History Narrative Medical The patient's past medical history is significant for hypertension, COPD, atrial fibrillation, chronic systolic heart failure with an ejection fraction of 45%, acid reflux, diabetes, chronic renal insufficiency, history of AICD placement which last fired 5 years ago, history of tobacco abuse. Hx Anticoagulant Therapy: Yes (Xarelto) Atrial Fibrillation: Yes Anxiety: No Depression: Yes Cancer: No Cardiovascular Problems: Yes (HTN, A-fib, AICD, cadiomyopathy, CHF) High Cholesterol: Yes Chest Pain: No Congestive Heart Failure: Yes COPD: Yes Cerebrovascular Accident: Yes (2014) Diabetes: Yes (CONTROLLED WITH DIET) Patient Takes Glucophage: No Diminished Hearing: No Endocrine: Yes Gastrointestinal Disorders: Yes (GERD) GERD: Yes Glaucoma: No Genitourinary: Yes (HESITANCY) Headaches: Yes Hepatitis: No Hiatal Hernia: No Hypertension: Yes Immune Disorder: No Implanted Vascular Access Dvce: Yes Musculoskeletal: No Neurologic: Yes (BAD BALANCE) Psychiatric: Yes Reproductive: No Respiratory: Yes (COPD) Integumentary: No Thyroid Disease: No Tetanus Vaccination: Unknown Influenza Vaccination: No ?: Not Past Surgical History Narrative Surgical The patient's past surgical history is significant for AICD placement, cardiac ablation, hysterectomy. Body Medical Devices: AICD Cardiac Surgery: Yes (ABLATION X2) Hysterectomy: Yes Pacemaker: Yes Thoracic Surgery: Yes (AICD LEFT CHEST MEDTRONIC ) Other Surgery: Yes Social History Alcohol Use: No Tobacco Use: Yes (1PPD) Substance Use: No Allergies-Medications (Allergen,Severity, Reaction): Coded Allergies: prednisone (Verified Allergy, Severe, hives, 08/20/17) sertraline (Verified Allergy, Severe, hives, 08/20/17) verapamil (Verified Allergy, Severe, rash, 08/20/17) Reported Meds & Prescriptions Reported Meds & Active Scripts Active [guaiFENesin ER] 600 MG Tabcr 600 Mg PO BID Cardizem (Diltiazem HCl) 60 Mg Tab 60 Mg PO Q6HR Pravachol (Pravastatin) 40 Mg Tab 40 Mg PO DAILY Amiodarone (Amiodarone HCl) 200 Mg Tab 200 Mg PO Q12HR Xarelto (Rivaroxaban) 15 Mg Tab 15 Mg PO DAILY Metoprolol Tartrate 50 Mg Tab 50 Mg PO BID Furosemide 20 Mg Tab 20 Mg PO DAILY Ventolin Hfa 18 GM Inh (Albuterol Sulfate) 90 Mcg/Act Aer 2 Puff INH Q4H PRN Reported Effexor XR 24 HR (Venlafaxine HCl) 150 Mg Cap 150 Mg PO DAILY Tylenol Extra Strength (Acetaminophen) 500 Mg Tablet 500 Mg PO Q6HR PRN Isosorbide Mononitrate ER (Isosorbide Mononitrate) 30 Mg Leonie 30 Mg PO HS Dulera 120 Act Inh (Mometasone-Formoterol 120 Act Inh) 200-5 Mcg/Act Inh 1 Puff INH BID Aspirin 81 Mg Chew 81 Mg PO DAILY Review of Systems Except as stated in HPI: all other systems reviewed are Neg General / Constitutional: No: Fever Eyes: No: Visual changes HENT: No: Headaches Cardiovascular: Positive: Chest Pain or Discomfort, Dyspnea on exertion Respiratory: Positive: Cough, Shortness of Breath, Wheezing Gastrointestinal: Positive: Nausea, Abdominal Pain, No: Vomiting, Diarrhea Genitourinary: No: Dysuria Musculoskeletal: No: Pain Skin: No Rash Neurologic: No: Weakness, Focal Abnormalities, Change in Mentation, Slurred Speech, Sensory Disturbance Psychiatric: No: Depression Endocrine: No: Polydipsia Hematologic/Lymphatic: No: Easy Bruising Physical Exam Narrative General: The patient is a well-developed well-nourished female, uncomfortable appearing on arrival with tachycardia noted. Head and Neck exam: Head is normocephalic atraumatic. Eyes: EOMI, pupils are equal round and reactive to light. Nose: Midline septum with pink mucous membranes Mouth: Dentition unremarkable. Moist mucus membranes. Posterior oropharynx is not erythematous. No tonsillar hypertrophy. Uvula midline. Airway patent. Neck: No palpable lymphadenopathy. No nuchal rigidity. No thyromegaly. Cardiovascular: Irregularly irregular with a rate from the 140s to the 160s with a 1/6 systolic murmur audible. No gallops or rubs. Lungs: Crackles audible anteriorly, wheezes audible anteriorly and posteriorly with tachypnea and accessory muscle use noted. No rhonchi audible Abdomen: Soft, with tenderness on palpation that is generalized, however most prominent in the right upper quadrant of the abdomen. Negative Morrison sign. No tenderness on palpation specifically over McBurney's point. Normal bowel sounds are audible. No guarding, rebound, or rigidity. Extremities: No clubbing or cyanosis. The patient has trace pedal edema bilateral lower extremities. 2+ pulses in all 4 extremities. No calf tenderness on palpation. Back: No spinous process tenderness to palpation. No costovertebral angle tenderness to palpation. Neurologic Exam: Grossly nonfocal. Skin Exam: No rash noted. Intact skin that is warm and dry. Data Data Last Documented VS Vital Signs Date Time Temp Pulse Resp B/P (MAP) Pulse Ox O2 Delivery O2 Flow Rate FiO2 08/20/17 06:55 157 130/69 08/20/17 06:53 18 100 Room Air 08/20/17 06:00 98.0 Orders Orders Electrocardiogram (08/20/17 05:55) Complete Blood Count With Diff (08/20/17 05:55) Comprehensive Metabolic Panel (08/20/17 05:55) Creatine Kinase (Cpk) (08/20/17 05:55) Ckmb (Isoenzyme) Profile (08/20/17 05:55) Troponin I (08/20/17 05:55) B-Type Natriuretic Peptide (08/20/17 05:55) Prothrombin Time / Inr (Pt) (08/20/17 05:55) Act Partial Throm Time (Ptt) (08/20/17 05:55) Blood Culture (08/20/17 05:55) C-Reactive Protein (Crp) (08/20/17 05:55) Lipase (08/20/17 05:55) Urinalysis - C+S If Indicated (08/20/17 05:55) Magnesium (Mg) (08/20/17 05:55) Ammonia (08/20/17 05:55) Chest, Single Ap (08/20/17 05:55) Iv Access Insert/Monitor (08/20/17 05:55) Ecg Monitoring (08/20/17 05:55) Oximetry (08/20/17 05:55) Lactic Acid Sepsis Protocol (08/20/17 05:55) Diltiazem Inj (Cardizem Inj) (08/20/17 06:04) Blood Pressure (08/20/17 06:03) Vital Signs (08/20/17 06:03) Diltiazem Inj (Cardizem Inj) (08/20/17 06:15) Sodium Chloride 0.9% Flush (Ns Flush) (08/20/17 06:15) Diltiazem Inj (Cardizem Inj) (08/20/17 06:30) Diltiazem Inj (Cardizem Inj) (08/20/17 06:45) Sodium Chloride 0.9% Flush (Ns Flush) (08/20/17 06:30) Furosemide Inj (Lasix Inj) (08/20/17 06:30) Methylprednisolone So Succ Inj (Solumedr (08/20/17 06:30) Albuterol-Ipratropium Neb (Duoneb Neb) (08/20/17 06:30) CKMB (08/20/17 06:15) CKMB% (08/20/17 06:15) Ct Abd/Pel W Iv Contrast(Rout) (08/20/17 07:59) Sodium Chlor 0.9% 1000 Ml Inj (Ns 1000 M (08/20/17 08:00) Admit Order (Ed Use Only) (08/20/17 08:01) Labs Laboratory Tests Test 08/20/17 06:15 White Blood Count 8.4 TH/MM3 Red Blood Count 4.76 MIL/MM3 Hemoglobin 10.9 GM/DL Hematocrit 37.2 % Mean Corpuscular Volume 78.2 FL Mean Corpuscular Hemoglobin 22.9 PG Mean Corpuscular Hemoglobin Concent 29.3 % Red Cell Distribution Width 18.4 % Platelet Count 389 TH/MM3 Mean Platelet Volume 7.8 FL Neutrophils (%) (Auto) 66.2 % Lymphocytes (%) (Auto) 17.5 % Monocytes (%) (Auto) 13.1 % Eosinophils (%) (Auto) 2.3 % Basophils (%) (Auto) 0.9 % Neutrophils # (Auto) 5.6 TH/MM3 Lymphocytes # (Auto) 1.5 TH/MM3 Monocytes # (Auto) 1.1 TH/MM3 Eosinophils # (Auto) 0.2 TH/MM3 Basophils # (Auto) 0.1 TH/MM3 CBC Comment DIFF FINAL Differential Comment Prothrombin Time 11.4 SEC Prothromb Time International Ratio 1.1 RATIO Activated Partial Thromboplast Time 25.8 SEC Blood Urea Nitrogen 14 MG/DL Creatinine 1.09 MG/DL Random Glucose 147 MG/DL Total Protein 7.5 GM/DL Albumin 3.5 GM/DL Calcium Level 8.9 MG/DL Magnesium Level 2.3 MG/DL Alkaline Phosphatase 103 U/L Aspartate Amino Transf (AST/SGOT) 45 U/L Alanine Aminotransferase (ALT/SGPT) 307 U/L Total Bilirubin 0.6 MG/DL Sodium Level 136 MEQ/L Potassium Level 3.3 MEQ/L Chloride Level 95 MEQ/L Carbon Dioxide Level 32.2 MEQ/L Anion Gap 9 MEQ/L Lactic Acid Level 1.4 mmol/L Ammonia 27 MCMOL/L Total Creatine Kinase 135 U/L Creatine Kinase MB 2.8 NG/ML Troponin I 0.08 NG/ML C-Reactive Protein 3.85 MG/DL B-Type Natriuretic Peptide 482 PG/ML Lipase 2320 U/L [facility] Medical Decision Making Medical Screen Exam Complete: Yes Emergency Medical Condition: Yes Medical Record Reviewed: Yes Interpretation(s) Last Impressions Abdomen/Pelvis CT 08/20/17 0759 Signed Impressions: Service Date/Time: Sunday, August 20, 2017 09:11 - CONCLUSION: 1. The gallbladder wall appears mildly thickened. No definite inflammatory changes are seen on the CT. 2. The solid organs of the abdomen are intact. No free air or free fluid is seen. No findings to indicate bowel obstruction. Richy Peña MD Chest X-Ray 08/20/17 0555 Signed Impressions: Service Date/Time: Sunday, August 20, 2017 06:15 - CONCLUSION: The lungs are clear. Kole Farley MD Differential Diagnosis A. fib with RVR, versus sinus tachycardia, versus dehydration, versus acute cholecystitis, versus pancreatitis, versus hepatitis Narrative Course During the course of the patient's emergency department visit, the patient's history, examination, and differential diagnosis were reviewed with the patient. The patient was placed on a quality assurance monitor body with oximetry and frequent blood pressure monitoring. The patient had IV access obtained and blood work sent for analysis. A review of the patient's electronic medical record reveals the patient was admitted to the hospital with suspected ascending cholangitis. The patient had no elevation of her lipase during her hospitalization. The patient had an EKG done on arrival to this facility that shows A. fib with RVR nonspecific ST-T wave abnormalities, left ventricular hypertrophy by voltage, heart rate 148, QRS duration 109 ms, QTC 384 ms. Occasional PVCs are noted. EKG is compared to prior EKG done at this facility on August 15 and is similar in appearance regarding the patient's ST T-wave abnormalities. The patient was initially provided Cardizem 20 mg IV followed by Cardizem drip. The patient required a second bolus of Cardizem prior to the drip being mixed by pharmacy. The patient has a history of congestive heart failure and has not been on her diuretics, therefore the patient was given Lasix 40 mg IV. The patient also has COPD with wheezing, cough, congestion. The patient was given duo nebs, Solu-Medrol 125 mg IV. The patient's studies were reviewed and remarkable for A white count of 8.4, hemoglobin 10.9, platelets 389 with 13.1 monocytes. CMP is remarkable for potassium of 3.3, CO2 32.2, creatinine 1.09, glucose 147, AST 45, ALT 307 which is improved compared to previous values, total CPK 135, troponin I 0.08 which may be related to the patient's tachycardia, C-reactive protein 3.85, BNP 482, lipase is elevated at 2320 which is new compared to her prior laboratory studies from her recent admission. PT 11.4, PTT 25.8. Urinalysis is unremarkable. Chest x-ray shows no acute cardiopulmonary disease. I spoke to regarding this patient's case. He did request that a repeat CT scan of the abdomen and pelvis be done as the last one was done on August 14. He also requested that I contact GI regarding this patient's pancreatitis. He additionally requested that the patient received 2 L of normal saline IV fluids, however as the patient has a history of congestive heart failure and her BNP is mildly elevated, 1 L of normal saline will be administered and the patient will be reassessed for the need for additional IV fluids. A call has been placed out to Dr. Flores at this time. I spoke to Dr. Flores she recommended additional imaging by ultrasound as the patient is contraindicated for MRCP given her AICD/pacemaker. The patient's results were discussed with the patient, including the plan of care. I explained that further testing and/ or monitoring is indicated based on the patient's history, examination, and/ or laboratory findings. Therefore, I recommended admission for additional evaluation. The patient expressed understanding and was agreeable with this plan. The patient was admitted to the hospital in guarded condition and sent to a bed under the care of the [facility] operator service. Critical Care Narrative Aggregate critical care time was 32 minutes. Time to perform other separately billable procedures was not included in the critical care time. My time did not include minutes spent treating any other patients simultaneously or on activities that did not directly contribute to the patient's treatment. The services I provided to this patient were to treat and/or prevent clinically significant deterioration that could result in: Cardiovascular collapse related to cardiac arrhythmia, versus respiratory failure from over resuscitation with crystalloids. I provided critical care services requiring my management, as noted below: Chart data review, documentation time, medication orders and management, vital sign assessments/reviewing monitor data, ordering and reviewing lab tests, ordering and interpreting/reviewing x-rays and diagnostic studies, care of the patient and discussion of the patient with the admitting physicians. Physician Communication Physician Communication The patient's case including history, pertinent physical examination findings, and laboratory studies were discussed with Dr. Werner. It was agreed that the patient would be admitted to the [facility] service. Diagnosis Primary Impression: Atrial fibrillation with RVR Additional Impression: Acute pancreatitis Qualified Codes: K85.90 - Acute pancreatitis without necrosis or infection, unspecified Admitting Information Admitting Physician Requests: Admit Linda Headley MD Aug 20, 2017 06:23
[2017-08-20] MEDS ORDERED: SODIUM CHLORIDE 0.9% FLUSH 10 ML FLUSH IVF PRN (06:30)
[2017-08-20] MEDS ORDERED: FUROSEMIDE 40 MG/4 ML VIAL IVP ONE (06:30)
[2017-08-20] MEDS ORDERED: methylPREDNISolone SOD SUCC 125 MG/2 ML VIAL IV PUSH ONE (06:30)
[2017-08-20 06:34] LABS: AUTOMATED NEUTROPHIL # 5.6 TH/MM3 (1.8-7.7); BASOPHIL # 0.1 TH/MM3 (0-0.2); BASOPHIL % 0.9 % (0.0-2.0); EOSINOPHIL # 0.2 TH/MM3 (0-0.4); EOSINOPHIL % 2.3 % (0.0-4.0); HEMATOCRIT 37.2 % (35.0-46.0); HEMOGLOBIN 10.9 GM/DL (11.6-15.3); LYMPH % 17.5 % (9.0-44.0); LYMPHOCYTE # 1.5 TH/MM3 (1.0-4.8); MEAN CELL VOLUME 78.2 FL (80.0-100.0); MEAN CORPUSCULAR HEMOGLOBIN 22.9 PG (27.0-34.0); MEAN PLATELET VOLUME 7.8 FL (7.0-11.0); MONO % 13.1 % (0.0-8.0); MONOCYTE # 1.1 TH/MM3 (0-0.9); NEUT % 66.2 % (16.0-70.0); PLATELET COUNT 389 TH/MM3 (150-450); RED BLOOD COUNT 4.76 MIL/MM3 (4.00-5.30); RED CELL DISTRIBUTION WIDTH 18.4 % (11.6-17.2); WHITE BLOOD COUNT 8.4 TH/MM3 (4.0-11.0)
[2017-08-20 06:38] LABS: MEAN CORPUSCULAR HGB CONC 29.3 % (32.0-36.0)
[2017-08-20] MEDS: RESP: ALBUTEROL 2.5 MG/IPRATROPIUM 0.5 MG NEB (SCH) INH ×4 (06:38→23:39)
[2017-08-20] MEDS ORDERED: DILTIAZEM HCL 25 MG/5 ML VIAL IV PUSH PRN (06:45)
[2017-08-20] MEDS: DILTIAZEM INJ 125 MG in SODIUM CHLORIDE 0.9% INJ 100 ML IV PRN (06:55)
[2017-08-20 06:56] LABS: INTERNATIONAL NORMALIZED RATIO 1.1 RATIO; PROTHROMBIN TIME - PATIENT 11.4 SEC (9.8-11.6)
[2017-08-20 07:11] LABS: ALBUMIN 3.5 GM/DL (3.4-5.0); ALT (GPT) 307 U/L (10-53); AST (GOT) 45 U/L (15-37); BICARBONATE 32.2 MEQ/L (21.0-32.0); BLOOD UREA NITROGEN 14 MG/DL (7-18); CALCIUM 8.9 MG/DL (8.5-10.1); CHLORIDE 95 MEQ/L (98-107); CREATININE 1.09 MG/DL (0.50-1.00); GLUCOSE,RANDOM 147 MG/DL (74-106); MAGNESIUM 2.3 MG/DL (1.5-2.5); SODIUM (NA) 136 MEQ/L (136-145)
--- NOTE | 2017-08-20 07:12 | RADRPT ---
EXAM DATE/TIME: 08/20/2017 06:15 [facility] COMPARISON: CHEST SINGLE AP, August 14, 2017, 19:23. INDICATIONS : Short of breath. MEDICAL HISTORY : Congetive heart failure. Cerebral vascular accident. Diabetes mellitus typeII. Hypertension Hyperchol esterolemia.COPD, GERD. SURGICAL HISTORY : Pacemaker, defibrillator. ENCOUNTER: Initial ACUITY: 1 day PAIN SCORE: 0/10 LOCATION: Bilateral chest FINDINGS: A single view of the chest demonstrates the lungs to be symmetrically aerated without evidence of mas s, infiltrate or effusion. The cardiomediastinal contours are unremarkable. Osseous structures are intact. The cardiac pacer leads are stable in position. CONCLUSION: The lungs are clear. Kole Farley MD on August 20, 2017 at 7:10 Board Certified Radiologist. This report was verified electronically.
[2017-08-20 07:14] LABS: ALKALINE PHOSPHATASE 103 U/L (45-117); C-REACTIVE PROTEIN 3.85 MG/DL (0.00-0.30); TOTAL BILIRUBIN ADULT 0.6 MG/DL (0.2-1.0); TOTAL PROTEIN 7.5 GM/DL (6.4-8.2); TROPONIN I 0.08 NG/ML (0.02-0.05)
[2017-08-20] MEDS ORDERED: SODIUM CHLOR 0.9% 1000 ML INJ 1,000 ML IV ONE ×2 (08:00→11:15)
--- NOTE | 2017-08-20 09:21 | RADRPT ---
EXAM DATE/TIME: 08/20/2017 08:33 [facility] COMPARISON: No previous studies available for comparison. INDICATIONS : Evaluate biliary duct. MEDICAL HISTORY : Chronic obstructive pulmonary disease. Gastroesophageal reflux disease.Hypertension. CVA. Atrial fibr illation. Cardiomyopathy. Congestive heart failure. Diabetes SURGICAL HISTORY : Hysterectomy. Cardiac ablation. ENCOUNTER: [facility] ACUITY: 2 days PAIN SCORE: 7/10 LOCATION: Right upper quadrant MEASUREMENTS: LIVER: 15.7 cm length COMMON DUCT: 3 mm RIGHT KIDNEY: 10.4 x 4.7 x 4.2 cm FINDINGS: LIVER: Normal echotexture without focal lesion or ductal dilatation. COMMON DUCT: No intraluminal mass or stone visualized. GALLBLADDER: Contains no stones, demonstrates no wall thickening or pericholecystic fluid. PANCREAS: The visualized portions are within normal limits. RIGHT KIDNEY: No evidence of hydronephrosis, stone, or mass. CONCLUSION: Normal gallbladder ultrasound Garcia Peña MD FACR on August 20, 2017 at 9:18 Board Certified Radiologist. This report was verified electronically.
[2017-08-20] MEDS ORDERED: IOHEXOL 350 MG/ML 10 ML VIAL (for RAD DIAG) IVCONTRAST ONE (10:00)
--- NOTE | 2017-08-20 10:18 | RADRPT ---
EXAM DATE/TIME: 08/20/2017 09:11 [facility] COMPARISON: CT ABDOMEN & PELVIS W CONTRAST, August 14, 2017, 21:10. INDICATIONS : Abdominal pain IV CONTRAST: 96 cc Omnipaque 350 (iohexol) IV ORAL CONTRAST: No oral contrast ingested. RADIATION DOSE: 6.63 CTDIvol (mGy) MEDICAL HISTORY : Cardiovascular disease. Hypertension. Diabetes SURGICAL HISTORY : Pacemaker. Hysterectomy. ENCOUNTER: Initial ACUITY: 1 day PAIN SCALE: 4/10 LOCATION: Bilateral Abdomen TECHNIQUE: Volumetric scanning of the abdomen and pelvis was performed. Using automated exposure control and ad justment of the mA and/or kV according to patient size, radiation dose was kept as low as reasonably achievable to obtain optimal diagnostic quality images. DICOM format image data is available electro nically for review and comparison. FINDINGS: The limited portion of lung bases lies demonstrates diffuse interstitial prominence. There is no pleu ral effusion. The heart is at the upper limits of normal in size. The appearance of the liver, spleen, pancreas, adrenal glands and kidneys is within normal limits. The gallbladder wall appears mildly thickened. No definite inflammatory changes are seen by CT. No in trahepatic or ductal dilation is present. The abdominal aorta is normal in caliber. There is no retroperitoneal lymphadenopathy. The visualized loops of small and large bowel in the upper abdomen are unremarkable. No free intraper itoneal air or free intraperitoneal fluid is present. There is no free fluid within the pelvis. No iliac or inguinal adenopathy is seen. The loops of small and large bowel within the pelvis are unremarkable. The patient is post hysterectomy. The visualized bony structures are intact. CONCLUSION: 1. The gallbladder wall appears mildly thickened. No definite inflammatory changes are seen on the CT . 2. The solid organs of the abdomen are intact. No free air or free fluid is seen. No findings to antonio amy bowel obstruction. Richy Peña MD on August 20, 2017 at 10:10 Board Certified Radiologist. This report was verified electronically.
--- NOTE | 2017-08-20 10:35 | EKG ---
Date Performed: 08/20/2017 Time Performed: 05:58:20 PTAGE: 56 years EKG: ATRIAL FIBRILLATION WITH RAPID VENTRICULAR RESPONSE WITH ABERRANT CONDUCTION OR VENTRICULAR PREMATURE COMPLEXES POSSIBLE LEFT VENTRICULAR HYPERTROPHY ST DEVIATION AND MODERATE T-WAVE ABNORMALI TY, CONSIDER ANTEROLATERAL ISCHEMIA ST DEVIATION AND MODERATE T-WAVE ABNORMALITY, CONSIDER INFERIOR I SCHEMIA ABNORMAL ECG Compared to PREVIOUS TRACING the patient is now in atrial fibrillation with rvr PREVIOUS TRACIN DOCTOR: Geena Ann Interpretating Date/Time 08/20/2017 10:34:01
[2017-08-20] MEDS ORDERED: BISACODYL 10 MG SUPP RECTAL PRN (11:15)
[2017-08-20] MEDS ORDERED: SENNOSIDES 8.6 MG TAB PO PRN (11:15)
[2017-08-20] MEDS ORDERED: MAGNESIUM HYDROXIDE SUSP 30 ML CUP PO PRN (11:15)
[2017-08-20] MEDS ORDERED: POTASSIUM PHOSPHATE MONOBASIC 500 MG TAB PO/TUBE PRN (11:15)
[2017-08-20] MEDS ORDERED: SODIUM PHOSPHATE INJ 30 MMOL in SODIUM CHLOR 0.9% 250 ML INJ 240 ML IV PRN (11:15)
[2017-08-20] MEDS ORDERED: RESP: ALBUTEROL 2.5 MG/IPRATROPIUM 0.5 MG NEB (PRN) INH (11:15)
[2017-08-20] MEDS ORDERED: MAGNESIUM SULFATE INJ 4 GM in SODIUM CHLORIDE 0.9% INJ 92 ML IV PRN (11:15)
[2017-08-20] MEDS ORDERED: LACTULOSE SYRUP 20 GM/30 ML CUP PO PRN (11:15)
[2017-08-20] MEDS ORDERED: POTASSIUM CHLOR 20 MEQ PREMIX 100 ML IV PRN ×2 (11:15)
[2017-08-20] MEDS ORDERED: POTASSIUM PHOSPHATE INJ 30 MMOL in SODIUM CHLOR 0.9% 250 ML INJ 250 ML IV PRN (11:15)
[2017-08-20] MEDS ORDERED: POTASSIUM CHLORIDE 25 MEQ EFFERVESCENT TAB PO PRN (11:15)
[2017-08-20] MEDS ORDERED: CHLORHEXIDINE GLUCONATE 2 % 1 PACK (2 CLOTHS) TOP PRN (11:15)
[2017-08-20] MEDS ORDERED: MAGNESIUM SULFATE INJ 2 GM in SODIUM CHLORIDE 0.9% INJ 96 ML IV PRN (11:15)
[2017-08-20] MEDS ORDERED: POTASSIUM CHLOR 40 MEQ PREMIX 100 ML IV PRN ×2 (11:15)
[2017-08-20] MEDS ORDERED: DEXTROSE 50% IN WATER 50 ML VIAL(D50) IV PUSH PRN (11:15)
[2017-08-20] MEDS ORDERED: MAGNESIUM OXIDE 400 MG TAB PO PRN (11:15)
[2017-08-20] MEDS ORDERED: GLUCAGON 1 MG/ML VIAL OTHER PRN (11:15)
[2017-08-20] MEDS ORDERED: POTASSIUM PHOSPHATE MONOBASIC 500 MG TAB PO PRN (11:15)
[2017-08-20] MEDS ORDERED: MISCELLANEOUS NURSING INFORMATION XX SCH (11:15)
[2017-08-20 11:55] LABS: BILIRUBIN, URINE NEG (NEG); BLOOD, URINE NEG (NEG); GLUCOSE,URINE NEG (NEG); HYALINE CAST, URINE 1 /lpf (RARE); KETONE, URINE NEG (NEG); NITRITE,URINE NEG (NEG); SQUAMOUS EPITHELIAL CELL URINE 1 /hpf (0-5); URINE COLOR LIGHT-YELLOW (YELLW/STRAW); URINE LEUKOCYTE ESTERASE NEG (NEG)
--- NOTE | 2017-08-20 12:20 | MH ---
cc: Orly Romero MD DATE OF ADMISSION: 08/20/2017 Patient is a 56-year-old female with multiple medical comorbidities, which include hypertension, COPD, atrial fibrillation, on chronic anticoagulation with Xarelto, diabetes mellitus, AICD in place, and tobacco abuse. She presented to [facility] ED with shortness of breath associated with productive cough with green sputum, emesis, and abdominal pain for the past 2 days. She was recently admitted to the hospital for AFib and possible cholecystitis; however, after a few days, she left against medical advice. The patient denies any fever, chills or any constitutional symptoms. In addition, she denies any orthopnea, PND or edema of lower extremities. On arrival to the ER, she was found to be in AFib with rapid ventricular response. In the ER, she was given normal saline 1 L bolus, Lasix 40 mg IV push, Solu-Medrol 125 mg IV x 1, Cardizem 20 mg IV push x 1, and the bronchodilator treatment. A chest x-ray in ER showed clear lungs. There is no evidence of any fever or leukocytosis. Her lactic acid level measured at 1.4. The patient noted to have elevated liver enzymes with AST 45, ALT 307. Her total bilirubin level was 0.6. She underwent ultrasound of the gallbladder in the ER, which showed no evidence of any stones, wall thickening or any pericholecystic fluid. She also had a CT abdomen and pelvis, which showed the gallbladder wall mildly thickened, no definite inflammatory changes seen on the CT. No evidence of any free air or any findings to indicate bowel obstruction. The patient was placed on a Cardizem drip at 15 mg an hour when seen in the ER. Her current blood pressure 94/59 with a pulse of 119. Dr. Flores from GI service was notified by the ED. The patient appears comfortable on 2 L oxygen with saturation of 96% to 98%. PAST MEDICAL HISTORY: Significant for hypertension, COPD, chronic atrial fibrillation, diabetes mellitus, GERD. PAST SURGICAL HISTORY: Previous ablation x 2 for atrial fibrillation, previous AICD placement, previous hysterectomy, previous teeth removal. SOCIAL HISTORY: The patient has [id number] history of smoking. Nondrinker. FAMILY HISTORY: Coronary artery disease and diabetes mellitus runs in the family. ALLERGIES: PREDNISONE, SERTRALINE AND VERAPAMIL. MEDICATIONS AT HOME: Include Xarelto 15 mg daily, amiodarone, pravastatin, Imdur, metoprolol, Cardizem, aspirin, Dulera. REVIEW OF SYSTEMS: As per HPI. Rest of review of systems is unremarkable. PHYSICAL EXAMINATION: A 56-year-old female lying in bed in no acute respiratory distress. VITAL SIGNS: Temperature 98.0, pulse of 119, blood pressure 94/59 with a saturation 96%. HEENT: Atraumatic, normocephalic. Pupils are equal, round, reactive to light and accommodation. Extraocular muscles intact. Conjunctivae pink. Nonicteric sclerae. Oral mucosa within normal. NECK: Supple. No JVD, adenopathy, thyromegaly. Trachea midline. CARDIOVASCULAR: Tachycardic. Irregularly irregular. Normal S1, S2. No murmurs, rubs or gallops noted. PULMONARY: Bilateral equal air entry. No crackles or wheezing. ABDOMEN: Soft, tenderness on palpation. Positive bowel sounds, mildly distended. EXTREMITIES: No cyanosis, clubbing, edema. NEUROLOGIC: No focal sensory deficit. LABORATORY DATA: Sodium 136, potassium 3.6, chloride 95, CO2 32, BUN 14, creatinine 1.09, glucose 147, lactic acid 1.4, total bilirubin 0.6, AST 45, ALT 307, alk phos 103, ammonia 27. Troponin 0.08. C-reactive protein 3.85, lipase 2320. WBC 8.4, hemoglobin 10.9, hematocrit 37, platelet count of 389. RADIOGRAPHIC STUDIES: Chest x-ray in the ED showed clear lungs. Ultrasound of the gallbladder within normal. A CT abdomen and pelvis showed no findings to indicate bowel obstruction, mild thickening gallbladder wall. EKG in AFib with RVR. IMPRESSION: 1. Respiratory insufficiency. 2. Atrial fibrillation with rapid ventricular response. 3. Abdominal pain. 4. Elevated lipase level. 5. History of chronic atrial fibrillation, on Xarelto. 6. Hypokalemia. 7. Anemia. 8. History of chronic obstructive pulmonary disease. 9. Diabetes mellitus. 10. Previous automatic implantable cardioverter defibrillator placement. RECOMMENDATIONS: 1. Monitor neuro status closely and avoid any sedatives. 2. Continue on oxygen and maintain sats above 92%. 3. Bronchodilators in the form of DuoNeb q.6 plus q.2 p.r.n. for shortness of breath. A chest x-ray in the ER showed clear lungs. 4. Monitor heart rate and blood pressure closely and maintain MAP greater than 65 mmHg. She had an echocardiogram on her previous admission 08/13, which showed EF of 50% to 55%, moderate pulmonary hypertension with a PA pressure of 58 mmHg. We will give an additional 1 liter bolus of normal saline. Lactic acid level measured at 1.4. Monitor troponins. Hold anti-cardiac meds for now given borderline low blood pressure. Resume aspirin 81 mg daily. Hold amiodarone p.o. for now along with Pravachol given elevated liver enzymes. 5. Monitor renal function, I's and O's and electrolyte replacement per protocol. Will need potassium replacement today. She was given 1 liter of NS in the ED. We will give an additional [address] on maintenance fluids NS at 100 mL an hour. 6. Keep n.p.o. for now and place on Pepcid 20 mg q.12 for GI prophylaxis and with underlying history of GERD. Monitor lipase level and liver enzymes. GI service was notified by ED. A CT scan of the abdomen and pelvis, along with an ultrasound of the gallbladder showed no acute findings. She was recommended to undergo EGD and colonoscopy on the previous admission by GI; however, the patient left against medical advice. 7. Place on empiric antibiotics in the form of Zosyn and monitor for signs of infection, which include fever and WBC. Blood cultures 2 sets were obtained in the ED. 8. Place on sliding scale insulin with Accu-Cheks for glycemic control. 9. GI prophylaxis with Pepcid and DVT prophylaxis with SCDs. Hold Xarelto for now in case the patient needs any procedures or intervention. 10. Further recommendations will be based on hospital course. MD MARY KAY Ceballos/QUINTIN , 11:28 AM , 12:18 PM
--- NOTE | 2017-08-20 12:37 | PD.CONS ---
HPI History of Present Illness This is a 56 year old female with hx AF on xarelto, AMA departure who presented b/c "I couldn't breathe, my stomach was hurting, and I didn't think I was going to make it. Abd pain started "weeks ago." Pain is in the RLQ. Denies recent change in bowel habits, marbella blood in stool. Admits nausea, no vomiting. She says her stool is loose and black and looks like coffee grounds. Admits loss 100lbs in the last year and this was unintended. SHe was admitted recently for AF and was in ICU and says she was supposed to have colonoscopy but did not complete prep. She had liver w/u at that time that was unremarkable. Last colonoscopy 8 y ago in [facility] and polyps were found. (Poornima Agrawal) PFSH Past Medical History AF IBS COPD DM HTN Past Surgical History noncontributory (Poornima Agrawal) Coded Allergies: prednisone (Verified Allergy, Severe, hives, 08/20/17) sertraline (Verified Allergy, Severe, hives, 08/20/17) verapamil (Verified Allergy, Severe, rash, 08/20/17) Family History noncontributory Social History denies etoh was smoking 1ppd but quit 2 d ago denies illicit drug use (Poornima Agrawal) Review of Systems Constitutional: COMPLAINS OF: Weight loss, DENIES: Fever Endocrine: DENIES: Polydipsia Eyes: DENIES: Blurred vision Ears, nose, mouth, throat: DENIES: Hearing loss Respiratory: DENIES: Cough Cardiovascular: DENIES: Chest pain Gastrointestinal: COMPLAINS OF: Abdominal pain, Black stools, Constipation, Nausea, DENIES: Bloody stools, Vomiting Genitourinary: DENIES: Hematuria Musculoskeletal: DENIES: Muscle aches Integumentary: DENIES: Abnormal pigmentation Hematologic/lymphatic: DENIES: Bruising Immunologic/allergic: DENIES: Eczema Neurologic: DENIES: Abnormal gait Psychiatric: DENIES: Confusion (Poornima Agrawal) GI Exam Vitals I&O Vital Signs Date Time Temp Pulse Resp B/P (MAP) Pulse Ox O2 Delivery O2 Flow Rate FiO2 08/20/17 11:00 116 24 86/55 (65) 96 Nasal Cannula 2.00 08/20/17 10:30 122 24 104/59 (74) 96 Nasal Cannula 2.00 08/20/17 09:45 130 24 114/67 (83) 96 Nasal Cannula 2.00 08/20/17 09:45 130 114/67 08/20/17 09:00 128 20 107/62 (77) 98 Nasal Cannula 2.00 08/20/17 06:55 157 130/69 08/20/17 06:53 137 18 130/69 (89) 100 Room Air 08/20/17 06:04 22 08/20/17 06:00 98.0 145 20 157/72 (100) 98 Room Air 08/20/17 05:45 97.6 140 22 124/72 (89) 98 I/O 08/19/17 08/19/17 08/19/17 08/20/17 08/20/17 08/20/17 07:00 15:00 23:00 07:00 15:00 23:00 Intake Total 1000 ml Balance 1000 ml Intake IV Total 1000 ml Imaging Last Impressions Gall Bladder Ultrasound 08/20/17 0815 Signed Impressions: Service Date/Time: Sunday, August 20, 2017 08:33 - CONCLUSION: Normal gallbladder ultrasound Garcia Peña MD FACR Abdomen/Pelvis CT 08/20/17 0759 Signed Impressions: Service Date/Time: Sunday, August 20, 2017 09:11 - CONCLUSION: 1. The gallbladder wall appears mildly thickened. No definite inflammatory changes are seen on the CT. 2. The solid organs of the abdomen are intact. No free air or free fluid is seen. No findings to indicate bowel obstruction. Richy Peña MD Chest X-Ray 08/20/17 0555 Signed Impressions: Service Date/Time: Sunday, August 20, 2017 06:15 - CONCLUSION: The lungs are clear. Kole Farley MD Laboratory Test 08/20/17 06:15 08/20/17 11:35 White Blood Count 8.4 TH/MM3 Red Blood Count 4.76 MIL/MM3 Hemoglobin 10.9 GM/DL Hematocrit 37.2 % Mean Corpuscular Volume 78.2 FL Mean Corpuscular Hemoglobin 22.9 PG Mean Corpuscular Hemoglobin Concent 29.3 % Red Cell Distribution Width 18.4 % Platelet Count 389 TH/MM3 Mean Platelet Volume 7.8 FL Neutrophils (%) (Auto) 66.2 % Lymphocytes (%) (Auto) 17.5 % Monocytes (%) (Auto) 13.1 % Eosinophils (%) (Auto) 2.3 % Basophils (%) (Auto) 0.9 % Neutrophils # (Auto) 5.6 TH/MM3 Lymphocytes # (Auto) 1.5 TH/MM3 Monocytes # (Auto) 1.1 TH/MM3 Eosinophils # (Auto) 0.2 TH/MM3 Basophils # (Auto) 0.1 TH/MM3 CBC Comment DIFF FINAL Differential Comment Prothrombin Time 11.4 SEC Prothromb Time International Ratio 1.1 RATIO Activated Partial Thromboplast Time 25.8 SEC Blood Urea Nitrogen 14 MG/DL Creatinine 1.09 MG/DL Random Glucose 147 MG/DL Total Protein 7.5 GM/DL Albumin 3.5 GM/DL Calcium Level 8.9 MG/DL Magnesium Level 2.3 MG/DL Alkaline Phosphatase 103 U/L Aspartate Amino Transf (AST/SGOT) 45 U/L Alanine Aminotransferase (ALT/SGPT) 307 U/L Total Bilirubin 0.6 MG/DL Sodium Level 136 MEQ/L Potassium Level 3.3 MEQ/L Chloride Level 95 MEQ/L Carbon Dioxide Level 32.2 MEQ/L Anion Gap 9 MEQ/L Lactic Acid Level 1.4 mmol/L Ammonia 27 MCMOL/L Total Creatine Kinase 135 U/L Creatine Kinase MB 2.8 NG/ML Troponin I 0.08 NG/ML C-Reactive Protein 3.85 MG/DL B-Type Natriuretic Peptide 482 PG/ML Lipase 2320 U/L Urine Color LIGHT-YELLOW Urine Turbidity CLEAR Urine pH 5.0 Urine Specific [place] 1.035 Urine Protein NEG mg/dL Urine Glucose (UA) NEG mg/dL Urine Ketones NEG mg/dL Urine Occult Blood NEG Urine Nitrite NEG Urine Bilirubin NEG Urine Urobilinogen LESS THAN 2.0 MG/DL Urine Leukocyte Esterase NEG Urine RBC LESS THAN 1 /hpf Urine WBC LESS THAN 1 /hpf Urine Squamous Epithelial Cells 1 /hpf Urine Hyaline Casts 1 /lpf Microscopic Urinalysis Comment CULT NOT INDICATED Date/Time Source Procedure Growth Status 08/20/17 06:15 Blood Peripheral Aerobic Blood Culture Pending Received 08/20/17 06:15 Blood Peripheral Anaerobic Blood Culture Pending Received Physical Examination HEENT: PERRL; normocephalic; atraumatic; no jaundice. CHEST: wheezes, rhonchi CARDIAC: Regular rate and rhythm with no murmur gallop or rubs. ABDOMEN: Soft, nondistended,epigastric TTP; no hepatosplenomegaly; bowel sounds are present in all four quadrants. EXTREMITIES: No clubbing, cyanosis, or edema. SKIN: Normal; no rash; no jaundice. FILM TOUCH UP INSPECTOR: No focal deficits; alert and oriented times three. (Poornima Agrawal) Assessment and Plan Plan ASSESSMENT - epigastric pain - ?pancreatitis. lipase 2300. GB US normal. CT - anemia, stool like coffee grounds- hgb 10.9 microcytic ?ugib. was to have EGD and colonoscopy last admission but this was not done as she did not finish prep and then left AMA - elevated LFTs - actually improved from recent admission, trending down. unremarkable liver w/u. - weight loss - 100lbs in last year, unintended. last colonoscopy 8 y ago, polyps found. PLAN - EGD colonoscopy later in week - trend lipase - clear liquids - further recs to follow pt seen by myself and Dr Flores and this note is on her behalf (Poornima Agrawal) Physician Comments seen, examined agree with above egd/colonoscopy in 1- 2 days possible passed gallstone (Olena Flores MD) Poornima Agrawal Aug 20, 2017 12:37 Olena Flores MD Aug 20, 2017 14:09
[2017-08-20] MEDS: FAMOTIDINE 20 MG/2 ML VIAL IV PUSH SCH ×2 (12:38→22:00)
[2017-08-20] MEDS: ASPIRIN EC 81 MG TABEC PO SCH (12:38)
[2017-08-20] MEDS: PIPERACIL-TAZO 4.5 GM PREMIX 100 ML IV SCH ×2 (12:39→17:53)
[2017-08-20] MEDS: INSULIN NovoLIN REGULAR SUPPLEMENTAL SCALE SQ SCH ×4 (13:32→23:31)
[2017-08-20] MEDS: SODIUM CHLOR 0.9% 1000 ML INJ 1,000 ML IV SCH ×2 (13:52→21:44)
[2017-08-20] MEDS ORDERED: POTASSIUM CHLOR 20 MEQ PREMIX 100 ML IV ONE (15:00)
[2017-08-20] MEDS ORDERED: DIGOXIN 0.5 MG/2 ML VIAL IV PUSH ONE (15:15)
[2017-08-20 19:24] LABS: PHOSPHORUS 2.9 MG/DL (2.5-4.9)
[2017-08-20 19:27] LABS: TROPONIN I 0.04 NG/ML (0.02-0.05)
[2017-08-20] MEDS: DOCUSATE SODIUM 50 MG/SENNA 8.6 MG TAB PO SCH (22:00)
[2017-08-21] VITALS (31 sets, daily range): BP systolic 128–145; BP diastolic 66–81; PULSE 80–167; RESP 16–22; TEMP 97.7–98.4; O2SAT 94–100
[2017-08-21] MEDS: CHLORHEXIDINE GLUCONATE 2 % 1 PACK (2 CLOTHS) TOP SCH (03:31)
[2017-08-21] MEDS: RESP: ALBUTEROL 2.5 MG/IPRATROPIUM 0.5 MG NEB (SCH) INH ×6 (03:34→23:37)
[2017-08-21] MEDS: INSULIN NovoLIN REGULAR SUPPLEMENTAL SCALE SQ SCH ×5 (04:00→20:00)
[2017-08-21 04:06] LABS: AUTOMATED NEUTROPHIL # 2.9 TH/MM3 (1.8-7.7); HEMATOCRIT 29.6 % (35.0-46.0); HEMOGLOBIN 8.7 GM/DL (11.6-15.3); LYMPH % 9.9 % (9.0-44.0); LYMPHOCYTE # 0.4 TH/MM3 (1.0-4.8); MEAN CELL VOLUME 78.4 FL (80.0-100.0); MEAN CORPUSCULAR HEMOGLOBIN 22.9 PG (27.0-34.0); MEAN PLATELET VOLUME 7.9 FL (7.0-11.0); MONO % 10.5 % (0.0-8.0); MONOCYTE # 0.4 TH/MM3 (0-0.9); NEUT % 79.6 % (16.0-70.0); PLATELET COUNT 331 TH/MM3 (150-450); RED BLOOD COUNT 3.78 MIL/MM3 (4.00-5.30); RED CELL DISTRIBUTION WIDTH 18.2 % (11.6-17.2); WHITE BLOOD COUNT 3.6 TH/MM3 (4.0-11.0)
[2017-08-21 04:10] LABS: MEAN CORPUSCULAR HGB CONC 29.2 % (32.0-36.0)
[2017-08-21 04:37] LABS: ALBUMIN 3.1 GM/DL (3.4-5.0); ALT (GPT) 213 U/L (10-53); AST (GOT) 29 U/L (15-37); BICARBONATE 27.4 MEQ/L (21.0-32.0); BLOOD UREA NITROGEN 9 MG/DL (7-18); CALCIUM 8.6 MG/DL (8.5-10.1); CHLORIDE 102 MEQ/L (98-107); CREATININE 0.93 MG/DL (0.50-1.00); GLOMERULAR FILTRATION RATE 63 ML/MIN (>89); GLUCOSE,RANDOM 217 MG/DL (74-106); SODIUM (NA) 139 MEQ/L (136-145)
[2017-08-21 04:40] LABS: ALKALINE PHOSPHATASE 72 U/L (45-117); PHOSPHORUS 2.2 MG/DL (2.5-4.9); TOTAL BILIRUBIN ADULT 0.5 MG/DL (0.2-1.0); TOTAL PROTEIN 6.4 GM/DL (6.4-8.2)
[2017-08-21] MEDS: PIPERACIL-TAZO 4.5 GM PREMIX 100 ML IV SCH ×4 (06:00→17:13)
[2017-08-21] MEDS: FAMOTIDINE 20 MG/2 ML VIAL IV PUSH SCH ×2 (08:50→22:14)
[2017-08-21] MEDS: DIGOXIN 0.5 MG/2 ML VIAL IV PUSH SCH (08:51)
[2017-08-21] MEDS: DOCUSATE SODIUM 50 MG/SENNA 8.6 MG TAB PO SCH ×2 (08:52→21:00)
[2017-08-21] MEDS: ASPIRIN EC 81 MG TABEC PO SCH (08:52)
[2017-08-21] MEDS: SODIUM CHLOR 0.9% 1000 ML INJ 1,000 ML IV SCH ×2 (09:00→17:13)
[2017-08-21] MEDS: DILTIAZEM INJ 125 MG in SODIUM CHLORIDE 0.9% INJ 100 ML IV PRN (09:29)
[2017-08-21] MEDS ORDERED: MOMETASONE FORMOTEROL INH SCH (10:45)
--- NOTE | 2017-08-21 11:02 | HHI.GIFU ---
Subjective Remarks Pt having mult BMs and says her pain is mildly improved. Says she has black ' coffee grounds' in stool. (Poornima Agrawal) Objective Vitals I&O Vital Signs Date Time Temp Pulse Resp B/P (MAP) Pulse Ox O2 Delivery O2 Flow Rate FiO2 08/21/17 10:20 167 08/21/17 10:00 144 08/21/17 09:54 138 132/72 08/21/17 09:29 116 124/69 08/21/17 09:15 144 08/21/17 09:00 116 08/21/17 08:10 126 08/21/17 08:00 121 08/21/17 07:35 97.7 95 17 129/78 (95) 94 08/21/17 07:25 98 08/21/17 07:00 108 08/21/17 06:29 118 08/21/17 05:35 132 08/21/17 04:30 104 08/21/17 03:18 97.9 101 17 128/81 (97) 99 08/21/17 03:18 102 08/21/17 02:33 94 08/21/17 01:17 113 08/21/17 00:12 114 08/20/17 23:30 98.0 122 16 125/72 (89) 96 08/20/17 23:30 121 08/20/17 22:52 08/20/17 22:02 114 18 137/71 (93) 98 Room Air 08/20/17 19:57 87 18 114/79 (91) 98 Nasal Cannula 2.00 08/20/17 17:34 93 20 112/74 (87) 100 Nasal Cannula 3.00 08/20/17 13:52 97.8 108 17 113/84 (94) 98 Nasal Cannula 2.00 08/20/17 12:00 114 24 110/62 (78) 98 Nasal Cannula 2.00 08/20/17 11:30 130 25 110/65 (80) 98 Nasal Cannula 2.00 I/O 08/20/17 08/20/17 08/20/17 08/21/17 08/21/17 08/21/17 07:00 15:00 23:00 07:00 15:00 23:00 Intake Total 2100 ml 200 ml 240 ml Output Total 950 ml Balance 2100 ml 200 ml -710 ml Intake Oral 240 ml IV Total 2100 ml 200 ml Output Urine Total 950 ml # Voids 1 # Bowel Movements 1 Laboratory Laboratory Tests Test 08/20/17 11:35 08/20/17 13:15 08/20/17 18:35 08/21/17 02:40 Urine Color LIGHT-YELLOW Urine Turbidity CLEAR Urine pH 5.0 Urine Specific [place] 1.035 Urine Protein NEG Urine Glucose (UA) NEG Urine Ketones NEG Urine Occult Blood NEG Urine Nitrite NEG Urine Bilirubin NEG Urine Urobilinogen LESS THAN 2.0 Urine Leukocyte Esterase NEG Urine RBC LESS THAN 1 Urine WBC LESS THAN 1 Urine Squamous Epithelial Cells 1 Urine Hyaline Casts 1 Microscopic Urinalysis Comment CULT NOT INDICATED Troponin I 0.06 0.04 Hepatitis A IgM Antibody NONREACTIVE Hepatitis B Surface Antigen NONREACTIVE Hepatitis B Core IgM Antibody NONREACTIVE Hepatitis C IgG Antibody NONREACTIVE Phosphorus Level 2.9 2.2 White Blood Count 3.6 Red Blood Count 3.78 Hemoglobin 8.7 Hematocrit 29.6 Mean Corpuscular Volume 78.4 Mean Corpuscular Hemoglobin 22.9 Mean Corpuscular Hemoglobin Concent 29.2 Red Cell Distribution Width 18.2 Platelet Count 331 Mean Platelet Volume 7.9 Neutrophils (%) (Auto) 79.6 Lymphocytes (%) (Auto) 9.9 Monocytes (%) (Auto) 10.5 Eosinophils (%) (Auto) 0.0 Basophils (%) (Auto) 0.0 Neutrophils # (Auto) 2.9 Lymphocytes # (Auto) 0.4 Monocytes # (Auto) 0.4 Eosinophils # (Auto) 0.0 Basophils # (Auto) 0.0 CBC Comment AUTO DIFF Differential Comment AUTO DIFF CONFIRMED Blood Urea Nitrogen 9 Creatinine 0.93 Random Glucose 217 Total Protein 6.4 Albumin 3.1 Calcium Level 8.6 Magnesium Level 2.0 Alkaline Phosphatase 72 Aspartate Amino Transf (AST/SGOT) 29 Alanine Aminotransferase (ALT/SGPT) 213 Total Bilirubin 0.5 Sodium Level 139 Potassium Level 3.6 Chloride Level 102 Carbon Dioxide Level 27.4 Anion Gap 10 Estimat Glomerular Filtration Rate 63 Lipase 804 Date/Time Source Procedure Growth Status 08/20/17 06:15 Blood Peripheral Aerobic Blood Culture Pending Received 08/20/17 06:15 Blood Peripheral Anaerobic Blood Culture Pending Received Imaging Last Impressions Gall Bladder Ultrasound 08/20/17 0815 Signed Impressions: Service Date/Time: Sunday, August 20, 2017 08:33 - CONCLUSION: Normal gallbladder ultrasound Garcia Peña MD FACR Abdomen/Pelvis CT 08/20/17 0759 Signed Impressions: Service Date/Time: Sunday, August 20, 2017 09:11 - CONCLUSION: 1. The gallbladder wall appears mildly thickened. No definite inflammatory changes are seen on the CT. 2. The solid organs of the abdomen are intact. No free air or free fluid is seen. No findings to indicate bowel obstruction. Richy Peña MD Chest X-Ray 08/20/17 0555 Signed Impressions: Service Date/Time: Sunday, August 20, 2017 06:15 - CONCLUSION: The lungs are clear. Kole Farley MD Physical Exam HEENT: PERRL; normocephalic; atraumatic; no jaundice. CHEST: wheezes CARDIAC: RRR ABDOMEN: Soft, mildly distended, TTP lower abd and epigastrium; no hepatosplenomegaly; bowel sounds are present in all four quadrants. EXTREMITIES: No clubbing, cyanosis, or edema. SKIN: Normal; no rash; no jaundice. ALIGNING INSPECTOR: No focal deficits; alert and oriented times three. (Poornima Agrawal) Assessment and Plan Plan ASSESSMENT - epigastric pain - ?pancreatitis. lipase 2300. GB US normal. CT - anemia, stool like coffee grounds- hgb 10.9 microcytic ?ugib. was to have EGD and colonoscopy last admission but this was not done as she did not finish prep and then left AMA - elevated LFTs - actually improved from recent admission, trending down. unremarkable liver w/u. - weight loss - 100lbs in last year, unintended. last colonoscopy 8 y ago, polyps found. 08/21/17 doing better, more alert and some improvement pain after having BMs. lipase down to 804. PLAN - EGD colonoscopy tomorrow - obtain consent - clear liquids - NPO after Mn - mg citrate prep - further recs to follow pt seen by myself and Dr Flores and this note is on her behalf (Poornima Agrawal) Physician Comments seen, examined agree with above , wheezing , tachycardic- IV nurse bedside (Olena Flores MD) Poornima Agrawal Aug 21, 2017 11:02 Olena Flores MD Aug 21, 2017 12:55
[2017-08-21] MEDS: ACETAMINOPHEN 500 MG CPLT PO PRN (11:28)
[2017-08-21] MEDS: ASPIRIN 81 MG CHEW TAB PO SCH (11:28)
[2017-08-21] MEDS: VENLAFAXINE HCL XR 75 MG CAP PO SCH (11:28)
[2017-08-21] MEDS: AMIODARONE 200 MG TAB PO SCH ×2 (11:28→22:14)
[2017-08-21] MEDS: PRAVASTATIN SOD 40 MG TAB PO SCH (11:28)
[2017-08-21] MEDS: RIVAROXABAN 15 MG TAB PO SCH (11:28)
[2017-08-21] MEDS: DILTIAZEM HCL 60 MG TAB PO SCH ×2 (11:28→17:07)
[2017-08-21] MEDS ORDERED: ALBUTEROL SULFATE 90 MCG/ACT HFA 8 GM INHALER INH PRN (12:00)
[2017-08-21] MEDS ORDERED: MAGNESIUM CITRATE SOLN 300 ML BTL PO ONE ×2 (16:00→18:00)
--- NOTE | 2017-08-21 19:08 | HHI.PR ---
Subjective Remarks PAtient states feels better however short of breath Denies cp Objective Vitals Vital Signs Date Time Temp Pulse Resp B/P (MAP) Pulse Ox O2 Delivery O2 Flow Rate FiO2 08/21/17 18:00 101 08/21/17 17:00 92 08/21/17 15:00 97.7 93 19 133/66 (88) 97 08/21/17 15:00 91 08/21/17 14:00 84 08/21/17 13:00 106 08/21/17 12:38 18 08/21/17 12:06 120 08/21/17 12:00 115 08/21/17 11:08 97.7 93 16 137/76 (96) 97 08/21/17 11:06 92 08/21/17 11:06 137/76 08/21/17 11:00 107 08/21/17 10:20 167 08/21/17 10:00 144 08/21/17 09:54 138 132/72 08/21/17 09:29 116 124/69 08/21/17 09:15 144 08/21/17 09:00 116 08/21/17 08:10 126 08/21/17 08:00 121 08/21/17 07:35 97.7 95 17 129/78 (95) 94 08/21/17 07:25 98 08/21/17 07:00 108 08/21/17 06:29 118 08/21/17 05:35 132 08/21/17 04:30 104 08/21/17 03:18 97.9 101 17 128/81 (97) 99 08/21/17 03:18 102 08/21/17 02:33 94 08/21/17 01:17 113 08/21/17 00:12 114 08/20/17 23:30 98.0 122 16 125/72 (89) 96 08/20/17 23:30 121 08/20/17 22:52 08/20/17 22:02 114 18 137/71 (93) 98 Room Air 08/20/17 19:57 87 18 114/79 (91) 98 Nasal Cannula 2.00 I/O 08/20/17 08/20/17 08/20/17 08/21/17 08/21/17 08/21/17 07:00 15:00 23:00 07:00 15:00 23:00 Intake Total 2100 ml 200 ml 240 ml 461 ml Output Total 950 ml Balance 2100 ml 200 ml -710 ml 461 ml Intake Oral 240 ml IV Total 2100 ml 200 ml 461 ml Output Urine Total 950 ml # Voids 1 3 # Bowel Movements 1 2 Result Diagram: 08/21/17 0240 08/21/17 0240 Imaging Last Impressions Gall Bladder Ultrasound 08/20/17 0815 Signed Impressions: Service Date/Time: Sunday, August 20, 2017 08:33 - CONCLUSION: Normal gallbladder ultrasound Garcia Peña MD FACR Abdomen/Pelvis CT 08/20/17 0759 Signed Impressions: Service Date/Time: Sunday, August 20, 2017 09:11 - CONCLUSION: 1. The gallbladder wall appears mildly thickened. No definite inflammatory changes are seen on the CT. 2. The solid organs of the abdomen are intact. No free air or free fluid is seen. No findings to indicate bowel obstruction. Richy Peña MD Chest X-Ray 08/20/17 0555 Signed Impressions: Service Date/Time: Sunday, August 20, 2017 06:15 - CONCLUSION: The lungs are clear. Kole Farley MD Objective Remarks HEENT: Atraumatic, normocephalic. Pupils are equal, round, reactive to light and accommodation. Extraocular muscles intact. Conjunctivae pink. Nonicteric sclerae. Oral mucosa within normal. NECK: Supple. No JVD, adenopathy, thyromegaly. Trachea midline. CARDIOVASCULAR: Tachycardic. Irregularly irregular. Normal S1, S2. No murmurs, rubs or gallops noted. PULMONARY: Bilateral equal air entry. No crackles or wheezing. ABDOMEN: Soft, tenderness on palpation. Positive bowel sounds, mildly distended. EXTREMITIES: No cyanosis, clubbing, edema. NEUROLOGIC: No focal sensory deficit. A/P Problem List: (1) Atrial fibrillation with RVR ICD Code: I48.91 - Unspecified atrial fibrillation Status: Chronic (2) Acute pancreatitis ICD Code: K85.90 - Acute pancreatitis without necrosis or infection, unspecified Status: Acute (3) Afib ICD Code: I48.91 - Unspecified atrial fibrillation Status: Chronic (4) HTN (hypertension) ICD Code: I10 - Essential (primary) hypertension Status: Chronic (5) COPD with acute exacerbation ICD Code: J44.1 - Chronic obstructive pulmonary disease with (acute) exacerbation (6) Weight loss ICD Code: R63.4 - Abnormal weight loss Assessment and Plan Consitnue PPI GI consulted - for EGD/colonoscopy in am Start IV Solumedrol, oral levaquin, continue duonebs for COPD exacerbation heart rate controlled - continue cardizem, amiodarone monitor hemoglobin and transfuse as needed. IV fluids clear liquid diet Problem Qualifiers (1) Acute pancreatitis: Qualified Codes: K85.90 - Acute pancreatitis without necrosis or infection, unspecified Booker Hinojosa MD Aug 21, 2017 19:08
[2017-08-21] MEDS ORDERED: methylPREDNISolone SOD SUCC 125 MG/2 ML VIAL IV PUSH ONE (20:00)
[2017-08-21] MEDS: LEVOFLOXACIN 750 MG TAB PO SCH (22:13)
[2017-08-21] MEDS: BUDESONIDE-FORMOTEROL 160/4.5 MCG INHALER INH SCH (22:14)
[2017-08-22] VITALS (20 sets, daily range): BP systolic 145–159; BP diastolic 66–74; PULSE 78–114; RESP 17–20; TEMP 97.6–98.1; O2SAT 96–98
[2017-08-22] MEDS: DILTIAZEM HCL 60 MG TAB PO SCH ×5 (00:04→22:39)
[2017-08-22] MEDS: PIPERACIL-TAZO 4.5 GM PREMIX 100 ML IV SCH ×4 (00:04→17:48)
[2017-08-22] MEDS: methylPREDNISolone SOD SUCC 40 MG/1 ML VIAL IV PUSH SCH ×3 (00:04→11:49)
[2017-08-22] MEDS: SODIUM CHLOR 0.9% 1000 ML INJ 1,000 ML IV SCH (00:05)
[2017-08-22] MEDS: ACETAMINOPHEN 500 MG CPLT PO PRN ×2 (02:26→22:39)
[2017-08-22] MEDS: RESP: ALBUTEROL 2.5 MG/IPRATROPIUM 0.5 MG NEB (SCH) INH ×6 (03:18→23:56)
[2017-08-22] MEDS: CHLORHEXIDINE GLUCONATE 2 % 1 PACK (2 CLOTHS) TOP SCH (03:21)
[2017-08-22] MEDS: INSULIN NovoLIN REGULAR SUPPLEMENTAL SCALE SQ SCH ×5 (03:35→16:11)
[2017-08-22] MEDS: LEVOFLOXACIN 750 MG TAB PO SCH (08:50)
[2017-08-22] MEDS: PRAVASTATIN SOD 40 MG TAB PO SCH (08:50)
[2017-08-22] MEDS: ASPIRIN 81 MG CHEW TAB PO SCH (08:50)
[2017-08-22] MEDS: RIVAROXABAN 15 MG TAB PO SCH (08:50)
[2017-08-22] MEDS: AMIODARONE 200 MG TAB PO SCH ×2 (08:50→22:39)
[2017-08-22] MEDS: DOCUSATE SODIUM 50 MG/SENNA 8.6 MG TAB PO SCH ×2 (08:51→21:00)
[2017-08-22] MEDS: FAMOTIDINE 20 MG/2 ML VIAL IV PUSH SCH ×2 (08:51→22:39)
[2017-08-22] MEDS: VENLAFAXINE HCL XR 75 MG CAP PO SCH (08:51)
[2017-08-22] MEDS: DIGOXIN 0.5 MG/2 ML VIAL IV PUSH SCH (08:52)
[2017-08-22] MEDS: BUDESONIDE-FORMOTEROL 160/4.5 MCG INHALER INH SCH (08:52)
[2017-08-22] MEDS: ASPIRIN EC 81 MG TABEC PO SCH (08:52)
[2017-08-22 15:03] LABS: AUTOMATED NEUTROPHIL # 3.9 TH/MM3 (1.8-7.7); BASOPHIL % 0.2 % (0.0-2.0); EOSINOPHIL % 0.1 % (0.0-4.0); HEMATOCRIT 30.8 % (35.0-46.0); HEMOGLOBIN 8.8 GM/DL (11.6-15.3); LYMPH % 7.2 % (9.0-44.0); LYMPHOCYTE # 0.3 TH/MM3 (1.0-4.8); MEAN CELL VOLUME 79.8 FL (80.0-100.0); MEAN CORPUSCULAR HEMOGLOBIN 22.9 PG (27.0-34.0); MEAN PLATELET VOLUME 7.8 FL (7.0-11.0); MONO % 4.8 % (0.0-8.0); MONOCYTE # 0.2 TH/MM3 (0-0.9); NEUT % 87.7 % (16.0-70.0); PLATELET COUNT 355 TH/MM3 (150-450); RED BLOOD COUNT 3.85 MIL/MM3 (4.00-5.30); RED CELL DISTRIBUTION WIDTH 18.7 % (11.6-17.2); WHITE BLOOD COUNT 4.4 TH/MM3 (4.0-11.0)
[2017-08-22 15:04] LABS: MEAN CORPUSCULAR HGB CONC 28.6 % (32.0-36.0)
[2017-08-22 15:11] LABS: ALBUMIN 3.3 GM/DL (3.4-5.0); ALT (GPT) 175 U/L (10-53); AST (GOT) 31 U/L (15-37); BICARBONATE 29.1 MEQ/L (21.0-32.0); BLOOD UREA NITROGEN 11 MG/DL (7-18); CALCIUM 8.9 MG/DL (8.5-10.1); CHLORIDE 102 MEQ/L (98-107); CREATININE 1.11 MG/DL (0.50-1.00); GLOMERULAR FILTRATION RATE 51 ML/MIN (>89); GLUCOSE,RANDOM 224 MG/DL (74-106); SODIUM (NA) 140 MEQ/L (136-145)
[2017-08-22 15:14] LABS: ALKALINE PHOSPHATASE 71 U/L (45-117); TOTAL BILIRUBIN ADULT 0.5 MG/DL (0.2-1.0); TOTAL PROTEIN 6.8 GM/DL (6.4-8.2)
--- NOTE | 2017-08-22 15:39 | HHI.PR ---
Subjective Remarks Shortness of breath is improved. The patient states she still has epigastric pain and feels nauseous. The patient states she is very mad because the colonoscopy was canceled. As per RN the patient's Xarelto was given today in the morning so colonoscopy had to be canceled. Objective Vitals Vital Signs Date Time Temp Pulse Resp B/P (MAP) Pulse Ox O2 Delivery O2 Flow Rate FiO2 08/22/17 15:00 98.1 89 19 153/70 (97) 96 08/22/17 15:00 83 08/22/17 14:00 93 08/22/17 12:00 95 08/22/17 11:00 89 08/22/17 11:00 97.6 90 17 153/71 (98) 98 08/22/17 10:00 98 08/22/17 09:00 114 08/22/17 08:00 95 08/22/17 07:15 97.7 98 18 148/66 (93) 96 08/22/17 07:15 86 08/22/17 06:02 92 08/22/17 05:18 90 08/22/17 04:09 80 08/22/17 03:43 78 08/22/17 03:43 98.0 83 20 145/69 (94) 97 08/22/17 02:00 86 08/22/17 01:59 84 08/22/17 00:00 88 08/21/17 23:40 87 08/21/17 23:40 98.4 87 20 145/73 (97) 100 08/21/17 22:00 98 08/21/17 21:00 90 08/21/17 20:00 90 08/21/17 19:30 80 08/21/17 19:30 98.0 94 22 145/70 (95) 98 08/21/17 18:00 101 08/21/17 17:00 92 I/O 08/21/17 08/21/17 08/21/17 08/22/17 08/22/17 08/22/17 07:00 15:00 23:00 07:00 15:00 23:00 Intake Total 240 ml 461 ml 580 ml 100 ml Output Total 950 ml 300 ml Balance -710 ml 461 ml 280 ml 100 ml Intake Oral 240 ml 480 ml IV Total 461 ml 100 ml 100 ml Output Urine Total 950 ml 300 ml # Voids 3 # Bowel Movements 1 2 2 Result Diagram: 08/22/17 1413 08/22/17 1413 Imaging Last Impressions Gall Bladder Ultrasound 08/20/17 0815 Signed Impressions: Service Date/Time: Sunday, August 20, 2017 08:33 - CONCLUSION: Normal gallbladder ultrasound Garcia Peña MD FACR Abdomen/Pelvis CT 08/20/17 0759 Signed Impressions: Service Date/Time: Sunday, August 20, 2017 09:11 - CONCLUSION: 1. The gallbladder wall appears mildly thickened. No definite inflammatory changes are seen on the CT. 2. The solid organs of the abdomen are intact. No free air or free fluid is seen. No findings to indicate bowel obstruction. Richy Peña MD Chest X-Ray 08/20/17 0555 Signed Impressions: Service Date/Time: Sunday, August 20, 2017 06:15 - CONCLUSION: The lungs are clear. Kole Farley MD Objective Remarks AAox3 nad epigastric pain, abdomen soft, Bowel sounds (+) abdomen is soft, nt, nd no edema in lower extremities Medications and IVs Current Medications Medications (Trade) Dose Ordered Sig/[place] Route Start Time Stop Time Status Last Admin (NS Flush) 2 ml UNSCH PRN IV FLUSH 08/20/17 06:15 08/21/17 09:48 (Cardizem Inj) 20 mg UNSCH X1 PRN IV PUSH 08/20/17 06:45 08/20/17 06:56 (NS Flush) 2 ml UNSCH PRN IVF 08/20/17 06:30 (Pepcid Inj) 20 mg Q12HR IV PUSH 08/20/17 12:00 08/22/17 08:51 (Duoneb Neb) 1 ampule Q4HR NEB INH 08/20/17 12:00 08/22/17 15:13 (Duoneb Neb) 1 ampule Q2HR NEB PRN INH 08/20/17 11:15 Miscellaneous Information 1 Q361D XX 08/20/17 11:15 (Chlorhexidine 2% Cloth) 3 pack Taper DAILY@04 TOP 08/21/17 04:00 08/17/18 03:59 (Chlorhexidine 2% Cloth) 3 pack UNSCH PRN TOP 08/20/17 11:15 (Izbaela-Colace) 1 tab BID PO 08/20/17 21:00 08/22/17 08:51 (Milk Of Magnesia Liq) 30 ml Q12H PRN PO 08/20/17 11:15 (Senokot) 17.2 mg Q12H PRN PO 08/20/17 11:15 (Dulcolax Supp) 10 mg DAILY PRN RECTAL 08/20/17 11:15 (Lactulose Liq) 30 ml DAILY PRN PO 08/20/17 11:15 Piperacillin Sod/ Tazobactam Sod 100 ml @ 200 mls/hr Q6HR IV 08/20/17 12:00 08/22/17 11:49 (D50w (Vial) Inj) 50 ml UNSCH PRN IV PUSH 08/20/17 11:15 (Glucagon Inj) 1 mg UNSCH PRN OTHER 08/20/17 11:15 (NovoLIN R SUPPLEMENTAL SCALE) 1 Q4HR SQ 08/20/17 12:00 08/22/17 03:35 Potassium Chloride 100 ml @ 50 mls/hr Q2H PRN IV 08/20/17 11:15 Potassium Chloride 100 ml @ 50 mls/hr Q2H PRN IV 08/20/17 11:15 (K-Lyte Cl Eff) 50 meq UNSCH PRN PO 08/20/17 11:15 Potassium Chloride 100 ml @ 25 mls/hr UNSCH PRN IV 08/20/17 11:15 Potassium Chloride 100 ml @ 50 mls/hr Q2H PRN IV 08/20/17 11:15 Magnesium Sulfate 4 gm/Sodium Chloride 100 ml @ 50 mls/hr UNSCH PRN IV 08/20/17 11:15 (Mag-Ox) 800 mg UNSCH PRN PO 08/20/17 11:15 Magnesium Sulfate 2 gm/Sodium Chloride 100 ml @ 50 mls/hr UNSCH PRN IV 08/20/17 11:15 (K-Phos) 2,000 mg Q4H PRN PO 08/20/17 11:15 Sodium Phosphate 30 mmol/Sodium Chloride 250 ml @ 42 mls/hr UNSCH PRN IV 08/20/17 11:15 (K-Phos) 2,000 mg UNSCH PRN PO/TUBE 08/20/17 11:15 Potassium Phosphate 30 mmol/ Sodium Chloride 260 ml @ 42 mls/hr UNSCH PRN IV 08/20/17 11:15 Sodium Chloride 1,000 ml @ 100 mls/hr Q10H IV 08/20/17 11:15 Future Hold 08/22/17 00:05 (Ecotrin Ec) 81 mg DAILY PO 08/20/17 11:30 08/21/17 08:52 (Lanoxin Inj) 0.25 mg DAILY IV PUSH 08/21/17 09:00 08/22/17 08:52 (Tylenol) 500 mg Q6HR PRN PO 08/21/17 10:00 08/22/17 02:26 (Proair Hfa Inh) 2 puff Q4H PRN INH 08/21/17 12:00 08/22/17 08:50 (Cordarone) 200 mg Q12HR PO 08/21/17 12:00 08/22/17 08:50 (Aspirin Chew) 81 mg DAILY PO 08/21/17 11:00 08/22/17 08:50 (Cardizem) 60 mg Q6HR PO 08/21/17 12:00 08/22/17 11:49 (Pravachol) 40 mg DAILY PO 08/21/17 11:00 08/22/17 08:50 (Xarelto) 15 mg DAILY PO 08/21/17 12:00 Future Hold 08/22/17 08:50 (Effexor Xr) 150 mg DAILY PO 08/21/17 12:00 08/22/17 08:51 Patient Own Medication PT OWN MED: (Mometasone-Formotero... BID INH 08/21/17 10:45 Future Hold (SoluMEDROL INJ) 40 mg Q6HR IV PUSH 08/22/17 00:00 08/22/17 06:14 (Levaquin) 750 mg DAILY PO 08/21/17 20:00 08/22/17 08:50 (Symbicort 160-4.5 Mcg Inh) 2 puff Q12HR INH 08/21/17 21:00 08/21/17 22:14 A/P Problem List: (1) Atrial fibrillation with RVR ICD Code: I48.91 - Unspecified atrial fibrillation Status: Acute Plan: Rate controlled. Initially treated with Cardizem drip which is now off. Continue Cardizem p.o. and digoxin. Cardiology consulted. Hold Xarelto for procedure. (2) Acute pancreatitis ICD Code: K85.90 - Acute pancreatitis without necrosis or infection, unspecified Status: Acute Plan: Patient with elevated lipase at 4. 804 on admission which trended up to 1345. Lipase trending down to 396 and epigastric abdominal pain much improved. Continue to monitor abdominal pain and symptoms. Continue PPI (3) Afib ICD Code: I48.91 - Unspecified atrial fibrillation Status: Chronic Plan: EKG on admission showed atrial fibrillation with rapid ventricular response. Rate is controlled. Management with oral Cardizem and oral digoxin. (4) HTN (hypertension) ICD Code: I10 - Essential (primary) hypertension Status: Chronic Plan: Blood pressure slightly elevated but acceptable. Likely secondary to IV steroid use. Continue current antihypertensive medications which include diltiazem. Add clonidine 0.1 mg as needed for systolic blood pressure more than 160. (5) COPD with acute exacerbation ICD Code: J44.1 - Chronic obstructive pulmonary disease with (acute) exacerbation Plan: Continue IV Solu-Medrol, taper dose to 40 mg IV every 8 hours. Continue p.o. Levaquin. Nebulizer treatments with DuoNeb's. Continue supplemental oxygen to keep and oxygen saturation more than 92%. (6) Weight loss ICD Code: R63.4 - Abnormal weight loss Plan: Consult dietitian. Patient for EGD versus colonoscopy. (7) Microcytic anemia ICD Code: D50.9 - Iron deficiency anemia, unspecified Plan: Reported still like coffee grounds. Microcytic anemia. Questionable upper GI bleed. The patient was to have an EGD and colonoscopy last admission but this was not done as she did not finish prep and then left AGAINST MEDICAL ADVICE. EGD/colonoscopy January in a.m. (8) Diabetes mellitus with hyperglycemia ICD Code: E11.65 - Type 2 diabetes mellitus with hyperglycemia Plan: Patient is not on any oral hypoglycemics or insulin at home. I will check hemoglobin A1c Place the patient on SSI with insulin NovoLog, monitor Accu-Cheks and start basal bolus therapy with insulin Levemir and insulin NovoLog. Assessment and Plan DVT prophylaxis: SCDs, on Xarelto. GI prophylaxis: PPI Discharge Planning Okay to transfer to the medical floor with telemetry. Problem Qualifiers (1) Acute pancreatitis: Qualified Codes: K85.90 - Acute pancreatitis without necrosis or infection, unspecified (2) Afib: Qualified Codes: I48.2 - Chronic atrial fibrillation (3) Diabetes mellitus with hyperglycemia: Qualified Codes: E11.65 - Type 2 diabetes mellitus with hyperglycemia Booker Hinojosa MD Aug 22, 2017 15:39
--- NOTE | 2017-08-22 16:22 | HHI.GIFU ---
Subjective Remarks Upset that procedures cancelled today. Says her stool is still loose and clear. (Poornima Agrawal) Objective Vitals I&O Vital Signs Date Time Temp Pulse Resp B/P (MAP) Pulse Ox O2 Delivery O2 Flow Rate FiO2 08/22/17 16:00 85 08/22/17 15:00 98.1 89 19 153/70 (97) 96 08/22/17 15:00 83 08/22/17 14:00 93 08/22/17 12:00 95 08/22/17 11:00 89 08/22/17 11:00 97.6 90 17 153/71 (98) 98 08/22/17 10:00 98 08/22/17 09:00 114 08/22/17 08:00 95 08/22/17 07:15 97.7 98 18 148/66 (93) 96 08/22/17 07:15 86 08/22/17 06:02 92 08/22/17 05:18 90 08/22/17 04:09 80 08/22/17 03:43 78 08/22/17 03:43 98.0 83 20 145/69 (94) 97 08/22/17 02:00 86 08/22/17 01:59 84 08/22/17 00:00 88 08/21/17 23:40 87 08/21/17 23:40 98.4 87 20 145/73 (97) 100 08/21/17 22:00 98 08/21/17 21:00 90 08/21/17 20:00 90 08/21/17 19:30 80 08/21/17 19:30 98.0 94 22 145/70 (95) 98 08/21/17 18:00 101 08/21/17 17:00 92 I/O 08/21/17 08/21/17 08/21/17 08/22/17 08/22/17 08/22/17 07:00 15:00 23:00 07:00 15:00 23:00 Intake Total 240 ml 461 ml 580 ml 100 ml Output Total 950 ml 300 ml Balance -710 ml 461 ml 280 ml 100 ml Intake Oral 240 ml 480 ml IV Total 461 ml 100 ml 100 ml Output Urine Total 950 ml 300 ml # Voids 3 # Bowel Movements 1 2 2 Laboratory Laboratory Tests Test 08/21/17 18:19 08/22/17 14:13 Lipase 1345 396 White Blood Count 4.4 Red Blood Count 3.85 Hemoglobin 8.8 Hematocrit 30.8 Mean Corpuscular Volume 79.8 Mean Corpuscular Hemoglobin 22.9 Mean Corpuscular Hemoglobin Concent 28.6 Red Cell Distribution Width 18.7 Platelet Count 355 Mean Platelet Volume 7.8 Neutrophils (%) (Auto) 87.7 Lymphocytes (%) (Auto) 7.2 Monocytes (%) (Auto) 4.8 Eosinophils (%) (Auto) 0.1 Basophils (%) (Auto) 0.2 Neutrophils # (Auto) 3.9 Lymphocytes # (Auto) 0.3 Monocytes # (Auto) 0.2 Eosinophils # (Auto) 0.0 Basophils # (Auto) 0.0 CBC Comment DIFF FINAL Differential Comment Blood Urea Nitrogen 11 Creatinine 1.11 Random Glucose 224 Total Protein 6.8 Albumin 3.3 Calcium Level 8.9 Alkaline Phosphatase 71 Aspartate Amino Transf (AST/SGOT) 31 Alanine Aminotransferase (ALT/SGPT) 175 Total Bilirubin 0.5 Sodium Level 140 Potassium Level 4.0 Chloride Level 102 Carbon Dioxide Level 29.1 Anion Gap 9 Estimat Glomerular Filtration Rate 51 Date/Time Source Procedure Growth Status 08/20/17 06:15 Blood Peripheral Aerobic Blood Culture - Preliminary NO GROWTH IN 2 DAYS Resulted 08/20/17 06:15 Blood Peripheral Anaerobic Blood Culture - Preliminary NO GROWTH IN 2 DAYS Resulted Imaging Last Impressions Gall Bladder Ultrasound 08/20/17 0815 Signed Impressions: Service Date/Time: Sunday, August 20, 2017 08:33 - CONCLUSION: Normal gallbladder ultrasound Garcia Peña MD FACR Abdomen/Pelvis CT 08/20/17 0759 Signed Impressions: Service Date/Time: Sunday, August 20, 2017 09:11 - CONCLUSION: 1. The gallbladder wall appears mildly thickened. No definite inflammatory changes are seen on the CT. 2. The solid organs of the abdomen are intact. No free air or free fluid is seen. No findings to indicate bowel obstruction. Richy Peña MD Chest X-Ray 08/20/17 0555 Signed Impressions: Service Date/Time: Sunday, August 20, 2017 06:15 - CONCLUSION: The lungs are clear. Kole Farley MD Physical Exam HEENT: PERRL; normocephalic; atraumatic; no jaundice. CHEST: wheezes, rhonchi CARDIAC: RRR ABDOMEN: Soft, mildly distended, upper quadrant TTP; no hepatosplenomegaly; bowel sounds are present in all four quadrants. EXTREMITIES: No clubbing, cyanosis, or edema. SKIN: Normal; no rash; no jaundice. DIRECTOR MOBILE MEDIA SOLUTIONS: No focal deficits; alert and oriented times three. (Poornima Agrawal) Assessment and Plan Plan ASSESSMENT - epigastric pain - ?pancreatitis. lipase 2300. GB US normal. CT - anemia, stool like coffee grounds- hgb 10.9 microcytic ?ugib. was to have EGD and colonoscopy last admission but this was not done as she did not finish prep and then left AMA - elevated LFTs - actually improved from recent admission, trending down. unremarkable liver w/u. - weight loss - 100lbs in last year, unintended. last colonoscopy 8 y ago, polyps found. 08/21/17 doing better, more alert and some improvement pain after having BMs. lipase down to 804. 08/22/17 procedures postponed b/c pt had xarelto this am. xarelto held currently, will try again tomorrow HH stable PLAN - EGD colonoscopy tomorrow - clear liquids - NPO after Mn - further recs to follow pt seen by myself and Dr Flores and this note is on her behalf (Poornima Agrawal) Poornima Agrawal Aug 22, 2017 16:22 Olena Flores MD Aug 22, 2017 19:42
[2017-08-22] MEDS: INSULIN ASPART SUPPLEMENTAL SCALE SQ SCH ×2 (17:00→21:00)
[2017-08-22] MEDS: INSULIN DETEMIR 100 UNITS/ML VIAL SQ SCH (21:00)
[2017-08-22] MEDS ORDERED: methylPREDNISolone SOD SUCC 40 MG/1 ML VIAL IV PUSH SCH (21:00)
[2017-08-23 00:43] VITALS: BP 144/81; PULSE 96; RESP 20; TEMP 97.6; O2SAT 96
[2017-08-23] MEDS: BUDESONIDE-FORMOTEROL 160/4.5 MCG INHALER INH SCH ×2 (00:44→09:00)
[2017-08-23] MEDS: PIPERACIL-TAZO 4.5 GM PREMIX 100 ML IV SCH ×2 (00:45→06:32)
[2017-08-23] MEDS: RESP: ALBUTEROL 2.5 MG/IPRATROPIUM 0.5 MG NEB (SCH) INH ×2 (03:29→08:00)
[2017-08-23 04:00] VITALS: PULSE 100
[2017-08-23 04:15] VITALS: BP 139/84; PULSE 86; RESP 20; TEMP 98.1; O2SAT 98
[2017-08-23] MEDS: DILTIAZEM HCL 60 MG TAB PO SCH ×2 (06:32→15:51)
[2017-08-23] MEDS: INSULIN ASPART SUPPLEMENTAL SCALE SQ SCH ×2 (07:47→12:00)
--- NOTE | 2017-08-23 08:52 | GIPROC ---
[facility] [address] [facility]. [facility] [place], [address] EGD PROCEDURE REPORT EXAM DATE: 08/23/2017 PATIENT NAME: Telma Hampton MR #: [id number] BIRTHDATE: 1960 ATTENDING: Olena Flores MD ORDER #: [id number] SHOWROOM SALESPERSON: Katelynn Maldonado and Sofie Law STATUS: inpatient INDICATIONS: The patient is a 56 yr old female here for an EGD due to abdominal pain, gi bleeding PROCEDURE PERFORMED: EGD w/ biopsy MEDICATIONS: None and Per Anesthesia. TOPICAL ANESTHETIC: none CONSENT: The patient understands the risks and benefits of the procedure and understands that these risks include, but are not limited to: sedation, allergic reaction, infection, perforation and/or bleeding. Alternative means of evaluation and treatment include, among others: physical exam, x-rays, and/or surgical intervention. The patient elects to proceed with this endoscopic procedure. medical equipment was checked for proper function. Hand hygiene and appropriate measures for infection prevention was taken. After the risks, benefits and alternatives of the procedure were thoroughly explained, Informed consent was verified, confirmed and timeout was successfully executed by the treatment team. The patient was anesthetized with topical anesthesia and the EC-[id number] (Pedi C) endoscope was introduced through the mouth and advanced to the second portion of the duodenum. Retroflexed views revealed a hiatal hernia The gastroscope was then slowly withdrawn and removed. Gastritis antrum-biopsy duodenum normal-biopsy esophagitis distal esophagus -biopsy. ADVERSE EVENTS: There were no complications. IMPRESSIONS: 1. Gastritis antrum-biopsy duodenum normal-biopsy esophagitis distal esophagus -biopsy 2. Retroflexed views revealed a hiatal hernia RECOMMENDATIONS: 1. Await biopsy results. Biopsy results will not be ready for 7-10 days. If you don't hear from us in two weeks, call our office for biopsy results. 2. Anti-reflux regimen 3. Continue PPI PATIENT CONDITION: stable DISPOSITION: Inpatient REPEAT EXAM: Return 1 year EGD Olena Flores MD eSigned: Olena Flores MD 08/23/2017 8:52 AM cc:
--- NOTE | 2017-08-23 08:55 | GIPROC ---
[facility] [address] [facility]. [facility], [address] COLONOSCOPY PROCEDURE REPORT EXAM DATE: 08/23/2017 PATIENT NAME: Telma Hampton MR #: [id number] BIRTHDATE: 1960 ENDOSCOPIST: Olena Flores MD ORDER #: [id number] GYMNASTIC TEACHER: Vero Maldonado and Sofie Law STATUS: inpatient INDICATIONS: The patient is a 56 yr old female here for a colonoscopy due to abdominal pain, elevated cea, gi bleeding PROCEDURE PERFORMED: Colonoscopy, diagnostic MEDICATIONS: None and Per Anesthesia. PREP QUALITY: 10 % obscured PREP TYPE:Other: ESTIMATED BLOOD LOSS: None CONSENT: The patient understands the risks and benefits of the procedure and understands that these risks include, but are not limited to: sedation, allergic reaction, infection, perforation and/or bleeding. Alternative means of evaluation and treatment include, among others: physical exam, x-rays, and/or surgical intervention. The patient elects to proceed with this endoscopic procedure. medical equipment was checked for proper function. Hand hygiene and appropriate measures for infection prevention was taken. After the risks, benefits and alternatives of the procedure were thoroughly explained, Informed consent was verified, confirmed and timeout was successfully executed by the treatment team. A digital exam revealed external hemorrhoids The Pentax EC-[id number] endoscope was introduced through the anus and advanced to the cecum, which was identified by both the appendix and ileocecal valve. The instrument was then slowly withdrawn as the colon was fully examined. COLON FINDINGS: Melanosis coli semisolid stool in colon-agressive washing done. Retroflexed views revealed internal hemorrhoids and Retroflexed views revealed medium internal hemorrhoids The scope was then completely withdrawn from the patient and the procedure terminated. PROCEDURE WITHDRAWAL TIME:15minutes ADVERSE EVENTS: There were no complications. IMPRESSIONS: 1. Melanosis coli semisolid stool in colon-agressive washing done 2. Retroflexed views revealed internal hemorrhoids 3. Retroflexed views revealed medium internal hemorrhoids 4. Revealed external hemorrhoids RECOMMENDATIONS: 1. Benefiber 2 tsp daily 2. Probiotics from any C or health food store 3. Ct enterography RECALL: Return 1 year Colonoscopy Olena Flores MD eSigned: Olena Flores MD 08/23/2017 8:54 AM cc:
[2017-08-23] MEDS: LEVOFLOXACIN 750 MG TAB PO SCH (09:00)
[2017-08-23] MEDS: ASPIRIN 81 MG CHEW TAB PO SCH (09:00)
[2017-08-23] MEDS: ASPIRIN EC 81 MG TABEC PO SCH (09:00)
[2017-08-23] MEDS: VENLAFAXINE HCL XR 75 MG CAP PO SCH (09:00)
[2017-08-23] MEDS: AMIODARONE 200 MG TAB PO SCH (09:00)
[2017-08-23] MEDS: INSULIN DETEMIR 100 UNITS/ML VIAL SQ SCH (09:00)
[2017-08-23] MEDS: DOCUSATE SODIUM 50 MG/SENNA 8.6 MG TAB PO SCH (09:00)
[2017-08-23] MEDS: PRAVASTATIN SOD 40 MG TAB PO SCH (09:00)
[2017-08-23] MEDS: DIGOXIN 0.5 MG/2 ML VIAL IV PUSH SCH (09:00)
[2017-08-23] MEDS ORDERED: PRED20 PO (09:08)
--- NOTE | 2017-08-23 09:10 | HHI.DCPOC ---
Discharge Care Plan Diagnosis: (1) Diabetes mellitus with hyperglycemia (2) Microcytic anemia (3) On rivaroxaban therapy (4) Atrial fibrillation with RVR (5) Pacemaker (6) Tobacco abuse (7) COPD with acute exacerbation Goals to Promote Your Health * To prevent worsening of your condition and complications * To maintain your health at the optimal level Directions to Meet Your Goals Take your medications as prescribed Follow your dietary instruction Follow activity as directed Keep your appointments as scheduled Take your immunizations and boosters as scheduled If your symptoms worsen call your PCP, if no PCP go to Urgent Care Center or Emergency Room Smoking is Dangerous to Your Health. Avoid second hand smoke Call the 24-hour hour crisis hotline for domestic abuse at Booker Hinojosa MD Aug 23, 2017 09:10
[2017-08-23] MEDS ORDERED: PROT40TA PO (09:14)
[2017-08-23] MEDS ORDERED: PANTOPRAZOLE SOD 40 MG DELAYED RELEASE TAB PO SCH (09:15)
[2017-08-23 12:00] VITALS: BP 143/70; PULSE 97; RESP 18; TEMP 97.6; O2SAT 99
[2017-08-23] MEDS ORDERED: PHENYLEPH/NS 1000 MCG/10 ML SYR IV ONE (12:00)
[2017-08-23] MEDS ORDERED: LIDOCAINE HCL 1% PF 5 ML SYRINGE OTHER ONE (12:00)
[2017-08-23] MEDS ORDERED: PROPOFOL 200 MG/20 ML AMP IV ONE (12:00)
[2017-08-23] MEDS ORDERED: MAGNESIUM CITRATE SOLN 300 ML BTL PO ONE ×2 (12:00→18:00)
--- NOTE | 2017-08-23 13:51 | RADRPT ---
EXAM DATE/TIME: 08/23/2017 10:08 [place] COMPARISON: No previous studies available for comparison. INDICATIONS : Abdominal pain, anemia, post colonoscopy. FLUORO TIME: 1.3 minutes IMAGE COUNT: 21 CONTRAST: Entero Vu 24% Barium Sulfate (24% w/v, 20% w/w) IMAGING TIME(S): 15 min, 30 min, 45 min, 1 hr, 1.5 hrs MEDICAL HISTORY : Chronic obstructive pulmonary disease. Gastroesophageal reflux disease.Hypertension. CVA. Atrial fibr illation. Cardiomyopathy. Congestive heart failure. Diabetes SURGICAL HISTORY : Hysterectomy. Cardiac ablation. ENCOUNTER: Initial ACUITY: 4 - 6 days PAIN SCORE: 6/10 LOCATION: abdomen FINDINGS: Preliminary film demonstrates air-filled loops of small and large bowel. The stomach is grossly unremarkable. Examination of the small bowel demonstrates normal mucosal pattern involving the jejunum and ileum. There is no evidence of mass or obstruction. No intraluminal filling defects are identified. Small bowel transit time is normal at 90 minutes. Fluoroscopy of the abdomen and terminal ileum demonstrat es no abnormality. CONCLUSION: No evidence of small bowel obstruction or focal small bowel lesion. Alex Abrams MD on August 23, 2017 at 13:46 Board Certified Radiologist. This report was verified electronically.
--- NOTE | 2017-08-23 14:39 | HHI.DS ---
Discharge Summary Admission Date Aug 20, 2017 at 08:02 Discharge Date: Aug 23, 2017 Admitting Diagnosis Acute pancreatitis, Afib with RVR, COPD exacerbation (1) Atrial fibrillation with RVR ICD Code: I48.91 - Unspecified atrial fibrillation Diagnosis: Principal Status: Resolved (2) Acute pancreatitis ICD Code: K85.90 - Acute pancreatitis without necrosis or infection, unspecified Diagnosis: Principal Status: Resolved (3) Afib ICD Code: I48.91 - Unspecified atrial fibrillation Diagnosis: Principal Status: Chronic (4) HTN (hypertension) ICD Code: I10 - Essential (primary) hypertension Diagnosis: Secondary Status: Chronic (5) COPD with acute exacerbation ICD Code: J44.1 - Chronic obstructive pulmonary disease with (acute) exacerbation Diagnosis: Principal (6) Weight loss ICD Code: R63.4 - Abnormal weight loss Diagnosis: Principal (7) Microcytic anemia ICD Code: D50.9 - Iron deficiency anemia, unspecified Diagnosis: Principal (8) Diabetes mellitus with hyperglycemia ICD Code: E11.65 - Type 2 diabetes mellitus with hyperglycemia Diagnosis: Principal Procedures EGD with biopsy Brief History - From Admission Patient is a 56-year-old female with multiple medical comorbidities, which include hypertension, COPD, atrial fibrillation, on chronic anticoagulation with Xarelto, diabetes mellitus, AICD in place, and tobacco abuse. She presented to [facility] ED with shortness of breath associated with productive cough with green sputum, emesis, and abdominal pain for the past 2 days. She was recently admitted to the hospital for AFib and possible cholecystitis; however, after a few days, she left against medical advice. The patient denies any fever, chills or any constitutional symptoms. In addition, she denies any orthopnea, PND or edema of lower extremities. On arrival to the ER, she was found to be in AFib with rapid ventricular response. In the ER, she was given normal saline 1 L bolus, Lasix 40 mg IV push, Solu-Medrol 125 mg IV x 1, Cardizem 20 mg IV push x 1, and the bronchodilator treatment. A chest x-ray in ER showed clear lungs. There is no evidence of any fever or leukocytosis. Her lactic acid level measured at 1.4. The patient noted to have elevated liver enzymes with AST 45, ALT 307. Her total bilirubin level was 0.6. She underwent ultrasound of the gallbladder in the ER, which showed no evidence of any stones, wall thickening or any pericholecystic fluid. She also had a CT abdomen and pelvis, which showed the gallbladder wall mildly thickened, no definite inflammatory changes seen on the CT. No evidence of any free air or any findings to indicate bowel obstruction. The patient was placed on a Cardizem drip at 15 mg an hour when seen in the ER. Her current blood pressure 94/59 with a pulse of 119. Dr. Flores from GI service was notified by the ED. The patient appears comfortable on 2 L oxygen with saturation of 96% to 98%. CBC/BMP: 08/22/17 1413 08/22/17 1413 Significant Findings Laboratory Tests Test 08/20/17 18:35 08/21/17 02:40 08/21/17 11:25 08/21/17 18:19 White Blood Count 3.6 TH/MM3 (4.0-11.0) Red Blood Count 3.78 MIL/MM3 (4.00-5.30) Hemoglobin 8.7 GM/DL (11.6-15.3) Hematocrit 29.6 % (35.0-46.0) Mean Corpuscular Volume 78.4 FL (80.0-100.0) Mean Corpuscular Hemoglobin 22.9 PG (27.0-34.0) Mean Corpuscular Hemoglobin Concent 29.2 % (32.0-36.0) Red Cell Distribution Width 18.2 % (11.6-17.2) Neutrophils (%) (Auto) 79.6 % (16.0-70.0) Monocytes (%) (Auto) 10.5 % (0.0-8.0) Lymphocytes # (Auto) 0.4 TH/MM3 (1.0-4.8) Random Glucose 217 MG/DL (74-106) Albumin 3.1 GM/DL (3.4-5.0) Phosphorus Level 2.2 MG/DL (2.5-4.9) Alanine Aminotransferase (ALT/SGPT) 213 U/L (10-53) Estimat Glomerular Filtration Rate 63 ML/MIN (>89) Lipase 804 U/L (73-393) 1198 U/L (73-393) 1345 U/L (73-393) Test 08/22/17 14:13 Red Blood Count 3.85 MIL/MM3 (4.00-5.30) Hemoglobin 8.8 GM/DL (11.6-15.3) Hematocrit 30.8 % (35.0-46.0) Mean Corpuscular Volume 79.8 FL (80.0-100.0) Mean Corpuscular Hemoglobin 22.9 PG (27.0-34.0) Mean Corpuscular Hemoglobin Concent 28.6 % (32.0-36.0) Red Cell Distribution Width 18.7 % (11.6-17.2) Neutrophils (%) (Auto) 87.7 % (16.0-70.0) Lymphocytes (%) (Auto) 7.2 % (9.0-44.0) Lymphocytes # (Auto) 0.3 TH/MM3 (1.0-4.8) Creatinine 1.11 MG/DL (0.50-1.00) Random Glucose 224 MG/DL (74-106) Albumin 3.3 GM/DL (3.4-5.0) Alanine Aminotransferase (ALT/SGPT) 175 U/L (10-53) Estimat Glomerular Filtration Rate 51 ML/MIN (>89) Lipase 396 U/L (73-393) Imaging Last Impressions Small Bowel X-Ray 08/23/17 0000 Signed Impressions: Service Date/Time: August 10:08 - CONCLUSION: No evidence of small bowel obstruction or focal small bowel lesion. Alex Abrams MD Gall Bladder Ultrasound 08/20/17 0815 Signed Impressions: Service Date/Time: Sunday, August 20, 2017 08:33 - CONCLUSION: Normal gallbladder ultrasound Garcia Peña MD FACR Abdomen/Pelvis CT 08/20/17 0759 Signed Impressions: Service Date/Time: Sunday, August 20, 2017 09:11 - CONCLUSION: 1. The gallbladder wall appears mildly thickened. No definite inflammatory changes are seen on the CT. 2. The solid organs of the abdomen are intact. No free air or free fluid is seen. No findings to indicate bowel obstruction. Richy Peña MD Chest X-Ray 3/19/18 0555 Signed Impressions: Service Date/Time: Sunday, August 20, 2017 06:15 - CONCLUSION: The lungs are clear. Kole Farley MD PE at Discharge AAox3 nad epigastric pain, abdomen soft, Bowel sounds (+) abdomen is soft, nt, nd no edema in lower extremities Pt update on day of discharge The patient underwent an EGD with biopsy which showed gastritis of the antrum and esophagitis of the distal esophagus. Retroflexed views revealed a hiatal hernia. Gastroenterology also ordered a small bowel series x-ray which did not show any evidence of small bowel obstruction or focal small bowel lesion. Discussed the case with GI PA Eri Agrawal who cleared the patient to be discharged after discussing the case with her attending Dr. Flores. Recommended outpatient follow-up with gastroenterology for CT enterography as an outpatient. Still has residual abdominal pain which is minimal in the epigastric region, denies nausea, vomiting. Patient wants to go home. Pt Condition on Discharge: Stable Discharge Disposition: Discharge Home Discharge Time: <= 30 minutes Discharge Instructions DIET: Follow Instructions for: Diabetic Diet Activities you can perform: Regular-No Restrictions Follow up Referrals: Gastroenterology - 2 Weeks PCP Follow-up - 2 Weeks New Medications: Pantoprazole (Protonix) 40 Mg Tab 40 MG PO DAILY for Ulcer Prevention, #30 TAB 0 Refills Prednisone (Prednisone) 20 Mg Tab 20 MG PO DIRECTED for Inflammation, #11 TAB 0 Refills 20 MG twice a day x 3 days, then 20 MG daily x 3 days, then 10 MG daily x 3 days Continued Medications: Acetaminophen (Tylenol Extra Strength) 500 Mg Tablet 500 MG PO Q6HR PRN for MILD PAIN Albuterol 18 GM Inh (Ventolin Hfa 18 GM Inh) 90 Mcg/Act Aer 2 PUFF INH Q4H PRN for SHORTNESS OF BREATH, #1 INHALER 0 Refills Amiodarone (Amiodarone) 200 Mg Tab 200 MG PO Q12HR for Atrial Fibrillation, #60 TAB 0 Refills Aspirin (Aspirin) 81 Mg Chew 81 MG PO DAILY, TAB 0 Refills Diltiazem (Cardizem) 60 Mg Tab 60 MG PO Q6HR for Atrial Fibrillation, #120 TAB 0 Refills Furosemide (Furosemide) 20 Mg Tab 20 MG PO DAILY for Blood Pressure Management, #30 TAB 0 Refills Isosorbide Mononitrate ER (Isosorbide Mononitrate ER) 30 Mg Leonie 30 MG PO HS for Prevent Chest Pain, #30 TAB 0 Refills Metoprolol Tartrate (Metoprolol Tartrate) 50 Mg Tab 50 MG PO BID, #60 TAB 0 Refills Mometasone-Formoterol 120 Act Inh (Dulera 120 Act Inh) 200-5 Mcg/Act Inh 1 PUFF INH BID for Asthma Management, #1 INHALER 0 Refills Pravastatin (Pravachol) 40 Mg Tab 40 MG PO DAILY for Atrial Fibrillation, #30 TAB 0 Refills Rivaroxaban (Xarelto) 15 Mg Tab 15 MG PO DAILY for Atrial Fibrillation, #30 TAB 0 Refills Venlafaxine ER 24 HR (Effexor XR 24 HR) 150 Mg Cap 150 MG PO DAILY, #30 CAP 0 Refills [guaiFENesin ER] () 600 MG TABCR 600 MG PO BID for COPD, #60 TAB 0 Refills Booker Hinojosa MD Aug 23, 2017 14:39
[2017-08-23 14:59] LABS: HEMATOCRIT 30.3 % (35.0-46.0); HEMOGLOBIN 8.8 GM/DL (11.6-15.3); MEAN CELL VOLUME 78.3 FL (80.0-100.0); MEAN CORPUSCULAR HEMOGLOBIN 22.9 PG (27.0-34.0); MEAN PLATELET VOLUME 7.7 FL (7.0-11.0); PLATELET COUNT 368 TH/MM3 (150-450); RED BLOOD COUNT 3.87 MIL/MM3 (4.00-5.30); RED CELL DISTRIBUTION WIDTH 19.5 % (11.6-17.2); WHITE BLOOD COUNT 8.8 TH/MM3 (4.0-11.0)
[2017-08-23 15:04] LABS: MEAN CORPUSCULAR HGB CONC 29.2 % (32.0-36.0)
[2017-08-23 15:26] LABS: BICARBONATE 29.8 MEQ/L (21.0-32.0); CALCIUM 8.7 MG/DL (8.5-10.1); CREATININE 1.29 MG/DL (0.50-1.00); IRON (FE) 15 MCG/DL (50-170); MAGNESIUM 2.1 MG/DL (1.5-2.5); PHOSPHORUS 2.7 MG/DL (2.5-4.9)
[2017-08-23 15:30] LABS: % SATURATION IRON PROFILE 4.3 % (20-50); FERRITIN 71 NG/ML (8-252); TOTAL IRON BINDING CAPACITY 353 MCG/DL (250-450)
[2017-08-23] MEDS ORDERED: BISACODYL EC 5 MG TABEC PO SCH (18:00)
[2017-08-23] MEDS ORDERED: predniSONE 20 MG TAB PO SCH (21:00)
== END 2017-08-23 16:36 | disposition home or self-care (01) | DRG 308 ==
LOC: NEPE 05:38 → NEDA 08:02 → NEDH 12:55 → HCPC 22:51 → N04A 08-22 19:20
PROVIDERS: ADMIT Hospitalist; ATTEND Hospitalist
PROC: 0DB78ZX Excision of Stomach, Pylorus, Via Natural or Artificial Opening Endoscopic, Diagnostic (ICD-10-PCS; 2017-08-23)
PROC: 0DB38ZX Excision of Lower Esophagus, Via Natural or Artificial Opening Endoscopic, Diagnostic (ICD-10-PCS; 2017-08-23)
PROC: 0DJD8ZZ Inspection of Lower Intestinal Tract, Via Natural or Artificial Opening Endoscopic (ICD-10-PCS; 2017-08-23)
PROC: 0DB98ZX Excision of Duodenum, Via Natural or Artificial Opening Endoscopic, Diagnostic (ICD-10-PCS; principal; 2017-08-23 08:13)
DX: I48.2 Chronic atrial fibrillation (principal); K85.90 Acute pancreatitis without necrosis or infection, unspecified; I42.9 Cardiomyopathy, unspecified; I50.22 Chronic systolic (congestive) heart failure; E11.22 Type 2 diabetes mellitus with diabetic chronic kidney disease; I13.0 Hypertensive heart and chronic kidney disease with heart failure and stage 1 through stage 4 chronic kidney disease, or unspecified chronic kidney disease; E11.65 Type 2 diabetes mellitus with hyperglycemia; D50.9 Iron deficiency anemia, unspecified; J44.1 Chronic obstructive pulmonary disease with (acute) exacerbation; F32.9 Major depressive disorder, single episode, unspecified; E87.6 Hypokalemia; R60.0 Localized edema; K21.9 Gastro-esophageal reflux disease without esophagitis; E78.00 Pure hypercholesterolemia, unspecified; R00.0 Tachycardia, unspecified; R74.8 Abnormal levels of other serum enzymes; T38.0X5A Adverse effect of glucocorticoids and synthetic analogues, initial encounter; K29.70 Gastritis, unspecified, without bleeding; K20.9 Esophagitis, unspecified; K44.9 Diaphragmatic hernia without obstruction or gangrene; N18.9 Chronic kidney disease, unspecified; J44.9 Chronic obstructive pulmonary disease, unspecified; R63.4 Abnormal weight loss; F17.210 Nicotine dependence, cigarettes, uncomplicated; Z95.810 Presence of automatic (implantable) cardiac defibrillator; Z79.01 Long term (current) use of anticoagulants; Z86.73 Personal history of transient ischemic attack (TIA), and cerebral infarction without residual deficits; Z68.32 Body mass index [BMI] 32.0-32.9, adult; Z83.3 Family history of diabetes mellitus; Z82.49 Family history of ischemic heart disease and other diseases of the circulatory system
CPT/HCPCS: 71045; 74177; 74250; 76705; 76937; 80048; 80053; 80074; 81001; 82140; 82550; 82552; 82728; 82948; 83540; 83550; 83605; 83690; 83735; 83880; 84100; 84484; 85025; 85027; 85610; 85730; 86140; 87040; 88305; 88312; 93005; 94640; 94664; 96365; 96375; 96376; J1160; J1940; J2370; J2543; J2920; J2930; J3480; J7030; Q9967

== ENCOUNTER 2017-08-26 17:37 | Inpatient (IN) | payer BC ==
[2017-08-26] VITALS (11 sets, daily range): BP systolic 94–159; BP diastolic 53–96; PULSE 86–154; RESP 18–32; TEMP 98.1; O2SAT 95–100
[~2017-08-26 17:37] MED LIST changes: +PRED20 PO; +PROT40TA PO
[2017-08-26] MEDS ORDERED: DILTIAZEM HCL 50 MG/10 ML VIAL ONE (18:08)
[2017-08-26] MEDS ORDERED: DILTIAZEM HCL 25 MG/5 ML VIAL IV PUSH ONE (18:15)
[2017-08-26] MEDS ORDERED: SODIUM CHLORIDE 0.9% FLUSH 10 ML FLUSH IVF PRN (18:15)
[2017-08-26] MEDS ORDERED: LORazepam 2 MG/ML VIAL IV PUSH ONE (18:15)
[2017-08-26] MEDS ORDERED: methylPREDNISolone SOD SUCC 125 MG/2 ML VIAL IV PUSH ONE (18:15)
--- NOTE | 2017-08-26 18:18 | RADRPT ---
EXAM DATE/TIME: 08/26/2017 18:08 [facility] COMPARISON: CHEST SINGLE AP, August 20, 2017, 6:15. INDICATIONS : Shortness of breath and chest pain for 3 days. MEDICAL HISTORY : Chronic obstructive pulmonary disease. Congestive heart failure. Diabetes mellitus type II. Atria l fibrillation. Current smoker. SURGICAL HISTORY : Pacemaker. ENCOUNTER: Initial ACUITY: 3 days PAIN SCORE: 9/10 LOCATION: Bilateral chest FINDINGS: A single view of the chest demonstrates the lungs to be symmetrically aerated without evidence of mas s, infiltrate or effusion. The cardiomediastinal contours are unremarkable. There is a pacing/AICD device in place from the left subclavian approach. Osseous structures are intact. CONCLUSION: No acute disease. Khadar Keith MD on August 26, 2017 at 18:15 Board Certified Radiologist. This report was verified electronically.
--- NOTE | 2017-08-26 18:29 | PD ---
HPI Chief Complaint: Respiratory Symptoms Time Seen by Provider: 17:55 Travel History International Travel<30 days: No Contact w/Intl Traveler<30days: No Traveled to known affect area: No History of Present Illness HPI Patient is a 56-year-old female presents emergency department for evaluation of shortness of breath and palpitations. Patient has a a history of COPD and atrial fibrillation with RVR. Patient is unsure if she has been taking her medicines or not, she states she went to the pharmacy and they did not have all of her medications. She is quite anxious on arrival and cannot really tell me which medicines she has been taking. She has had multiple admissions this year for same, in fact in the past 30 days I count 5 admissions to the hospital for similar presentations. Patient states he was supposed to go home on oxygen on her last admission but she never received it. Her last admission she also is being treated for pneumonia. No fevers no cough congestion this time. She continues to smoke a half pack per day. States there is nothing different about this exacerbation in her previous exacerbations but ever since being discharged from the hospital yesterday she has been having gradually increasing shortness of breath. PFSH Past Medical History Hx Anticoagulant Therapy: Yes (Xarelto) Atrial Fibrillation: Yes Anxiety: No Depression: Yes Cancer: No Cardiovascular Problems: Yes (HTN, A-fib, AICD, cadiomyopathy, CHF) High Cholesterol: Yes Chest Pain: No Congestive Heart Failure: Yes COPD: Yes Cerebrovascular Accident: Yes (2014) Coronary Artery Disease: Yes Diabetes: Yes Patient Takes Glucophage: No Diminished Hearing: No Endocrine: Yes Gastrointestinal Disorders: Yes (GERD) GERD: Yes Glaucoma: No Genitourinary: Yes (HESITANCY) Headaches: Yes Hepatitis: No Hiatal Hernia: No Hypertension: Yes Immune Disorder: No Implanted Vascular Access Dvce: Yes Musculoskeletal: No Neurologic: Yes (BAD BALANCE) Psychiatric: Yes Reproductive: No Respiratory: Yes (COPD) Integumentary: No Thyroid Disease: No Tetanus Vaccination: > 5 Years Influenza Vaccination: No ?: Not Past Surgical History Body Medical Devices: AICD Cardiac Surgery: Yes (ABLATION X2) Hysterectomy: Yes Pacemaker: Yes Thoracic Surgery: Yes (AICD LEFT CHEST MEDTRONIC ) Other Surgery: Yes Social History Alcohol Use: No Tobacco Use: Yes (1PPD) Substance Use: No Allergies-Medications (Allergen,Severity, Reaction): Coded Allergies: prednisone (Verified Allergy, Severe, hives, 08/26/17) sertraline (Verified Allergy, Severe, hives, 08/26/17) verapamil (Verified Allergy, Severe, rash, 08/26/17) Reported Meds & Prescriptions Reported Meds & Active Scripts Active Protonix (Pantoprazole Sodium) 40 Mg Tab 40 Mg PO DAILY Prednisone 20 Mg Tab 20 Mg PO DIRECTED 20 MG twice a day x 3 days, then 20 MG daily x 3 days, then 10 MG daily x 3 days [guaiFENesin ER] 600 MG Tabcr 600 Mg PO BID Cardizem (Diltiazem HCl) 60 Mg Tab 60 Mg PO Q6HR Pravachol (Pravastatin) 40 Mg Tab 40 Mg PO DAILY Amiodarone (Amiodarone HCl) 200 Mg Tab 200 Mg PO Q12HR Xarelto (Rivaroxaban) 15 Mg Tab 15 Mg PO DAILY Metoprolol Tartrate 50 Mg Tab 50 Mg PO BID Furosemide 20 Mg Tab 20 Mg PO DAILY Ventolin Hfa 18 GM Inh (Albuterol Sulfate) 90 Mcg/Act Aer 2 Puff INH Q4H PRN Reported Effexor XR 24 HR (Venlafaxine HCl) 150 Mg Cap 150 Mg PO DAILY Tylenol Extra Strength (Acetaminophen) 500 Mg Tablet 500 Mg PO Q6HR PRN Isosorbide Mononitrate ER (Isosorbide Mononitrate) 30 Mg Leonie 30 Mg PO HS Dulera 120 Act Inh (Mometasone-Formoterol 120 Act Inh) 200-5 Mcg/Act Inh 1 Puff INH BID Aspirin 81 Mg Chew 81 Mg PO DAILY Review of Systems Except as stated in HPI: all other systems reviewed are Neg Physical Exam Narrative GENERAL: Well-developed well-nourished appears very anxious peer SKIN: Focused skin assessment warm/dry. HEAD: Atraumatic. Normocephalic. EYES: Pupils equal and round. No scleral icterus. No injection or drainage. ENT: No nasal bleeding or discharge. Mucous membranes pink and moist. NECK: Trachea midline. No JVD. CARDIOVASCULAR: R irregularly irregular and tachycardic. No murmur appreciated. RESPIRATORY: No accessory muscle use. Clear to auscultation. Breath sounds equal bilaterally. Patient has scattered inspiratory and expiratory wheezing. She has good air entry bilaterally. GASTROINTESTINAL: Abdomen soft, non-tender, nondistended. Hepatic and splenic margins not palpable. MUSCULOSKELETAL: No obvious deformities. No clubbing. No cyanosis. No edema. NEUROLOGICAL: Awake and alert. No obvious cranial nerve deficits. Motor grossly within normal limits. Normal speech. PSYCHIATRIC: Appropriate mood and affect; insight and judgment normal. Data Data Last Documented VS Vital Signs Date Time Temp Pulse Resp B/P (MAP) Pulse Ox O2 Delivery O2 Flow Rate FiO2 08/26/17 18:06 Nasal Cannula 2.00 08/26/17 18:00 148 25 146/96 (113) 97 08/26/17 17:44 98.1 Orders Orders Electrocardiogram (08/26/17 18:02) Complete Blood Count With Diff (08/26/17 18:02) Comprehensive Metabolic Panel (08/26/17 18:02) Chest, Single Ap (08/26/17 18:02) Ecg Monitoring (08/26/17 18:02) Iv Access Insert/Monitor (08/26/17 18:02) Oximetry (08/26/17 18:02) Oxygen Administration (08/26/17 18:02) Methylprednisolone So Succ Inj (Solumedr (08/26/17 18:15) Albuterol-Ipratropium Neb (Duoneb Neb) (08/26/17 18:15) Sodium Chloride 0.9% Flush (Ns Flush) (08/26/17 18:15) Diltiazem Inj (Cardizem Inj) (08/26/17 18:15) Lorazepam Inj (Ativan Inj) (08/26/17 18:15) Diltiazem Inj (Cardizem Inj) (08/26/17 18:08) Vital Signs (Adult) Q15MX4,Q4H (08/26/17 19:05) Cardiac Rhythm MILAGROS.Q8H (08/26/17 19:05) Notify Dr: Other (08/26/17 19:05) Diltiazem Inj (Cardizem Inj) (08/26/17 19:15) Diltiazem Inj (Cardizem Inj) (08/26/17 19:30) Admit Order (Ed Use Only) (08/26/17 ) Labs Laboratory Tests Test 08/26/17 18:15 White Blood Count 10.5 TH/MM3 Red Blood Count 3.97 MIL/MM3 Hemoglobin 9.9 GM/DL Hematocrit 30.6 % Mean Corpuscular Volume 77.1 FL Mean Corpuscular Hemoglobin 24.9 PG Mean Corpuscular Hemoglobin Concent 32.3 % Red Cell Distribution Width 19.3 % Platelet Count 493 TH/MM3 Mean Platelet Volume 7.7 FL Neutrophils (%) (Auto) 74.2 % Lymphocytes (%) (Auto) 17.8 % Monocytes (%) (Auto) 6.3 % Eosinophils (%) (Auto) 1.1 % Basophils (%) (Auto) 0.6 % Neutrophils # (Auto) 7.8 TH/MM3 Lymphocytes # (Auto) 1.9 TH/MM3 Monocytes # (Auto) 0.7 TH/MM3 Eosinophils # (Auto) 0.1 TH/MM3 Basophils # (Auto) 0.1 TH/MM3 CBC Comment DIFF FINAL Differential Comment Blood Urea Nitrogen 11 MG/DL Creatinine 1.18 MG/DL Random Glucose 162 MG/DL Total Protein 6.9 GM/DL Albumin 3.1 GM/DL Calcium Level 9.2 MG/DL Alkaline Phosphatase 78 U/L Aspartate Amino Transf (AST/SGOT) 23 U/L Alanine Aminotransferase (ALT/SGPT) 70 U/L Total Bilirubin 0.5 MG/DL Sodium Level 143 MEQ/L Potassium Level 3.5 MEQ/L Chloride Level 101 MEQ/L Carbon Dioxide Level 32.3 MEQ/L Anion Gap 10 MEQ/L Estimat Glomerular Filtration Rate 48 ML/MIN [facility] Medical Decision Making Medical Screen Exam Complete: Yes Emergency Medical Condition: Yes Differential Diagnosis COPD exacerbation, pneumonia, anxiety, atrial fibrillation RVR. Narrative Course Patient room to the emergency department, Atjj Hoang and Cardizem is been ordered. Patient labs, CXR reassuring. Patient initial bolus of cardizem had very little effect. Additional bolus given and will start on a drip. There is some social aspects here that i believe in effect causing non-compliance. Patient discussed with Dr. Donald for admission to Intermediate care unit. Diagnosis Primary Impression: Atrial fibrillation with RVR Admitting Information Admitting Physician Requests: Admit Condition: Stable Alex Nolasco MD Aug 26, 2017 18:29
[2017-08-26] MEDS: RESP: ALBUTEROL 2.5 MG/IPRATROPIUM 0.5 MG NEB (SCH) INH (18:34)
[2017-08-26 18:40] LABS: AUTOMATED NEUTROPHIL # 7.8 TH/MM3 (1.8-7.7); BASOPHIL # 0.1 TH/MM3 (0-0.2); BASOPHIL % 0.6 % (0.0-2.0); EOSINOPHIL # 0.1 TH/MM3 (0-0.4); EOSINOPHIL % 1.1 % (0.0-4.0); HEMATOCRIT 30.6 % (35.0-46.0); HEMOGLOBIN 9.9 GM/DL (11.6-15.3); LYMPH % 17.8 % (9.0-44.0); LYMPHOCYTE # 1.9 TH/MM3 (1.0-4.8); MEAN CELL VOLUME 77.1 FL (80.0-100.0); MEAN CORPUSCULAR HEMOGLOBIN 24.9 PG (27.0-34.0); MEAN CORPUSCULAR HGB CONC 32.3 % (32.0-36.0); MEAN PLATELET VOLUME 7.7 FL (7.0-11.0); MONO % 6.3 % (0.0-8.0); MONOCYTE # 0.7 TH/MM3 (0-0.9); NEUT % 74.2 % (16.0-70.0); PLATELET COUNT 493 TH/MM3 (150-450); RED BLOOD COUNT 3.97 MIL/MM3 (4.00-5.30); RED CELL DISTRIBUTION WIDTH 19.3 % (11.6-17.2); WHITE BLOOD COUNT 10.5 TH/MM3 (4.0-11.0)
[2017-08-26 18:54] LABS: ALBUMIN 3.1 GM/DL (3.4-5.0); ALT (GPT) 70 U/L (10-53); AST (GOT) 23 U/L (15-37); BICARBONATE 32.3 MEQ/L (21.0-32.0); BLOOD UREA NITROGEN 11 MG/DL (7-18); CALCIUM 9.2 MG/DL (8.5-10.1); CHLORIDE 101 MEQ/L (98-107); CREATININE 1.18 MG/DL (0.50-1.00); GLOMERULAR FILTRATION RATE 48 ML/MIN (>89); GLUCOSE,RANDOM 162 MG/DL (74-106); SODIUM (NA) 143 MEQ/L (136-145)
[2017-08-26 18:57] LABS: ALKALINE PHOSPHATASE 78 U/L (45-117); TOTAL BILIRUBIN ADULT 0.5 MG/DL (0.2-1.0); TOTAL PROTEIN 6.9 GM/DL (6.4-8.2)
[2017-08-26] MEDS ORDERED: DILTIAZEM INJ 125 MG in SODIUM CHLORIDE 0.9% INJ 100 ML IV PRN (19:15)
[2017-08-26] MEDS ORDERED: RESP: ALBUTEROL 2.5 MG/IPRATROPIUM 0.5 MG NEB (PRN) NEB (19:30)
[2017-08-26] MEDS ORDERED: BISACODYL 10 MG SUPP RECTAL PRN (19:30)
[2017-08-26] MEDS ORDERED: ACETAMINOPHEN/HYDROcodone 325 MG/5 MG TAB PO PRN (19:30)
[2017-08-26] MEDS ORDERED: ACETAMINOPHEN 325 MG TAB PO PRN (19:30)
[2017-08-26] MEDS ORDERED: LACTULOSE SYRUP 20 GM/30 ML CUP PO PRN (19:30)
[2017-08-26] MEDS ORDERED: MORPHINE SULFATE 2 MG/ML INJ IV PUSH PRN (19:30)
[2017-08-26] MEDS ORDERED: DILTIAZEM HCL 25 MG/5 ML VIAL IV PUSH PRN (19:30)
[2017-08-26] MEDS ORDERED: SODIUM CHLORIDE 0.9% FLUSH 10 ML FLUSH IV FLUSH PRN (19:30)
[2017-08-26] MEDS ORDERED: ONDANSETRON HCL 4 MG/2 ML VIAL IVP PRN (19:30)
[2017-08-26] MEDS ORDERED: SENNOSIDES 8.6 MG TAB PO PRN (19:30)
[2017-08-26] MEDS ORDERED: MAGNESIUM HYDROXIDE SUSP 30 ML CUP PO PRN (19:30)
--- NOTE | 2017-08-26 19:35 | HHI.HP ---
HPI Service [facility] Primary Care Physician Liz Thorne M.D. Admission Diagnosis Afib RVR Diagnoses: (1) Atrial fibrillation with RVR Diagnosis: Principal (2) COPD (chronic obstructive pulmonary disease) Diagnosis: Principal (3) Non-compliance Diagnosis: Principal (4) Renal insufficiency Diagnosis: Principal (5) Tobacco abuse Diagnosis: Principal Travel History International Travel<30 Days: No Contact w/Intl Traveler <30 Da: No Traveled to Known Affected Are: No History of Present Illness This is a 56-year-old female with a PMH of HTN, Depression, A. fib on Xarelto, COPD, Hyperlipidemia, Tobacco Abuse and Noncompliance who presented to the ER with complaints of SOB and palpitations. On arrival, noted to be in A-fib w/ RVR, HR 140's. Patient with multiple ER presentations for same, known to be noncompliant with medications, continues to smoke. Recent admit 08/20-08/23/17 for same, A-fib w/ RVR and COPD. States she was discharged "with 10 medications " however the pharmacy only had 4 prescriptions ready for her and tells me she is only taking 3 of those medications, but cannot tell me which ones. Denies chest pain or cough. No fever, chills or sick contacts. On arrival, BP 159/74 , HR 154, O2 sat 95% RA, Afebrile. CBC at baseline. Chemistry at baseline, creatinine 1.18, previously 1.29 on 08/23/2017. CXR with no acute findings. + wheezing on exam. S/p Solu-Medrol and DuoNeb. Currently on Cardizem gtt. Review of Systems Except as stated in HPI: all other systems reviewed are Neg ROS: 14 point review of systems otherwise negative. Past Family Social History Past Medical History PMH: HTN, Depression, A. fib on Xarelto, COPD, Hyperlipidemia, Tobacco Abuse and Noncompliance Past Surgical History PAST SURGICAL HISTORY: AICD, Cardiac Ablation, Hysterectomy Allergies: Coded Allergies: prednisone (Verified Allergy, Severe, hives, 08/26/17) sertraline (Verified Allergy, Severe, hives, 08/26/17) verapamil (Verified Allergy, Severe, rash, 08/26/17) Family History PAST FAMILY HISTORY: Reviewed. No h/o DM or CAD Social History PAST SOCIAL HISTORY: Negative for alcohol or drugs. Smokes 1ppd Physical Exam Vital Signs Vital Signs Date Time Temp Pulse Resp B/P (MAP) Pulse Ox O2 Delivery O2 Flow Rate FiO2 08/26/17 18:06 Nasal Cannula 2.00 08/26/17 18:00 148 25 146/96 (113) 97 Nasal Cannula 2.00 08/26/17 17:54 Nasal Cannula 2.00 08/26/17 17:45 96 Room Air 08/26/17 17:44 98.1 154 18 159/71 (100) 95 Physical Exam PE: GENERAL: Middle-aged white female in no acute distress. Smells strongly of cigarettes. HEENT: PERRLA, EOMI. No scleral icterus or conjunctival pallor. No lid lag or facial droop. CARDIOVASCULAR: Irregularly irregular, in A. fib, HR 90s. No obvious murmurs to auscultation. No chest tenderness to palpation. RESPIRATORY: No obvious rhonchi. Occasional wheezing. Clear to auscultation. Breath sounds equal bilaterally. GASTROINTESTINAL: Abdomen soft, non-tender, nondistended. BS normal. MUSCULOSKELETAL: Extremities without clubbing, cyanosis, or edema. No obvious deformities. NEUROLOGICAL: Awake, alert and oriented x4. No focal neurologic deficits. Moving both upper and lower extremities spontaneously. Laboratory Laboratory Tests Test 08/26/17 18:15 White Blood Count 10.5 Red Blood Count 3.97 Hemoglobin 9.9 Hematocrit 30.6 Mean Corpuscular Volume 77.1 Mean Corpuscular Hemoglobin 24.9 Mean Corpuscular Hemoglobin Concent 32.3 Red Cell Distribution Width 19.3 Platelet Count 493 Mean Platelet Volume 7.7 Neutrophils (%) (Auto) 74.2 Lymphocytes (%) (Auto) 17.8 Monocytes (%) (Auto) 6.3 Eosinophils (%) (Auto) 1.1 Basophils (%) (Auto) 0.6 Neutrophils # (Auto) 7.8 Lymphocytes # (Auto) 1.9 Monocytes # (Auto) 0.7 Eosinophils # (Auto) 0.1 Basophils # (Auto) 0.1 CBC Comment DIFF FINAL Differential Comment Blood Urea Nitrogen 11 Creatinine 1.18 Random Glucose 162 Total Protein 6.9 Albumin 3.1 Calcium Level 9.2 Alkaline Phosphatase 78 Aspartate Amino Transf (AST/SGOT) 23 Alanine Aminotransferase (ALT/SGPT) 70 Total Bilirubin 0.5 Sodium Level 143 Potassium Level 3.5 Chloride Level 101 Carbon Dioxide Level 32.3 Anion Gap 10 Estimat Glomerular Filtration Rate 48 Result Diagram: 08/26/17181408/26/171814 Caprini VTE Risk Assessment Caprini VTE Risk Assessment: Mod/High Risk (score >= 2) Caprini Risk Assessment Model Point Value = 1 Point Value = 2 Point Value = 3 Point Value = 5 Age 41-60 Minor surgery BMI > 25 kg/m2 Swollen legs Varicose veins or History of unexplained or recurrent spontaneous Oral contraceptives or hormone replacement Sepsis (< 1 month) Serious lung disease, including pneumonia (< 1 month) Abnormal pulmonary function Acute myocardial infarction Congestive heart failure (< 1 month) History of inflammatory bowel disease Medical patient at bed rest Age 61-74 Arthroscopic surgery Major open surgery (> 45 min) Laparoscopic surgery (> 45 min) Malignancy Confined to bed (> 72 hours) Immobilizing plaster cast Central venous access Age >= 75 History of VTE Family history of VTE Factor V Leiden Prothrombin [id number] Lupus anticoagulant Anticardiolipin antibodies Elevated serum homocysteine Heparin-induced thrombocytopenia Other congenital or acquired thrombophilia Stroke (< 1 month) Elective arthroplasty Hip, pelvis, or leg fracture Acute spinal cord injury (< 1 month) Prophylaxis Regimen Total Risk Factor Score Risk Level Prophylaxis Regimen 0-1 Low Early ambulation 2 Moderate Order ONE of the following: *Sequential Compression Device (SCD) *Heparin 5000 units SQ BID 3-4 Higher Order ONE of the following medications: *Heparin 5000 units SQ TID *Enoxaparin/Lovenox 40 mg SQ daily (WT < 150 kg, CrCl > 30 mL/min) *Enoxaparin/Lovenox 30 mg SQ daily (WT < 150 kg, CrCl > 10-29 mL/min) *Enoxaparin/Lovenox 30 mg SQ BID (WT < 150 kg, CrCl > 30 mL/min) AND/OR *Sequential Compression Device (SCD) 5 or more Highest Order ONE of the following medications: *Heparin 5000 units SQ TID (Preferred with Epidurals) *Enoxaparin/Lovenox 40 mg SQ daily (WT < 150 kg, CrCl > 30 mL/min) *Enoxaparin/Lovenox 30 mg SQ daily (WT < 150 kg, CrCl > 10-29 mL/min) *Enoxaparin/Lovenox 30 mg SQ BID (WT < 150 kg, CrCl > 30 mL/min) AND *Sequential Compression Device (SCD) Assessment and Plan Problem List: (1) Atrial fibrillation with RVR ICD Code: I48.91 - Unspecified atrial fibrillation Status: Resolved (2) COPD (chronic obstructive pulmonary disease) ICD Code: J44.9 - Chronic obstructive pulmonary disease, unspecified Status: Chronic (3) Renal insufficiency ICD Code: N28.9 - Disorder of kidney and ureter, unspecified (4) Non-compliance ICD Code: Z91.19 - Patient's noncompliance with other medical treatment and regimen (5) Tobacco abuse ICD Code: Z72.0 - Tobacco use Status: Chronic Assessment and Plan A/P: 1. A. fib: w/ RVR. Recently d/c'd 08/23/17 for A-fib w/ RVR, non-compliant w/ medications, HR 150's on arrival, currently on Cardizem gtt. Admit to [facility], continue Cardizem gtt, wean as tolerated, resume home Amiodarone, Metoprolol, transition to PO Cardizem. 2. COPD: Chronic Respiratory Failure w/ Acute Exacerbation. Moderate-Severe. Non-compliant, continues to smoke. DuoNeb q4/q2h prn, substitute w/ Xopenex in light of A-fib. Symbicort, Solu-Medrol, Mucinex. Monitor O2. 3. Non-Compliance: multiple admits for same due to non-compliance, has LEFT AMA on previous admissions, had lengthy conversation w/ patient and daughter at bedside regarding need for compliance. Pt relays understanding, however it is apparent pt has little interest in adhering to medical regimen. 4. Renal Insufficiency: Chronic. Creatinine 1.18, previously 1.29 on 2017. Monitor I/O. Repeat labs in a.m. 5. Tobacco Abuse: Patient counseled extensively on the need to quit. Ativan prn. No NicoDerm to avoid vasoconstriction. 6. DVT Prophylaxis: Resume Xarelto 7. Social work for DC planning as needed. 8. Case discussed at length with the ER physician, lab/records/imaging reviewed by me. Physician Certification 2 Midnight Certification Type: Admission for Inpatient Services Order for Inpatient Services The services are ordered in accordance with Medicare regulations or non- Medicare payer requirements, as applicable. In the case of services not specified as inpatient-only, they are appropriately provided as inpatient services in accordance with the 2-midnight benchmark. Estimated LOS (days): 2 days is the estimated time the patient will need to remain in the hospital, assuming treatment plan goals are met and no additional complications. Post-Hospital Plan: Not yet determined Anu Donald MD Aug 26, 2017 19:35
[2017-08-26] MEDS ORDERED: DILTIAZEM HCL 50 MG/10 ML VIAL IV PRN ×2 (19:45)
[2017-08-26] MEDS: RESP: ALBUTEROL 2.5 MG/IPRATROPIUM 0.5 MG NEB (SCH) NEB (19:56)
[2017-08-26] MEDS: SODIUM CHLORIDE 0.9% FLUSH 10 ML FLUSH IV FLUSH SCH (21:00)
[2017-08-26] MEDS: BUDESONIDE-FORMOTEROL 160/4.5 MCG INHALER INH SCH (21:00)
[2017-08-26] MEDS ORDERED: SODIUM CHLORID 0.9% 500 ML INJ 500 ML IV ONE (22:15)
[2017-08-26] MEDS: ISOSORBIDE MONONITRATE 30 MG CR TAB (IMDUR) PO SCH (22:17)
[2017-08-26] MEDS: guaiFENesin E.R. 600 MG TAB PO SCH (22:17)
[2017-08-26] MEDS: AMIODARONE 200 MG TAB PO SCH (22:17)
[2017-08-26] MEDS: DOCUSATE SODIUM 50 MG/SENNA 8.6 MG TAB PO SCH (22:18)
[2017-08-26] MEDS: METOPROLOL TARTRATE 50 MG TAB PO SCH (22:18)
[2017-08-27] VITALS (21 sets, daily range): BP systolic 92–131; BP diastolic 54–79; PULSE 65–92; RESP 16–21; TEMP 97.2–98.6; O2SAT 95–100
[2017-08-27] MEDS: methylPREDNISolone SOD SUCC 40 MG/1 ML VIAL IV PUSH SCH ×4 (05:54→18:14)
[2017-08-27 06:12] LABS: ALBUMIN 2.9 GM/DL (3.4-5.0); ALKALINE PHOSPHATASE 75 U/L (45-117); ALT (GPT) 59 U/L (10-53); AST (GOT) 12 U/L (15-37); BICARBONATE 29.9 MEQ/L (21.0-32.0); BLOOD UREA NITROGEN 16 MG/DL (7-18); CALCIUM 8.8 MG/DL (8.5-10.1); CHLORIDE 100 MEQ/L (98-107); CREATININE 1.29 MG/DL (0.50-1.00); GLOMERULAR FILTRATION RATE 43 ML/MIN (>89); GLUCOSE,RANDOM 325 MG/DL (74-106); SODIUM (NA) 139 MEQ/L (136-145); TOTAL BILIRUBIN ADULT 0.5 MG/DL (0.2-1.0); TOTAL PROTEIN 6.2 GM/DL (6.4-8.2)
[2017-08-27 06:32] LABS: AUTOMATED NEUTROPHIL # 6.7 TH/MM3 (1.8-7.7); BASOPHIL % 0.1 % (0.0-2.0); HEMATOCRIT 30.6 % (35.0-46.0); HEMOGLOBIN 8.8 GM/DL (11.6-15.3); LYMPH % 6.5 % (9.0-44.0); LYMPHOCYTE # 0.5 TH/MM3 (1.0-4.8); MEAN CELL VOLUME 79.7 FL (80.0-100.0); MEAN CORPUSCULAR HEMOGLOBIN 23.1 PG (27.0-34.0); MEAN PLATELET VOLUME 7.8 FL (7.0-11.0); MONO % 1.5 % (0.0-8.0); MONOCYTE # 0.1 TH/MM3 (0-0.9); NEUT % 91.9 % (16.0-70.0); PLATELET COUNT 452 TH/MM3 (150-450); RED BLOOD COUNT 3.83 MIL/MM3 (4.00-5.30); RED CELL DISTRIBUTION WIDTH 19.4 % (11.6-17.2); WHITE BLOOD COUNT 7.3 TH/MM3 (4.0-11.0)
[2017-08-27] MEDS: RESP: ALBUTEROL 2.5 MG/IPRATROPIUM 0.5 MG NEB (SCH) NEB ×4 (08:18→20:12)
[2017-08-27] MEDS ORDERED: HEPARIN SODIUM - SQ 10,000 UNITS/ML VIAL SQ SCH (09:00)
[2017-08-27] MEDS ORDERED: GUAI600T11 PO (10:12)
[2017-08-27] MEDS: RIVAROXABAN 15 MG TAB PO SCH (10:37)
[2017-08-27] MEDS: PRAVASTATIN SOD 40 MG TAB PO SCH (10:37)
[2017-08-27] MEDS: guaiFENesin E.R. 600 MG TAB PO SCH ×2 (10:37→21:21)
[2017-08-27] MEDS: VENLAFAXINE HCL XR 75 MG CAP PO SCH (10:38)
[2017-08-27] MEDS: AMIODARONE 200 MG TAB PO SCH ×2 (10:38→21:21)
[2017-08-27] MEDS: BUDESONIDE-FORMOTEROL 160/4.5 MCG INHALER INH SCH ×2 (10:40→21:22)
[2017-08-27] MEDS: PANTOPRAZOLE SOD 40 MG DELAYED RELEASE TAB PO SCH (10:46)
[2017-08-27] MEDS: ASPIRIN 81 MG CHEW TAB PO SCH (10:47)
[2017-08-27] MEDS: DOCUSATE SODIUM 50 MG/SENNA 8.6 MG TAB PO SCH ×2 (10:47→21:20)
[2017-08-27] MEDS: FUROSEMIDE 20 MG TAB PO SCH (13:00)
[2017-08-27] MEDS: METOPROLOL TARTRATE 50 MG TAB PO SCH ×2 (13:00→21:21)
[2017-08-27] MEDS: SODIUM CHLORIDE 0.9% FLUSH 10 ML FLUSH IV FLUSH SCH ×2 (13:00→21:21)
--- NOTE | 2017-08-27 14:18 | HHI.PR ---
Subjective Remarks Patient reports she is feeling better. She states she does not take the medications because she cannot afford them. Breathing more comfortably. Rate controlled. Objective Vitals Vital Signs Date Time Temp Pulse Resp B/P (MAP) Pulse Ox O2 Delivery O2 Flow Rate FiO2 08/27/17 13:01 89 16 129/66 (87) 99 Room Air 08/27/17 11:48 15 08/27/17 09:19 82 16 122/63 (82) 100 Nasal Cannula 2.00 08/27/17 09:00 85 122/63 08/27/17 08:19 97 Nasal Cannula 3.00 08/27/17 05:59 65 16 109/59 (76) 98 Nasal Cannula 2.00 08/27/17 05:07 68 16 97/58 (71) 98 Nasal Cannula 2.00 08/27/17 03:15 87 16 105/59 (74) 100 Nasal Cannula 2.00 08/27/17 01:25 69 19 92/54 (67) 100 Nasal Cannula 2.00 08/27/17 00:30 88 21 101/73 (82) 100 Nasal Cannula 2.00 08/27/17 00:04 100 Nasal Cannula 3.00 08/27/17 00:00 86 20 98/78 (85) 100 Nasal Cannula 2.00 08/26/17 23:30 88 20 97/57 (70) 100 Nasal Cannula 2.00 08/26/17 23:00 94 23 115/57 (76) 100 Nasal Cannula 2.00 08/26/17 22:24 86 18 106/71 (83) 100 Nasal Cannula 2.00 08/26/17 20:45 108 23 105/58 (74) 99 Nasal Cannula 2.00 08/26/17 20:30 100 24 112/56 (74) 99 Nasal Cannula 2.00 08/26/17 20:15 100 25 105/73 (84) 100 Nasal Cannula 2.00 08/26/17 20:00 102 32 103/65 (78) 100 Nasal Cannula 2.00 08/26/17 19:44 88 20 94/53 (67) 98 Nasal Cannula 3.00 08/26/17 19:37 123 131/69 08/26/17 18:06 Nasal Cannula 2.00 08/26/17 18:00 148 25 146/96 (113) 97 Nasal Cannula 2.00 08/26/17 17:54 Nasal Cannula 2.00 08/26/17 17:45 96 Room Air 08/26/17 17:44 98.1 154 18 159/71 (100) 95 I/O 08/26/17 08/26/17 08/26/17 08/27/17 08/27/17 08/27/17 07:00 15:00 23:00 07:00 15:00 23:00 Intake Total 500 ml Output Total 350 ml Balance 150 ml Intake IV Total 500 ml Output Urine Total 350 ml # Voids 1 Result Diagram: 08/27/17 0503 08/27/17 0503 Objective Remarks GENERAL: This is a well-nourished, well-developed patient, in no apparent distress. CARDIOVASCULAR: Normal rate and regular rhythm without murmurs, gallops, or rubs. RESPIRATORY: Good respiratory efforts. Diffuse end expiratory wheezing bilaterally. GASTROINTESTINAL: Abdomen soft, non-tender, non-distended. Normal active bowel sounds MUSCULOSKELETAL: Extremities without cyanosis, or edema. NEURO: Alert & Oriented x4 to person, place, time, situation. Moves all ext x4 PSYCH: Appropriate mood and affect. A/P Problem List: (1) Atrial fibrillation with RVR ICD Code: I48.91 - Unspecified atrial fibrillation Status: Resolved (2) COPD (chronic obstructive pulmonary disease) ICD Code: J44.9 - Chronic obstructive pulmonary disease, unspecified Status: Chronic (3) Renal insufficiency ICD Code: N28.9 - Disorder of kidney and ureter, unspecified (4) Non-compliance ICD Code: Z91.19 - Patient's noncompliance with other medical treatment and regimen (5) Tobacco abuse ICD Code: Z72.0 - Tobacco use Status: Chronic Assessment and Plan 1. A. fib: w/ RVR. Recently d/c'd 08/23/17 for A-fib w/ RVR, non-compliant w/ medications, HR 150's on arrival, status post Cardizem gtt. Continue home Amiodarone, Metoprolol, PO Cardizem. 2. COPD: Chronic Respiratory Failure w/ Acute Exacerbation. Moderate-Severe. Non-compliant, continues to smoke. DuoNeb q4/q2h prn, substitute w/ Xopenex in light of A-fib. Symbicort, Solu-Medrol, Mucinex. Monitor O2. 3. Non-Compliance: multiple admits for same due to non-compliance, has LEFT AMA on previous admissions. Patient states she keeps returning to the hospital because she cannot afford her medications. Discussed need to be compliant at length with the patient. Consult case management for assistance. 4. Renal Insufficiency: Chronic. Repeat labs in a.m. 5. Tobacco Abuse: Patient counseled extensively on the need to quit. Ativan prn. No NicoDerm to avoid vasoconstriction. 6. DVT Prophylaxis:Elizabeth Martínez MD Aug 27, 2017 14:18
[2017-08-27] MEDS: ISOSORBIDE MONONITRATE 30 MG CR TAB (IMDUR) PO SCH (21:21)
[2017-08-28] VITALS (28 sets, daily range): BP systolic 117–134; BP diastolic 75–88; PULSE 65–106; RESP 16–19; TEMP 97.3–98.7; O2SAT 95–98
--- NOTE | 2017-08-28 00:25 | EKG ---
Date Performed: 08/26/2017 Time Performed: 17:57:20 PTAGE: 56 years EKG: ATRIAL FIBRILLATION WITH RAPID VENTRICULAR RESPONSE WITH ABERRANT CONDUCTION OR VENTRICULAR PREMATURE COMPLEXES POSSIBLE LEFT VENTRICULAR HYPERTROPHY ST DEVIATION AND MODERATE T-WAVE ABNORMALI TY, CONSIDER ANTEROLATERAL ISCHEMIA ST DEVIATION AND MODERATE T-WAVE ABNORMALITY, CONSIDER INFERIOR I SCHEMIA ABNORMAL ECG INTERPRETATION BASED ON A DEFAULT AGE OF 40 YEARS NO PREVIOUS TRACING DOCTOR: Deangelo Joya Interpretating Date/Time 08/28/2017 00:12:49
[2017-08-28] MEDS: methylPREDNISolone SOD SUCC 40 MG/1 ML VIAL IV PUSH SCH ×3 (05:34→11:05)
[2017-08-28 07:21] LABS: HEMATOCRIT 25.4 % (35.0-46.0); HEMOGLOBIN 7.9 GM/DL (11.6-15.3); MEAN CELL VOLUME 77.5 FL (80.0-100.0); MEAN CORPUSCULAR HEMOGLOBIN 24.2 PG (27.0-34.0); MEAN CORPUSCULAR HGB CONC 31.2 % (32.0-36.0); MEAN PLATELET VOLUME 7.7 FL (7.0-11.0); PLATELET COUNT 473 TH/MM3 (150-450); RED BLOOD COUNT 3.28 MIL/MM3 (4.00-5.30); RED CELL DISTRIBUTION WIDTH 19.6 % (11.6-17.2); WHITE BLOOD COUNT 14.6 TH/MM3 (4.0-11.0)
[2017-08-28 07:46] LABS: CALCIUM 9.2 MG/DL (8.5-10.1); CREATININE 1.14 MG/DL (0.50-1.00)
[2017-08-28] MEDS: RESP: ALBUTEROL 2.5 MG/IPRATROPIUM 0.5 MG NEB (SCH) NEB ×4 (07:48→19:03)
[2017-08-28] MEDS: BUDESONIDE-FORMOTEROL 160/4.5 MCG INHALER INH SCH ×2 (09:04→21:51)
[2017-08-28] MEDS: METOPROLOL TARTRATE 50 MG TAB PO SCH ×2 (09:04→21:50)
[2017-08-28] MEDS: AMIODARONE 200 MG TAB PO SCH ×2 (09:04→21:50)
[2017-08-28] MEDS: VENLAFAXINE HCL XR 75 MG CAP PO SCH (09:05)
[2017-08-28] MEDS: guaiFENesin E.R. 600 MG TAB PO SCH ×2 (09:05→21:50)
[2017-08-28] MEDS: ASPIRIN 81 MG CHEW TAB PO SCH (09:05)
[2017-08-28] MEDS: PRAVASTATIN SOD 40 MG TAB PO SCH (09:05)
[2017-08-28] MEDS: PANTOPRAZOLE SOD 40 MG DELAYED RELEASE TAB PO SCH (09:05)
[2017-08-28] MEDS: FUROSEMIDE 20 MG TAB PO SCH (09:05)
[2017-08-28] MEDS: RIVAROXABAN 15 MG TAB PO SCH (09:05)
[2017-08-28] MEDS: DOCUSATE SODIUM 50 MG/SENNA 8.6 MG TAB PO SCH ×2 (09:05→21:50)
[2017-08-28] MEDS: SODIUM CHLORIDE 0.9% FLUSH 10 ML FLUSH IV FLUSH SCH ×2 (09:09→21:50)
--- NOTE | 2017-08-28 12:04 | HHI.PR ---
Subjective Remarks Patient reports she is feeling much better. Still on the Cardizem drip. Breathing status significantly improved. Objective Vitals Vital Signs Date Time Temp Pulse Resp B/P (MAP) Pulse Ox O2 Delivery O2 Flow Rate FiO2 08/28/17 11:06 98.1 97 17 118/75 (89) 95 08/28/17 10:00 78 08/28/17 09:00 88 08/28/17 09:00 88 08/28/17 08:00 80 08/28/17 08:00 80 08/28/17 07:50 96 21 08/28/17 07:15 98.7 85 18 119/77 (91) 96 08/28/17 07:15 85 08/28/17 07:00 77 08/28/17 06:00 65 08/28/17 05:00 88 08/28/17 04:00 83 08/28/17 03:00 98.4 90 16 117/78 (91) 97 08/28/17 03:00 90 08/28/17 02:00 83 08/28/17 01:00 91 08/28/17 00:00 95 08/27/17 23:00 89 08/27/17 23:00 98.6 92 16 106/79 (88) 99 08/27/17 22:00 74 08/27/17 21:00 78 08/27/17 20:13 95 08/27/17 20:00 87 08/27/17 20:00 98.2 87 18 131/79 (96) 98 08/27/17 19:00 86 08/27/17 18:00 86 08/27/17 17:05 97 08/27/17 17:00 78 08/27/17 16:07 97.2 76 19 104/70 (81) 99 08/27/17 15:11 78 18 119/61 (80) 99 08/27/17 13:01 89 16 129/66 (87) 99 Room Air I/O 08/27/17 08/27/17 08/27/17 08/28/17 08/28/17 08/28/17 07:00 15:00 23:00 07:00 15:00 23:00 Intake Total 500 ml 360 ml 720 ml Output Total 350 ml Balance 150 ml 360 ml 720 ml Intake Oral 360 ml 720 ml IV Total 500 ml Output Urine Total 350 ml # Voids 1 2 7 # Bowel Movements 0 Result Diagram: 08/28/1746 08/28/1746 Objective Remarks GENERAL: This is a well-nourished, well-developed patient, in no apparent distress. CARDIOVASCULAR: Normal rate and irregular rhythm without murmurs, gallops, or rubs. RESPIRATORY: Good respiratory efforts. Faint end expiratory wheezing bilaterally. GASTROINTESTINAL: Abdomen soft, non-tender, non-distended. Normal active bowel sounds MUSCULOSKELETAL: Extremities without cyanosis, or edema. NEURO: Alert & Oriented x4 to person, place, time, situation. Moves all ext x4 PSYCH: Appropriate mood and affect. A/P Problem List: (1) Atrial fibrillation with RVR ICD Code: I48.91 - Unspecified atrial fibrillation Status: Resolved (2) COPD (chronic obstructive pulmonary disease) ICD Code: J44.9 - Chronic obstructive pulmonary disease, unspecified Status: Chronic (3) Renal insufficiency ICD Code: N28.9 - Disorder of kidney and ureter, unspecified (4) Non-compliance ICD Code: Z91.19 - Patient's noncompliance with other medical treatment and regimen (5) Tobacco abuse ICD Code: Z72.0 - Tobacco use Status: Chronic (6) Diabetes ICD Code: E11.9 - Type 2 diabetes mellitus without complications Plan: SSI with accuchecks. Assessment and Plan 1. A. fib: w/ RVR. Recently d/c'd 08/23/17 for A-fib w/ RVR, non-compliant w/ medications, HR 150's on arrival, on Cardizem gtt. Continue home Amiodarone, Metoprolol, transition to PO Cardizem. 2. COPD: Chronic Respiratory Failure w/ Acute Exacerbation. Moderate-Severe. Non-compliant, continues to smoke. DuoNeb q4/q2h prn, substitute w/ Xopenex in light of A-fib. Symbicort, Solu-Medrol, Mucinex. Monitor O2. 3. Non-Compliance: multiple admits for same due to non-compliance, has LEFT AMA on previous admissions. Patient states she keeps returning to the hospital because she cannot afford her medications. Discussed need to be compliant at length with the patient. Discussed the case extensively with case management today and ongoing progress to help the patient. 4. Renal Insufficiency: Chronic. Stable. 5. Tobacco Abuse: Patient counseled extensively on the need to quit. Ativan prn. 6. DVT Prophylaxis:Xarelto Discharge Planning Plan to discharge tomorrow if rate is controlled on oral medications. Problem Qualifiers (1) Diabetes: Elizabeth Bryant MD Aug 28, 2017 12:04
[2017-08-28] MEDS: ISOSORBIDE MONONITRATE 30 MG CR TAB (IMDUR) PO SCH (21:50)
[2017-08-28] MEDS: predniSONE 20 MG TAB PO SCH (21:50)
[2017-08-28] MEDS ORDERED: DEXTROSE 50% IN WATER 50 ML VIAL(D50) IV PUSH PRN (22:30)
[2017-08-28] MEDS ORDERED: GLUCAGON 1 MG/ML VIAL OTHER PRN (22:30)
[2017-08-28] MEDS ORDERED: DULE200A INH (23:56)
[2017-08-28] MEDS ORDERED: XARE15TA PO (23:56)
[2017-08-28] MEDS ORDERED: AMIO200T PO (23:56)
[2017-08-28] MEDS ORDERED: PRAV40TA PO (23:56)
[2017-08-28] MEDS ORDERED: ISOS30TA3 PO (23:56)
[2017-08-28] MEDS ORDERED: FURO20TA PO (23:56)
[2017-08-28] MEDS ORDERED: PRED20 PO (23:56)
[2017-08-28] MEDS ORDERED: VENTAER INH (23:56)
[2017-08-28] MEDS ORDERED: METO50TA PO (23:56)
[2017-08-28] MEDS ORDERED: DILT240C44 PO (23:56)
[2017-08-28] MEDS ORDERED: EFFE150C PO (23:56)
[2017-08-29] VITALS (12 sets, daily range): BP systolic 125–126; BP diastolic 65–96; PULSE 74–99; RESP 16–18; TEMP 97.3–98.8; O2SAT 96–98
[2017-08-29] MEDS: INSULIN ASPART SUPPLEMENTAL SCALE SQ SCH ×2 (01:00→09:04)
[2017-08-29] MEDS: DILTIAZEM HCL 60 MG TAB PO SCH ×2 (05:38)
[2017-08-29] MEDS ORDERED: INSULIN ASPART SUPPLEMENTAL SCALE SQ SCH (08:00)
--- NOTE | 2017-08-29 08:56 | HHI.DS ---
Discharge Summary Admission Date Aug 26, 2017 at 19:22 Admitting Diagnosis Afib RVR (1) Atrial fibrillation with RVR ICD Code: I48.91 - Unspecified atrial fibrillation Status: Resolved (2) COPD (chronic obstructive pulmonary disease) ICD Code: J44.9 - Chronic obstructive pulmonary disease, unspecified Status: Chronic (3) Renal insufficiency ICD Code: N28.9 - Disorder of kidney and ureter, unspecified (4) Non-compliance ICD Code: Z91.19 - Patient's noncompliance with other medical treatment and regimen (5) Tobacco abuse ICD Code: Z72.0 - Tobacco use Status: Chronic (6) Diabetes ICD Code: E11.9 - Type 2 diabetes mellitus without complications Brief History - From Admission This is a 56-year-old female with a PMH of HTN, Depression, A. fib on Xarelto, COPD, Hyperlipidemia, Tobacco Abuse and Noncompliance who presented to the ER with complaints of SOB and palpitations. On arrival, noted to be in A-fib w/ RVR, HR 140's. Patient with multiple ER presentations for same, known to be noncompliant with medications, continues to smoke. Recent admit 08/20-08/23/17 for same, A-fib w/ RVR and COPD. States she was discharged "with 10 medications " however the pharmacy only had 4 prescriptions ready for her and tells me she is only taking 3 of those medications, but cannot tell me which ones. Denies chest pain or cough. No fever, chills or sick contacts. On arrival, BP 159/74 , HR 154, O2 sat 95% RA, Afebrile. CBC at baseline. Chemistry at baseline, creatinine 1.18, previously 1.29 on 08/23/2017. CXR with no acute findings. + wheezing on exam. S/p Solu-Medrol and DuoNeb. Currently on Cardizem gtt. CBC/BMP: 08/28/17 0646 08/28/17 0646 Significant Findings Laboratory Tests Test 08/26/17 18:15 08/27/17 05:03 08/28/17 06:46 Red Blood Count 3.97 MIL/MM3 (4.00-5.30) 3.83 MIL/MM3 (4.00-5.30) 3.28 MIL/MM3 (4.00-5.30) Hemoglobin 9.9 GM/DL (11.6-15.3) 8.8 GM/DL (11.6-15.3) 7.9 GM/DL (11.6-15.3) Hematocrit 30.6 % (35.0-46.0) 30.6 % (35.0-46.0) 25.4 % (35.0-46.0) Mean Corpuscular Volume 77.1 FL (80.0-100.0) 79.7 FL (80.0-100.0) 77.5 FL (80.0-100.0) Mean Corpuscular Hemoglobin 24.9 PG (27.0-34.0) 23.1 PG (27.0-34.0) 24.2 PG (27.0-34.0) Red Cell Distribution Width 19.3 % (11.6-17.2) 19.4 % (11.6-17.2) 19.6 % (11.6-17.2) Platelet Count 493 TH/MM3 (150-450) 452 TH/MM3 (150-450) 473 TH/MM3 (150-450) Neutrophils (%) (Auto) 74.2 % (16.0-70.0) 91.9 % (16.0-70.0) Neutrophils # (Auto) 7.8 TH/MM3 (1.8-7.7) Creatinine 1.18 MG/DL (0.50-1.00) 1.29 MG/DL (0.50-1.00) 1.14 MG/DL (0.50-1.00) Random Glucose 162 MG/DL (74-106) 325 MG/DL (74-106) 352 MG/DL (74-106) Albumin 3.1 GM/DL (3.4-5.0) 2.9 GM/DL (3.4-5.0) Alanine Aminotransferase (ALT/SGPT) 70 U/L (10-53) 59 U/L (10-53) Carbon Dioxide Level 32.3 MEQ/L (21.0-32.0) Estimat Glomerular Filtration Rate 48 ML/MIN (>89) 43 ML/MIN (>89) 50 ML/MIN (>89) Mean Corpuscular Hemoglobin Concent 29.0 % (32.0-36.0) 31.2 % (32.0-36.0) Lymphocytes (%) (Auto) 6.5 % (9.0-44.0) Lymphocytes # (Auto) 0.5 TH/MM3 (1.0-4.8) Total Protein 6.2 GM/DL (6.4-8.2) Aspartate Amino Transf (AST/SGOT) 12 U/L (15-37) White Blood Count 14.6 TH/MM3 (4.0-11.0) Blood Urea Nitrogen 24 MG/DL (7-18) Sodium Level 134 MEQ/L (136-145) Chloride Level 97 MEQ/L (98-107) PE at Discharge GENERAL: This is a well-nourished, well-developed patient, in no apparent distress. CARDIOVASCULAR: Normal rate and irregular rhythm without murmurs, gallops, or rubs. RESPIRATORY: Good respiratory efforts. Faint end expiratory wheezing bilaterally. GASTROINTESTINAL: Abdomen soft, non-tender, non-distended. Normal active bowel sounds MUSCULOSKELETAL: Extremities without cyanosis, or edema. NEURO: Alert & Oriented x4 to person, place, time, situation. Moves all ext x4 PSYCH: Appropriate mood and affect. Pt Condition on Discharge: Good Discharge Disposition: Discharge Home Discharge Instructions DIET: Follow Instructions for: Diabetic Diet Activities you can perform: Regular-No Restrictions Elizabeth Bryant MD Aug 29, 2017 08:56
[2017-08-29] MEDS: BUDESONIDE-FORMOTEROL 160/4.5 MCG INHALER INH SCH (09:01)
[2017-08-29] MEDS: VENLAFAXINE HCL XR 75 MG CAP PO SCH (09:01)
[2017-08-29] MEDS: ASPIRIN 81 MG CHEW TAB PO SCH (09:02)
[2017-08-29] MEDS: PANTOPRAZOLE SOD 40 MG DELAYED RELEASE TAB PO SCH (09:02)
[2017-08-29] MEDS: DOCUSATE SODIUM 50 MG/SENNA 8.6 MG TAB PO SCH (09:02)
[2017-08-29] MEDS: RIVAROXABAN 15 MG TAB PO SCH (09:02)
[2017-08-29] MEDS: guaiFENesin E.R. 600 MG TAB PO SCH (09:02)
[2017-08-29] MEDS: METOPROLOL TARTRATE 50 MG TAB PO SCH (09:03)
[2017-08-29] MEDS: FUROSEMIDE 20 MG TAB PO SCH (09:03)
[2017-08-29] MEDS: predniSONE 20 MG TAB PO SCH (09:03)
[2017-08-29] MEDS: PRAVASTATIN SOD 40 MG TAB PO SCH (09:03)
[2017-08-29] MEDS: AMIODARONE 200 MG TAB PO SCH (09:03)
[2017-08-29] MEDS: SODIUM CHLORIDE 0.9% FLUSH 10 ML FLUSH IV FLUSH SCH (09:04)
== END 2017-08-29 10:57 | disposition home or self-care (01) | DRG 308 ==
LOC: NEPC 17:37 → NEDA 19:22 → NEDH 08-27 00:16 → HCIS 08-27 16:12
PROVIDERS: ADMIT Family Medicine; ATTEND Family Medicine
DX: I48.91 Unspecified atrial fibrillation (principal); J96.20 Acute and chronic respiratory failure, unspecified whether with hypoxia or hypercapnia; I11.0 Hypertensive heart disease with heart failure; I50.9 Heart failure, unspecified; F32.9 Major depressive disorder, single episode, unspecified; J44.9 Chronic obstructive pulmonary disease, unspecified; E78.5 Hyperlipidemia, unspecified; F17.210 Nicotine dependence, cigarettes, uncomplicated; E11.9 Type 2 diabetes mellitus without complications; N28.9 Disorder of kidney and ureter, unspecified; Z91.19 Patient's noncompliance with other medical treatment and regimen; I25.10 Atherosclerotic heart disease of native coronary artery without angina pectoris; Z86.73 Personal history of transient ischemic attack (TIA), and cerebral infarction without residual deficits; Z79.01 Long term (current) use of anticoagulants; K21.9 Gastro-esophageal reflux disease without esophagitis; Z79.82 Long term (current) use of aspirin; Z79.52 Long term (current) use of systemic steroids; Z79.899 Other long term (current) drug therapy; Z95.0 Presence of cardiac pacemaker; Z91.14 Patient's other noncompliance with medication regimen
CPT/HCPCS: 71045; 80048; 80053; 82948; 85025; 85027; 93005; 94640; 94664; 96374; 96375; J1815; J2060; J2920; J2930; J7040; J7512

== ENCOUNTER 2017-09-06 18:08 | Inpatient (IN) | payer BC ==
[~2017-09-06] VITALS: Ht 162.6 cm; Wt 72.5 kg
[~2017-09-06 18:08] MED LIST changes: +DILT240C44 PO; -DILT60TA33 PO; +GUAI600T11 PO; -guaiFENesin ER PO
[2017-09-06 18:12] VITALS: BP 137/66; PULSE 102; RESP 20; TEMP 98; O2SAT 98
[2017-09-06 18:25] VITALS: BP 143/93; PULSE 138; RESP 17; O2SAT 99
[2017-09-06] MEDS ORDERED: SODIUM CHLOR 0.9% 1000 ML INJ 1,000 ML IV SCH (18:34)
[2017-09-06 18:38] VITALS: BP 143/93; PULSE 152; RESP 18; RESP 20; O2SAT 98
[2017-09-06] MEDS ORDERED: DILTIAZEM HCL 50 MG/10 ML VIAL ONE (18:41)
[2017-09-06 18:44] VITALS: BP 140/69; PULSE 94; RESP 18; O2SAT 98
[2017-09-06] MEDS ORDERED: DILTIAZEM HCL 25 MG/5 ML VIAL IV ONE ×2 (18:45→20:00)
[2017-09-06] MEDS ORDERED: SODIUM CHLORIDE 0.9% FLUSH 10 ML FLUSH IV FLUSH PRN ×2 (18:45→21:45)
[2017-09-06] MEDS ORDERED: MORPHINE SULFATE 4 MG/ML INJ IV PUSH ONE (18:45)
[2017-09-06] MEDS ORDERED: ONDANSETRON HCL 4 MG/2 ML VIAL IVP ONE (18:45)
--- NOTE | 2017-09-06 18:45 | PD ---
HPI Chief Complaint: Cardiac Complaint Time Seen by Provider: 18:25 Travel History International Travel<30 days: No Contact w/Intl Traveler<30days: No Traveled to known affect area: No History of Present Illness HPI This is a 56-year-old female who presents for evaluation. She reports that for the past week she has had lower abdominal pain, epigastric abdominal pain as well as lower chest pain. The pain is constant with no obvious aggravating or relieving factors. The patient is tearful and states that she has actually had this pain for weeks and she has been seen here numerous times for evaluation of this pain and she does not know what she has been diagnosed with. She is a very poor historian. She is defensive during attempts at obtaining history and this limits history taking at this time. She is noted to be in atrial fibrillation with RVR with a ventricular rate in the 150s-180s. She has a history of atrial fibrillation with RVR. Most recently she was admitted on August 26 for evaluation of atrial fibrillation with RVR. Discharged on August 29. There is a question of medication compliance according to these notes. She claims that she is compliant with all of her medications. She reports constipation for the past few weeks. She denies cough, congestion, nausea or vomiting, fevers or chills. It appears that she has a history of CHF, atrial fibrillation, hypertension, AICD placement, on Xarelto, COPD, hyperlipidemia, diabetes, tobacco use. She received GI consultation during her hospitalization on August 20. She was found to have acute pancreatitis. She underwent endoscopy which revealed gastritis. She had abdomen and pelvis CT which revealed mildly thickened gallbladder wall and she underwent a right upper quadrant ultrasound which was normal. PFSH Past Medical History Hx Anticoagulant Therapy: Yes (XARELTO) Atrial Fibrillation: Yes Anxiety: No Depression: Yes Heart Rhythm Problems: Yes (Afib RVR) Cancer: No Cardiovascular Problems: Yes High Cholesterol: Yes Chest Pain: No Congestive Heart Failure: Yes COPD: Yes Cerebrovascular Accident: Yes (2014) Coronary Artery Disease: Yes Diabetes: Yes Patient Takes Glucophage: No (pt states does not take meds just diet) Diminished Hearing: No Endocrine: Yes Gastrointestinal Disorders: Yes (GERD) GERD: Yes Glaucoma: No Genitourinary: Yes Headaches: Yes Hepatitis: No Hiatal Hernia: No Hypertension: Yes Immune Disorder: No Implanted Vascular Access Dvce: Yes Kidney Stones: No Musculoskeletal: Yes Neurologic: No Psychiatric: Yes Reproductive: No Respiratory: Yes (COPD) Integumentary: No Renal Failure: Yes (ckd stage 3) Thyroid Disease: Yes (hypothyroid) Tetanus Vaccination: > 5 Years Influenza Vaccination: Yes ?: Not : 3 Para: 3 Past Surgical History AICD: Yes Arteriovenous Shunt: No Body Medical Devices: AICD Cardiac Surgery: Yes (ABLATION X2) Hysterectomy: Yes Insulin Pump: No Joint Replacement: No Pacemaker: Yes Thoracic Surgery: Yes (AICD MEDTRONIC ) Other Surgery: Yes Social History Alcohol Use: No Tobacco Use: Yes (1PPD) Substance Use: No Allergies-Medications (Allergen,Severity, Reaction): Coded Allergies: sertraline (Verified Allergy, Severe, hives, 09/06/17) verapamil (Verified Allergy, Severe, rash, 09/06/17) Reported Meds & Prescriptions Reported Meds & Active Scripts Active Diltiazem CD 24 HR 240 Mg Caper 240 Mg PO DAILY Pravachol (Pravastatin) 40 Mg Tab 40 Mg PO DAILY Amiodarone (Amiodarone HCl) 200 Mg Tab 200 Mg PO Q12HR Xarelto (Rivaroxaban) 15 Mg Tab 15 Mg PO DAILY Metoprolol Tartrate 50 Mg Tab 50 Mg PO BID Furosemide 20 Mg Tab 20 Mg PO DAILY Effexor XR 24 HR (Venlafaxine HCl) 150 Mg Cap 150 Mg PO DAILY Isosorbide Mononitrate ER (Isosorbide Mononitrate) 30 Mg Leonie 30 Mg PO HS Ventolin Hfa 18 GM Inh (Albuterol Sulfate) 90 Mcg/Act Aer 2 Puff INH Q4H PRN Dulera 120 Act Inh (Mometasone-Formoterol 120 Act Inh) 200-5 Mcg/Act Inh 1 Puff INH BID Protonix (Pantoprazole Sodium) 40 Mg Tab 40 Mg PO DAILY Reported Tylenol Extra Strength (Acetaminophen) 500 Mg Tablet 500 Mg PO Q6HR PRN Aspirin 81 Mg Chew 81 Mg PO DAILY Review of Systems Except as stated in HPI: all other systems reviewed are Neg Physical Exam Narrative GENERAL: Well-developed well-nourished female who is tearful and anxious. SKIN: Warm and dry. HEAD: Atraumatic. Normocephalic. EYES: Pupils equal and round. No scleral icterus. No injection or drainage. ENT: No nasal bleeding or discharge. Mucous membranes pink and moist. NECK: Trachea midline. No JVD. CARDIOVASCULAR: Regular rate and rhythm. No murmur appreciated. RESPIRATORY: No accessory muscle use. Wheezing bilaterally. GASTROINTESTINAL: Abdomen soft, tender to palpation in the epigastrium and suprapubic region without guarding. MUSCULOSKELETAL: No obvious deformities. No clubbing. No cyanosis. No edema. NEUROLOGICAL: Awake and alert. No obvious cranial nerve deficits. Motor grossly within normal limits. Normal speech. PSYCHIATRIC: Depressed, anxious, tearful Data Data Last Documented VS Vital Signs Date Time Temp Pulse Resp B/P (MAP) Pulse Ox O2 Delivery O2 Flow Rate FiO2 09/06/17 18:44 94 18 140/69 (92) 98 Room Air 09/06/17 18:12 98.0 Orders Orders Ecg Monitoring (09/06/17 18:34) Blood Pressure (09/06/17 18:34) Iv Access Insert/Monitor (09/06/17 18:34) Oximetry (09/06/17 18:34) Vital Signs (09/06/17 18:34) Sodium Chloride 0.9% Flush (Ns Flush) (09/06/17 18:45) Diltiazem Inj (Cardizem Inj) (09/06/17 18:45) Complete Blood Count With Diff (09/06/17 18:34) Comprehensive Metabolic Panel (09/06/17 18:34) Lipase (09/06/17 18:34) Urinalysis - C+S If Indicated (09/06/17 18:34) Electrocardiogram (09/06/17 18:34) Ckmb (Isoenzyme) Profile (09/06/17 18:34) Troponin I (09/06/17 18:34) Chest, Single Ap (09/06/17 18:34) Morphine Inj (Morphine Inj) (09/06/17 18:45) Ondansetron Inj (Zofran Inj) (09/06/17 18:45) Sodium Chlor 0.9% 1000 Ml Inj (Ns 1000 M (09/06/17 18:34) Diltiazem Inj (Cardizem Inj) (09/06/17 18:41) Diltiazem Inj (Cardizem Inj) (09/06/17 19:45) Diltiazem Cd (Cardizem Cd) (09/06/17 20:00) Diltiazem Inj (Cardizem Inj) (09/06/17 20:00) Admit Order (Ed Use Only) (09/06/17 20:35) Labs Laboratory Tests Test 09/06/17 18:25 White Blood Count 17.6 TH/MM3 Red Blood Count 4.48 MIL/MM3 Hemoglobin 10.0 GM/DL Hematocrit 34.4 % Mean Corpuscular Volume 76.8 FL Mean Corpuscular Hemoglobin 22.3 PG Mean Corpuscular Hemoglobin Concent 29.1 % Red Cell Distribution Width 19.5 % Platelet Count 550 TH/MM3 Mean Platelet Volume 8.5 FL Neutrophils (%) (Auto) 87.0 % Lymphocytes (%) (Auto) 7.5 % Monocytes (%) (Auto) 4.4 % Eosinophils (%) (Auto) 0.5 % Basophils (%) (Auto) 0.6 % Neutrophils # (Auto) 15.3 TH/MM3 Lymphocytes # (Auto) 1.3 TH/MM3 Monocytes # (Auto) 0.8 TH/MM3 Eosinophils # (Auto) 0.1 TH/MM3 Basophils # (Auto) 0.1 TH/MM3 CBC Comment DIFF FINAL Differential Comment Blood Urea Nitrogen 22 MG/DL Creatinine 1.36 MG/DL Random Glucose 307 MG/DL Total Protein 7.0 GM/DL Albumin 3.5 GM/DL Calcium Level 9.2 MG/DL Alkaline Phosphatase 119 U/L Aspartate Amino Transf (AST/SGOT) 25 U/L Alanine Aminotransferase (ALT/SGPT) 32 U/L Total Bilirubin 0.4 MG/DL Sodium Level 135 MEQ/L Potassium Level 4.6 MEQ/L Chloride Level 96 MEQ/L Carbon Dioxide Level 28.7 MEQ/L Anion Gap 10 MEQ/L Estimat Glomerular Filtration Rate 41 ML/MIN Total Creatine Kinase 49 U/L Troponin I 0.05 NG/ML Lipase 428 U/L MDM Medical Decision Making Medical Screen Exam Complete: Yes Emergency Medical Condition: Yes Medical Record Reviewed: Yes Differential Diagnosis Atrial fibrillation with RVR, acute coronary syndrome, pneumothorax, aortic dissection, pancreatitis, cholecystitis, obstruction, appendicitis, urinary tract infection Narrative Course The patient was placed on ECG monitoring pulse oximetry. A 12-lead EKG was obtained revealing atrial fibrillation with a rate in the 150s. She was given a 20 mg bolus of diltiazem with improvement of the rate into the 110s-120s but persistent RVR. Lab work, CT abdomen and pelvis, chest x-ray ordered. She was given morphine, fluids, Zofran. Chest x-ray reveals cardiomegaly with no acute abnormalities. The radiology team was unable to perform the CT abdomen and pelvis because there was still a significant amount of contrast from a previous x-ray series study performed on August 23. Therefore this will be deferred. Lab work is been reviewed. WBC count is 17.6, hemoglobin is 10, platelet count is 550, GFR is 41, lipase is 428, glucose is 307. Given the patient's persistent RVR, attempted to order diltiazem drip however the hospital is out of IV diltiazem. Oral Cardizem CD has been ordered. The patient will be admitted. Diagnosis Primary Impression: Atrial fibrillation with RVR Additional Impressions: Abdominal pain Leukocytosis Admitting Information Admitting Physician Requests: Admit Jose Bautista Sep 06, 2017 18:45
[2017-09-06 19:06] LABS: AUTOMATED NEUTROPHIL # 15.3 TH/MM3 (1.8-7.7); BASOPHIL # 0.1 TH/MM3 (0-0.2); BASOPHIL % 0.6 % (0.0-2.0); EOSINOPHIL # 0.1 TH/MM3 (0-0.4); EOSINOPHIL % 0.5 % (0.0-4.0); HEMATOCRIT 34.4 % (35.0-46.0); LYMPH % 7.5 % (9.0-44.0); LYMPHOCYTE # 1.3 TH/MM3 (1.0-4.8); MEAN CELL VOLUME 76.8 FL (80.0-100.0); MEAN CORPUSCULAR HEMOGLOBIN 22.3 PG (27.0-34.0); MEAN PLATELET VOLUME 8.5 FL (7.0-11.0); MONO % 4.4 % (0.0-8.0); MONOCYTE # 0.8 TH/MM3 (0-0.9); PLATELET COUNT 550 TH/MM3 (150-450); RED BLOOD COUNT 4.48 MIL/MM3 (4.00-5.30); RED CELL DISTRIBUTION WIDTH 19.5 % (11.6-17.2); WHITE BLOOD COUNT 17.6 TH/MM3 (4.0-11.0)
[2017-09-06 19:25] LABS: MEAN CORPUSCULAR HGB CONC 29.1 % (32.0-36.0)
[2017-09-06 19:26] LABS: ALBUMIN 3.5 GM/DL (3.4-5.0); ALT (GPT) 32 U/L (10-53); AST (GOT) 25 U/L (15-37); BICARBONATE 28.7 MEQ/L (21.0-32.0); BLOOD UREA NITROGEN 22 MG/DL (7-18); CALCIUM 9.2 MG/DL (8.5-10.1); CHLORIDE 96 MEQ/L (98-107); CREATININE 1.36 MG/DL (0.50-1.00); GLOMERULAR FILTRATION RATE 41 ML/MIN (>89); GLUCOSE,RANDOM 307 MG/DL (74-106); SODIUM (NA) 135 MEQ/L (136-145)
--- NOTE | 2017-09-06 19:29 | RADRPT ---
EXAM DATE/TIME: 09/06/2017 18:59 [facility] COMPARISON: CHEST SINGLE AP, August 26, 2017, 18:08. INDICATIONS : Chest pain and discomfort, shortness of breath. MEDICAL HISTORY : Chronic obstructive pulmonary disease. Gastroesophageal reflux disease.Hypertension. CVA. Atrial fibr illation. Cardiomyopathy. Congestive heart failure. Diabetes. SURGICAL HISTORY : Hysterectomy. Cardiac ablation. ENCOUNTER: Initial ACUITY: 1 day PAIN SCORE: 5/10 LOCATION: Bilateral chest FINDINGS: A single view of the chest demonstrates cardiomegaly. Pacer leads overlie right atrium and right vent ricle. Tortuous aorta. No effusion or pneumothorax. Elevated right hemidiaphragm. CONCLUSION: 1. Cardiomegaly with pacer leads overlying the right atrium and right ventricle. Elevated right hemid iaphragm. Landon Green MD on September 06, 2017 at 19:26 Board Certified Radiologist. This report was verified electronically.
[2017-09-06 19:30] LABS: ALKALINE PHOSPHATASE 119 U/L (45-117); TOTAL BILIRUBIN ADULT 0.4 MG/DL (0.2-1.0); TROPONIN I 0.05 NG/ML (0.02-0.05)
[2017-09-06] MEDS ORDERED: DILTIAZEM INJ 125 MG in SODIUM CHLORIDE 0.9% INJ 100 ML IV PRN (19:45)
[2017-09-06] MEDS ORDERED: DILTIAZEM-CD 120 MG CAP ER PO ONE (20:00)
[2017-09-06 21:00] VITALS: BP 136/74; PULSE 111; RESP 18; O2SAT 97
[2017-09-06] MEDS ORDERED: ACETAMINOPHEN 325 MG TAB PO PRN (21:45)
[2017-09-06] MEDS ORDERED: RESP: ALBUTEROL 2.5 MG/IPRATROPIUM 0.5 MG NEB (PRN) NEB (21:45)
[2017-09-06] MEDS ORDERED: ONDANSETRON HCL 4 MG/2 ML VIAL IVP PRN (21:45)
[2017-09-06] MEDS ORDERED: NALOXONE HCL 0.4 MG/ML AMP IV PUSH PRN (21:45)
[2017-09-06] MEDS ORDERED: DEXTROSE 50% IN WATER 50 ML VIAL(D50) IV PUSH PRN (21:45)
[2017-09-06] MEDS ORDERED: GLUCAGON 1 MG/ML VIAL OTHER PRN (21:45)
[2017-09-06] MEDS ORDERED: HEPARIN SODIUM - SQ 10,000 UNITS/ML VIAL SQ SCH (22:00)
[2017-09-06] MEDS: METOPROLOL TARTRATE 50 MG TAB PO SCH (22:43)
[2017-09-06] MEDS: ISOSORBIDE MONONITRATE 30 MG CR TAB (IMDUR) PO SCH (22:43)
[2017-09-06] MEDS: SODIUM CHLOR 0.9% 1000 ML INJ 1,000 ML IV SCH (22:43)
[2017-09-06 23:00] VITALS: BP 138/70; PULSE 106; RESP 18; O2SAT 99
[2017-09-07] VITALS (19 sets, daily range): BP systolic 97–118; BP diastolic 58–79; PULSE 71–108; RESP 16–18; TEMP 97.6–99; O2SAT 95–99
[2017-09-07 03:15] LABS: AUTOMATED NEUTROPHIL # 8.7 TH/MM3 (1.8-7.7); BASOPHIL # 0.1 TH/MM3 (0-0.2); BASOPHIL % 0.5 % (0.0-2.0); EOSINOPHIL # 0.1 TH/MM3 (0-0.4); EOSINOPHIL % 1.3 % (0.0-4.0); HEMATOCRIT 30.1 % (35.0-46.0); HEMOGLOBIN 8.6 GM/DL (11.6-15.3); LYMPH % 12.2 % (9.0-44.0); LYMPHOCYTE # 1.3 TH/MM3 (1.0-4.8); MEAN CELL VOLUME 77.1 FL (80.0-100.0); MEAN CORPUSCULAR HEMOGLOBIN 22.1 PG (27.0-34.0); MEAN PLATELET VOLUME 7.9 FL (7.0-11.0); MONO % 5.6 % (0.0-8.0); MONOCYTE # 0.6 TH/MM3 (0-0.9); NEUT % 80.4 % (16.0-70.0); PLATELET COUNT 453 TH/MM3 (150-450); RED BLOOD COUNT 3.91 MIL/MM3 (4.00-5.30); RED CELL DISTRIBUTION WIDTH 19.3 % (11.6-17.2); WHITE BLOOD COUNT 10.8 TH/MM3 (4.0-11.0)
[2017-09-07 03:21] LABS: MEAN CORPUSCULAR HGB CONC 28.7 % (32.0-36.0)
[2017-09-07 03:37] LABS: ALBUMIN 2.8 GM/DL (3.4-5.0); ALKALINE PHOSPHATASE 97 U/L (45-117); ALT (GPT) 24 U/L (10-53); AST (GOT) 15 U/L (15-37); BLOOD UREA NITROGEN 18 MG/DL (7-18); CALCIUM 8.4 MG/DL (8.5-10.1); CHLORIDE 102 MEQ/L (98-107); CREATININE 1.19 MG/DL (0.50-1.00); GLOMERULAR FILTRATION RATE 47 ML/MIN (>89); GLUCOSE,RANDOM 308 MG/DL (74-106); SODIUM (NA) 139 MEQ/L (136-145); TOTAL BILIRUBIN ADULT 0.4 MG/DL (0.2-1.0)
--- NOTE | 2017-09-07 03:53 | HHI.HP ---
HPI Service [facility] Primary Care Physician Liz Thorne M.D. Admission Diagnosis Atrial fibrillation with RVR, abdominal pain, leukocytosis Diagnoses: Travel History International Travel<30 Days: No Contact w/Intl Traveler <30 Da: No Traveled to Known Affected Are: No History of Present Illness 56-year-old female with a PMH of HTN, Depression, A. fib on Xarelto, COPD, Hyperlipidemia, Tobacco Abuse and Noncompliance who presented to the ER complaining of shortness of breath last Sunday. She also complains of right lower quadrant and umbilical abdominal pain. States her last bowel movement was Sunday. [place] [facility] [place] was treated for A. fib with RVR and COPD exacerbation. The patient reports compliance with her home medication regimen since her discharge. She states it is sometimes difficult to keep track of all of the pills she is supposed to take. She reports associated chest pain. Denies any nausea/vomiting/diarrhea. Positive constipation. No new onset weakness or lateralizing signs/symptoms. Review of Systems Except as stated in HPI: all other systems reviewed are Neg Past Family Social History Past Medical History HTN, Depression, A. fib on Xarelto, COPD, Hyperlipidemia, Tobacco Abuse and Noncompliance Past Surgical History AICD, Cardiac Ablation, Hysterectomy Reported Medications Reported Meds & Active Scripts Active Diltiazem CD 24 HR 240 Mg Caper 240 Mg PO DAILY Pravachol (Pravastatin) 40 Mg Tab 40 Mg PO DAILY Amiodarone (Amiodarone HCl) 200 Mg Tab 200 Mg PO Q12HR Xarelto (Rivaroxaban) 15 Mg Tab 15 Mg PO DAILY Metoprolol Tartrate 50 Mg Tab 50 Mg PO BID Furosemide 20 Mg Tab 20 Mg PO DAILY Effexor XR 24 HR (Venlafaxine HCl) 150 Mg Cap 150 Mg PO DAILY Isosorbide Mononitrate ER (Isosorbide Mononitrate) 30 Mg Leonie 30 Mg PO HS Ventolin Hfa 18 GM Inh (Albuterol Sulfate) 90 Mcg/Act Aer 2 Puff INH Q4H PRN Dulera 120 Act Inh (Mometasone-Formoterol 120 Act Inh) 200-5 Mcg/Act Inh 1 Puff INH BID Protonix (Pantoprazole Sodium) 40 Mg Tab 40 Mg PO DAILY Reported Tylenol Extra Strength (Acetaminophen) 500 Mg Tablet 500 Mg PO Q6HR PRN Aspirin 81 Mg Chew 81 Mg PO DAILY Allergies: Coded Allergies: sertraline (Verified Allergy, Severe, hives, 09/06/17) verapamil (Verified Allergy, Severe, rash, 09/06/17) Family History No h/o DM or CAD Social History Negative for alcohol or drugs. Smokes 1ppd Physical Exam Vital Signs Vital Signs Date Time Temp Pulse Resp B/P (MAP) Pulse Ox O2 Delivery O2 Flow Rate FiO2 09/06/17 23:00 106 18 138/70 (92) 99 Room Air 09/06/17 21:00 111 18 136/74 (94) 97 Room Air 09/06/17 18:44 94 18 140/69 (92) 98 Room Air 09/06/17 18:38 20 98 Room Air 09/06/17 18:38 152 18 98 Room Air 09/06/17 18:38 152 20 143/93 (110) 98 Room Air 09/06/17 18:25 138 17 143/93 (110) 99 Room Air 09/06/17 18:21 127 17 98 Room Air 09/06/17 18:12 98.0 102 20 137/66 (89) 98 Physical Exam GENERAL: Obese, female lying in bed SKIN: No rashes, ecchymoses or lesions. Cool and dry. HEAD: Atraumatic. Normocephalic. No temporal or scalp tenderness. EYES: Pupils equal round and reactive. Extraocular motions intact. No scleral icterus. No injection or drainage. ENT: Nose without bleeding, purulent drainage or septal hematoma. Throat without erythema, tonsillar hypertrophy or exudate. Uvula midline. Airway patent. NECK: Trachea midline. No JVD or lymphadenopathy. Supple, nontender, no meningeal signs. CARDIOVASCULAR: Tachycardic. Irregularly irregular rhythm without murmurs/rubs/ gallops. RESPIRATORY: Bilateral expiratory wheezes throughout GASTROINTESTINAL: Abdomen soft, mildly tender to palpation in the right lower quadrant, nondistended. No hepato-splenomegaly, or palpable masses. No guarding. MUSCULOSKELETAL: Extremities without clubbing, cyanosis, or edema. No joint tenderness, effusion, or edema noted. No calf tenderness. NEUROLOGICAL: Awake and alert. Cranial nerves II through XII intact. Motor and sensory grossly within normal limits. Normal speech. Laboratory Laboratory Tests Test 09/06/17 18:25 09/07/17 03:02 White Blood Count 17.6 10.8 Red Blood Count 4.48 3.91 Hemoglobin 10.0 8.6 Hematocrit 34.4 30.1 Mean Corpuscular Volume 76.8 77.1 Mean Corpuscular Hemoglobin 22.3 22.1 Mean Corpuscular Hemoglobin Concent 29.1 28.7 Red Cell Distribution Width 19.5 19.3 Platelet Count 550 453 Mean Platelet Volume 8.5 7.9 Neutrophils (%) (Auto) 87.0 80.4 Lymphocytes (%) (Auto) 7.5 12.2 Monocytes (%) (Auto) 4.4 5.6 Eosinophils (%) (Auto) 0.5 1.3 Basophils (%) (Auto) 0.6 0.5 Neutrophils # (Auto) 15.3 8.7 Lymphocytes # (Auto) 1.3 1.3 Monocytes # (Auto) 0.8 0.6 Eosinophils # (Auto) 0.1 0.1 Basophils # (Auto) 0.1 0.1 CBC Comment DIFF FINAL DIFF FINAL Differential Comment Blood Urea Nitrogen 22 Creatinine 1.36 Random Glucose 307 Total Protein 7.0 Albumin 3.5 Calcium Level 9.2 Alkaline Phosphatase 119 Aspartate Amino Transf (AST/SGOT) 25 Alanine Aminotransferase (ALT/SGPT) 32 Total Bilirubin 0.4 Sodium Level 135 Potassium Level 4.6 Chloride Level 96 Carbon Dioxide Level 28.7 Anion Gap 10 Estimat Glomerular Filtration Rate 41 Total Creatine Kinase 49 Troponin I 0.05 Lipase 428 Result Diagram: 09/07/17 0302 09/06/17 1825 Caprini VTE Risk Assessment Caprini VTE Risk Assessment: No/Low Risk (score <= 1) Caprini Risk Assessment Model Point Value = 1 Point Value = 2 Point Value = 3 Point Value = 5 Age 41-60 Minor surgery BMI > 25 kg/m2 Swollen legs Varicose veins or History of unexplained or recurrent spontaneous Oral contraceptives or hormone replacement Sepsis (< 1 month) Serious lung disease, including pneumonia (< 1 month) Abnormal pulmonary function Acute myocardial infarction Congestive heart failure (< 1 month) History of inflammatory bowel disease Medical patient at bed rest Age 61-74 Arthroscopic surgery Major open surgery (> 45 min) Laparoscopic surgery (> 45 min) Malignancy Confined to bed (> 72 hours) Immobilizing plaster cast Central venous access Age >= 75 History of VTE Family history of VTE Factor V Leiden Prothrombin [id number] Lupus anticoagulant Anticardiolipin antibodies Elevated serum homocysteine Heparin-induced thrombocytopenia Other congenital or acquired thrombophilia Stroke (< 1 month) Elective arthroplasty Hip, pelvis, or leg fracture Acute spinal cord injury (< 1 month) Prophylaxis Regimen Total Risk Factor Score Risk Level Prophylaxis Regimen 0-1 Low Early ambulation 2 Moderate Order ONE of the following: *Sequential Compression Device (SCD) *Heparin 5000 units SQ BID 3-4 Higher Order ONE of the following medications: *Heparin 5000 units SQ TID *Enoxaparin/Lovenox 40 mg SQ daily (WT < 150 kg, CrCl > 30 mL/min) *Enoxaparin/Lovenox 30 mg SQ daily (WT < 150 kg, CrCl > 10-29 mL/min) *Enoxaparin/Lovenox 30 mg SQ BID (WT < 150 kg, CrCl > 30 mL/min) AND/OR *Sequential Compression Device (SCD) 5 or more Highest Order ONE of the following medications: *Heparin 5000 units SQ TID (Preferred with Epidurals) *Enoxaparin/Lovenox 40 mg SQ daily (WT < 150 kg, CrCl > 30 mL/min) *Enoxaparin/Lovenox 30 mg SQ daily (WT < 150 kg, CrCl > 10-29 mL/min) *Enoxaparin/Lovenox 30 mg SQ BID (WT < 150 kg, CrCl > 30 mL/min) AND *Sequential Compression Device (SCD) Assessment and Plan Assessment and Plan Assessment/plan: 1. A. fib with RVR Continue home amiodarone, metoprolol, diltiazem Status post IV diltiazem 1 in the emergency department Continue anticoagulation with Xarelto Counseled patient as to the importance of taking her medications as directed 2. COPD exacerbation IV steroids Symbicort Xopenexsymbi Supplemental oxygen as needed 3. Chronic renal insufficiency Creatinine 1.19, at baseline Monitor renal function 4. Hypertension/hyperlipidemia/depression Continue home medications 5. Noncompliance Counseling provided FEN Heart healthy diet Electrolytes: monitor and replete prn Xarelto Physician Certification 2 Midnight Certification Type: Admission for Inpatient Services Order for Inpatient Services The services are ordered in accordance with Medicare regulations or non- Medicare payer requirements, as applicable. In the case of services not specified as inpatient-only, they are appropriately provided as inpatient services in accordance with the 2-midnight benchmark. Estimated LOS (days): 2 2 days is the estimated time the patient will need to remain in the hospital, assuming treatment plan goals are met and no additional complications. Post-Hospital Plan: Not yet determined Amy Amador MD Sep 07, 2017 03:53
--- NOTE | 2017-09-07 05:37 | EKG ---
Date Performed: 09/06/2017 Time Performed: 18:43:31 PTAGE: 56 years EKG: ATRIAL FIBRILLATION POSSIBLE LEFT VENTRICULAR HYPERTROPHY NONSPECIFIC INTRAVENTRICULAR COND UCTION DELAY ST/T-WAVE ABNORMALITY, CONSIDER ANTEROLATERAL ISCHEMIA ST/T-WAVE ABNORMALITY, CONSIDER I NFERIOR ISCHEMIA ABNORMAL ECG PREVIOUS TRACING : 09/06/2017 18.30 Compared to previous tracing, heart rate has slowed. DOCTOR: Clay Morse Interpretating Date/Time 09/07/2017 05:35:24
--- NOTE | 2017-09-07 05:37 | EKG ---
Date Performed: 09/06/2017 Time Performed: 18:28:12 PTAGE: 56 years EKG: ATRIAL FIBRILLATION WITH RAPID VENTRICULAR RESPONSE NONSPECIFIC INTRAVENTRICULAR CONDUCTION DELAY DIFFUSE T WAVE ABNORMALITY, CONSIDER ISCHEMIA ABNORMAL ECG PREVIOUS TRACING : 09/06/2017 18.27 No significant change from previous tracing noted. DOCTOR: Clay Morse Interpretating Date/Time 09/07/2017 05:36:44
--- NOTE | 2017-09-07 05:37 | EKG ---
Date Performed: 09/06/2017 Time Performed: 18:30:19 PTAGE: 56 years EKG: ATRIAL FIBRILLATION WITH RAPID VENTRICULAR RESPONSE NONSPECIFIC INTRAVENTRICULAR CONDUCTION DELAY DIFFUSE T WAVE ABNORMALITY, CONSIDER ISCHEMIA PREVIOUS TRACING : 09/06/2017 18.28 No significant change from previous tracing noted. DOCTOR: Clay Morse Interpretating Date/Time 09/07/2017 05:36:09
[2017-09-07] MEDS ORDERED: RESP: LEVALBUTEROL HYDROCHLORIDE 1.25 MG/3 ML NEB (SCH) NEB ONE (06:00)
[2017-09-07] MEDS: methylPREDNISolone SOD SUCC 40 MG/1 ML VIAL IV PUSH SCH ×3 (06:42→20:43)
[2017-09-07] MEDS ORDERED: MOMETASONE FORMOTEROL INH SCH (09:00)
[2017-09-07] MEDS: PRAVASTATIN SOD 40 MG TAB PO SCH (09:03)
[2017-09-07] MEDS: PANTOPRAZOLE SOD 40 MG DELAYED RELEASE TAB PO SCH (09:03)
[2017-09-07] MEDS: ASPIRIN 81 MG CHEW TAB PO SCH (09:04)
[2017-09-07] MEDS: RIVAROXABAN 15 MG TAB PO SCH (09:04)
[2017-09-07] MEDS: AMIODARONE 200 MG TAB PO SCH ×2 (09:05→20:43)
[2017-09-07] MEDS: DILTIAZEM-CD 240 MG CAP ER PO SCH (09:05)
[2017-09-07] MEDS: VENLAFAXINE HCL XR 75 MG CAP PO SCH (09:06)
[2017-09-07] MEDS: BUDESONIDE-FORMOTEROL 160/4.5 MCG INHALER INH SCH ×2 (09:06→20:43)
[2017-09-07] MEDS: FUROSEMIDE 20 MG TAB PO SCH (09:11)
[2017-09-07] MEDS: SODIUM CHLORIDE 0.9% FLUSH 10 ML FLUSH IV FLUSH SCH ×2 (09:12→20:42)
[2017-09-07] MEDS: METOPROLOL TARTRATE 50 MG TAB PO SCH ×2 (09:12→20:42)
[2017-09-07] MEDS: INSULIN ASPART SUPPLEMENTAL SCALE SQ SCH ×4 (09:51→20:42)
[2017-09-07 11:21] LABS: BILIRUBIN, URINE NEG (NEG); BLOOD, URINE NEG (NEG); GLUCOSE,URINE 1000 mg/dL (NEG); KETONE, URINE NEG (NEG); MUCUS URINE FEW /lpf (OCC); NITRITE,URINE NEG (NEG); SQUAMOUS EPITHELIAL CELL URINE 2 /hpf (0-5); URINE COLOR YELLOW (YELLW/STRAW); URINE LEUKOCYTE ESTERASE SMALL (NEG)
[2017-09-07] MEDS: SODIUM CHLOR 0.9% 1000 ML INJ 1,000 ML IV SCH (14:08)
[2017-09-07] MEDS ORDERED: SENNOSIDES 8.6 MG TAB PO PRN (14:45)
[2017-09-07] MEDS ORDERED: LACTULOSE SYRUP 20 GM/30 ML CUP PO PRN (14:45)
[2017-09-07] MEDS ORDERED: BISACODYL 10 MG SUPP RECTAL PRN (14:45)
[2017-09-07] MEDS ORDERED: MAGNESIUM HYDROXIDE SUSP 30 ML CUP PO PRN (14:45)
[2017-09-07] MEDS ORDERED: NALOXONE HCL 0.4 MG/ML AMP IV PUSH PRN (14:45)
[2017-09-07] MEDS: RESP: LEVALBUTEROL HYDROCHLORIDE 1.25 MG/3 ML NEB (SCH) NEB (16:00)
[2017-09-07 17:46] LABS: HEMOGLOBIN A1C 9.5 % (4.3-6.0)
[2017-09-07] MEDS: INSULIN ASPAR PROT 70/30 1,000 UNITS/10 ML VIAL SQ SCH (18:18)
[2017-09-07] MEDS: ISOSORBIDE MONONITRATE 30 MG CR TAB (IMDUR) PO SCH (20:43)
[2017-09-07] MEDS: DOCUSATE SODIUM 50 MG/SENNA 8.6 MG TAB PO SCH (20:43)
[2017-09-08] VITALS (14 sets, daily range): BP systolic 103–111; BP diastolic 74–97; PULSE 79–97; RESP 18; TEMP 98–98.3; O2SAT 94–98
[2017-09-08] MEDS: RESP: LEVALBUTEROL HYDROCHLORIDE 1.25 MG/3 ML NEB (SCH) NEB ×2 (01:13→08:00)
[2017-09-08] MEDS: SODIUM CHLOR 0.9% 1000 ML INJ 1,000 ML IV SCH (04:23)
[2017-09-08] MEDS: methylPREDNISolone SOD SUCC 40 MG/1 ML VIAL IV PUSH SCH (06:06)
[2017-09-08] MEDS: SODIUM CHLORIDE 0.9% FLUSH 10 ML FLUSH IV FLUSH SCH (07:41)
[2017-09-08] MEDS: DOCUSATE SODIUM 50 MG/SENNA 8.6 MG TAB PO SCH (08:50)
[2017-09-08] MEDS: PANTOPRAZOLE SOD 40 MG DELAYED RELEASE TAB PO SCH (08:50)
[2017-09-08] MEDS: PRAVASTATIN SOD 40 MG TAB PO SCH (08:50)
[2017-09-08] MEDS: AMIODARONE 200 MG TAB PO SCH (08:50)
[2017-09-08] MEDS: VENLAFAXINE HCL XR 75 MG CAP PO SCH (08:51)
[2017-09-08] MEDS: RIVAROXABAN 15 MG TAB PO SCH (08:51)
[2017-09-08] MEDS: ASPIRIN 81 MG CHEW TAB PO SCH (08:51)
[2017-09-08] MEDS: FUROSEMIDE 20 MG TAB PO SCH (08:51)
[2017-09-08] MEDS: METOPROLOL TARTRATE 50 MG TAB PO SCH (08:51)
[2017-09-08] MEDS: DILTIAZEM-CD 240 MG CAP ER PO SCH (08:51)
[2017-09-08] MEDS: BUDESONIDE-FORMOTEROL 160/4.5 MCG INHALER INH SCH (08:52)
[2017-09-08] MEDS: INSULIN ASPART SUPPLEMENTAL SCALE SQ SCH (08:53)
[2017-09-08] MEDS: INSULIN ASPAR PROT 70/30 1,000 UNITS/10 ML VIAL SQ SCH (08:53)
--- NOTE | 2017-09-08 11:27 | HHI.PR ---
Subjective Remarks 56-year-old female with a PMH of HTN, Depression, A. fib on Xarelto, COPD, Hyperlipidemia, Tobacco Abuse and Noncompliance who presented to the ER complaining of shortness of breath last Sunday. She also complains of right lower quadrant and umbilical abdominal pain. States her last bowel movement was Sunday. The patient was discharged from [facility] [place] on 08/29 where she was treated for A. fib with RVR and COPD exacerbation. The patient reports compliance with her home medication regimen since her discharge. She states it is sometimes difficult to keep track of all of the pills she is supposed to take. She reports associated chest pain. Denies any nausea/vomiting/diarrhea. Positive constipation. No new onset weakness or lateralizing signs/symptoms. 4-7 OUT OF AFIB WITH RVR RATE IS CONTROLLED DOING WELL WANTS TO GO HOME NEEDS MEDS FOR CONSTIPATION DYING IN HOSPICE DC TO HOME Objective Vitals Vital Signs Date Time Temp Pulse Resp B/P (MAP) Pulse Ox O2 Delivery O2 Flow Rate FiO2 09/08/17 10:00 94 09/08/17 09:00 97 09/08/17 08:00 98.3 93 18 108/74 (85) 94 09/08/17 08:00 93 09/08/17 07:00 84 09/08/17 06:10 93 09/08/17 05:04 87 09/08/17 04:26 98.2 92 103/74 (84) 97 09/08/17 04:00 86 09/08/17 03:00 88 09/08/17 02:00 84 09/08/17 01:13 98 09/08/17 01:00 84 09/08/17 00:59 98.0 79 111/97 (102) 97 09/08/17 00:00 88 09/07/17 23:00 87 09/07/17 22:00 80 09/07/17 21:00 82 09/07/17 20:00 99.0 87 109/76 (87) 97 09/07/17 20:00 80 09/07/17 19:00 75 09/07/17 18:00 90 09/07/17 17:00 84 09/07/17 16:00 88 09/07/17 15:00 85 09/07/17 15:00 98.4 88 16 118/68 (85) 96 09/07/17 14:00 86 09/07/17 13:00 71 09/07/17 12:00 82 09/07/17 11:30 97.6 89 16 97/64 (75) 96 I/O 09/07/17 09/07/17 09/07/17 09/08/17 09/08/17 09/08/17 07:00 15:00 23:00 07:00 15:00 23:00 Intake Total 960 ml 600 ml Output Total 1770 ml 1100 ml Balance -810 ml -500 ml Intake Oral 960 ml 600 ml Output Urine Total 1770 ml 1100 ml Result Diagram: 09/07/17 0302 09/07/17 0302 Other Results Laboratory Tests Test 09/06/17 18:25 09/07/17 03:02 09/07/17 10:23 White Blood Count 17.6 TH/MM3 10.8 TH/MM3 Red Blood Count 4.48 MIL/MM3 3.91 MIL/MM3 Hemoglobin 10.0 GM/DL 8.6 GM/DL Hematocrit 34.4 % 30.1 % Mean Corpuscular Volume 76.8 FL 77.1 FL Mean Corpuscular Hemoglobin 22.3 PG 22.1 PG Mean Corpuscular Hemoglobin Concent 29.1 % 28.7 % Red Cell Distribution Width 19.5 % 19.3 % Platelet Count 550 TH/MM3 453 TH/MM3 Mean Platelet Volume 8.5 FL 7.9 FL Neutrophils (%) (Auto) 87.0 % 80.4 % Lymphocytes (%) (Auto) 7.5 % 12.2 % Monocytes (%) (Auto) 4.4 % 5.6 % Eosinophils (%) (Auto) 0.5 % 1.3 % Basophils (%) (Auto) 0.6 % 0.5 % Neutrophils # (Auto) 15.3 TH/MM3 8.7 TH/MM3 Lymphocytes # (Auto) 1.3 TH/MM3 1.3 TH/MM3 Monocytes # (Auto) 0.8 TH/MM3 0.6 TH/MM3 Eosinophils # (Auto) 0.1 TH/MM3 0.1 TH/MM3 Basophils # (Auto) 0.1 TH/MM3 0.1 TH/MM3 CBC Comment DIFF FINAL DIFF FINAL Differential Comment Blood Urea Nitrogen 22 MG/DL 18 MG/DL Creatinine 1.36 MG/DL 1.19 MG/DL Random Glucose 307 MG/DL 308 MG/DL Total Protein 7.0 GM/DL 6.0 GM/DL Albumin 3.5 GM/DL 2.8 GM/DL Calcium Level 9.2 MG/DL 8.4 MG/DL Alkaline Phosphatase 119 U/L 97 U/L Aspartate Amino Transf (AST/SGOT) 25 U/L 15 U/L Alanine Aminotransferase (ALT/SGPT) 32 U/L 24 U/L Total Bilirubin 0.4 MG/DL 0.4 MG/DL Sodium Level 135 MEQ/L 139 MEQ/L Potassium Level 4.6 MEQ/L 4.5 MEQ/L Chloride Level 96 MEQ/L 102 MEQ/L Carbon Dioxide Level 28.7 MEQ/L 31.0 MEQ/L Anion Gap 10 MEQ/L 6 MEQ/L Estimat Glomerular Filtration Rate 41 ML/MIN 47 ML/MIN Total Creatine Kinase 49 U/L Troponin I 0.05 NG/ML Lipase 428 U/L Hemoglobin A1c 9.5 % Urine Color YELLOW Urine Turbidity CLEAR Urine pH 6.0 Urine Specific [place] 1.017 Urine Protein NEG mg/dL Urine Glucose (UA) 1000 mg/dL Urine Ketones NEG mg/dL Urine Occult Blood NEG Urine Nitrite NEG Urine Bilirubin NEG Urine Urobilinogen LESS THAN 2.0 MG/DL Urine Leukocyte Esterase SMALL Urine RBC 1 /hpf Urine WBC 1 /hpf Urine Squamous Epithelial Cells 2 /hpf Urine Mucus FEW /lpf Microscopic Urinalysis Comment CULT NOT INDICATED Imaging Last Impressions Chest X-Ray 09/06/17 1834 Signed Impressions: Service Date/Time: September 18:59 - CONCLUSION: 1. Cardiomegaly with pacer leads overlying the right atrium and right ventricle. Elevated right hemidiaphragm. Landon Green MD Objective Remarks GENERAL: Awake alert and oriented 3 talkative and cooperative SKIN: Warm and dry. HEAD: Atraumatic. Normocephalic. EYES: Pupils equal and round. No scleral icterus. No injection or drainage. Extraocular muscles intact ENT: No nasal bleeding or discharge. Mucous membranes pink and moist. Tongue is midline NECK: Trachea midline. No JVD. Supple CARDIOVASCULAR: IRRegular rate and rhythm. S1-S2 no S3-S4 RESPIRATORY: No accessory muscle use. Coarse breath sounds bilaterally. Breath sounds equal bilaterally. GASTROINTESTINAL: Abdomen soft, non-tender, nondistended. Hepatic and splenic margins not palpable. MUSCULOSKELETAL: Extremities without clubbing, cyanosis, or edema. No obvious deformities. NEUROLOGICAL: Awake and alert. No obvious cranial nerve deficits. Motor grossly within normal limits. Five out of 5 muscle strength in the arms and legs. Normal speech. PSYCHIATRIC: Appropriate mood and affect; insight and judgment normal. Procedures NONE Medications and IVs Current Medications Sodium Chloride (NS Flush) 2 ml UNSCH PRN IV FLUSH FLUSH AFTER USING IV ACCESS Last administered on 09/06/17 18:42; Start 09/06/17 at 18:45; Stop 09/07/17 at 04: 02; Status DC Diltiazem HCl (Cardizem Inj) 20 mg ONCE ONCE IV Last administered on 09/06/17 18:42; Start 09/06/17 at 18:45; Stop 09/06/17 at 18:46; Status DC Morphine Sulfate (Morphine Inj) 4 mg ONCE ONCE IV PUSH Last administered on 18:42; Start 09/06/17 at 18:45; Stop 09/06/17 at 18:46; Status DC Ondansetron HCl (Zofran Inj) 4 mg ONCE ONCE IVP Last administered on 09/06/17 18:42; Start 09/06/17 at 18:45; Stop 09/06/17 at 18:46; Status DC Sodium Chloride 1,000 ml @ 1,000 mls/hr Q1H IV Last administered on 09/06/17 18:43; Start 09/06/17 at 18:34; Stop 09/06/17 at 19:48; Status DC Diltiazem HCl (Cardizem Inj) 50 mg STK-MED ONCE .ROUTE ; Start 09/06/17 at 18:41 ; Stop 09/06/17 at 18:42; Status DC Diltiazem HCl 125 mg/Sodium Chloride 125 ml @ 5 mls/hr TITRATE PRN IV tachycardia; Start 09/06/17 at 19:45; Stop 09/06/17 at 19:55; Status DC Diltiazem HCl (Cardizem Cd) 120 mg ONCE ONCE PO Last administered on 09/06/17at 20:47; Start 09/06/17 at 20:00; Stop 09/06/17 at 20:01; Status DC Diltiazem HCl (Cardizem Inj) 10 mg ONCE ONCE IV ; Start 09/06/17 at 20:00; Stop 09/06/17 at 20:01; Status DC Sodium Chloride 1,000 ml @ 65 mls/hr [id number] IV Last administered on 09/08/17at 04:23; Start 09/06/17 at 21:35 Sodium Chloride (NS Flush) 2 ml UNSCH PRN IV FLUSH FLUSH AFTER USING IV ACCESS ; Start 09/06/17 at 21:45 Sodium Chloride (NS Flush) 2 ml BID IV FLUSH Last administered on 09/07/17at 20: 42; Start 09/07/17 at 09:00 Acetaminophen (Tylenol) 650 mg Q4H PRN PO TEMP > 100.4; Start 09/06/17 at 21:45 Ondansetron HCl (Zofran Inj) 4 mg Q6H PRN IVP NAUSEA OR VOMITING; Start at 21:45 Heparin Sodium (Porcine) (Heparin Inj) 5,000 units Q8HR SQ ; Start 09/06/17 at 22 :00; Stop 09/06/17 at 22:00; Status DC Naloxone HCl (Narcan Inj) 0.4 mg UNSCH PRN IV PUSH SEE LABEL COMMENTS; Start at 21:45 Albuterol/ Ipratropium (Duoneb Neb) 1 ampule Q4HR NEB PRN NEB SOB/WHEEZING; Start 09/06/17 at 21:45 Dextrose (D50w (Vial) Inj) 50 ml UNSCH PRN IV PUSH HYPOGLYCEMIA-SEE COMMENTS; Start 09/06/17 at 21:45 Glucagon (Glucagon Inj) 1 mg UNSCH PRN OTHER HYPOGLYCEMIA-SEE COMMENTS; Start 09/06/17 at 21:45 Insulin Aspart (NovoLOG SUPPLEMENTAL SCALE) 1 ACHS SLIDING SCALE SQ Last administered on 09/08/17at 08:53; Start 09/07/17 at 08:00 Amiodarone HCl (Cordarone) 200 mg Q12HR PO Last administered on 09/08/17at 08:50 ; Start 09/07/17 at 09:00 Aspirin (Aspirin Chew) 81 mg DAILY PO Last administered on 09/08/17at 08:51; Start 09/07/17 at 09:00 Diltiazem HCl (Cardizem Cd) 240 mg DAILY PO Last administered on 09/08/17 08:51 ; Start 09/07/17 at 09:00 Furosemide (Lasix) 20 mg DAILY PO Last administered on 09/08/17 08:51; Start at 09:00 Isosorbide Mononitrate (Imdur) 30 mg HS PO Last administered on 09/07/17 20:43 ; Start 09/06/17 at 21:45 Metoprolol Tartrate (Lopressor) 50 mg BID PO Last administered on 09/08/17 08: 51; Start 09/06/17 at 21:45 Pantoprazole Sodium (Protonix) 40 mg DAILY PO Last administered on 09/08/17 08: 50; Start 09/07/17 at 09:00 Pravastatin Sodium (Pravachol) 40 mg DAILY PO Last administered on 09/08/17 08: 50; Start 09/07/17 at 09:00 Rivaroxaban (Xarelto) 15 mg DAILY PO Last administered on 09/08/17 08:51; Start 09/07/17 at 09:00 Venlafaxine HCl (Effexor Xr) 150 mg DAILY PO Last administered on 09/08/17 08: 51; Start 09/07/17 at 09:00 Patient Own Medication PT OWN MED: (Mometasone-Formotero... BID INH ; Start 09/07 at 09:00; Status Cancel Methylprednisolone Sodium Succinate (SoluMEDROL INJ) 40 mg Q8HR IV PUSH Last administered on 09/08/17 06:06; Start 09/07/17 at 06:00 Budesonide/ Formoterol Fumarate (Symbicort 160-4.5 Mcg Inh) 1 puff Q12HR INH Last administered on 09/08/17 08:52; Start 09/07/17 at 09:00 Levalbuterol HCl (Xopenex Neb) 1.25 mg ONCE ONCE NEB Last administered on 04:27; Start 09/07/17 at 06:00; Stop 09/07/17 at 06:01; Status DC Levalbuterol HCl (Xopenex Neb) 1.25 mg Q8HR NEB NEB Last administered on 08:00; Start 09/07/17 at 16:00 Insulin Aspart Prota 70%/Aspart 30% (NovoLOG MIX 70/ 30 INJ) 5 units BID@08,17 SQ Last administered on 09/08/17at 08:53; Start 09/07/17 at 17:00 Naloxone HCl (Narcan Inj) 0.4 mg UNSCH PRN IV PUSH SEE LABEL COMMENTS; Start at 14:45 Senna/Docusate Sodium (Izabela-Colace) 1 tab BID PO Last administered on 09/08/17at 08:50; Start 09/07/17 at 21:00 Magnesium Hydroxide (Milk Of Magnesia Liq) 30 ml Q12H PRN PO Mild constipation ; Start 09/07/17 at 14:45 Sennosides (Senokot) 17.2 mg Q12H PRN PO Moderate constipation; Start 09/07/17 at 14:45 Bisacodyl (Dulcolax Supp) 10 mg DAILY PRN RECTAL SEVERE CONSITIPATION; Start at 14:45 Lactulose (Lactulose Liq) 30 ml DAILY PRN PO SEVERE CONSITIPATION Last administered on 09/07/17at 15:28; Start 09/07/17 at 14:45 A/P Assessment and Plan 1. A. fib with RVR Continue home amiodarone, metoprolol, diltiazem Status post IV diltiazem 1 in the emergency department Continue anticoagulation with Xarelto Counseled patient as to the importance of taking her medications as directed 2. COPD exacerbation IV steroids Symbicort Xopenexsymbi Supplemental oxygen as needed 3. Chronic renal insufficiency Creatinine 1.19, at baseline Monitor renal function 4. Hypertension/hyperlipidemia/depression Continue home medications 5. Noncompliance Counseling provided FEN Heart healthy diet Electrolytes: monitor and replete prn Xarelto Discharge Planning Patient's is dying in hospice wants to be discharged home today Garcia Ruby DO Sep 08, 2017 11:26
[2017-09-08] MEDS ORDERED: DULE200A INH (11:35)
[2017-09-08] MEDS ORDERED: ISOS30TA3 PO (11:35)
[2017-09-08] MEDS ORDERED: PRAV40TA PO (11:35)
[2017-09-08] MEDS ORDERED: FURO20TA PO (11:35)
[2017-09-08] MEDS ORDERED: ASPI-516 PO (11:35)
[2017-09-08] MEDS ORDERED: DILT240C44 PO (11:35)
[2017-09-08] MEDS ORDERED: PRED10PA2 PO (11:35)
[2017-09-08] MEDS ORDERED: PROT40TA PO (11:35)
[2017-09-08] MEDS ORDERED: NEBULIZER1 MI1 (11:35)
[2017-09-08] MEDS ORDERED: AMIO200T PO (11:35)
[2017-09-08] MEDS ORDERED: EFFE150C PO (11:35)
[2017-09-08] MEDS ORDERED: LEVA1.257 NEB (11:35)
[2017-09-08] MEDS ORDERED: PERI PO (11:35)
[2017-09-08] MEDS ORDERED: XARE15TA PO (11:35)
[2017-09-08] MEDS ORDERED: Albuterol-Ipratropium Neb NEB (11:35)
[2017-09-08] MEDS ORDERED: METO50TA PO (11:35)
--- NOTE | 2017-09-08 11:38 | HHI.DS ---
Discharge Summary Admission Date Sep 06, 2017 at 20:37 Discharge Date: Sep 08, 2017 Admitting Diagnosis Atrial fibrillation with RVR, abdominal pain, leukocytosis (1) Tobacco abuse ICD Code: Z72.0 - Tobacco use Diagnosis: Secondary Status: Chronic (2) COPD (chronic obstructive pulmonary disease) ICD Code: J44.9 - Chronic obstructive pulmonary disease, unspecified Status: Chronic (3) Atrial fibrillation with RVR ICD Code: I48.91 - Unspecified atrial fibrillation Diagnosis: Principal Status: Resolved (4) Diabetes ICD Code: E11.9 - Type 2 diabetes mellitus without complications Diagnosis: Principal (5) Non-compliance ICD Code: Z91.19 - Patient's noncompliance with other medical treatment and regimen Diagnosis: Principal (6) Renal insufficiency ICD Code: N28.9 - Disorder of kidney and ureter, unspecified (7) COPD with acute exacerbation ICD Code: J44.1 - Chronic obstructive pulmonary disease with (acute) exacerbation Diagnosis: Principal (8) Diabetes mellitus with hyperglycemia ICD Code: E11.65 - Type 2 diabetes mellitus with hyperglycemia Diagnosis: Principal (9) HTN (hypertension) ICD Code: I10 - Essential (primary) hypertension Diagnosis: Secondary Status: Chronic (10) On rivaroxaban therapy ICD Code: Z79.01 - intermediate (current) use of anticoagulants Diagnosis: Principal Status: Chronic (11) Afib ICD Code: I48.91 - Unspecified atrial fibrillation Diagnosis: Principal Status: Chronic (12) Adjustment disorder with depressed mood ICD Code: F43.21 - Adjustment disorder with depressed mood Diagnosis: Secondary Procedures NONE Brief History - From Admission 56-year-old female with a PMH of HTN, Depression, A. fib on Xarelto, COPD, Hyperlipidemia, Tobacco Abuse and Noncompliance who presented to the ER complaining of shortness of breath last Sunday. She also complains of right lower quadrant and umbilical abdominal pain. States her last bowel movement was Sunday. The patient was discharged [place] [facility] [place] where she was treated for A. fib with RVR and COPD exacerbation. The patient reports compliance with her home medication regimen since her discharge. She states it is sometimes difficult to keep track of all of the pills she is supposed to take. She reports associated chest pain. Denies any nausea/vomiting/diarrhea. Positive constipation. No new onset weakness or lateralizing signs/symptoms. CBC/BMP: 09/07/17 0302 09/07/17 0302 Significant Findings Laboratory Tests Test 09/06/17 18:25 09/07/17 03:02 09/07/17 10:23 White Blood Count 17.6 TH/MM3 (4.0-11.0) Hemoglobin 10.0 GM/DL (11.6-15.3) 8.6 GM/DL (11.6-15.3) Hematocrit 34.4 % (35.0-46.0) 30.1 % (35.0-46.0) Mean Corpuscular Volume 76.8 FL (80.0-100.0) 77.1 FL (80.0-100.0) Mean Corpuscular Hemoglobin 22.3 PG (27.0-34.0) 22.1 PG (27.0-34.0) Mean Corpuscular Hemoglobin Concent 29.1 % (32.0-36.0) 28.7 % (32.0-36.0) Red Cell Distribution Width 19.5 % (11.6-17.2) 19.3 % (11.6-17.2) Platelet Count 550 TH/MM3 (150-450) 453 TH/MM3 (150-450) Neutrophils (%) (Auto) 87.0 % (16.0-70.0) 80.4 % (16.0-70.0) Lymphocytes (%) (Auto) 7.5 % (9.0-44.0) Neutrophils # (Auto) 15.3 TH/MM3 (1.8-7.7) 8.7 TH/MM3 (1.8-7.7) Blood Urea Nitrogen 22 MG/DL (7-18) Creatinine 1.36 MG/DL (0.50-1.00) 1.19 MG/DL (0.50-1.00) Random Glucose 307 MG/DL (74-106) 308 MG/DL (74-106) Alkaline Phosphatase 119 U/L (45-117) Sodium Level 135 MEQ/L (136-145) Chloride Level 96 MEQ/L (98-107) Estimat Glomerular Filtration Rate 41 ML/MIN (>89) 47 ML/MIN (>89) Lipase 428 U/L (73-393) Red Blood Count 3.91 MIL/MM3 (4.00-5.30) Total Protein 6.0 GM/DL (6.4-8.2) Albumin 2.8 GM/DL (3.4-5.0) Calcium Level 8.4 MG/DL (8.5-10.1) Hemoglobin A1c 9.5 % (4.3-6.0) Urine Glucose (UA) 1000 mg/dL (NEG) Urine Leukocyte Esterase SMALL (NEG) Urine Mucus FEW /lpf (OCC) Imaging Last Impressions Chest X-Ray 09/06/17 1834 Signed Impressions: Service Date/Time: September 18:59 - CONCLUSION: 1. Cardiomegaly with pacer leads overlying the right atrium and right ventricle. Elevated right hemidiaphragm. Landon Green MD PE at Discharge GENERAL: Awake alert and oriented 3 talkative and cooperative SKIN: Warm and dry. HEAD: Atraumatic. Normocephalic. EYES: Pupils equal and round. No scleral icterus. No injection or drainage. Extraocular muscles intact ENT: No nasal bleeding or discharge. Mucous membranes pink and moist. Tongue is midline NECK: Trachea midline. No JVD. Supple CARDIOVASCULAR: IRRegular rate and rhythm. S1-S2 no S3-S4 RESPIRATORY: No accessory muscle use. Coarse breath sounds bilaterally. Breath sounds equal bilaterally. GASTROINTESTINAL: Abdomen soft, non-tender, nondistended. Hepatic and splenic margins not palpable. MUSCULOSKELETAL: Extremities without clubbing, cyanosis, or edema. No obvious deformities. NEUROLOGICAL: Awake and alert. No obvious cranial nerve deficits. Motor grossly within normal limits. Five out of 5 muscle strength in the arms and legs. Normal speech. PSYCHIATRIC: Appropriate mood and affect; insight and judgment normal. Hospital Course 56-year-old female with a PMH of HTN, Depression, A. fib on Xarelto, COPD, Hyperlipidemia, Tobacco Abuse and Noncompliance who presented to the ER complaining of shortness of breath last Sunday. She also complains of right lower quadrant and umbilical abdominal pain. States her last bowel movement was Sunday. The patient was discharged from [facility] [place] where she was treated for A. fib with RVR and COPD exacerbation. The patient reports compliance with her home medication regimen since her discharge. She states it is sometimes difficult to keep track of all of the pills she is supposed to take. She reports associated chest pain. Denies any nausea/vomiting/diarrhea. Positive constipation. No new onset weakness or lateralizing signs/symptoms. 4-7 OUT OF AFIB WITH RVR RATE IS CONTROLLED DOING WELL WANTS TO GO HOME NEEDS MEDS FOR CONSTIPATION DYING IN HOSPICE DC TO HOME Pt Condition on Discharge: Good Discharge Disposition: Discharge Home Discharge Time: > 30 minutes Discharge Instructions DIET: Follow Instructions for: Heart Healthy Diet, Diabetic Diet Speech Therapy-Diet Recommends: Regular Activities you can perform: Regular-No Restrictions Other Activity Instructions: Stop smoking Follow up Referrals: PCP Follow-up - 2-3 Days with Liz Thorne M.d. New Medications: Nebulizer (Nebulizer) 1 Mis Mis EA .XX DIRECTED for Breathing Treatment, #1 0 Refills Prednisone (48) 10 mg tab Dose Pack (Prednisone (48) 10 mg tab Dose Pack) 10 Mg Dspk 10 MG PO DIRECTED for Inflammation, #1 DSPK 0 Refills TAKE WITH FOOD Levalbuterol Neb (Levalbuterol Neb) 1.25 Mg/3 Ml Neb 1.25 MG NEB Q8HR NEB for Shortness of Breath, #90 NEBULE USE IF ALBUTEROL MAKES HEART RATE TOO FAST Sennosides-Docusate Sodium (Gnp Senna Plus 8.6-50 mg) 8.6 Mg-50 Mg Tab 2 TAB PO BID for Constipation, #120 TAB [Albuterol-Ipratropium Neb] () 1 AMPULE NEBU 1 AMPULE NEB Q4HR NEB PRN for SOB/WHEEZING, #120 AMPULE Continued Medications: Acetaminophen (Tylenol Extra Strength) 500 Mg Tablet 500 MG PO Q6HR PRN for MILD PAIN Albuterol 18 GM Inh (Ventolin Hfa 18 GM Inh) 90 Mcg/Act Aer 2 PUFF INH Q4H PRN for SHORTNESS OF BREATH, #1 INHALER 0 Refills Amiodarone (Amiodarone) 200 Mg Tab 200 MG PO Q12HR for Atrial Fibrillation, #60 TAB 0 Refills (This prescription has been renewed) Aspirin (Aspirin) 81 Mg Chew 81 MG PO DAILY for Blood Clot Prevention, #30 TAB 0 Refills (This prescription has been renewed) Diltiazem CD 24 HR (Diltiazem CD 24 HR) 240 Mg Caper 240 MG PO DAILY for Regulate Heart Beat, #30 CAP 0 Refills (This prescription has been renewed) Furosemide (Furosemide) 20 Mg Tab 20 MG PO DAILY for Blood Pressure Management, #30 TAB 0 Refills (This prescription has been renewed) Isosorbide Mononitrate ER (Isosorbide Mononitrate ER) 30 Mg Leonie 30 MG PO HS for Prevent Chest Pain, #30 TAB 0 Refills (This prescription has been renewed) Metoprolol Tartrate (Metoprolol Tartrate) 50 Mg Tab 50 MG PO BID for Regulate Heart Beat, #60 TAB 0 Refills (This prescription has been renewed) Mometasone-Formoterol 120 Act Inh (Dulera 120 Act Inh) 200-5 Mcg/Act Inh 1 PUFF INH BID for Asthma Management, #1 INHALER 0 Refills (This prescription has been renewed) Pantoprazole (Protonix) 40 Mg Tab 40 MG PO DAILY for Ulcer Prevention, #30 TAB 0 Refills (This prescription has been renewed) Pravastatin (Pravachol) 40 Mg Tab 40 MG PO DAILY for Atrial Fibrillation, #30 TAB 0 Refills (This prescription has been renewed) Rivaroxaban (Xarelto) 15 Mg Tab 15 MG PO DAILY for Atrial Fibrillation, #30 TAB 0 Refills (This prescription has been renewed) Venlafaxine ER 24 HR (Effexor XR 24 HR) 150 Mg Cap 150 MG PO DAILY for Depression Control, #30 CAP 0 Refills (This prescription has been renewed) Garcia Ruby DO Sep 08, 2017 11:38
== END 2017-09-08 11:50 | disposition home or self-care (01) | DRG 309 ==
LOC: NEPC 18:08 → NEDA 20:37 → NEDH 09-07 00:37 → HCIS 09-07 09:58
PROVIDERS: ADMIT Hospitalist; ATTEND Hospitalist
DX: I48.91 Unspecified atrial fibrillation (principal); Z79.02 Long term (current) use of antithrombotics/antiplatelets; J44.1 Chronic obstructive pulmonary disease with (acute) exacerbation; E11.65 Type 2 diabetes mellitus with hyperglycemia; E11.22 Type 2 diabetes mellitus with diabetic chronic kidney disease; I12.9 Hypertensive chronic kidney disease with stage 1 through stage 4 chronic kidney disease, or unspecified chronic kidney disease; N18.3 Chronic kidney disease, stage 3 (moderate); E78.5 Hyperlipidemia, unspecified; F17.210 Nicotine dependence, cigarettes, uncomplicated; Z79.82 Long term (current) use of aspirin; Z95.810 Presence of automatic (implantable) cardiac defibrillator; Z91.19 Patient's noncompliance with other medical treatment and regimen; F43.21 Adjustment disorder with depressed mood; K59.00 Constipation, unspecified; I25.10 Atherosclerotic heart disease of native coronary artery without angina pectoris; E03.9 Hypothyroidism, unspecified; Z86.73 Personal history of transient ischemic attack (TIA), and cerebral infarction without residual deficits
CPT/HCPCS: 71045; 80053; 81001; 82550; 82948; 83036; 83690; 84484; 85025; 93005; 94640; 94664; 96361; 96374; 96375; J1815; J2270; J2405; J2920; J7030; J7614

== ENCOUNTER 2017-09-23 21:13 | Inpatient (IN) | payer SELFPAY ==
[~2017-09-23] VITALS: Ht 162.6 cm; Wt 85.1 kg
[~2017-09-23 21:13] MED LIST changes: +Albuterol-Ipratropium Neb NEB; -GUAI600T11 PO; +LEVA1.257 NEB; +NEBULIZER1 MI1; +PERI PO; +PRED10PA2 PO; -PRED20 PO
[2017-09-23 21:18] VITALS: BP 119/76; PULSE 154; RESP 24; TEMP 98.4; O2SAT 96
[2017-09-23 21:24] VITALS: BP 150/86; PULSE 146; RESP 18; O2SAT 99
[2017-09-23] MEDS ORDERED: ESMOLOL DRIP INJ PREMIX 250 ML IV STA (21:33)
--- NOTE | 2017-09-23 21:49 | PD ---
HPI Chief Complaint: Respiratory Symptoms Time Seen by Provider: 21:27 Travel History International Travel<30 days: No Contact w/Intl Traveler<30days: No Traveled to known affect area: No History of Present Illness HPI The patient is a 56 year old female who presents to the [facility] emergency department with a history of reportedly having a cough and congestion that began 2 weeks ago just after she was discharged from the hospital for an admission for constipation and A. fib with RVR. The patient reports that she has been taking her medications as prescribed. She reports that she has had a cough productive of green sputum. She reports that over the last 2 days she began to have shortness of breath. She reports that the shortness of breath is worse when she tries to lie flat. She denies having any lower extremity edema, calf pain, or erythema. She reports that she is anticoagulated on Xarelto. She reports that she did take her medications just prior to coming into the emergency department. She denies any prior history of congestive heart failure. She does however report a history of COPD. She reports that she has decreased her smoking down to a half a pack per day. The patient reports being diagnosed with pancreatitis as well as a problem with her liver. She reports that she has chronic right upper quadrant abdominal pain. She denies this being any worse than usual. On review of systems otherwise, the patient denies having any known recent fevers,neck pain, chest pain, vomiting, diarrhea, urinary symptoms, or neurologic symptoms. [facility] Past Medical History Narrative Medical The patient's past medical history is significant for according to the electronic medical record medication noncompliance, history of hypertension, depression, atrial fibrillation, COPD, hyperlipidemia, history of cerebrovascular, and tobacco abuse. Hx Anticoagulant Therapy: Yes (XARELTO) Arthritis: Yes Asthma: No Atrial Fibrillation: Yes Anxiety: No Depression: Yes Heart Rhythm Problems: Yes (Afib RVR) Cancer: No Cardiovascular Problems: Yes High Cholesterol: Yes Chest Pain: Yes Congestive Heart Failure: Yes COPD: Yes Cerebrovascular Accident: Yes (2014) Coronary Artery Disease: Yes Diabetes: Yes Patient Takes Glucophage: No Diminished Hearing: No Endocrine: Yes Gastrointestinal Disorders: Yes (GERD) GERD: Yes Glaucoma: No Genitourinary: Yes Headaches: Yes Hepatitis: No Hiatal Hernia: No Hypertension: Yes Immune Disorder: No Implanted Vascular Access Dvce: Yes Kidney Stones: No Musculoskeletal: Yes Neurologic: Yes Psychiatric: Yes Reproductive: No Respiratory: Yes (COPD) Integumentary: No Immunizations Current: Yes Migraines: No Renal Failure: Yes (ckd stage 3) Seizures: No Sleep Apnea: Yes (doesn't use CPAP) Thyroid Disease: Yes (hypothyroid) Ulcer: No ?: Not : 3 Para: 3 Past Surgical History Narrative Surgical The patient's past surgical history is significant for an AICD placement, cardiac ablation, hysterectomy, pacemaker placement. Abdominal Surgery: No AICD: Yes (medtronic) Arteriovenous Shunt: No Body Medical Devices: AICD Cardiac Surgery: Yes (ABLATION X2) Ear Surgery: No Endocrine Surgery: No Eye Surgery: No Genitourinary Surgery: No Gynecologic Surgery: Yes (hysterectomy) Hysterectomy: Yes Insulin Pump: No Joint Replacement: No Oral Surgery: Yes (teeth removed) Pacemaker: Yes Thoracic Surgery: Yes (AICD MEDTRONIC ) Other Surgery: Yes Social History Alcohol Use: No Tobacco Use: Yes (One half pack per day) Substance Use: No Allergies-Medications (Allergen,Severity, Reaction): Coded Allergies: sertraline (Verified Allergy, Severe, hives, 09/23/17) verapamil (Verified Allergy, Severe, rash, 09/23/17) Reported Meds & Prescriptions Reported Meds & Active Scripts Active Diltiazem CD 24 HR 240 Mg Caper 240 Mg PO DAILY Pravachol (Pravastatin) 40 Mg Tab 40 Mg PO DAILY Amiodarone (Amiodarone HCl) 200 Mg Tab 200 Mg PO Q12HR Xarelto (Rivaroxaban) 15 Mg Tab 15 Mg PO DAILY Metoprolol Tartrate 50 Mg Tab 50 Mg PO BID Furosemide 20 Mg Tab 20 Mg PO DAILY Effexor XR 24 HR (Venlafaxine HCl) 150 Mg Cap 150 Mg PO DAILY Isosorbide Mononitrate ER (Isosorbide Mononitrate) 30 Mg Leonie 30 Mg PO HS Dulera 120 Act Inh (Mometasone-Formoterol 120 Act Inh) 200-5 Mcg/Act Inh 1 Puff INH BID Protonix (Pantoprazole Sodium) 40 Mg Tab 40 Mg PO DAILY Aspirin 81 Mg Chew 81 Mg PO DAILY Ventolin Hfa 18 GM Inh (Albuterol Sulfate) 90 Mcg/Act Aer 2 Puff INH Q4H PRN Reported Tylenol Extra Strength (Acetaminophen) 500 Mg Tablet 500 Mg PO Q6HR PRN Review of Systems Except as stated in HPI: all other systems reviewed are Neg General / Constitutional: No: Fever Eyes: No: Visual changes HENT: No: Headaches Cardiovascular: Positive: Dyspnea on exertion, No: Chest Pain or Discomfort Respiratory: Positive: Cough, Shortness of Breath, Orthopnea Gastrointestinal: Positive: Abdominal Pain, No: Nausea, Vomiting, Diarrhea, Hematemesis, Hematochezia, Changes in Bowel Habits, Indigestion, Loss of Appetite Genitourinary: No: Dysuria Musculoskeletal: No: Pain Skin: No Rash Neurologic: No: Weakness, Focal Abnormalities, Change in Mentation, Slurred Speech, Sensory Disturbance Psychiatric: No: Depression Endocrine: No: Polydipsia Hematologic/Lymphatic: No: Easy Bruising Physical Exam Narrative General: The patient is a well-developed well-nourished female, uncomfortable appearing on arrival, short of breath, tachycardic with a heart rate in the 140s-150s Head and Neck exam: Head is normocephalic atraumatic. Eyes: EOMI, pupils are equal round and reactive to light. Nose: Midline septum with pink mucous membranes Mouth: Dentition unremarkable. Moist mucus membranes. Posterior oropharynx is not erythematous. No tonsillar hypertrophy. Uvula midline. Airway patent. Neck: No palpable lymphadenopathy. No nuchal rigidity. No thyromegaly. Cardiovascular: Tachycardic with a heart rate in the 150s without murmurs, gallops, or rubs. Lungs: The patient is noted to have crackles audible in bilateral lung bases. No wheezes or rhonchi. Abdomen: Soft, with reported tenderness on palpation of the right upper quadrant of the abdomen. No other tenderness on palpation of the other quadrants. Negative Morrison sign. No guarding, rebound, or rigidity. Extremities: No clubbing or cyanosis, trace to 1 plus edema of b/l lower extremities. . 2+ pulses in all 4 extremities. No calf tenderness on palpation. Back: No spinous process tenderness to palpation. No costovertebral angle tenderness to palpation. Neurologic Exam:Grossly nonfocal. Skin Exam: No rash noted. Intact skin that is warm and dry. Data Data Last Documented VS Vital Signs Date Time Temp Pulse Resp B/P (MAP) Pulse Ox O2 Delivery O2 Flow Rate FiO2 09/23/17 23:29 114 106/73 4/22/18 22:03 18 99 Room Air 09/23/17:18 98.4 Orders Orders Electrocardiogram (09/23/17 21:33) Complete Blood Count With Diff (09/23/17 21:33) Comprehensive Metabolic Panel (09/23/17 21:33) Creatine Kinase (Cpk) (09/23/17 21:33) Ckmb (Isoenzyme) Profile (09/23/17:33) Troponin I (09/23/17:) B-Type Natriuretic Peptide (09/23/17:33) Prothrombin Time / Inr (Pt) (09/23/17:33) Act Partial Throm Time (Ptt) (09/23/17:) C-Reactive Protein (Crp) (09/23/17:) Lipase (09/23/17:) Urinalysis - C+S If Indicated (09/23/17:33) Magnesium (Mg) (09/23/17:33) Chest, Single Ap (09/23/17:33) Iv Access Insert/Monitor (09/23/17:33) Ecg Monitoring (09/23/17:33) Oximetry (09/23/17:33) Lactic Acid Sepsis Protocol (09/23/17:33) Blood Culture (09/23/17:33) Esmolol Drip Inj Premix (Brevibloc Drip (09/23/17 21:33) Levofloxacin 750 Mg Premix Inj (Levaquin (09/23/17 23:30) Admit Order (Ed Use Only) (09/23/17 23:36) Furosemide Inj (Lasix Inj) (09/23/17 23:45) Labs Laboratory Tests Test 09/23/17 21:39 09/23/17 21:50 09/23/17 22:10 White Blood Count 9.4 TH/MM3 Red Blood Count 4.05 MIL/MM3 Hemoglobin 8.7 GM/DL Hematocrit 30.5 % Mean Corpuscular Volume 75.5 FL Mean Corpuscular Hemoglobin 21.5 PG Mean Corpuscular Hemoglobin Concent 28.5 % Red Cell Distribution Width 19.6 % Platelet Count 471 TH/MM3 Mean Platelet Volume 8.3 FL Neutrophils (%) (Auto) 77.1 % Lymphocytes (%) (Auto) 15.7 % Monocytes (%) (Auto) 6.1 % Eosinophils (%) (Auto) 0.3 % Basophils (%) (Auto) 0.8 % Neutrophils # (Auto) 7.3 TH/MM3 Lymphocytes # (Auto) 1.5 TH/MM3 Monocytes # (Auto) 0.6 TH/MM3 Eosinophils # (Auto) 0.0 TH/MM3 Basophils # (Auto) 0.1 TH/MM3 CBC Comment AUTO DIFF Differential Comment AUTO DIFF CONFIRMED Target Cells 1+ Prothrombin Time 12.3 SEC Prothromb Time International Ratio 1.2 RATIO Activated Partial Thromboplast Time 23.8 SEC Blood Urea Nitrogen 10 MG/DL Creatinine 1.19 MG/DL Random Glucose 253 MG/DL Total Protein 7.4 GM/DL Albumin 3.4 GM/DL Calcium Level 8.7 MG/DL Magnesium Level 1.9 MG/DL Alkaline Phosphatase 149 U/L Aspartate Amino Transf (AST/SGOT) 20 U/L Alanine Aminotransferase (ALT/SGPT) 21 U/L Total Bilirubin 0.6 MG/DL Sodium Level 138 MEQ/L Potassium Level 4.1 MEQ/L Chloride Level 102 MEQ/L Carbon Dioxide Level 26.8 MEQ/L Anion Gap 9 MEQ/L Estimat Glomerular Filtration Rate 47 ML/MIN Total Creatine Kinase 93 U/L Troponin I 0.05 NG/ML C-Reactive Protein 1.00 MG/DL B-Type Natriuretic Peptide 876 PG/ML Lipase 342 U/L Lactic Acid Level 2.2 mmol/L Urine Color YELLOW Urine Turbidity CLEAR Urine pH 5.0 Urine Specific [place] 1.018 Urine Protein TRACE mg/dL Urine Glucose (UA) 1000 mg/dL Urine Ketones NEG mg/dL Urine Occult Blood NEG Urine Nitrite NEG Urine Bilirubin NEG Urine Urobilinogen LESS THAN 2.0 MG/DL Urine Leukocyte Esterase SMALL Urine RBC 2 /hpf Urine WBC 2 /hpf Urine Squamous Epithelial Cells 5 /hpf Urine Bacteria RARE /hpf Urine Mucus FEW /lpf Microscopic Urinalysis Comment CULT NOT INDICATED MDM Medical Decision Making Medical Screen Exam Complete: Yes Emergency Medical Condition: Yes Medical Record Reviewed: Yes Interpretation(s) Last Impressions Chest X-Ray 09/23/17 8738 Signed Impressions: Service Date/Time: Saturday, September 23, 2017 21:43 - CONCLUSION: No acute cardiopulmonary abnormality is identified. Khadar Farrell MD Differential Diagnosis CHF, vs Pneumonia, vs pulmonary embolism, vs ACS Narrative Course During the course of the patient's emergency department visit, the patient's history, examination, and differential diagnosis were reviewed with the patient. The patient was placed on a night monitor with oximetry and frequent blood pressure monitoring. The patient had IV access obtained and blood work sent for analysis. The patient had a EKG done on arrival that shows A. fib with RVR with a heart rate of 151, QRS duration is 115 ms, QTC [address]-T wave abnormalities noted. The T-wave abnormalities and ST segment abnormalities are similar compared to prior EKG done at this facility. The patient was started on esmolol drip. The patient was given Lasix 40 mg IV as the patient's symptoms are suspicious for fluid overload with crackles in the bases. The patient's laboratory studies were reviewed and remarkable for : 09/23/17 21:39 Total Protein 7.4, Albumin 3.4, Calcium Level 8.7, Magnesium Level 1.9, Alkaline Phosphatase 149 H, Aspartate Amino Transf (AST/SGOT) 20, Alanine Aminotransferase (ALT/SGPT) 21, Total Bilirubin 0.6, The patient's hemoglobin is stable compared to previously. cardiac enzymes within normal limits, bnp elevated suggestive of CHF. Symptoms are also concerning for bronchitis in a setting of COPD therefore Levaquin 750mg iv was administered. Radiology studies were reviewed and remarkable for a cxr that was read as showing no evidence of acute cardiopulmonary disease. The patient's results were discussed with the patient, including the plan of care. I explained that further testing and/ or monitoring is indicated based on the patient's history, examination, and/ or laboratory findings. Therefore, I recommended admission for additional evaluation. The patient expressed understanding and was agreeable with this plan. The patient was admitted to the hospital in guarded condition and sent to a bed under the care of [facility]. Physician Communication Physician Communication The patient's case including history, pertinent physical examination findings, and laboratory studies were discussed with Dr. Amador. It was agreed that the patient would be admitted to the [facility] service. Diagnosis Primary Impression: Atrial fibrillation with RVR Admitting Information Admitting Physician Requests: Admit Linda Headley MD Sep 23, 2017 21:49
[2017-09-23 21:53] LABS: AUTOMATED NEUTROPHIL # 7.3 TH/MM3 (1.8-7.7); BASOPHIL # 0.1 TH/MM3 (0-0.2); BASOPHIL % 0.8 % (0.0-2.0); EOSINOPHIL % 0.3 % (0.0-4.0); HEMATOCRIT 30.5 % (35.0-46.0); HEMOGLOBIN 8.7 GM/DL (11.6-15.3); LYMPH % 15.7 % (9.0-44.0); LYMPHOCYTE # 1.5 TH/MM3 (1.0-4.8); MEAN CELL VOLUME 75.5 FL (80.0-100.0); MEAN CORPUSCULAR HEMOGLOBIN 21.5 PG (27.0-34.0); MEAN PLATELET VOLUME 8.3 FL (7.0-11.0); MONO % 6.1 % (0.0-8.0); MONOCYTE # 0.6 TH/MM3 (0-0.9); NEUT % 77.1 % (16.0-70.0); PLATELET COUNT 471 TH/MM3 (150-450); RED BLOOD COUNT 4.05 MIL/MM3 (4.00-5.30); RED CELL DISTRIBUTION WIDTH 19.6 % (11.6-17.2); WHITE BLOOD COUNT 9.4 TH/MM3 (4.0-11.0)
--- NOTE | 2017-09-23 21:55 | RADRPT ---
EXAM DATE/TIME: 09/23/2017 21:43 [facility] COMPARISON: CHEST SINGLE AP, September 06, 2017, 18:59. INDICATIONS : Chest pain with shortness of breath. MEDICAL HISTORY : Hypertension. Diabetes mellitus type II. Chronic obstructive pulmonary disease. SURGICAL HISTORY : Pacemaker. Cardiac ablation ENCOUNTER: Initial ACUITY: 1 day PAIN SCORE: 8/10 LOCATION: Bilateral chest FINDINGS: Portable AP view of the chest demonstrates a normal-sized cardiac silhouette. Left chest wall cardiac pacing device/AICD remains present. EKG lines overlie the patient. No effusion, consolidation, or pn eumothorax is visualized. The bones and soft tissues demonstrate no acute finding. CONCLUSION: No acute cardiopulmonary abnormality is identified. Khadar Farrell MD on September 23, 2017 at 21:51 Board Certified Radiologist. This report was verified electronically.
[2017-09-23 22:02] LABS: INTERNATIONAL NORMALIZED RATIO 1.2 RATIO; PROTHROMBIN TIME - PATIENT 12.3 SEC (9.8-11.6)
[2017-09-23 22:03] VITALS: BP 130/67; PULSE 132; RESP 18; O2SAT 99
[2017-09-23 22:05] LABS: MEAN CORPUSCULAR HGB CONC 28.5 % (32.0-36.0)
[2017-09-23 22:14] LABS: ALBUMIN 3.4 GM/DL (3.4-5.0); ALT (GPT) 21 U/L (10-53); AST (GOT) 20 U/L (15-37); BICARBONATE 26.8 MEQ/L (21.0-32.0); BLOOD UREA NITROGEN 10 MG/DL (7-18); CALCIUM 8.7 MG/DL (8.5-10.1); CHLORIDE 102 MEQ/L (98-107); CREATININE 1.19 MG/DL (0.50-1.00); GLOMERULAR FILTRATION RATE 47 ML/MIN (>89); GLUCOSE,RANDOM 253 MG/DL (74-106); MAGNESIUM 1.9 MG/DL (1.5-2.5); SODIUM (NA) 138 MEQ/L (136-145)
[2017-09-23 22:17] LABS: ALKALINE PHOSPHATASE 149 U/L (45-117); TOTAL BILIRUBIN ADULT 0.6 MG/DL (0.2-1.0); TOTAL PROTEIN 7.4 GM/DL (6.4-8.2); TROPONIN I 0.05 NG/ML (0.02-0.05)
[2017-09-23 22:29] LABS: TARGET CELLS 1+ (NORMAL)
[2017-09-23 22:29] LABS: LACTIC ACID SEPSIS PROTOCOL 2.2 mmol/L (0.4-2.0)
[2017-09-23 22:31] LABS: BACTERIA, URINE RARE /hpf; BILIRUBIN, URINE NEG (NEG); BLOOD, URINE NEG (NEG); GLUCOSE,URINE 1000 mg/dL (NEG); KETONE, URINE NEG (NEG); MUCUS URINE FEW /lpf (OCC); NITRITE,URINE NEG (NEG); SQUAMOUS EPITHELIAL CELL URINE 5 /hpf (0-5); URINE COLOR YELLOW (YELLW/STRAW); URINE LEUKOCYTE ESTERASE SMALL (NEG)
[2017-09-23] MEDS ORDERED: LEVOFLOXACIN 750 MG PREMIX INJ 150 ML IV ONE (23:30)
[2017-09-23] MEDS ORDERED: FUROSEMIDE 40 MG/4 ML VIAL IV PUSH ONE (23:45)
[2017-09-24] VITALS (10 sets, daily range): BP systolic 97–134; BP diastolic 57–87; PULSE 63–119; RESP 18–31; TEMP 97.5–98.2; O2SAT 95–100
[2017-09-24] MEDS ORDERED: BISACODYL 10 MG SUPP RECTAL PRN
[2017-09-24] MEDS ORDERED: LACTULOSE SYRUP 20 GM/30 ML CUP PO PRN
[2017-09-24] MEDS ORDERED: SODIUM CHLORIDE 0.9% FLUSH 10 ML FLUSH IV FLUSH PRN
[2017-09-24] MEDS ORDERED: GLUCAGON 1 MG/ML VIAL OTHER PRN
[2017-09-24] MEDS ORDERED: SENNOSIDES 8.6 MG TAB PO PRN
[2017-09-24] MEDS ORDERED: NALOXONE HCL 0.4 MG/ML AMP IV PUSH PRN
[2017-09-24] MEDS ORDERED: MAGNESIUM HYDROXIDE SUSP 30 ML CUP PO PRN
[2017-09-24] MEDS ORDERED: DEXTROSE 50% IN WATER 50 ML VIAL(D50) IV PUSH PRN
--- NOTE | 2017-09-24 00:14 | HHI.HP ---
[facility] Liz Thorne M.D. Admission Diagnosis afib with rvr, bronchitis Diagnoses: Travel History International Travel<30 Days: No Contact w/Intl Traveler <30 Da: No Traveled to Known Affected Are: No History of Present Illness 56-year-old female with a PMH of HTN, Depression, A. fib on Xarelto, COPD, Hyperlipidemia, Tobacco Abuse and Noncompliance who presented to the ER complaining of continued shortness of breath. The patient was discharged from the hospital on 09/08/17 where she was treated for A. fib with RVR. She reports continued shortness of breath since that time with a 2 day history of a cough productive of green sputum. She reports a low-grade fever of 100, taken at home. The patient reports she has been compliant with all of her medications. On arrival to the emergency department she was found to be in atrial fibrillation with rapid ventricular response. She denies any chest pain. Positive shortness of breath. No abdominal pain. No nausea/vomiting/diarrhea. Positive fevers/chills. No lateralizing signs/symptoms. Review of Systems Except as stated in HPI: all other systems reviewed are Neg Past Family Social History Past Medical History HTN, Depression, A. fib on Xarelto, COPD, Hyperlipidemia, Tobacco Abuse and Noncompliance Past Surgical History AICD, Cardiac Ablation, Hysterectomy Reported Medications Reported Meds & Active Scripts Active Diltiazem CD 24 HR 240 Mg Caper 240 Mg PO DAILY Pravachol (Pravastatin) 40 Mg Tab 40 Mg PO DAILY Amiodarone (Amiodarone HCl) 200 Mg Tab 200 Mg PO Q12HR Xarelto (Rivaroxaban) 15 Mg Tab 15 Mg PO DAILY Metoprolol Tartrate 50 Mg Tab 50 Mg PO BID Furosemide 20 Mg Tab 20 Mg PO DAILY Effexor XR 24 HR (Venlafaxine HCl) 150 Mg Cap 150 Mg PO DAILY Isosorbide Mononitrate ER (Isosorbide Mononitrate) 30 Mg Leonie 30 Mg PO HS Dulera 120 Act Inh (Mometasone-Formoterol 120 Act Inh) 200-5 Mcg/Act Inh 1 Puff INH BID Protonix (Pantoprazole Sodium) 40 Mg Tab 40 Mg PO DAILY Aspirin 81 Mg Chew 81 Mg PO DAILY Ventolin Hfa 18 GM Inh (Albuterol Sulfate) 90 Mcg/Act Aer 2 Puff INH Q4H PRN Reported Tylenol Extra Strength (Acetaminophen) 500 Mg Tablet 500 Mg PO Q6HR PRN Allergies: Coded Allergies: sertraline (Verified Allergy, Severe, hives, 09/23/17) verapamil (Verified Allergy, Severe, rash, 09/23/17) Family History No h/o DM or CAD Social History Negative for alcohol or drugs. Smokes 1ppd Physical Exam Vital Signs Vital Signs Date Time Temp Pulse Resp B/P (MAP) Pulse Ox O2 Delivery O2 Flow Rate FiO2 09/23/17 23:29 114 106/73 09/23/17 22:03 132 18 130/67 (88) 99 Room Air 09/23/17 22:03 146 130/67 09/23/17 21:24 146 18 150/86 (107) 99 Room Air 09/23/17 21:18 98.4 154 24 119/76 (90) 96 Room Air Physical Exam GENERAL: Obese, female lying in bed SKIN: No rashes, ecchymoses or lesions. Cool and dry. HEAD: Atraumatic. Normocephalic. No temporal or scalp tenderness. EYES: Pupils equal round and reactive. Extraocular motions intact. No scleral icterus. No injection or drainage. ENT: Nose without bleeding, purulent drainage or septal hematoma. Throat without erythema, tonsillar hypertrophy or exudate. Uvula midline. Airway patent. NECK: Trachea midline. No JVD or lymphadenopathy. Supple, nontender, no meningeal signs. CARDIOVASCULAR: Tachycardic. Irregularly irregular rhythm without murmurs/rubs/ gallops. RESPIRATORY: Bilateral expiratory wheezes throughout GASTROINTESTINAL: Abdomen soft, mildly tender to palpation in the right lower quadrant, nondistended. No hepato-splenomegaly, or palpable masses. No guarding. MUSCULOSKELETAL: Extremities without clubbing, cyanosis, or edema. No joint tenderness, effusion, or edema noted. No calf tenderness. NEUROLOGICAL: Awake and alert. Cranial nerves II through XII intact. Motor and sensory grossly within normal limits. Normal speech. Laboratory Laboratory Tests Test 09/23/17 21:39 09/23/17 21:50 09/23/17 22:10 White Blood Count 9.4 Red Blood Count 4.05 Hemoglobin 8.7 Hematocrit 30.5 Mean Corpuscular Volume 75.5 Mean Corpuscular Hemoglobin 21.5 Mean Corpuscular Hemoglobin Concent 28.5 Red Cell Distribution Width 19.6 Platelet Count 471 Mean Platelet Volume 8.3 Neutrophils (%) (Auto) 77.1 Lymphocytes (%) (Auto) 15.7 Monocytes (%) (Auto) 6.1 Eosinophils (%) (Auto) 0.3 Basophils (%) (Auto) 0.8 Neutrophils # (Auto) 7.3 Lymphocytes # (Auto) 1.5 Monocytes # (Auto) 0.6 Eosinophils # (Auto) 0.0 Basophils # (Auto) 0.1 CBC Comment AUTO DIFF Differential Comment AUTO DIFF CONFIRMED Target Cells 1+ Prothrombin Time 12.3 Prothromb Time International Ratio 1.2 Activated Partial Thromboplast Time 23.8 Blood Urea Nitrogen 10 Creatinine 1.19 Random Glucose 253 Total Protein 7.4 Albumin 3.4 Calcium Level 8.7 Magnesium Level 1.9 Alkaline Phosphatase 149 Aspartate Amino Transf (AST/SGOT) 20 Alanine Aminotransferase (ALT/SGPT) 21 Total Bilirubin 0.6 Sodium Level 138 Potassium Level 4.1 Chloride Level 102 Carbon Dioxide Level 26.8 Anion Gap 9 Estimat Glomerular Filtration Rate 47 Total Creatine Kinase 93 Troponin I 0.05 C-Reactive Protein 1.00 B-Type Natriuretic Peptide 876 Lipase 342 Lactic Acid Level 2.2 Urine Color YELLOW Urine Turbidity CLEAR Urine pH 5.0 Urine Specific [place] 1.018 Urine Protein TRACE Urine Glucose (UA) 1000 Urine Ketones NEG Urine Occult Blood NEG Urine Nitrite NEG Urine Bilirubin NEG Urine Urobilinogen LESS THAN 2.0 Urine Leukocyte Esterase SMALL Urine RBC 2 Urine WBC 2 Urine Squamous Epithelial Cells 5 Urine Bacteria RARE Urine Mucus FEW Microscopic Urinalysis Comment CULT NOT INDICATED Date/Time Source Procedure Growth Status 09/23/17 21:50 Blood Peripheral Aerobic Blood Culture Pending Received 09/23/17 21:50 Blood Peripheral Anaerobic Blood Culture Pending Received Result Diagram: 09/23/[id number]/[id number] Caprini VTE Risk Assessment Caprini VTE Risk Assessment: Mod/High Risk (score >= 2) Caprini Risk Assessment Model Point Value = 1 Point Value = 2 Point Value = 3 Point Value = 5 Age 41-60 Minor surgery BMI > 25 kg/m2 Swollen legs Varicose veins or History of unexplained or recurrent spontaneous Oral contraceptives or hormone replacement Sepsis (< 1 month) Serious lung disease, including pneumonia (< 1 month) Abnormal pulmonary function Acute myocardial infarction Congestive heart failure (< 1 month) History of inflammatory bowel disease Medical patient at bed rest Age 61-74 Arthroscopic surgery Major open surgery (> 45 min) Laparoscopic surgery (> 45 min) Malignancy Confined to bed (> 72 hours) Immobilizing plaster cast Central venous access Age >= 75 History of VTE Family history of VTE Factor V Leiden Prothrombin [id number] Lupus anticoagulant Anticardiolipin antibodies Elevated serum homocysteine Heparin-induced thrombocytopenia Other congenital or acquired thrombophilia Stroke (< 1 month) Elective arthroplasty Hip, pelvis, or leg fracture Acute spinal cord injury (< 1 month) Prophylaxis Regimen Total Risk Factor Score Risk Level Prophylaxis Regimen 0-1 Low Early ambulation 2 Moderate Order ONE of the following: *Sequential Compression Device (SCD) *Heparin 5000 units SQ BID 3-4 Higher Order ONE of the following medications: *Heparin 5000 units SQ TID *Enoxaparin/Lovenox 40 mg SQ daily (WT < 150 kg, CrCl > 30 mL/min) *Enoxaparin/Lovenox 30 mg SQ daily (WT < 150 kg, CrCl > 10-29 mL/min) *Enoxaparin/Lovenox 30 mg SQ BID (WT < 150 kg, CrCl > 30 mL/min) AND/OR *Sequential Compression Device (SCD) 5 or more Highest Order ONE of the following medications: *Heparin 5000 units SQ TID (Preferred with Epidurals) *Enoxaparin/Lovenox 40 mg SQ daily (WT < 150 kg, CrCl > 30 mL/min) *Enoxaparin/Lovenox 30 mg SQ daily (WT < 150 kg, CrCl > 10-29 mL/min) *Enoxaparin/Lovenox 30 mg SQ BID (WT < 150 kg, CrCl > 30 mL/min) AND *Sequential Compression Device (SCD) Assessment and Plan Assessment and Plan Assessment/plan: 1. A. fib with RVR Continue home amiodarone, metoprolol, diltiazem Continue esmolol drip Continue anticoagulation with Xarelto Wean drip as tolerated 2. COPD exacerbation IV steroids Xopenex Levaquin as patient with increased sputum production, increased cough and fever Supplemental oxygen as needed 3. CHF exacerbation BMP elevated from baseline Mild crackles on physical exam IV Lasix 4. Chronic renal insufficiency Creatinine 1.19, at baseline Monitor renal function 5. Hypertension/hyperlipidemia/depression Continue home medications FEN Heart healthy diet Electrolytes: monitor and replete prn Asaf Physician Certification 2 Midnight Certification Type: Admission for Inpatient Services Order for Inpatient Services The services are ordered in accordance with Medicare regulations or non- Medicare payer requirements, as applicable. In the case of services not specified as inpatient-only, they are appropriately provided as inpatient services in accordance with the 2-midnight benchmark. Estimated LOS (days): 2 2 days is the estimated time the patient will need to remain in the hospital, assuming treatment plan goals are met and no additional complications. Post-Hospital Plan: Not yet determined Amy Amador MD Sep 24, 2017 00:14
[2017-09-24] MEDS ORDERED: RESP: LEVALBUTEROL HYDROCHLORIDE 1.25 MG/3 ML NEB (PRN) NEB (00:15)
[2017-09-24] MEDS ORDERED: CHLORHEXIDINE GLUCONATE 2 % 1 PACK (2 CLOTHS)(extra cloths) TOPICAL PRN (01:00)
[2017-09-24] MEDS: ESMOLOL DRIP INJ PREMIX 250 ML IV PRN ×3 (01:23→06:53)
[2017-09-24] MEDS: ONDANSETRON HCL 4 MG/2 ML VIAL IVP PRN (03:57)
[2017-09-24] MEDS: CHLORHEXIDINE GLUCONATE 2 % 1 PACK (2 CLOTHS)(taper/protocol) TOPICAL SCH (04:00)
[2017-09-24] MEDS ORDERED: methylPREDNISolone SOD SUCC 40 MG/1 ML VIAL IV PUSH SCH (06:00)
[2017-09-24 07:14] LABS: AUTOMATED NEUTROPHIL # 8.7 TH/MM3 (1.8-7.7); BASOPHIL # 0.1 TH/MM3 (0-0.2); BASOPHIL % 0.9 % (0.0-2.0); EOSINOPHIL % 0.3 % (0.0-4.0); HEMOGLOBIN 7.5 GM/DL (11.6-15.3); LYMPH % 11.4 % (9.0-44.0); LYMPHOCYTE # 1.2 TH/MM3 (1.0-4.8); MEAN CELL VOLUME 76.6 FL (80.0-100.0); MEAN CORPUSCULAR HEMOGLOBIN 21.3 PG (27.0-34.0); MEAN PLATELET VOLUME 8.2 FL (7.0-11.0); MONO % 4.4 % (0.0-8.0); MONOCYTE # 0.5 TH/MM3 (0-0.9); PLATELET COUNT 424 TH/MM3 (150-450); RED BLOOD COUNT 3.52 MIL/MM3 (4.00-5.30); RED CELL DISTRIBUTION WIDTH 19.7 % (11.6-17.2); WHITE BLOOD COUNT 10.5 TH/MM3 (4.0-11.0)
[2017-09-24 07:42] LABS: MEAN CORPUSCULAR HGB CONC 27.8 % (32.0-36.0)
[2017-09-24 07:46] LABS: BICARBONATE 21.3 MEQ/L (21.0-32.0); CALCIUM 8.4 MG/DL (8.5-10.1); CREATININE 1.27 MG/DL (0.50-1.00)
[2017-09-24 08:22] LABS: BANDS 13 % (0-6); BASOPHILS 1 % (0-2); CORRECTED NUCLEATED RBC 2 /100 WBC (0-0); LYMPHOCYTES 7 % (9-44); MONOCYTES 1 % (0-8); NEUTROPHIL # MANUAL DIFF 9.6 TH/MM3 (1.8-7.7); NUCLEATED RED BLOOD CELL 2 (0-0); POLYS (SEG NEUTROPHILS) 78 % (16-70)
[2017-09-24 08:23] LABS: TARGET CELLS 1+ (NORMAL)
[2017-09-24] MEDS: DOCUSATE SODIUM 50 MG/SENNA 8.6 MG TAB PO SCH ×2 (08:41→20:19)
[2017-09-24] MEDS: PRAVASTATIN SOD 40 MG TAB PO SCH (08:41)
[2017-09-24] MEDS: FUROSEMIDE 20 MG/2 ML VIAL IV PUSH SCH ×2 (08:41→17:31)
[2017-09-24] MEDS: VENLAFAXINE HCL XR 75 MG CAP PO SCH (08:42)
[2017-09-24] MEDS: PANTOPRAZOLE SOD 40 MG DELAYED RELEASE TAB PO SCH (08:42)
[2017-09-24] MEDS ORDERED: RESP: ALBUTEROL 2.5 MG/IPRATROPIUM 0.5 MG NEB (PRN) NEB (08:45)
[2017-09-24] MEDS: RIVAROXABAN 15 MG TAB PO SCH (08:48)
[2017-09-24] MEDS: RESP: ALBUTEROL 2.5 MG/IPRATROPIUM 0.5 MG NEB (SCH) NEB ×2 (08:57→19:47)
[2017-09-24] MEDS ORDERED: METOPROLOL TARTRATE 50 MG TAB PO SCH (09:00)
[2017-09-24] MEDS: SODIUM CHLORIDE 0.9% FLUSH 10 ML FLUSH IV FLUSH SCH ×2 (09:00→20:20)
[2017-09-24] MEDS: BUDESONIDE-FORMOTEROL 160/4.5 MCG INHALER INH SCH ×2 (09:00→21:00)
[2017-09-24] MEDS ORDERED: DILTIAZEM-CD 240 MG CAP ER PO SCH (09:00)
[2017-09-24] MEDS ORDERED: ASPIRIN 81 MG CHEW TAB PO SCH (09:00)
[2017-09-24] MEDS ORDERED: AMIODARONE 200 MG TAB PO SCH (09:00)
[2017-09-24] MEDS: INSULIN ASPART SUPPLEMENTAL SCALE SQ SCH ×4 (09:02→20:20)
[2017-09-24] MEDS: METOPROLOL TARTRATE 50 MG TAB PO SCH ×3 (09:05→23:10)
--- NOTE | 2017-09-24 10:55 | HHI.PR ---
Subjective Remarks Follow-up for A. fib with RVR. Patient is resting in bed. Currently on room air. Denies any chest pain, shortness of breath, fever or chills. Objective Vitals Vital Signs Date Time Temp Pulse Resp B/P (MAP) Pulse Ox O2 Delivery O2 Flow Rate FiO2 09/24/17 08:00 97.6 66 31 134/81 (98) 98 09/24/17 06:53 79 90/64 09/24/17 04:00 98 09/24/17 04:00 97.5 107 27 97/61 (73) 98 09/24/17 03:53 119 97/61 09/24/17 01:23 118 119/67 09/24/17 01:02 09/24/17 01:02 108 18 101/66 (78) 100 Room Air 09/24/17 01:00 98.2 119 31 119/67 (84) 98 09/24/17 01:00 119 09/23/17 23:29 114 106/73 09/23/17 22:03 132 18 130/67 (88) 99 Room Air 09/23/17 22:03 146 130/67 09/23/17 21:24 146 18 150/86 (107) 99 Room Air 09/23/17 21:18 98.4 154 24 119/76 (90) 96 Room Air I/O 09/23/17 09/23/17 09/23/17 09/24/17 09/24/17 09/24/17 07:00 15:00 23:00 07:00 15:00 23:00 Intake Total 500 ml Output Total 300 ml Balance 200 ml Intake Oral 100 ml IV Total 400 ml Output Urine Total 300 ml Stool Total 0 ml Result Diagram: 09/24/17 0638 09/24/17 0638 Imaging Last Impressions Chest X-Ray 09/23/172132 Signed Impressions: Service Date/Time: Saturday, September 23, 2017 21:43 - CONCLUSION: No acute cardiopulmonary abnormality is identified. Khadar Farrell MD Objective Remarks GENERAL: Alert, oriented 3, NAD. SKIN: Warm and dry. HEAD: Normocephalic. EYES: No scleral icterus. No injection or drainage. NECK: Supple, trachea midline. No JVD or lymphadenopathy. CARDIOVASCULAR: Rate controlled, irregular without murmurs, gallops, or rubs. RESPIRATORY: Moderate air entry. Diffuse wheezing appreciated. She is using abdominal muscles during respiration. GASTROINTESTINAL: Abdomen soft, non-tender, nondistended. MUSCULOSKELETAL: No cyanosis, or edema. BACK: Nontender without obvious deformity. No CVA tenderness. Procedures None A/P Problem List: (1) COPD with acute exacerbation ICD Code: J44.1 - Chronic obstructive pulmonary disease with (acute) exacerbation (2) Atrial fibrillation with RVR ICD Code: I48.91 - Unspecified atrial fibrillation Status: Resolved (3) Tobacco abuse ICD Code: Z72.0 - Tobacco use Status: Chronic Assessment and Plan 56-year-old female with a PMH of HTN, Depression, A. fib on Xarelto, COPD, Hyperlipidemia, Tobacco Abuse and Noncompliance who presented to the ER complaining of continued shortness of breath. On arrival to the emergency department she was found to be in atrial fibrillation with rapid ventricular response. Patient was started on esmolol drip due to lack of diltiazem drip. Acute COPD exacerbation Pulmonary hypertension -echo from 08/13/2017 shows pulmonary artery pressure 58 mmHg. Ejection fraction 50-55%. Start DuoNeb scheduled and as needed, continue Levaquin. Supplemental oxygen as needed to keep O2 saturation above 90%. Continue Symbicort Patient is on room air. However she is using accessory muscles. Atrial fibrillation with RVR Patient has a pacemaker. Currently on esmolol drip. Will try to wean off esmolol drip. Heart rate is better controlled. Will discontinue amiodarone p.o. Increase metoprolol to 50 mg every 8 hours. DC diltiazem long-acting and start diltiazem 60 mg every 6 hours. Continue Xarelto. Discontinue aspirin. Continue Protonix 40 mg daily. Chronic kidney disease stage III Creatinine is slightly up 1.27 likely due to diuretics. Tobacco abuse -counseled patient regarding tobacco cessation. Full code. Asaf. Lazarus Fernandes DO Sep 24, 2017 10:55 am
[2017-09-24] MEDS: DILTIAZEM HCL 60 MG TAB PO SCH ×3 (12:19→23:10)
[2017-09-24] MEDS: methylPREDNISolone SOD SUCC 40 MG/1 ML VIAL IV PUSH SCH ×3 (12:19→23:10)
[2017-09-24] MEDS: ACETAMINOPHEN 325 MG TAB PO PRN (15:48)
[2017-09-24] MEDS ORDERED: ISOSORBIDE MONONITRATE 30 MG CR TAB (IMDUR) PO SCH (21:00)
[2017-09-24] MEDS: LEVOFLOXACIN 750 MG PREMIX INJ 150 ML IV SCH (23:10)
[2017-09-25] VITALS (20 sets, daily range): BP systolic 74–129; BP diastolic 39–92; PULSE 68–104; RESP 14–25; TEMP 94.9–98.6; O2SAT 88–100
--- NOTE | 2017-09-25 00:19 | EKG ---
Date Performed: 09/23/2017 Time Performed: 21:28:00 PTAGE: 56 years EKG: ATRIAL FIBRILLATION WITH RAPID VENTRICULAR RESPONSE POSSIBLE LEFT VENTRICULAR HYPERTROPHY S T DEVIATION AND MARKED T-WAVE ABNORMALITY, CONSIDER ANTEROLATERAL ISCHEMIA ST DEVIATION AND MARKED T- WAVE ABNORMALITY, CONSIDER INFERIOR ISCHEMIA ABNORMAL ECG PREVIOUS TRACING : 09/06/2017 18.43 Compared to previous tracing, rate has increased DOCTOR: Daljit Lira Interpretating Date/Time 09/25/2017 00:17:29
[2017-09-25] MEDS: ACETAMINOPHEN 325 MG TAB PO PRN ×2 (03:02→06:58)
[2017-09-25] MEDS: CHLORHEXIDINE GLUCONATE 2 % 1 PACK (2 CLOTHS)(taper/protocol) TOPICAL SCH (04:00)
[2017-09-25] MEDS: DILTIAZEM HCL 60 MG TAB PO SCH (04:52)
[2017-09-25] MEDS: methylPREDNISolone SOD SUCC 40 MG/1 ML VIAL IV PUSH SCH ×2 (04:52→11:42)
[2017-09-25] MEDS: PRAVASTATIN SOD 40 MG TAB PO SCH (07:54)
[2017-09-25] MEDS: VENLAFAXINE HCL XR 75 MG CAP PO SCH (07:54)
[2017-09-25] MEDS: FUROSEMIDE 20 MG/2 ML VIAL IV PUSH SCH (07:54)
[2017-09-25] MEDS: METOPROLOL TARTRATE 50 MG TAB PO SCH (07:55)
[2017-09-25] MEDS: DOCUSATE SODIUM 50 MG/SENNA 8.6 MG TAB PO SCH (07:55)
[2017-09-25] MEDS: PANTOPRAZOLE SOD 40 MG DELAYED RELEASE TAB PO SCH (07:55)
[2017-09-25] MEDS: RIVAROXABAN 15 MG TAB PO SCH (07:58)
[2017-09-25] MEDS: INSULIN ASPART SUPPLEMENTAL SCALE SQ SCH ×3 (08:10→20:00)
[2017-09-25] MEDS: SODIUM CHLORIDE 0.9% FLUSH 10 ML FLUSH IV FLUSH SCH ×2 (08:10→22:25)
[2017-09-25] MEDS: RESP: ALBUTEROL 2.5 MG/IPRATROPIUM 0.5 MG NEB (SCH) NEB ×3 (08:15→21:49)
[2017-09-25] MEDS: ONDANSETRON HCL 4 MG/2 ML VIAL IVP PRN (08:33)
[2017-09-25] MEDS: BUDESONIDE-FORMOTEROL 160/4.5 MCG INHALER INH SCH ×2 (09:00→21:00)
[2017-09-25] MEDS ORDERED: SODIUM BICARBONATE 8.4% INJ 50 MEQ/50 ML SYR IV PUSH ONE ×3 (10:45→15:45)
[2017-09-25] MEDS ORDERED: ETOMIDATE 40 MG/20 ML VIAL ONE (10:48)
--- NOTE | 2017-09-25 10:49 | RADRPT ---
EXAM DATE/TIME: 09/25/2017 09:44 [facility] COMPARISON: CHEST SINGLE AP, September 23, 2017, 21:43. INDICATIONS : Short of breath. MEDICAL HISTORY : Hypertension. Diabetes mellitus type II. Chronic obstructive pulmonary disease. SURGICAL HISTORY : Pacemaker. Cardiac ablation ENCOUNTER: Subsequent ACUITY: 2 days PAIN SCORE: Non-responsive. LOCATION: Bilateral chest FINDINGS: A single view of the chest demonstrates stable elevation of the right hemidiaphragm. Anatomic detail is somewhat obscured by less than motion artifact but I did not see an obvious acute infiltrate. Ther e may be some minimal atelectasis or scarring of the left hemidiaphragm. Heart size is upper limits o f normal and more complicated. Left subclavian bipolar pacer is radiographically intact. Mild levosco liosis of the dorsal spine may be positional. Osseous structures are otherwise intact. CONCLUSION: 1. Anatomic detail is somewhat limited by respiratory motion artifact but there is no obvious acute i nfiltrate/effusion. 2. Possible minimal atelectasis or scarring above the left hemidiaphragm. Inocente Cameron MD on September 25, 2017 at 10:45 Board Certified Radiologist. This report was verified electronically.
[2017-09-25] MEDS ORDERED: SODIUM BICARBONATE 8.4% INJ 150 MEQ in WATER STERILE FOR INJ 850 ML IV SCH (11:00)
[2017-09-25 11:29] LABS: AUTOMATED NEUTROPHIL # 9.6 TH/MM3 (1.8-7.7); BASOPHIL # 0.1 TH/MM3 (0-0.2); BASOPHIL % 0.7 % (0.0-2.0); HEMATOCRIT 28.2 % (35.0-46.0); HEMOGLOBIN 7.5 GM/DL (11.6-15.3); LYMPH % 7.1 % (9.0-44.0); LYMPHOCYTE # 0.8 TH/MM3 (1.0-4.8); MEAN CELL VOLUME 79.2 FL (80.0-100.0); MEAN PLATELET VOLUME 8.7 FL (7.0-11.0); MONO % 6.4 % (0.0-8.0); MONOCYTE # 0.7 TH/MM3 (0-0.9); NEUT % 85.8 % (16.0-70.0); PLATELET COUNT 395 TH/MM3 (150-450); RED BLOOD COUNT 3.57 MIL/MM3 (4.00-5.30); RED CELL DISTRIBUTION WIDTH 19.5 % (11.6-17.2); WHITE BLOOD COUNT 11.2 TH/MM3 (4.0-11.0)
[2017-09-25] MEDS ORDERED: TERBUTALINE INJ 1 MG/ML AMP SQ PRN ×2 (11:30→20:30)
[2017-09-25] MEDS ORDERED: fentaNYL 2,500 MCG/NS 250 ML IV PRN (11:30)
[2017-09-25 11:31] LABS: MEAN CORPUSCULAR HGB CONC 26.5 % (32.0-36.0)
[2017-09-25 11:39] LABS: INTERNATIONAL NORMALIZED RATIO 3.6 RATIO; PROTHROMBIN TIME - PATIENT 36.3 SEC (9.8-11.6)
[2017-09-25] MEDS: PHENYLEPHRINE 40 MG in D5W 500 ML IV PRN ×3 (11:43→22:24)
--- NOTE | 2017-09-25 11:52 | EKG ---
Date Performed: 09/25/2017 Time Performed: 11:11:14 PTAGE: 56 years EKG: ATRIAL FIBRILLATION LEFT BUNDLE BRANCH BLOCK ABNORMAL ECG PREVIOUS TRACING : 09/25/2017 10.20 No significant change from previous tracing noted. DOCTOR: Clay Morse Interpretating Date/Time 09/25/2017 11:51:04
[2017-09-25 11:55] LABS: ALBUMIN 2.8 GM/DL (3.4-5.0); ALKALINE PHOSPHATASE 106 U/L (45-117); ALT (GPT) 48 U/L (10-53); AST (GOT) 112 U/L (15-37); BICARBONATE 14.4 MEQ/L (21.0-32.0); BLOOD UREA NITROGEN 29 MG/DL (7-18); CALCIUM 6.9 MG/DL (8.5-10.1); CALCIUM-PROTEIN CORRECTED 7.5 MG/DL (8.5-10.1); CHLORIDE 101 MEQ/L (98-107); CREATININE 2.84 MG/DL (0.50-1.00); GLOMERULAR FILTRATION RATE 17 ML/MIN (>89); GLUCOSE,RANDOM 79 MG/DL (74-106); PHOSPHORUS 7.3 MG/DL (2.5-4.9); SODIUM (NA) 139 MEQ/L (136-145); TOTAL PROTEIN 5.9 GM/DL (6.4-8.2); TROPONIN I LESS THAN 0.02 NG/ML (0.02-0.05)
--- NOTE | 2017-09-25 11:55 | EKG ---
Date Performed: 09/25/2017 Time Performed: 10:20:36 PTAGE: 56 years EKG: Possible ectopic atrial rhythm with first degree AV block. Left bundle branch block Abnorma l ECG PREVIOUS TRACING : 09/23/2017 21.28 Compared to previous tracing, possible ectopic atrial rhyth m has replaced atrial fibrillation, heart rate has decreased. DOCTOR: Clay Morse Interpretating Date/Time 09/25/2017 11:53:56
--- NOTE | 2017-09-25 12:03 | RADRPT ---
EXAM DATE/TIME: 09/25/2017 11:14 [facility] COMPARISON: CHEST SINGLE AP, September 25, 2017, 9:44. INDICATIONS : Post intubation. MEDICAL HISTORY : Hypertension. Diabetes mellitus type II. Chronic obstructive pulmonary disease. SURGICAL HISTORY : Pacemaker. Cardiac ablation ENCOUNTER: Subsequent ACUITY: 1 day PAIN SCORE: Non-responsive. LOCATION: Bilateral chest FINDINGS: Single AP view of the chest. Endotracheal tube is now in place with the tip 3 cm above the zach. Na sogastric tube is in place with the tip not visualized. Side-port is at the gastroesophageal junction . Cardiomediastinal silhouette unchanged. Lungs are grossly clear. AICD remains in place. No evidence of pleural effusion or pneumothorax. CONCLUSION: Endotracheal tube and nasogastric tube now in place. Nasogastric tube side port at the gastroesophage al junction. Lungs grossly clear. Wolf Maldonado MD on September 25, 2017 at 11:59 Board Certified Radiologist. This report was verified electronically.
[2017-09-25 12:16] LABS: BANDS 8 % (0-6); CORRECTED NUCLEATED RBC 59 /100 WBC (0-0); LYMPHOCYTES 10 % (9-44); METAMYELOCYTES 1 % (0-1); NEUTROPHIL # MANUAL DIFF 10.1 TH/MM3 (1.8-7.7); NUCLEATED RED BLOOD CELL 59 (0-0); OVALOCYTES 1+ (NORMAL); POLYS (SEG NEUTROPHILS) 81 % (16-70)
[2017-09-25] MEDS ORDERED: DEXTROSE 50% IN WATER 50 ML SYRINGE IV PUSH ONE (12:45)
[2017-09-25] MEDS ORDERED: INSULIN HUMAN REGULAR 1,000 UNITS/10 ML VIAL IV PUSH ONE (12:45)
[2017-09-25] MEDS ORDERED: CALCIUM GLUCONATE 10% 1 GM/10 ML VIAL ONE (12:50)
[2017-09-25] MEDS ORDERED: Vancomycin Consult Pharmacy 1 EA OTHER SCH ×2 (13:00→18:30)
[2017-09-25] MEDS ORDERED: PIPERACIL-TAZO 3.375 GM PREMIX 50 ML IV SCH ×2 (13:00→17:15)
[2017-09-25] MEDS ORDERED: VANCOMYCIN INJ 1,000 MG in SODIUM CHLOR 0.9% 250 ML INJ 250 ML IV ONE (13:00)
[2017-09-25] MEDS ORDERED: SODIUM CHLOR 0.9% 1000 ML INJ 1,000 ML IV ONE ×3 (13:15→13:30)
[2017-09-25] MEDS ORDERED: MIDAZOLAM HCL 2 MG/2 ML VIAL IV PUSH ONE (13:30)
[2017-09-25] MEDS: SODIUM BICARBONATE 8.4% INJ 150 MEQ in DEXTROSE 5% IN WATE 1000ML INJ 1,000 ML IV SCH ×4 (13:33→22:24)
--- NOTE | 2017-09-25 13:53 | PD.CONS ---
cc: Zohaib Hogue MD [facility] Service General Surgery Consult Requested By Dr. Werner Reason for Consult Rule out mesenteric ischemia Primary Care Physician Liz Thorne M.D. History of Present Illness This is a 56 year old female with a past medical history of chronic systolic heart failure, atrial fibrillation s/p ablation on Xarelto, COPD, dyslipidemia and diabetes mellitus who came to the ED yesterday with complaints of shortness of breath. She was found to be in atrial fibrillation with a rapid rate. She was intubated this morning due to increase respiratory distress. Her WBC on admission was normal and now up to 11.2. She is anemia. Her BUN and creatinine are rising. Her potassium is 6.4. Her INR is 3.6. Dr. Werner is planning to place a VasCath and central line. A CT of the abdomen/pelvis has been ordered but not completed at this time. A General Surgery consultation has been requested. Of note, this patient was just August 14 for abdominal pain and was evaluated by Dr. Hogue. Much of the past medical history is obtained from consultation in August. Review of Systems ROS Limitations: Clinical Condition, Intubated Past Family Social History Past Medical History Chronic systolic heart failure Atrial fibrillation s/p ablation on Xarelto COPD---not on oxygen Dyslipidemia Diabetes mellitus ---not on insulin Past Surgical History Hysterectomy Reported Medications Ventolin inhaler Xarelto ---last taken today at 0800 Amiodarone Pravastatin Isosorbide Metoprolol Diltiazem Aspirin Acetaminophen Effexor Furosemide Dulera inhaler Mucinex Allergies: Coded Allergies: sertraline (Verified Allergy, Severe, hives, 09/23/17) verapamil (Verified Allergy, Severe, rash, 09/23/17) Active Ordered Medications Current Medications Medications (Trade) Dose Ordered Sig/[place] Route Start Time Stop Time Status Last Admin (NS Flush) 2 ml UNSCH PRN IV FLUSH 09/24/17 00:00 (NS Flush) 2 ml BID IV FLUSH 09/24/17 09:00 09/25/17 08:10 (Tylenol) 650 mg Q4H PRN PO 09/24/17 00:00 09/25/17 06:58 (Zofran Inj) 4 mg Q6H PRN IVP 09/24/17 00:00 09/25/17 08:33 (Narcan Inj) 0.4 mg UNSCH PRN IV PUSH 09/24/17 00:00 (Senokot) 17.2 mg Q12H PRN PO 09/24/17 00:00 09/25/17 07:55 (Dulcolax Supp) 10 mg DAILY PRN RECTAL 09/24/17 00:00 (Lactulose Liq) 30 ml DAILY PRN PO 09/24/17 00:00 09/25/17 07:54 (D50w (Vial) Inj) 50 ml UNSCH PRN IV PUSH 09/24/17 00:00 (Glucagon Inj) 1 mg UNSCH PRN OTHER 09/24/17 00:00 Levofloxacin/ Dextrose 150 ml @ 100 mls/hr Q24H IV 09/25/17 00:00 09/24/17 23:10 (Protonix) 40 mg DAILY PO 09/24/17 09:00 09/25/17 07:55 (Pravachol) 40 mg DAILY PO 09/24/17 09:00 09/25/17 07:54 (Effexor Xr) 150 mg DAILY PO 09/24/17 09:00 Future Hold 09/25/17 07:54 (Symbicort 160-4.5 Mcg Inh) 1 puff BID INH 09/24/17 09:00 Miscellaneous Information Patient in critical care unit? Ass... Q361D .XX 09/24/17 01:00 (Chlorhexidine 2% Cloth) 3 pack DAILY@04 TOPICAL 09/24/17 04:00 09/28/17 04:01 09/24/17 04:00 (Chlorhexidine 2% Cloth) 3 pack UNSCH PRN TOPICAL 09/24/17 01:00 09/29/17 00:49 (Duoneb Neb) 1 ampule Q4HR NEB PRN NEB 09/24/17 08:45 (SoluMEDROL INJ) 40 mg Q6H IV PUSH 09/24/17 12:00 09/25/17 11:42 (NovoLOG SUPPLEMENTAL SCALE) 1 Q6H SQ 09/25/17 14:00 (Peridex 0.12% Liq) 15 ml BID@08,20 MT 09/25/17 20:00 Fentanyl Citrate 250 ml @ 5 mls/hr TITRATE PRN IV 09/25/17 11:30 Phenylephrine HCl 40 mg/Dextrose 500 ml @ 30 mls/hr TITRATE PRN IV 09/25/17 11:30 09/25/17 11:43 (Brethine Inj) 1 mg UNSCH PRN SQ 09/25/17 11:30 Calcium Gluconate 1 gm/Sodium Chloride 110 ml @ 110 mls/hr ONCE ONCE IV 09/25/17 14:00 09/25/17 14:59 (Duoneb Neb) 1 ampule Q6HR NEB NEB 09/25/17 16:00 Vancomycin HCl 1000 mg/Sodium Chloride 250 ml @ 250 mls/hr ONCE ONCE IV 09/25/17 13:00 09/25/17 13:59 09/25/17 13:37 Piperacillin Sod/ Tazobactam Sod 50 ml @ 100 mls/hr Q8H IV 09/25/17 13:00 09/25/17 13:31 Sodium Bicarbonate 150 meq/Dextrose 1,150 ml @ 125 mls/hr Q9H12M IV 09/25/17 14:00 09/25/17 13:33 Sodium Chloride 1,000 ml @ 999 mls/hr BOLUS ONCE IV 09/25/17 13:15 09/25/17 14:15 09/25/17 13:33 Sodium Chloride 1,000 ml @ 999 mls/hr BOLUS ONCE IV 09/25/17 13:15 09/25/17 14:15 09/25/17 13:33 Sodium Chloride 1,000 ml @ 999 mls/hr BOLUS ONCE IV 09/25/17 13:30 09/25/17 14:30 Propofol 100 ml @ 0 mls/hr TITRATE PRN IV 09/25/17 13:30 UNV (Versed Inj) 2 mg ONCE ONCE IV PUSH 09/25/17 13:30 09/25/17 13:31 UNV Family History Unable to obtain Social History Per last consultation: +tobacco use---1 ppd Denies ETOH use Denies illicit drug Physical Exam Vital Signs Vital Signs Date Time Temp Pulse Resp B/P (MAP) Pulse Ox O2 Delivery O2 Flow Rate FiO2 09/25/17 11:43 65 103/44 09/25/17 11:05 100 100 09/25/17 11:01 100 09/25/17 08:18 100 Nasal Cannula 2.00 09/25/17 08:00 97.0 76 25 127/62 (83) 88 09/25/17 07:58 24 09/25/17 04:00 98.6 68 25 96/53 (67) 96 09/25/17 04:00 68 09/25/17 00:00 97.9 82 24 121/92 (102) 97 09/25/17 00:00 82 09/24/17 20:00 74 09/24/17 20:00 97.8 74 29 131/87 (102) 97 09/24/17 16:00 87 09/24/17 16:00 98.0 87 25 113/73 (86) 95 09/24/17 14:00 95 Physical Exam GENERAL: 56 year old female; critically ill; intubated SKIN: Warm and dry. Cool skin. Multiple tattoos on BUE, trunk and BLE. HEAD: Atraumatic. Normocephalic. EYES: Pupils equal and round. No scleral icterus. No injection or drainage. ENT: No nasal bleeding or discharge. Mucous membranes pink and moist. NECK: Trachea midline. CARDIOVASCULAR: Regular rate and rhythm. RESPIRATORY: No accessory muscle use. Clear to auscultation. Breath sounds equal bilaterally. GASTROINTESTINAL: Abdomen distended; soft. MUSCULOSKELETAL: Extremities without clubbing, cyanosis, or edema. No obvious deformities. NEUROLOGICAL: Intubated; unable to examine. PSYCHIATRIC: Intubated; unable to examine. Laboratory Laboratory Tests Test 09/25/17 09:55 09/25/17 11:15 09/25/17 12:14 Blood Gas Puncture Site RT RADIAL RT RADIAL Blood Gas Patient Temperature 98.6 98.6 Blood Gas HCO3 11 14 Blood Gas Base Excess -16.4 -12.9 Blood Gas Oxygen Saturation 93 83 Arterial Blood pH 7.15 7.16 Arterial Blood Partial Pressure CO2 32 41 Arterial Blood Partial Pressure O2 109 69 Arterial Blood Oxygen Content 11.0 8.8 Arterial Blood Carboxyhemoglobin 0.7 0.7 Arterial Blood Methemoglobin 1.6 1.6 Blood Gas Hemoglobin 8.3 7.5 Oxygen Delivery Device NASAL CANNULA VENTILATOR Blood Gas Liter Flow 2 White Blood Count 11.2 Red Blood Count 3.57 Hemoglobin 7.5 Hematocrit 28.2 Mean Corpuscular Volume 79.2 Mean Corpuscular Hemoglobin 21.0 Mean Corpuscular Hemoglobin Concent 26.5 Red Cell Distribution Width 19.5 Platelet Count 395 Mean Platelet Volume 8.7 Neutrophils (%) (Auto) 85.8 Lymphocytes (%) (Auto) 7.1 Monocytes (%) (Auto) 6.4 Eosinophils (%) (Auto) 0.0 Basophils (%) (Auto) 0.7 Neutrophils # (Auto) 9.6 Lymphocytes # (Auto) 0.8 Monocytes # (Auto) 0.7 Eosinophils # (Auto) 0.0 Basophils # (Auto) 0.1 CBC Comment AUTO DIFF Differential Total Cells Counted 100 Neutrophils % (Manual) 81 Band Neutrophils % 8 Lymphocytes % 10 Neutrophils # (Manual) 10.1 Metamyelocytes 1 Nucleated Red Blood Cells 59 Differential Comment FINAL DIFF MANUAL Platelet Estimate NORMAL Platelet Morphology Comment NORMAL Ovalocytes 1+ Prothrombin Time 36.3 Prothromb Time International Ratio 3.6 Fibrinogen 328 Blood Urea Nitrogen 29 Creatinine 2.84 Random Glucose 79 Total Protein 5.9 Albumin 2.8 Calcium Level 6.9 Phosphorus Level 7.3 Magnesium Level 2.0 Alkaline Phosphatase 106 Aspartate Amino Transf (AST/SGOT) 112 Alanine Aminotransferase (ALT/SGPT) 48 Total Bilirubin 1.0 Sodium Level 139 Potassium Level 6.4 Chloride Level 101 Carbon Dioxide Level 14.4 Anion Gap 24 Estimat Glomerular Filtration Rate 17 Lactic Acid Level 13.2 Protein Corrected Calcium 7.5 Total Creatine Kinase 117 Creatine Kinase MB 3.5 Troponin I LESS THAN 0.02 Blood Gas Ventilator Setting PRVC/AC 16/500 Blood Gas Inspired Oxygen 100 Date/Time Source Procedure Growth Status 09/23/17 21:50 Blood Peripheral Aerobic Blood Culture - Preliminary NO GROWTH IN 2 DAYS Resulted 09/23/17 21:50 Blood Peripheral Anaerobic Blood Culture - Preliminary NO GROWTH IN 2 DAYS Resulted Result Diagram: 09/25/17 1115 09/25/17 1115 Imaging Last 48 hours Impressions Chest X-Ray 09/25/17 0000 Signed Impressions: Service Date/Time: Monday, September 25, 2017 11:14 - CONCLUSION: Endotracheal tube and nasogastric tube now in place. Nasogastric tube side port at the gastroesophageal junction. Lungs grossly clear. Wolf Maldonado MD Chest X-Ray 09/25/17 0000 Signed Impressions: Service Date/Time: Monday, September 25, 2017 09:44 - CONCLUSION: 1. Anatomic detail is somewhat limited by respiratory motion artifact but there is no obvious acute infiltrate/effusion. 2. Possible minimal atelectasis or scarring above the left hemidiaphragm. Inocente Cameron MD Chest X-Ray 09/23/17 2133 Signed Impressions: Service Date/Time: Saturday, September 23, 2017 21:43 - CONCLUSION: No acute cardiopulmonary abnormality is identified. Khadar Farrell MD Assessment and Plan Assessment and Plan 56 year old female with lactic acidosis; Increasing BUN/Cr; respiratory failure ' ? mesenteric ischemia -Plan for CT abd/pelvis today -Dr. Werner planning to place Vascath and central line -Requiring pressor support -On Bicarb drip -Will follow up on scan results -INR elevated; FFP has been ordered -Patient high risk for any surgical procedure at this time -Recommend Palliative Care consult for establishment of goals. -Discussed with Dr. Werner Attending Note - Dr. Hogue Patient seen and examined; discussed with family, Dr. Werner and Dr. Díaz after CT completed Abdomen is mildly distended and diffusely tender No evidence embolic phenomenon or bowel perforation by CT; no bowel wall thickening or pneumatosis to suggest inflammatory process/ischemia Nothing surgical to repair/correct at this time Will follow The exam, history, and the medical decision-making described in the above note were completed with the assistance of the mid-level provider. I reviewed and agree with the findings presented. I attest that I had a [id number] encounter with the patient on the same day, and personally performed and documented my assessment and findings in the medical record. Discussed Condition With Dr. Mykel Werner RN Claudia Decker/Health Support Specialist FINANCIAL SERVICES CONSULTANT Sep 25, 2017 13:53 Zohaib Hogue MD Sep 27, 2017 15:05
[2017-09-25] MEDS ORDERED: CALCIUM GLUCONATE INJ 1 GM in SODIUM CHLORIDE 0.9% INJ 100 ML IV ONE (14:00)
--- NOTE | 2017-09-25 14:02 | MB ---
cc: Orly Romero MD DATE: 09/25/2017 HISTORY OF PRESENT ILLNESS: The patient is a 56-year-old female with past medical history of hypertension, depression, atrial fibrillation on Xarelto, COPD, hyperlipidemia, tobacco abuse, noncompliant, who was admitted to hospitalist service yesterday for shortness of breath. She was discharged from [facility] on 09/08/2017 after she was treated for atrial fibrillation with rapid ventricular response. The patient also reported a productive cough with green phlegm and a low grade fever. On arrival to the ED, she was in atrial fibrillation with RVR. Chest x-ray on admission showed no evidence of any acute cardiopulmonary disease. Her initial laboratory data showed creatinine 1.19 with a BUN of 10 and BNP 876. Repeat labs from yesterday showed a drop of hemoglobin from 8.7 to 7.5 and a mild increase in creatinine to 1.27 from 1.9. Earlier today, the patient was found lethargic by nursing staff. ABG was performed on 2 liters nasal cannula, which showed a severe metabolic acidosis with a pH of 7.15, CO2 of 32, bicarbonate of 11, saturation of 93%. Her laboratory data from today showed a marked worsening in her renal function with a BUN of 29, creatinine 2.84 and severe lactic acidemia with a lactic acid level of 13.2. In addition, the patient was hyperkalemic with a potassium level of 6.4. She was intubated and placed on full mechanical ventilation. A chest x-ray post-intubation showed ET tube above the zach and no obvious infiltrates or effusions. PAST MEDICAL HISTORY: Significant for hypertension, COPD, hyperlipidemia, depression, atrial fibrillation on Xarelto. PAST SURGICAL HISTORY: Hysterectomy, previous AICD placement, previous cardiac ablation. ALLERGIES: 1. VERAPAMIL. 2. SERTRALINE. FAMILY HISTORY: No history of diabetes mellitus or coronary artery disease. SOCIAL HISTORY: Active smoker, nondrinker. CURRENT MEDICATIONS: 1. Include Levaquin 2. Lasix. 3. Pravachol. 4. Xarelto. 5. Effexor. REVIEW OF SYSTEMS: As per HPI. Rest of review of systems limited as the patient is intubated. PHYSICAL EXAMINATION: GENERAL: A 56-year-old female, critically ill, intubated, hypotensive and on pressors. VITAL SIGNS: Temperature 97.0, blood pressure 103/44, pulse of 85, saturation 100%. Vent settings: PRVC rate of 16, tidal volume 500, PEEP of 5, FiO2 of 100%. HEENT: Atraumatic, normocephalic. Pupils are equal, round, reactive to light and accommodation. Extraocular muscles intact. Conjunctivae pink. Nonicteric sclerae. Oral mucosa within normal. NECK: Supple. No JVD, adenopathy, or thyromegaly. Trachea in the midline. HEART: Irregularly irregular. Normal S1, S2. No murmurs, rubs or gallops noted. LUNGS: Bilateral equal air entry. No crackles or wheezing. ABDOMEN: Soft, mild tenderness on palpation. Mildly distended. Hypoactive bowel sounds. EXTREMITIES: No cyanosis, clubbing or edema. NEUROLOGIC: Intubated and sedated with fentanyl. LABORATORY DATA: From today, sodium 139, potassium 6.4, chloride 100, CO2 of 14, BUN 29, creatinine 2.84, glucose 79. Lactic acid 13.2, corrected calcium 7.5, phosphorus 7.3, magnesium 2, total bilirubin 1, AST 112, ALT 48, alkaline phosphatase 106. Troponin less than 0.02. WBC 11.2, hemoglobin 7.5, hematocrit 28, platelet count 395. INR 3.6, PT 36. Urinalysis: Small leukocyte esterase, rare bacteria. RADIOGRAPHIC STUDIES: The chest x-ray showed ET tube above the zach. No obvious infiltrates or effusions. IMPRESSION: 1. Ventilator-dependent respiratory failure. 2. Encephalopathy. 3. Lactic acidemia. 4. Acute renal failure. 5. Anion gap metabolic acidosis. 6. Anemia. 7. Coagulopathy. 8. History of chronic obstructive pulmonary disease. 9. Hyperlipidemia. 10. Chronic atrial fibrillation, on Xarelto. 11. Previous automated implantable cardioverter-defibrillator placement. RECOMMENDATIONS: 1. Monitor neuro status closely and continue with fentanyl infusion for sedation and vent synchrony. 2. Continue with vent support and maintain sats above 92%. 3. Bronchodilators in the form of DuoNeb every 6 hours and will initiate ICU vent bundle. Check ABG, CXR post intubation 4. Continue with Kiran-Synephrine. Maintain MAP greater than 65 mmHg. 5. Serial lactic acid monitoring until clear. 6. We will give 2 liters of crystalloids and continue with a bicarbonate drip, D5W with 3 amps of bicarbonate at 125 mL an hour. 7. We will obtain 2D echo to evaluate LV function and to rule out regional wall motion abnormalities. 8. Monitor renal function, I's and O's and avoid nephrotoxins. We will proceed with CT scan of the abdomen and pelvis to rule out mesenteric ischemia. IV fluids as stated above. Treat hyperkalemia with IV insulin, dextrose, bicarbonate, and calcium. In addition, we will consult Nephrology service. 9. Keep n.p.o. for now and place on Pepcid for gastrointestinal prophylaxis. 10. Start on broad spectrum antibiotics in the form of vancomycin and Zosyn. Adjust doses of antibiotics per renal function. Monitor for signs of infection which include fever and WBC. I will obtain blood cultures x 2. Consult infectious disease service 11 Consult General surgery case discussed with Dr. orr and Dr. Hogue 12. Monitor CBC, coags, and will check fibrinogen level, rule out DIC. We will hold Xarelto. 13. Sliding scale insulin with Accu-Cheks for glycemic control. 14. Gastrointestinal prophylaxis with Pepcid 10 mg IV q.12 hours and DVT prophylaxis with SCDs. The patient's INR is 3.6. No need for any further anticoagulation prophylaxis. 15. Place a central line. 16 The patient is critically ill with respiratory failure, acute renal failure, severe lactic acidosis and need to rule out mesenteric ischemia. Critical care time 60 minutes, excluding procedures. MD MARY KAY Ceballos/[facility] , 01:09 PM , 02:01 PM [facility]
[2017-09-25] MEDS ORDERED: DIATRIZOATE MEGLUM/DIATRIZOATE SOD 9 ML CUP PO ONE (15:15)
[2017-09-25] MEDS ORDERED: HEPARIN SODIUM - IV 10,000 UNITS/10 ML VIAL IV FLUSH PRN (15:30)
[2017-09-25] MEDS ORDERED: GENTAMICIN SULFATE 20 MG/2 ML VIAL OTHER PRN (15:30)
[2017-09-25] MEDS ORDERED: GELATIN 12 MM/7 MM FOAM TOP PRN (15:30)
[2017-09-25] MEDS ORDERED: diphenhydrAMINE HCL 25 MG CAP PO PRN (15:30)
[2017-09-25] MEDS ORDERED: cloNIDine HCL 0.1 MG TAB PO PRN (15:30)
[2017-09-25] MEDS ORDERED: ALBUMIN 25% INJ 100 ML IV PRN (15:30)
[2017-09-25] MEDS ORDERED: NITROGLYCERIN 0.4 MG SL 25 TABS/BTL SL PRN (15:30)
[2017-09-25] MEDS ORDERED: HEPARIN SODIUM - IV 10,000 UNITS/10 ML VIAL PRN (15:30)
[2017-09-25] MEDS ORDERED: EPOETIN ALFA 10,000 UNITS/ML VIAL IV PUSH PRN (15:30)
[2017-09-25] MEDS ORDERED: ACETAMINOPHEN 325 MG TAB PO PRN (15:30)
[2017-09-25] MEDS ORDERED: SODIUM CHLOR 0.9% 1000 ML INJ 1,000 ML OTHER PRN ×2 (15:30→15:45)
[2017-09-25] MEDS ORDERED: ONDANSETRON HCL 4 MG/2 ML VIAL IV PUSH PRN (15:30)
[2017-09-25] MEDS ORDERED: SODIUM CHLORIDE 0.9% FLUSH 10 ML FLUSH IV FLUSH PRN (15:30)
[2017-09-25] MEDS ORDERED: MANNITOL 12.5 GM/50 ML VIAL IV PRN (15:30)
--- NOTE | 2017-09-25 15:40 | PD.PROCEDR ---
Central Line Procedure REASON FOR PROCEDURE Central venous access PROCEDURE PERFORMED Central line placement:Left femoral vascath CONSENT Procedure was performed emergently as patient is requiring emergent HD. ANESTHESIA Local injection of 1% Lidocaine DESCRIPTION OF THE PROCEDURE The patient was placed in supine, mild Trendelenburg position. The area was exposed and cleansed with ChloraPrep, times two. Large sterile drape was used to cover the patient, with the site exposed, under sterile conditions including cap, face mask, sterile gown, and sterile gloves. On single attempt, the introducer needle was inserted with negative pressure in syringe and venous flash was obtained. The guide wire was then advanced without any restriction and the needle was removed. The dilator was used without any complications. Using Seldinger technique the catheter was advanced over the guide wire to a depth of 20 centimeters. The guide wire was removed. All ports were aspirated with dark venous blood return and flushed easily with sterile saline. All ports were capped. Antibiotic disc was placed around central line at puncture site. The central line was secured to the skin with two interrupted 2.0 silk sutures. The area was bandaged with sterile see-through central line bandage. COMPLICATIONS: No apparent complications ESTIMATED BLOOD LOSS: Less than 1 cc. Orly Romero MD Sep 25, 2017 15:40
[2017-09-25] MEDS ORDERED: SODIUM CHLOR 0.9% 1000 ML INJ 1,000 ML IV PRN (15:45)
--- NOTE | 2017-09-25 15:50 | PD.CONS ---
[facility] Service Nephrology Consult Requested By Dr. Romero Reason for Consult Acute renal failure Primary Care Physician Liz Thorne M.D. History of Present Illness Patient is a 56-year-old female with past medical history of hypertension, depression, atrial fibrillation, COPD, and hyperlipidemia. She was admitted yesterday with shortness of breath and reported productive cough with green phlegm was also found to be in atrial fibrillation with rapid ventricular response. She had recent discharge from [facility] on 09/08/2017 after she was treated for atrial fibrillation with rapid ventricular response. Patient was found earlier today lethargic and she is now sedated and intubated with severe metabolic acidosis. Nephrology was consulted for acute kidney injury. Her initial laboratory data showed creatinine 1.19 BUN of 10. The patients creatinine is rapidly raising is now 2.84 and the patient is hyperkalemic with a potassium level of 6.4 which has been treated with IV insulin, dextrose, bicarbonate, and calcium. Laboratory also showing severe lactic acidemia with lactic acid level of 13.2. Patient is hypotensive on multiple pressors will be going for CT of abdomen to r/o ischemic bowel. Vas cath placed in right femoral region and dialysis will be preformed today. (Elisabeth Stover) Past Family Social History Allergies: Coded Allergies: sertraline (Verified Allergy, Severe, hives, 09/23/17) verapamil (Verified Allergy, Severe, rash, 09/23/17) Past Medical History Per records Hypertension COPD hyperlipidemia depression atrial fibrillation Past Surgical History Per records Hysterectomy Previous AICD placement Cardiac ablation. Active Ordered Medications Current Medications Medications (Trade) Dose Ordered Sig/[place] Route Start Time Stop Time Status Last Admin (NS Flush) 2 ml UNSCH PRN IV FLUSH 09/24/17 00:00 (NS Flush) 2 ml BID IV FLUSH 09/24/17 09:00 09/25/17 08:10 (Tylenol) 650 mg Q4H PRN PO 09/24/17 00:00 09/25/17 06:58 (Zofran Inj) 4 mg Q6H PRN IVP 09/24/17 00:00 09/25/17 08:33 (Narcan Inj) 0.4 mg UNSCH PRN IV PUSH 09/24/17 00:00 (Senokot) 17.2 mg Q12H PRN PO 09/24/17 00:00 09/25/17 07:55 (Dulcolax Supp) 10 mg DAILY PRN RECTAL 09/24/17 00:00 (Lactulose Liq) 30 ml DAILY PRN PO 09/24/17 00:00 09/25/17 07:54 (D50w (Vial) Inj) 50 ml UNSCH PRN IV PUSH 09/24/17 00:00 (Glucagon Inj) 1 mg UNSCH PRN OTHER 09/24/17 00:00 Levofloxacin/ Dextrose 150 ml @ 100 mls/hr Q24H IV 09/25/17 00:00 09/24/17 23:10 (Protonix) 40 mg DAILY PO 09/24/17 09:00 09/25/17 07:55 (Pravachol) 40 mg DAILY PO 09/24/17 09:00 09/25/17 07:54 (Effexor Xr) 150 mg DAILY PO 09/24/17 09:00 Future Hold 09/25/17 07:54 (Symbicort 160-4.5 Mcg Inh) 1 puff BID INH 09/24/17 09:00 Miscellaneous Information Patient in critical care unit? Ass... [id number] .XX 09/24/17 01:00 (Chlorhexidine 2% Cloth) 3 pack DAILY@04 TOPICAL 09/24/17 04:00 09/28/17 04:01 09/24/17 04:00 (Chlorhexidine 2% Cloth) 3 pack UNSCH PRN TOPICAL 09/24/17 01:00 09/29/17 00:49 (Duoneb Neb) 1 ampule Q4HR NEB PRN NEB 09/24/17 08:45 (SoluMEDROL INJ) 40 mg Q6H IV PUSH 09/24/17 12:00 09/25/17 11:42 (NovoLOG SUPPLEMENTAL SCALE) 1 Q6H SQ 09/25/17 14:00 (Peridex 0.12% Liq) 15 ml BID@08,20 MT 09/25/17 20:00 Fentanyl Citrate 250 ml @ 5 mls/hr TITRATE PRN IV 09/25/17 11:30 Phenylephrine HCl 40 mg/Dextrose 500 ml @ 30 mls/hr TITRATE PRN IV 09/25/17 11:30 09/25/17 11:43 (Brethine Inj) 1 mg UNSCH PRN SQ 09/25/17 11:30 (Duoneb Neb) 1 ampule Q6HR NEB NEB 09/25/17 16:00 Piperacillin Sod/ Tazobactam Sod 50 ml @ 100 mls/hr Q8H IV 09/25/17 13:00 09/25/17 13:31 Sodium Bicarbonate 150 meq/Dextrose 1,150 ml @ 125 mls/hr Q9H12M IV 09/25/17 14:00 09/25/17 13:33 Propofol 100 ml @ 2.403 mls/ hr TITRATE PRN IV 09/25/17 13:30 ( [place]f Liq) 18 ml ONCE ONCE PO 09/25/17 15:15 09/25/17 15:16 Social History Per records Active smoker Non drinker (Elisabeth Stover) Physical Exam Vital Signs Vital Signs Date Time Temp Pulse Resp B/P (MAP) Pulse Ox O2 Delivery O2 Flow Rate FiO2 09/25/17 13:51 98 40 09/25/17 11:43 65 103/44 09/25/17 11:05 100 100 09/25/17 11:01 100 09/25/17 08:18 100 Nasal Cannula 2.00 09/25/17 08:00 97.0 76 25 127/62 (83) 88 09/25/17 07:58 24 09/25/17 04:00 98.6 68 25 96/53 (67) 96 09/25/17 04:00 68 09/25/17 00:00 97.9 82 24 121/92 (102) 97 09/25/17 00:00 82 09/24/17 20:00 74 09/24/17 20:00 97.8 74 29 131/87 (102) 97 09/24/17 16:00 87 09/24/17 16:00 98.0 87 25 113/73 (86) 95 Physical Exam GENERAL: Sedated and intubated SKIN: Warm and dry. HEAD: Normocephalic. EYES: No scleral icterus. No injection or drainage. NECK: Supple, trachea midline. No JVD or lymphadenopathy. CARDIOVASCULAR: Regular rate and rhythm without murmurs, gallops, or rubs. RESPIRATORY: Breath sounds equal bilaterally. No accessory muscle use. GASTROINTESTINAL: Abdomen soft, non-tender, nondistended. MUSCULOSKELETAL: No cyanosis, or edema. BACK: Nontender without obvious deformity. No CVA tenderness. Laboratory Laboratory Tests Test 09/25/17 09:55 09/25/17 11:15 09/25/17 12:14 Blood Gas Puncture Site RT RADIAL RT RADIAL Blood Gas Patient Temperature 98.6 98.6 Blood Gas HCO3 11 14 Blood Gas Base Excess -16.4 -12.9 Blood Gas Oxygen Saturation 93 83 Arterial Blood pH 7.15 7.16 Arterial Blood Partial Pressure CO2 32 41 Arterial Blood Partial Pressure O2 109 69 Arterial Blood Oxygen Content 11.0 8.8 Arterial Blood Carboxyhemoglobin 0.7 0.7 Arterial Blood Methemoglobin 1.6 1.6 Blood Gas Hemoglobin 8.3 7.5 Oxygen Delivery Device NASAL CANNULA VENTILATOR Blood Gas Liter Flow 2 White Blood Count 11.2 Red Blood Count 3.57 Hemoglobin 7.5 Hematocrit 28.2 Mean Corpuscular Volume 79.2 Mean Corpuscular Hemoglobin 21.0 Mean Corpuscular Hemoglobin Concent 26.5 Red Cell Distribution Width 19.5 Platelet Count 395 Mean Platelet Volume 8.7 Neutrophils (%) (Auto) 85.8 Lymphocytes (%) (Auto) 7.1 Monocytes (%) (Auto) 6.4 Eosinophils (%) (Auto) 0.0 Basophils (%) (Auto) 0.7 Neutrophils # (Auto) 9.6 Lymphocytes # (Auto) 0.8 Monocytes # (Auto) 0.7 Eosinophils # (Auto) 0.0 Basophils # (Auto) 0.1 CBC Comment AUTO DIFF Differential Total Cells Counted 100 Neutrophils % (Manual) 81 Band Neutrophils % 8 Lymphocytes % 10 Neutrophils # (Manual) 10.1 Metamyelocytes 1 Nucleated Red Blood Cells 59 Differential Comment FINAL DIFF MANUAL Platelet Estimate NORMAL Platelet Morphology Comment NORMAL Ovalocytes 1+ Prothrombin Time 36.3 Prothromb Time International Ratio 3.6 Fibrinogen 328 Blood Urea Nitrogen 29 Creatinine 2.84 Random Glucose 79 Total Protein 5.9 Albumin 2.8 Calcium Level 6.9 Phosphorus Level 7.3 Magnesium Level 2.0 Alkaline Phosphatase 106 Aspartate Amino Transf (AST/SGOT) 112 Alanine Aminotransferase (ALT/SGPT) 48 Total Bilirubin 1.0 Sodium Level 139 Potassium Level 6.4 Chloride Level 101 Carbon Dioxide Level 14.4 Anion Gap 24 Estimat Glomerular Filtration Rate 17 Lactic Acid Level 13.2 Protein Corrected Calcium 7.5 Total Creatine Kinase 117 Creatine Kinase MB 3.5 Troponin I LESS THAN 0.02 Blood Gas Ventilator Setting PRVC/AC 16/500 Blood Gas Inspired Oxygen 100 Date/Time Source Procedure Growth Status 09/25/17 13:54 Blood Peripheral Aerobic Blood Culture Pending Received 09/25/17 13:54 Blood Peripheral Anaerobic Blood Culture Pending Received (Elisabeth Stover) Result Diagram: 09/25/17 1115 09/25/17 1115 Imaging Last Impressions Chest X-Ray 09/25/17 0000 Signed Impressions: Service Date/Time: Monday, September 25, 2017 11:14 - CONCLUSION: Endotracheal tube and nasogastric tube now in place. Nasogastric tube side port at the gastroesophageal junction. Lungs grossly clear. Wolf Maldonado MD (Elisabeth Stover) Assessment and Plan Problem List: (1) Acute kidney failure ICD Codes: N17.9 - Acute kidney failure, unspecified Plan: Acute kidney injury most likely ATN related to severe sepsis and hypotension Has chronic kidney disease stage 3 most likely related to HTN or renovascular disease Vas cath placed in left groin per CC Plan Plan to have CVVHD at bedside orders placed. Hyperkalemia treated per CC with IV insulin, dextrose, bicarbonate, and calcium. Plan to have CT of abdominal r/o ischemic bowel Anemic to be transfused Hypotension with pressors infusing for blood pressure support Sepsis ID has been consulted (2) Sepsis ICD Codes: A41.9 - Sepsis, unspecified organism Plan: Managed per CC (3) Respiratory failure ICD Codes: J96.90 - Respiratory failure, unspecified, unspecified whether with hypoxia or hypercapnia Plan: per CC (Elisabeth Stover) Problem List: (1) Acute kidney failure ICD Codes: N17.9 - Acute kidney failure, unspecified Plan: Acute kidney injury most likely ATN related to severe sepsis and hypotension Has chronic kidney disease stage 3 most likely related to HTN or renovascular disease Vas cath placed in left groin per CC Plan Plan to have CVVHD at bedside orders placed. Hyperkalemia treated per CC with IV insulin, dextrose, bicarbonate, and calcium. Plan to have CT of abdominal r/o ischemic bowel Anemic to be transfused Hypotension with pressors infusing for blood pressure support Sepsis ID has been consulted. Patient seen and examined, agree with above. BP is slow, D/W Dr. Werner, will start CVVHD. (2) Sepsis ICD Codes: A41.9 - Sepsis, unspecified organism Plan: Managed per CC (3) Respiratory failure ICD Codes: J96.90 - Respiratory failure, unspecified, unspecified whether with hypoxia or hypercapnia Plan: per CC (Darrell Gonzalez MD) Elisabeth Stover Sep 25, 2017 15:50 Darrell Gonzalez MD Sep 26, 2017 19:13
--- NOTE | 2017-09-25 16:00 | PD.PROCEDR ---
Central Line Procedure REASON FOR PROCEDURE Central venous access PROCEDURE PERFORMED Central line placement: Right femoral vein CONSENT Informed consent for procedure was not obtained since the procedure was emergent. The risks and benefits of the procedure were discussed to include but limited to bleeding, clot formation, infection, and even . ANESTHESIA Local injection of 1% Lidocaine DESCRIPTION OF THE PROCEDURE The patient was placed in supine, mild Trendelenburg position. The area was exposed and cleansed with ChloraPrep, times two. Large sterile drape was used to cover the patient, with the site exposed, under sterile conditions including cap, face mask, sterile gown, and sterile gloves. On single attempt, the introducer needle was inserted with negative pressure in syringe and venous flash was obtained. The guide wire was then advanced without any restriction and the needle was removed. The dilator was used without any complications. Using Seldinger technique the central venous catheter was advanced over the guide wire to a depth of 20 centimeters. The guide wire was removed. All ports were aspirated with dark venous blood return and flushed easily with sterile saline. All ports were capped. Antibiotic disc was placed around central line at puncture site. The central line was secured to the skin with two interrupted 2.0 silk sutures. The area was bandaged with sterile see- through central line bandage. RADIOLOGICAL DATA Ultrasound guidance was used to locate the right femoral vein. Doppler/color flow was used to confirm venous flow. COMPLICATIONS: No apparent complications. Initially left internal jugular vein was attempted for central line placement, venous access was obtained on first attempt, however I was not able to advance the guidewire more than 15 cm, therefore procedure was aborted and pressure was applied until hemostasis was achieved. ESTIMATED BLOOD LOSS: Less than 1 cc. Efrain Carreon MD Sep 25, 2017 16:00
[2017-09-25] MEDS ORDERED: FLEXIBLE CONTAINER IV ONE (16:30)
[2017-09-25] MEDS ORDERED: PHYTONADIONE INJ 10 MG in SODIUM CHLORIDE 0.9% INJ 50 ML IV ONE (16:30)
[2017-09-25] MEDS ORDERED: PROTHROMBIN COMPLEX IV ONE (16:30)
--- NOTE | 2017-09-25 16:33 | HHI.HCPN ---
Palliative care consulted to assist in goals of care for Mrs. Hampton. Currently attempting to determine legal proxy decision maker. Spoke with sister in law, Soheila Hampton. She states Mr. Hampton recently . Reports Mrs. Hampton has a son, Bruce Casillas. Unknown contact information. Soheila states Mrs. Hampton would not want her son contacted. Inquired about designation of health care surrogate or living will papers. Soheila states she believes Mrs. Hampton completed them naming her as a decision maker. According to [place] Statutes, in absence of written advanced directives, medical proxy decision making falls to patient's child(nilton). Only one son known. [employer] search produced possible number of [phone]-- no Bruce Casillas at this number. [employer] requested. Contacted patient's PCP, Dr. Liz Thorne [phone]. No advanced directives on file. Emergency contact listed as Mariangel Casillas, #[phone]. Able to speak with her, she is the patient's granddaughter. Reports she can get in contact with son, Bruce. States she does not have his contact information but will provide him with palliative care contact to have him call. Possible match found on social media-- private message sent requesting call. Palliative care will continue to follow throughout hospitalization. Goals to be determined once medical proxy decision maker is identified. Chata Whitney, DIRECTOR OF RETENTION Sep 25, 2017 16:33
[2017-09-25] MEDS: VASOPRESSIN INJ 40 UNITS in DEXTROSE 5% IN WATER 100ML INJ 98 ML IV SCH ×4 (16:57→22:33)
[2017-09-25] MEDS: HYDROCORTISONE SOD SUCCINATE 100 MG VIAL IV PUSH SCH ×2 (17:02→22:40)
--- NOTE | 2017-09-25 17:18 | PD.CONS ---
Consult Service Palliative Care Consult Requested By Dr. Werner Primary Care Physician Liz Thorne M.D. Reason for Consultation a. To assist with evaluation and management of symptoms including: Shortness of breath, debility b. To assist medical decision maker(s) with: better understanding of current medical conditions; weighing benefits/burdens of medical treatment options; making medical treatment decisions. HPI History of Present Illness Mrs. Hampton is a 56-year-old with a past medical history significant for atrial fibrillation on Xarelto, congestive heart failure, hypertension, COPD, chronic kidney disease, diabetes mellitus and depression. Patient presented to the ER on 09/23/17 with complaints of shortness of breath, productive cough and congestion for the past 2 weeks. Patient was recently admitted in the hospital from 09/06/17-09/08/2017 for atrial fibrillation with RVR, abdominal pain and leukocytosis. ER course: * Vital signs: Temperature 98.4, pulse 114, respirations 18, BP 106/73, O2 saturation 99% on room air * Chest x-ray revealed no acute cardiopulmonary abnormality. * EKG revealed atrial fibrillation with RVR, heart rate [address]- T wave abnormalities. * Laboratory workup revealed WBC 9.4, hemoglobin 8.7, hematocrit 30.5, platelet count 471, potassium 4.1, BUN/creatinine 10/1.19, random glucose 253, AST 20, ALT 21, alkaline phosphatase 149, troponin 0 0.05, BNP 876, total protein 7.4, albumin 3.4, lipase 342, PT 12.3, INR 1.2, APTT 23.8 * Patient was started on esmolol drip, Lasix 40 mg IV administered. * Urinalysis with small leukocyte esterase no culture indicated. * Patient admitted for [facility] evaluation and [facility] Laboratory workup on 09/25/17 revealed WBC 11.2, hemoglobin 7.5, hematocrit 28.2 , platelet count 395, potassium 6.4, BUN/creatinine 29/2.84, GFR 17, lactic acid 18.2, AST 112, ALT 48, CK-MB 3.5, troponin less than 0.02, total protein 5.9, albumin 2.8, lactic acid 13.2. Patient's clinical course complicated with worsening respiratory distress, lactic acidemia, renal failure. Critical care management Dr. Werner consulted on 09/25/2017. Patient was transferred to MICU and emergently intubated, central line and Vas-Cath placed. Patient was started on pressor support for hypotension. Nephrology Dr. Gonzalez consulted on 09/25/17 for evaluation and management of acute renal failure, planning to start patient on CVVHD at bedside today. General surgery Dr. Hogue consulted on 09/25 to rule out mesenteric ischemia. Infectious disease Dr. Flores consulted to assist with management of patient in septic shock. Palliative care consulted to assist with symptom management and establish goals of care. Patient seen and examined in MICU. Patient is currently intubated on mechanical ventilation, no sedation. Patient is currently on Kiran-Synephrine 300 mcg, Levophed at 26 mcg/min, vasopressin at 0.04 U/min, bicarbonate infusion. Bedside RN and respiratory therapist getting patient ready to go to radiology department for an abdomen/pelvis CT to rule out ischemic bowel. Met with patient`s niece Bethanie Smallwood who has lived with patient for the past 9 years. Obtained psychosocial, past medical history and events leading to this hospitalization. Patient's niece reports that patient has been progressively declining especially over the past year. Patient has expressed to her niece that she would never want to be resuscitated or intubated and placed on mechanical ventilation. Patient's niece believes that patient ate one time he had completed a living will naming his late is healthcare surrogate, and after he recently she had been telling her niece Bethanie that she would want her to be her health care surrogate. Patient`s niece is not sure if patient completed any HCS forms but will go and check at home. Requested that niece brings in even the old living will that had patient`s late as HCS. Explained to Bethanie that according to [place] statute patient's son would serve as her Health Care Proxy unless patient had completed HCS forms. Patient has one adult son Bruce Casillas who lives locally and he has been estranged from patient according to patient's niece Bethanie. She is trying to find his contact information. Palliative care contact information provided. Case discussed with Dr. Werner, Dr. Hogue and bedside RN . Function/Cognitive Trajectory Patient lives at home with he and niece Bethanie. He recently on 09/11/2017 under [facility]. Patient's last hospitalization was from 09/06/2017 to 09/08/2017-was treated for atrial fibrillation with RVR, abdominal pain and leukocytosis. Patient has had 7 hospital hospitalizations since June,. Patient was independent of all his ADLs, he was only able to ambulate short distances due to shortness of breath and was only able to sleep in a recliner chair. Patient has lost significant amount of weight over the past year-niece unable to quantify. Patient was able to verbalize his needs. . Review of Systems ROS Limitations: Intubated Constitutional: COMPLAINS OF: Weight loss, DENIES: Fever Eyes: DENIES: Eye inflammation Ears, nose, mouth, throat: DENIES: Nasal discharge Respiratory: COMPLAINS OF: Cough, Sputum production, Shortness of breath Cardiovascular: DENIES: Lower Extremity Edema Gastrointestinal: COMPLAINS OF: Abdominal pain Integumentary: COMPLAINS OF: Abnormal pigmentation Hematologic/Lymphatics: COMPLAINS OF: Bruising Psychiatric: COMPLAINS OF: Depression Other ROS: ROS obtained from EMR, family and clinical observation . Past Family Social History Coded Allergies: sertraline (Verified Allergy, Severe, hives, 09/23/17) verapamil (Verified Allergy, Severe, rash, 09/23/17) Past Medical History Hypertension Congestive heart failure Chronic kidney disease stage III Paroxysmal atrial fibrillation on Xarelto Ventricular fibrillation Asystole WPW COPD Hyperlipidemia Tobacco abuse Depression Migraine headaches . Past Surgical History Cardiac ablation AICD placement Hysterectomy . Reported Medications Diltiazem CD 24 HR 240 Mg Caper 240 Mg PO DAILY Pravachol (Pravastatin) 40 Mg Tab 40 Mg PO DAILY Amiodarone (Amiodarone HCl) 200 Mg Tab 200 Mg PO Q12HR Xarelto (Rivaroxaban) 15 Mg Tab 15 Mg PO DAILY Metoprolol Tartrate 50 Mg Tab 50 Mg PO BID Furosemide 20 Mg Tab 20 Mg PO DAILY Effexor XR 24 HR (Venlafaxine HCl) 150 Mg Cap 150 Mg PO DAILY Isosorbide Mononitrate ER (Isosorbide Mononitrate) 30 Mg Leonie 30 Mg PO HS Dulera 120 Act Inh (Mometasone-Formoterol 120 Act Inh) 200-5 Mcg/Act Inh 1 Puff INH BID Protonix (Pantoprazole Sodium) 40 Mg Tab 40 Mg PO DAILY Aspirin 81 Mg Chew 81 Mg PO DAILY Ventolin Hfa 18 GM Inh (Albuterol Sulfate) 90 Mcg/Act Aer 2 Puff INH Q4H PRN Tylenol Extra Strength (Acetaminophen) 500 Mg Tablet 500 Mg PO Q6HR PRN . Current Medications Medications (Trade) Dose Ordered Sig/[place] Route Start Time Stop Time Status Last Admin (NS Flush) 2 ml UNSCH PRN IV FLUSH 09/24/17 00:00 (NS Flush) 2 ml BID IV FLUSH 09/24/17 09:00 09/25/17 08:10 (Tylenol) 650 mg Q4H PRN PO 09/24/17 00:00 09/25/17 06:58 (Zofran Inj) 4 mg Q6H PRN IVP 09/24/17 00:00 09/25/17 08:33 (Narcan Inj) 0.4 mg UNSCH PRN IV PUSH 09/24/17 00:00 (Senokot) 17.2 mg Q12H PRN PO 09/24/17 00:00 09/25/17 07:55 (Dulcolax Supp) 10 mg DAILY PRN RECTAL 09/24/17 00:00 (Lactulose Liq) 30 ml DAILY PRN PO 09/24/17 00:00 09/25/17 07:54 (D50w (Vial) Inj) 50 ml UNSCH PRN IV PUSH 09/24/17 00:00 (Glucagon Inj) 1 mg UNSCH PRN OTHER 09/24/17 00:00 Levofloxacin/ Dextrose 150 ml @ 100 mls/hr Q24H IV 09/25/17 00:00 09/24/17 23:10 (Protonix) 40 mg DAILY PO 09/24/17 09:00 09/25/17 07:55 (Pravachol) 40 mg DAILY PO 09/24/17 09:00 09/25/17 07:54 (Effexor Xr) 150 mg DAILY PO 09/24/17 09:00 Future Hold 09/25/17 07:54 (Symbicort 160-4.5 Mcg Inh) 1 puff BID INH 09/24/17 09:00 Miscellaneous Information Patient in critical care unit? Ass... Q361D .XX 09/24/17 01:00 (Chlorhexidine 2% Cloth) 3 pack DAILY@04 TOPICAL 09/24/17 04:00 09/28/17 04:01 09/24/17 04:00 (Chlorhexidine 2% Cloth) 3 pack UNSCH PRN TOPICAL 09/24/17 01:00 09/29/17 00:49 (Duoneb Neb) 1 ampule Q4HR NEB PRN NEB 09/24/17 08:45 (NovoLOG SUPPLEMENTAL SCALE) 1 Q6H SQ 09/25/17 14:00 (Peridex 0.12% Liq) 15 ml BID@08,20 MT 09/25/17 20:00 Fentanyl Citrate 250 ml @ 5 mls/hr TITRATE PRN IV 09/25/17 11:30 Phenylephrine HCl 40 mg/Dextrose 500 ml @ 30 mls/hr TITRATE PRN IV 09/25/17 11:30 09/25/17 11:43 (Brethine Inj) 1 mg UNSCH PRN SQ 09/25/17 11:30 (Duoneb Neb) 1 ampule Q6HR NEB NEB 09/25/17 16:00 Piperacillin Sod/ Tazobactam Sod 50 ml @ 100 mls/hr Q8H IV 09/25/17 13:00 09/25/17 13:31 Sodium Bicarbonate 150 meq/Dextrose 1,150 ml @ 125 mls/hr Q9H12M IV 09/25/17 14:00 09/25/17 13:33 Propofol 100 ml @ 2.403 mls/ hr TITRATE PRN IV 09/25/17 13:30 Sodium Chloride 1,000 ml @ 0 mls/hr Q0M PRN OTHER 09/25/17 15:30 (Heparin Inj) 8,000 units UNSCH PRN IV FLUSH 09/25/17 15:30 Sodium Chloride 1,000 ml @ 200 mls/hr Q5H PRN IV 09/25/17 15:45 Sodium Chloride 1,000 ml @ 0 mls/hr Q0M PRN OTHER 09/25/17 15:45 (Mannitol Inj) 12.5 gm UNSCH PRN IV 09/25/17 15:30 Albumin Human 100 ml @ 60 mls/hr UNSCH PRN IV 09/25/17 15:30 (NS Flush) 5 ml UNSCH PRN IV FLUSH 09/25/17 15:30 (Heparin Inj) UNSCH PRN .XX 09/25/17 15:30 (Gentamicin Inj) 20 mg UNSCH PRN OTHER 09/25/17 15:30 (Zofran Inj) 4 mg UNSCH PRN IV PUSH 09/25/17 15:30 (Tylenol) 650 mg UNSCH PRN PO 09/25/17 15:30 (Benadryl) 25 mg UNSCH PRN PO 09/25/17 15:30 (Nitrostat Sl) 0.4 mg UNSCH PRN SL 09/25/17 15:30 (Catapres) 0.1 mg UNSCH PRN PO 09/25/17 15:30 (Epogen Inj) 10,000 units UNSCH PRN IV PUSH 09/25/17 15:30 (Gelfoam 12 Mm/7 Mm Top) 1 foam UNSCH PRN TOP 09/25/17 15:30 Norepinephrine Bitartrate 250 ml @ 37.5 mls/hr TITRATE PRN IV 09/25/17 15:30 Vasopressin 40 units/Dextrose 100 ml @ 1.5 mls/hr Q24H IV 09/25/17 16:30 (SoluCORTEF INJ) 100 mg Q8HR IV PUSH 09/25/17 15:45 Phytonadione 10 mg/Sodium Chloride 51 ml @ 102 mls/hr ONCE ONCE IV 09/25/17 16:30 09/25/17 16:59 Prothrombin Complex Concent (Human) 4000 units/N/A 100 ml @ 300 mls/hr NOW ONCE IV 09/25/17 16:30 09/25/17 16:49 Family History Mother at age 66, she had coronary artery disease and diabetes mellitus Father at age 77 of coronary artery disease . Substance Use Tobacco: Current smoker. Smokes 1 PPD Alcohol: None reported Prescription med abuse: None reported Illicits: None reported . Psychosocial History Patient was born and raised in [place]. He highest level of education is 12th grade. 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 She has a son. Patient is a , he on 09/11/17. Patient has been unemployed for a long time. . Living Will: Completed, but not made available Health Care Surrogate: Never completed Durable Power of Linotype Machinist: Never completed Health Care Surrogate(s): Health Proxy -Son Bruce Casillas . Ethical and Legal Issues None identified at this time . Physical Exam Vital Signs Date Time Temp Pulse Resp B/P (MAP) Pulse Ox O2 Delivery O2 Flow Rate FiO2 09/25/17 16:01 100 40 09/25/17 13:51 98 40 09/25/17 11:43 65 103/44 09/25/17 11:05 100 100 09/25/17 11:01 100 09/25/17 08:18 100 Nasal Cannula 2.00 09/25/17 08:00 97.0 76 25 127/62 (83) 88 09/25/17 07:58 24 09/25/17 04:00 98.6 68 25 96/53 (67) 96 09/25/17 04:00 68 09/25/17 00:00 97.9 82 24 121/92 (102) 97 09/25/17 00:00 82 09/24/17 20:00 74 09/24/17 20:00 97.8 74 29 131/87 (102) 97 09/25/17 09/26/17 18:59 06:59 Intake Total 615 ml Balance 615 ml FFP 575 ml Blood Product IV Normal Saline Flush 40 ml Exam CONSTITUTIONAL/GENERAL: This is an adequately nourished patient, in respiratory distress. TUBES/LINES/DRAINS: ETT, OG tube, Avalos catheter, BUE soft restraints, central line, Vas-Cath, SKIN: No jaundice, rashes, or lesions. Ecchymoses on upper extremities. No wounds seen anteriorly. Skin temperature appropriate. Not diaphoretic. HEAD: Atraumatic. Normocephalic. EYES: Pupils equal and round and reactive. Extraocular motions intact. No scleral icterus. No injection or drainage. Fundi not examined. ENT: Hearing grossly normal. Nose without bleeding or purulent drainage. NECK: Trachea midline. Supple, nontender. CARDIOVASCULAR: Atrial fibrillation. No JVD. Peripheral pulses weak. RESPIRATORY/CHEST: Intubated on mechanical ventilation. Use of abdominal muscles. Rhonchi to auscultation. GASTROINTESTINAL: Abdomen soft, non-tender, nondistended. Normal bowel sounds GENITOURINARY: Without palpable bladder distension. Avalos catheter in place. MUSCULOSKELETAL: Extremities without clubbing, cyanosis, or edema. No clubbing. NEUROLOGICAL: Intubated on mechanical ventilation. Patient is not following commands, spontaneously moving all 4 extremities. PSYCHIATRIC: Unable to assess at this time Diagnostic Tests Laboratory Laboratory Tests Test 09/23/17 21:39 09/23/17 21:50 09/23/17 22:10 09/24/17 00:30 White Blood Count 9.4 TH/MM3 (4.0-11.0) Red Blood Count 4.05 MIL/MM3 (4.00-5.30) Hemoglobin 8.7 GM/DL (11.6-15.3) Hematocrit 30.5 % (35.0-46.0) Mean Corpuscular Volume 75.5 FL (80.0-100.0) Mean Corpuscular Hemoglobin 21.5 PG (27.0-34.0) Mean Corpuscular Hemoglobin Concent 28.5 % (32.0-36.0) Red Cell Distribution Width 19.6 % (11.6-17.2) Platelet Count 471 TH/MM3 (150-450) Mean Platelet Volume 8.3 FL (7.0-11.0) Neutrophils (%) (Auto) 77.1 % (16.0-70.0) Lymphocytes (%) (Auto) 15.7 % (9.0-44.0) Monocytes (%) (Auto) 6.1 % (0.0-8.0) Eosinophils (%) (Auto) 0.3 % (0.0-4.0) Basophils (%) (Auto) 0.8 % (0.0-2.0) Neutrophils # (Auto) 7.3 TH/MM3 (1.8-7.7) Lymphocytes # (Auto) 1.5 TH/MM3 (1.0-4.8) Monocytes # (Auto) 0.6 TH/MM3 (0-0.9) Eosinophils # (Auto) 0.0 TH/MM3 (0-0.4) Basophils # (Auto) 0.1 TH/MM3 (0-0.2) CBC Comment AUTO DIFF Differential Comment AUTO DIFF CONFIRMED Target Cells 1+ (NORMAL) Prothrombin Time 12.3 SEC (9.8-11.6) Prothromb Time International Ratio 1.2 RATIO Activated Partial Thromboplast Time 23.8 SEC (24.3-30.1) Blood Urea Nitrogen 10 MG/DL (7-18) Creatinine 1.19 MG/DL (0.50-1.00) Random Glucose 253 MG/DL (74-106) Total Protein 7.4 GM/DL (6.4-8.2) Albumin 3.4 GM/DL (3.4-5.0) Calcium Level 8.7 MG/DL (8.5-10.1) Magnesium Level 1.9 MG/DL (1.5-2.5) Alkaline Phosphatase 149 U/L (45-117) Aspartate Amino Transf (AST/SGOT) 20 U/L (15-37) Alanine Aminotransferase (ALT/SGPT) 21 U/L (10-53) Total Bilirubin 0.6 MG/DL (0.2-1.0) Sodium Level 138 MEQ/L (136-145) Potassium Level 4.1 MEQ/L (3.5-5.1) Chloride Level 102 MEQ/L (98-107) Carbon Dioxide Level 26.8 MEQ/L (21.0-32.0) Anion Gap 9 MEQ/L (5-15) Estimat Glomerular Filtration Rate 47 ML/MIN (>89) Total Creatine Kinase 93 U/L (26-192) Troponin I 0.05 NG/ML (0.02-0.05) C-Reactive Protein 1.00 MG/DL (0.00-0.30) B-Type Natriuretic Peptide 876 PG/ML (0-100) Lipase 342 U/L (73-393) Lactic Acid Level 2.2 mmol/L (0.4-2.0) 1.7 mmol/L (0.4-2.0) Urine Color YELLOW (YELLW/STRAW) Urine Turbidity CLEAR (CLEAR) Urine pH 5.0 (5.0-8.5) Urine Specific [place] 1.018 (1.002-1.035) Urine Protein TRACE mg/dL (NEG-TRACE) Urine Glucose (UA) 1000 mg/dL (NEG) Urine Ketones NEG mg/dL (NEG) Urine Occult Blood NEG (NEG) Urine Nitrite NEG (NEG) Urine Bilirubin NEG (NEG) Urine Urobilinogen LESS THAN 2.0 MG/DL (LESS Urine Leukocyte Esterase SMALL (NEG) Urine RBC 2 /hpf (0-3) Urine WBC 2 /hpf (0-5) Urine Squamous Epithelial Cells 5 /hpf (0-5) Urine Bacteria RARE /hpf (NONE) Urine Mucus FEW /lpf (OCC) Microscopic Urinalysis Comment CULT NOT INDICATED Test 09/24/17 01:00 09/24/17 06:38 09/25/17 09:55 09/25/17 11:15 Nasal Screen MRSA (PCR) MRSA NOT DETECTED (NOT White Blood Count 10.5 TH/MM3 (4.0-11.0) 11.2 TH/MM3 (4.0-11.0) Red Blood Count 3.52 MIL/MM3 (4.00-5.30) 3.57 MIL/MM3 (4.00-5.30) Hemoglobin 7.5 GM/DL (11.6-15.3) 7.5 GM/DL (11.6-15.3) Hematocrit 27.0 % (35.0-46.0) 28.2 % (35.0-46.0) Mean Corpuscular Volume 76.6 FL (80.0-100.0) 79.2 FL (80.0-100.0) Mean Corpuscular Hemoglobin 21.3 PG (27.0-34.0) 21.0 PG (27.0-34.0) Mean Corpuscular Hemoglobin Concent 27.8 % (32.0-36.0) 26.5 % (32.0-36.0) Red Cell Distribution Width 19.7 % (11.6-17.2) 19.5 % (11.6-17.2) Platelet Count 424 TH/MM3 (150-450) 395 TH/MM3 (150-450) Mean Platelet Volume 8.2 FL (7.0-11.0) 8.7 FL (7.0-11.0) Neutrophils (%) (Auto) 83.0 % (16.0-70.0) 85.8 % (16.0-70.0) Lymphocytes (%) (Auto) 11.4 % (9.0-44.0) 7.1 % (9.0-44.0) Monocytes (%) (Auto) 4.4 % (0.0-8.0) 6.4 % (0.0-8.0) Eosinophils (%) (Auto) 0.3 % (0.0-4.0) 0.0 % (0.0-4.0) Basophils (%) (Auto) 0.9 % (0.0-2.0) 0.7 % (0.0-2.0) Neutrophils # (Auto) 8.7 TH/MM3 (1.8-7.7) 9.6 TH/MM3 (1.8-7.7) Lymphocytes # (Auto) 1.2 TH/MM3 (1.0-4.8) 0.8 TH/MM3 (1.0-4.8) Monocytes # (Auto) 0.5 TH/MM3 (0-0.9) 0.7 TH/MM3 (0-0.9) Eosinophils # (Auto) 0.0 TH/MM3 (0-0.4) 0.0 TH/MM3 (0-0.4) Basophils # (Auto) 0.1 TH/MM3 (0-0.2) 0.1 TH/MM3 (0-0.2) CBC Comment AUTO DIFF AUTO DIFF Differential Total Cells Counted 100 100 Neutrophils % (Manual) 78 % (16-70) 81 % (16-70) Band Neutrophils % 13 % (0-6) 8 % (0-6) Lymphocytes % 7 % (9-44) 10 % (9-44) Monocytes % 1 % (0-8) Basophils % 1 % (0-2) Neutrophils # (Manual) 9.6 TH/MM3 (1.8-7.7) 10.1 TH/MM3 (1.8-7.7) Nucleated Red Blood Cells 2 /100 WBC (0-0) 59 /100 WBC (0-0) Differential Comment FINAL DIFF MANUAL FINAL DIFF MANUAL Platelet Estimate NORMAL (NORMAL) NORMAL (NORMAL) Platelet Morphology Comment NORMAL (NORMAL) NORMAL (NORMAL) Target Cells 1+ (NORMAL) Blood Urea Nitrogen 11 MG/DL (7-18) 29 MG/DL (7-18) Creatinine 1.27 MG/DL (0.50-1.00) 2.84 MG/DL (0.50-1.00) Random Glucose 276 MG/DL (74-106) 79 MG/DL (74-106) Calcium Level 8.4 MG/DL (8.5-10.1) 6.9 MG/DL (8.5-10.1) Sodium Level 137 MEQ/L (136-145) 139 MEQ/L (136-145) Potassium Level 5.0 MEQ/L (3.5-5.1) 6.4 MEQ/L (3.5-5.1) Chloride Level 103 MEQ/L (98-107) 101 MEQ/L (98-107) Carbon Dioxide Level 21.3 MEQ/L (21.0-32.0) 14.4 MEQ/L (21.0-32.0) Anion Gap 13 MEQ/L (5-15) 24 MEQ/L (5-15) Estimat Glomerular Filtration Rate 44 ML/MIN (>89) 17 ML/MIN (>89) Blood Gas Puncture Site RT RADIAL Blood Gas Patient Temperature 98.6 Blood Gas HCO3 11 mmol/L (22-26) Blood Gas Base Excess -16.4 mmol/L (-2-2) Blood Gas Oxygen Saturation 93 % (90-100) Arterial Blood pH 7.15 (7.380-7.420) Arterial Blood Partial Pressure CO2 32 mmHg (38-42) Arterial Blood Partial Pressure O2 109 mmHg (61-120) Arterial Blood Oxygen Content 11.0 Vol % (12.0-20.0) Arterial Blood Carboxyhemoglobin 0.7 % (0-4) Arterial Blood Methemoglobin 1.6 % (0-2) Blood Gas Hemoglobin 8.3 G/DL (12.0-16.0) Oxygen Delivery Device NASAL CANNULA Blood Gas Liter Flow 2 L/M Metamyelocytes 1 % (0-1) Ovalocytes 1+ (NORMAL) Prothrombin Time 36.3 SEC (9.8-11.6) Prothromb Time International Ratio 3.6 RATIO Fibrinogen 328 mg/dL (227-377) Total Protein 5.9 GM/DL (6.4-8.2) Albumin 2.8 GM/DL (3.4-5.0) Phosphorus Level 7.3 MG/DL (2.5-4.9) Magnesium Level 2.0 MG/DL (1.5-2.5) Alkaline Phosphatase 106 U/L (45-117) Aspartate Amino Transf (AST/SGOT) 112 U/L (15-37) Alanine Aminotransferase (ALT/SGPT) 48 U/L (10-53) Total Bilirubin 1.0 MG/DL (0.2-1.0) Lactic Acid Level 13.2 mmol/L (0.4-2.0) Protein Corrected Calcium 7.5 MG/DL (8.5-10.1) Total Creatine Kinase 117 U/L (26-192) Creatine Kinase MB 3.5 NG/ML (0.5-3.6) Troponin I LESS THAN 0.02 NG/ML Test 09/25/17 12:14 Blood Gas Puncture Site RT RADIAL Blood Gas Patient Temperature 98.6 Blood Gas HCO3 14 mmol/L (22-26) Blood Gas Base Excess -12.9 mmol/L (-2-2) Blood Gas Oxygen Saturation 83 % (90-100) Arterial Blood pH 7.16 (7.380-7.420) Arterial Blood Partial Pressure CO2 41 mmHg (38-42) Arterial Blood Partial Pressure O2 69 mmHg (61-120) Arterial Blood Oxygen Content 8.8 Vol % (12.0-20.0) Arterial Blood Carboxyhemoglobin 0.7 % (0-4) Arterial Blood Methemoglobin 1.6 % (0-2) Blood Gas Hemoglobin 7.5 G/DL (12.0-16.0) Oxygen Delivery Device VENTILATOR Blood Gas Ventilator Setting PRVC/AC 16/500 Blood Gas Inspired Oxygen 100 % Result Diagram: 09/25/17 1115 09/25/17 1115 Microbiology Microbiology Date/Time Source Procedure Growth Status 09/25/17 13:54 Blood Peripheral Aerobic Blood Culture Pending Received 09/25/17 13:54 Blood Peripheral Anaerobic Blood Culture Pending Received 09/25/17 13:49 Blood Peripheral Aerobic Blood Culture Pending Received 09/25/17 13:49 Blood Peripheral Anaerobic Blood Culture Pending Received 09/23/17 21:50 Blood Peripheral Aerobic Blood Culture - Preliminary NO GROWTH IN 2 DAYS Resulted 09/23/17 21:50 Blood Peripheral Anaerobic Blood Culture - Preliminary NO GROWTH IN 2 DAYS Resulted 09/23/17 21:45 Blood Peripheral Aerobic Blood Culture - Preliminary NO GROWTH IN 2 DAYS Resulted 09/23/17 21:45 Blood Peripheral Anaerobic Blood Culture - Preliminary NO GROWTH IN 2 DAYS Resulted Imaging Last Impressions Chest X-Ray 09/25/17 0000 Signed Impressions: Service Date/Time: Monday, September 25, 2017 11:14 - CONCLUSION: Endotracheal tube and nasogastric tube now in place. Nasogastric tube side port at the gastroesophageal junction. Lungs grossly clear. Wolf Maldonado MD Procedures 09/25/2017-intubation 09/25/2017-central line placement 09/25/[id number] placement . Patient/Family Conference Family Conference Location: Other (Second floor waiting room) Issues Discussed: * Palliative care role, purpose, approach * Additional medical, psychosocial, and spiritual history * Patients general health, functional status, and cognitive changes in the months leading up to the current hospitalization * Patient/family understanding of the current medical problems * Patient/family understanding of prognosis * Patients goals of care as best understood from advance directives and/or conversations and/or values * Current medical treatment options and benefits/burdens of those options * Likely scenarios comparing ongoing aggressive care with a transition to comfort measures only * Questions answered to the best of my ability * Palliative care contact information provided Assessment and Plan Disease Oriented Problem List: (1) Respiratory failure (2) Sepsis (3) Diabetes (4) Acute kidney failure (5) Coagulopathy Symptom Scale: (1) Shortness of breath (2) Debility Pertinent Non-Medical Issues Psychosocial:Patient was born and raised in [place]. He highest level of education is 12th grade. Patient has a son. Patient is a , he a week ago. Patient has been unemployed for a long time. Spiritual: No yarsanism affiliation Legal: Niece reports that patient has completed a living will but they are unable to locate it. She believes her late was a HCS Ethical issues impacting care: None identified at this time . Important Contacts Niece-Bethanie Hunter-[phone] [id number] (late husbands` sister)-Soheila HamptonMjusjny-[phone] Granddaughter-Sonja August [phone] Son-Bruce Casillas . Prognosis Mrs. Hampton is a 56-year-old with a past medical history significant for atrial fibrillation on Xarelto, congestive heart failure, hypertension, COPD, chronic kidney disease, diabetes mellitus and depression. Patient presented to the ER on 09/23/17 with complaints of shortness of breath, productive cough and congestion for the past 2 weeks. Patient's clinical course complicated with worsening respiratory distress, lactic acidemia, renal failure. Given ongoing comorbidities, patient remains at high risk for further complications, deterioration and decline. . Code Status: Full Code Plan PLAN: Legal decision maker: Patient is currently intubated on mechanical ventilation and is not able to participate in medical decision making. According to [place] statute, patient's adult son Bruce Casillas will save is here healthcare proxy. Goals: Aggressive while we try to contact patient's healthcare proxy (son- Bruce Casillas) CODE STATUS: Full code by default SYMPTOMS: * Shortness of breath: Patient has history of CHF, COPD and smokes cigarettes. Patient came in with complaints of shortness of breath, productive cough and congestion. Patient has had worsening respiratory failure requiring intubation and mechanical ventilation. Chest x-ray showed minimal atelectasis. Patient is on hydrocortisone, and duo nebs. No recommendations at this time. * Debility: Progressive. Patient has had multiple hospitalizations (x7) since June of this year. Palliative care will continue to follow the patient during hospital course as condition evolves, to assist patient/decision-maker with understanding of their medical conditions, weighing benefits/burdens of treatment options, for clarification of goals of treatment. Additionally will assist with any symptoms of palliative concern Thank you for the opportunity to participate in the care of Ms. Hampton. Attestation To help prompt me to consider important information that might be impacting today's encounter and assessment, information from prior notes written by myself or my colleagues may have been "brought forward" into today's note. My signature on this note, however, is an attestation that I personally performed the exam, history, and/or decision-making noted today, and, unless otherwise indicated, the interactions with patient, family, and staff as well as the review of records all occurred today. I also attest that the listed assessment and stated plan reflect my best clinical judgment today based on the combination of historical information, prior notes, and today's exam/ interactions. When time spent is documented, it refers only to time spent today by the signer, or if indicated, combined time spent today by collaborating physician/nurse practitioner. Denis Barros Sep 25, 2017 17:18
--- NOTE | 2017-09-25 17:22 | PD.ID.CON ---
History of Present Illness Service ID Consult Requested By Dr Coronado Reason for Consult septi shock Primary Care Physician Liz Thorne M.D. Diagnoses: History of Present Illness 56 yo F with mult med probx, COPD, Afib in-out of the hosp x last 2 mos cont c/o abd pain Recent hosp'n to w/u abdominal pain gallbladder schaffer thickening, colonisocpy negative Apparently she left AMA in the last 2 days [employer] c/o worsening SOB, cough , bu t per niece she has chronic smokers cough she was admitted on 09/23 with diagnosis of COPD exacerabtiaon Her CXR was neg on admission UA negative On admission nl WBC, next day 13 % bands No abx, on RA Today was found by her nurse lethargic, in resp distress, hypotensive and hypothermic She was intubated, put on vent On 3 maxed out pressors Labs showed met acidosis, PH 7.16 lactic acid 13 Review of Systems ROS Limitations: Clinical Condition, Intubated, Altered Mental Status, Unresponsive Past Family Social History Allergies: Coded Allergies: sertraline (Verified Allergy, Severe, hives, 09/23/17) verapamil (Verified Allergy, Severe, rash, 09/23/17) Past Medical History hypertension, COPD, hyperlipidemia, depression, atrial fibrillation on Xarelto. Past Surgical History Hysterectomy, previous AICD placement, previous cardiac ablation. Active Ordered Medications Medications where reviewed in EMR Antibiotics Include: vanco x 1 Family History No history of diabetes mellitus or coronary artery disease. Social History Active smoker, nondrinker. No drugs Physical Exam Vital Signs Vital Signs Date Time Temp Pulse Resp B/P (MAP) Pulse Ox O2 Delivery O2 Flow Rate FiO2 09/25/17 16:57 72 96/39 09/25/17 16:52 94.9 74 20 96/39 100 09/25/17 16:40 94.9 83 20 82/52 100 09/25/17 16:01 100 40 09/25/17 13:51 98 40 09/25/17 11:43 65 103/44 09/25/17 11:05 100 100 09/25/17 11:01 100 09/25/17 08:18 100 Nasal Cannula 2.00 09/25/17 08:00 97.0 76 25 127/62 (83) 88 09/25/17 07:58 24 09/25/17 04:00 98.6 68 25 96/53 (67) 96 09/25/17 04:00 68 09/25/17 00:00 97.9 82 24 121/92 (102) 97 09/25/17 00:00 82 09/24/17 20:00 74 09/24/17 20:00 97.8 74 29 131/87 (102) 97 Physical Exam CONSTITUTIONAL/GENERAL: This is an obese patient, sedated, int'd unresponsive TUBES/LINES/DRAINS: SKIN: No jaundice, rashes, or lesions. . Skin temperature decreased Mottled . Not diaphoretic. HEAD: Atraumatic. Normocephalic. EYES: Pupils equal and round and reactive. Extraocular motions intact. No scleral icterus. No injection or drainage. Fundi not examined. ENT: Hearing not assessed Nose without bleeding or purulent drainage. Throat without visible erythema, exudates, masses, or lesions. + cyanotic lips NECK: Trachea midline. Supple, nontender. No palpable thyroid enlargement or nodularity. CARDIOVASCULAR: Regular rate and rhythm without murmurs, gallops, or rubs. No JVD. Peripheral pulses symmetric. RESPIRATORY/CHEST: Symmetric, unlabored respirations. Clear to auscultation. Breath sounds equal bilaterally. No wheezes, rales, or rhonchi. GASTROINTESTINAL: Abdomen soft, non-tender, nondistended. No hepato-splenomegaly , or palpable masses. No guarding. Bowel sounds present. GENITOURINARY: Avalos catheter in place with minimal clear yellow urine MUSCULOSKELETAL: Extremities without clubbing, Prominent cyanosis feet, fingers, mottling of the skin of thighs, abdomen, arms No edema. No joint tenderness or effusion noted. No calf tenderness. No mottling or clubbing. LYMPHATICS: No palpable cervical or supraclavicular adenopathy. NEUROLOGICAL:unresponsive; sedated PSYCHIATRIC: unable to assess Laboratory Laboratory Tests Test 09/25/17 09:55 09/25/17 11:15 09/25/17 12:14 09/25/17 15:56 Blood Gas Puncture Site RT RADIAL RT RADIAL Blood Gas Patient Temperature 98.6 98.6 Blood Gas HCO3 11 14 Blood Gas Base Excess -16.4 -12.9 Blood Gas Oxygen Saturation 93 83 Arterial Blood pH 7.15 7.16 Arterial Blood Partial Pressure CO2 32 41 Arterial Blood Partial Pressure O2 109 69 Arterial Blood Oxygen Content 11.0 8.8 Arterial Blood Carboxyhemoglobin 0.7 0.7 Arterial Blood Methemoglobin 1.6 1.6 Blood Gas Hemoglobin 8.3 7.5 Oxygen Delivery Device NASAL CANNULA VENTILATOR Blood Gas Liter Flow 2 White Blood Count 11.2 Red Blood Count 3.57 Hemoglobin 7.5 Hematocrit 28.2 Mean Corpuscular Volume 79.2 Mean Corpuscular Hemoglobin 21.0 Mean Corpuscular Hemoglobin Concent 26.5 Red Cell Distribution Width 19.5 Platelet Count 395 Mean Platelet Volume 8.7 Neutrophils (%) (Auto) 85.8 Lymphocytes (%) (Auto) 7.1 Monocytes (%) (Auto) 6.4 Eosinophils (%) (Auto) 0.0 Basophils (%) (Auto) 0.7 Neutrophils # (Auto) 9.6 Lymphocytes # (Auto) 0.8 Monocytes # (Auto) 0.7 Eosinophils # (Auto) 0.0 Basophils # (Auto) 0.1 CBC Comment AUTO DIFF Differential Total Cells Counted 100 Neutrophils % (Manual) 81 Band Neutrophils % 8 Lymphocytes % 10 Neutrophils # (Manual) 10.1 Metamyelocytes 1 Nucleated Red Blood Cells 59 Differential Comment FINAL DIFF MANUAL Platelet Estimate NORMAL Platelet Morphology Comment NORMAL Ovalocytes 1+ Prothrombin Time 36.3 Prothromb Time International Ratio 3.6 Fibrinogen 328 Blood Urea Nitrogen 29 Creatinine 2.84 Random Glucose 79 Total Protein 5.9 Albumin 2.8 Calcium Level 6.9 Phosphorus Level 7.3 Magnesium Level 2.0 Alkaline Phosphatase 106 Aspartate Amino Transf (AST/SGOT) 112 Alanine Aminotransferase (ALT/SGPT) 48 Total Bilirubin 1.0 Sodium Level 139 Potassium Level 6.4 Chloride Level 101 Carbon Dioxide Level 14.4 Anion Gap 24 Estimat Glomerular Filtration Rate 17 Lactic Acid Level 13.2 Protein Corrected Calcium 7.5 Total Creatine Kinase 117 Creatine Kinase MB 3.5 Troponin I LESS THAN 0.02 Blood Gas Ventilator Setting PRVC/AC 16/500 Blood Gas Inspired Oxygen 100 Date/Time Source Procedure Growth Status 09/25/17 13:54 Blood Peripheral Aerobic Blood Culture Pending Received 09/25/17 13:54 Blood Peripheral Anaerobic Blood Culture Pending Received Result Diagram: 09/25/17 1115 09/25/17 1115 Imaging Last Impressions Chest X-Ray 09/25/17 0000 Signed Impressions: Service Date/Time: Monday, September 25, 2017 11:14 - CONCLUSION: Endotracheal tube and nasogastric tube now in place. Nasogastric tube side port at the gastroesophageal junction. Lungs grossly clear. Wolf Maldonado MD Assessment and Plan Assessment and Plan septic shock with multiorgan failure: Acute VDRF ARF Abdominal pain on presentation Source of her sepsis septic shock is most likely intraabdominal (ischemic bowel , perforation, cholecystitis), other causes should be considered if no confirmation of source on CT A/P Critically ill, unstable, unlikely surgical candidate, Prognosis is poor, might not survive next 24 hrs STAT Zosyn cont vanco Micafungin awaiting STAT CT A/P - will dw radiologist Further rec's to follow based on CT findings Discussed Condition With case dw Mykel Collins RN @ b/s Denisa Flores MD Sep 25, 2017 17:22
[2017-09-25 18:03] LABS: HEMATOCRIT 32.4 % (35.0-46.0)
[2017-09-25] MEDS ORDERED: IODIXANOL 320 MG/ML 10 ML VIAL (for Rad CT) IVCONTRAST ONE (18:03)
[2017-09-25] MEDS: MICAFUNGIN INJ 150 MG in SODIUM CHLORIDE 0.9% INJ 100 ML IV SCH ×2 (18:06→22:23)
[2017-09-25 18:13] LABS: INTERNATIONAL NORMALIZED RATIO 2.5 RATIO; PROTHROMBIN TIME - PATIENT 24.9 SEC (9.8-11.6)
[2017-09-25] MEDS ORDERED: ASP: ID consult, note reason in consult order PRN (18:15)
[2017-09-25] MEDS ORDERED: MISCELLANEOUS PHARMACY INFORMATION XX PRN (18:15)
--- NOTE | 2017-09-25 18:18 | RADRPT ---
EXAM DATE/TIME: 09/25/2017 17:42 [facility] COMPARISON: CT ABDOMEN & PELVIS W CONTRAST, August 20, 2017, 9:11. INDICATIONS : Ischemic bowel IV CONTRAST: 80 cc Visipaque (iodixanol) IV ORAL CONTRAST: No oral contrast ingested. RADIATION DOSE: 8.81 CTDIvol (mGy) MEDICAL HISTORY : Cardiovascular disease. Chronic obstructive pulmonary disease. Renal insufficiency, chronic.Diabetes. Hypertension SURGICAL HISTORY : Hysterectomy. Pacemaker. ENCOUNTER: Initial ACUITY: 1 day PAIN SCALE: Non-responsive LOCATION: Abdomen TECHNIQUE: Volumetric scanning of the abdomen and pelvis was performed. Using automated exposure control and ad justment of the mA and/or kV according to patient size, radiation dose was kept as low as reasonably achievable to obtain optimal diagnostic quality images. DICOM format image data is available electro nically for review and comparison. FINDINGS: Hypoattenuating liver, spleen, kidneys and pancreas and there is small ascites around all these organ s. There is marked attenuation of the celiac and superior mesenteric arteries. I also see minimal brandi ling of the renal arteries. No secondary evidence of small bowel ischemia such as pneumatosis or portal venous gas. There is no b owel obstruction. Small ascites is in the pelvic cavity. There is no free air. Increased attenuation material in the gallbladder, potentially sludge or numerous tiny stones. Urinary bladder is decompressed with a Avalos catheter. Bilateral femoral venous catheters are present. Tiny pleural effusion right base. There is mild atelectasis at both bases. CONCLUSION: 1. Marked attenuation of the superior mesenteric artery, the celiac artery and its branches and the b ilateral renal arteries, presumably on the basis of vasospasm. There is hypoattenuation of the solid organs and early ischemic changes would be conceivable. If there is ischemia of bowel, it appears to be very early as well. There is ascites but no organized or drainable fluid. 2. Sludge versus numerous small stones in the gallbladder. 3. Mild atelectasis of both visualized lung bases. There is a trace pleural effusion on the right. Findings discussed with Dr. Hogue and Dr. Flores. Khadar Díaz MD on September 25, 2017 at 18:03 Board Certified Radiologist. This report was verified electronically.
[2017-09-25] MEDS: NOREPINEPHRINE 4 MG/D5W 250 ML IV PRN ×2 (18:20→22:27)
[2017-09-25 18:30] LABS: BICARBONATE 16.9 MEQ/L (21.0-32.0); CALCIUM 6.4 MG/DL (8.5-10.1); CREATININE 3.07 MG/DL (0.50-1.00)
[2017-09-25 18:47] LABS: TOTAL PROTEIN 5.2 GM/DL (6.4-8.2)
[2017-09-25 18:54] LABS: CALCIUM-PROTEIN CORRECTED 7.3 MG/DL (8.5-10.1)
[2017-09-25] MEDS ORDERED: HEPARIN IV 10,000 U/10 ML VIAL PRIMING IV PUSH PRN (19:00)
[2017-09-25] MEDS ORDERED: VANCOMYCIN 1,000 MG/NS 250 ML IV ONE ×2 (19:00)
[2017-09-25] MEDS: CHLORHEXIDINE 0.12% (ORAL KIT) 15 ML CUP MT SCH (20:00)
[2017-09-25] MEDS ORDERED: EPINEPHrine (1:1000) INJ 2 MG in DEXTROSE 5% IN WATER INJ 250 ML IV PRN ×2 (20:30)
[2017-09-25] MEDS ORDERED: NOREPINEPHRINE 4 MG/4 ML AMP ONE (20:58)
[2017-09-25] MEDS: fentaNYL DRIP 250 ML IV PRN (22:29)
[2017-09-25] MEDS: PROPOFOL 1000 MG/100 ML INJ 100 ML IV PRN (22:30)
[2017-09-25] MEDS: PHENYLEPHRINE HCL 160 MG/D5W 484 ML ADMIX IV PRN ×2 (22:31)
[2017-09-25] MEDS: NOREPINEPHRINE 16 MG/D5W 250 ML IV PRN ×2 (22:31)
[2017-09-25] MEDS: MEROPENEM INJ 500 MG in SODIUM CHLORIDE 0.9% INJ 100 ML IV SCH (22:34)
[2017-09-25] MEDS: LEVOFLOXACIN 750 MG PREMIX INJ 150 ML IV SCH (22:40)
[2017-09-25] MEDS: SODIUM BICARBONATE 8.4% INJ 100 MEQ in SODIUM CHLOR 0.45% 1000 ML INJ 1,000 ML IV PRN (23:36)
[2017-09-25] MEDS ORDERED: EPINEPHrine 8 MG/D5W 250 ML IV PRN ×4 (23:45)
[2017-09-26] VITALS (17 sets, daily range): BP systolic 32–106; BP diastolic 17–59; PULSE 80–110; RESP 0–20; TEMP 96.5–99; O2SAT 1–100
[2017-09-26 00:32] LABS: BICARBONATE 12.5 MEQ/L (21.0-32.0); CALCIUM 5.8 MG/DL (8.5-10.1); CREATININE 3.26 MG/DL (0.50-1.00)
[2017-09-26 01:13] LABS: CALCIUM-PROTEIN CORRECTED 6.7 MG/DL (8.5-10.1)
[2017-09-26] MEDS: PROPOFOL 1000 MG/100 ML INJ 100 ML IV PRN (01:45)
[2017-09-26] MEDS: SODIUM BICARBONATE 8.4% INJ 100 MEQ in SODIUM CHLOR 0.45% 1000 ML INJ 1,000 ML IV PRN (01:46)
[2017-09-26] MEDS: INSULIN ASPART SUPPLEMENTAL SCALE SQ SCH ×2 (02:00→08:46)
[2017-09-26] MEDS: PHENYLEPHRINE HCL 160 MG/D5W 484 ML ADMIX IV PRN ×4 (02:08→06:35)
[2017-09-26] MEDS: NOREPINEPHRINE 16 MG/D5W 250 ML IV PRN ×4 (02:10→06:36)
[2017-09-26] MEDS: fentaNYL DRIP 250 ML IV PRN (02:16)
[2017-09-26] MEDS: CHLORHEXIDINE GLUCONATE 2 % 1 PACK (2 CLOTHS)(taper/protocol) TOPICAL SCH (04:00)
[2017-09-26 04:06] LABS: HEMATOCRIT 32.3 % (35.0-46.0); MEAN CORPUSCULAR HEMOGLOBIN 24.3 PG (27.0-34.0); MEAN PLATELET VOLUME 9.5 FL (7.0-11.0); PLATELET COUNT 193 TH/MM3 (150-450); RED BLOOD COUNT 3.72 MIL/MM3 (4.00-5.30); RED CELL DISTRIBUTION WIDTH 18.6 % (11.6-17.2); WHITE BLOOD COUNT 33.9 TH/MM3 (4.0-11.0)
[2017-09-26] MEDS: RESP: ALBUTEROL 2.5 MG/IPRATROPIUM 0.5 MG NEB (SCH) NEB ×2 (04:10→08:08)
[2017-09-26 04:45] LABS: ALBUMIN 2.1 GM/DL (3.4-5.0); BICARBONATE 11.3 MEQ/L (21.0-32.0); CALCIUM 5.2 MG/DL (8.5-10.1); CREATININE 3.15 MG/DL (0.50-1.00); TOTAL BILIRUBIN ADULT 2.3 MG/DL (0.2-1.0); TOTAL PROTEIN 4.6 GM/DL (6.4-8.2)
[2017-09-26 04:48] LABS: CALCIUM-PROTEIN CORRECTED 6.2 MG/DL (8.5-10.1)
[2017-09-26] MEDS ORDERED: PHARMACY ORDERED LAB ONE (05:00)
[2017-09-26 05:52] LABS: BANDS 11 % (0-6); CORRECTED NUCLEATED RBC 21 /100 WBC (0-0); LYMPHOCYTES 6 % (9-44); METAMYELOCYTES 10 % (0-1); MONOCYTES 1 % (0-8); MYELOCYTES 1 % (0-0); NEUTROPHIL # MANUAL DIFF 31.5 TH/MM3 (1.8-7.7); NUCLEATED RED BLOOD CELL 21 (0-0); POLYS (SEG NEUTROPHILS) 70 % (16-70); PROMYELOCYTES 1 % (0-0)
[2017-09-26 05:58] LABS: BURR CELLS 1+ (NORMAL); SPHEROCYTES OCC (NORMAL); TOXIC VACUOLATION PRESENT (NONE SEEN)
[2017-09-26] MEDS: HYDROCORTISONE SOD SUCCINATE 100 MG VIAL IV PUSH SCH (06:32)
[2017-09-26] MEDS: MEROPENEM INJ 500 MG in SODIUM CHLORIDE 0.9% INJ 100 ML IV SCH (06:32)
[2017-09-26] MEDS: BUDESONIDE-FORMOTEROL 160/4.5 MCG INHALER INH SCH (08:00)
[2017-09-26] MEDS: SODIUM CHLORIDE 0.9% FLUSH 10 ML FLUSH IV FLUSH SCH (08:00)
[2017-09-26] MEDS: PANTOPRAZOLE SOD 40 MG DELAYED RELEASE TAB PO SCH (08:01)
[2017-09-26] MEDS: VASOPRESSIN INJ 40 UNITS in DEXTROSE 5% IN WATER 100ML INJ 98 ML IV SCH ×2 (08:16)
[2017-09-26] MEDS: SODIUM BICARBONATE 8.4% INJ 150 MEQ in DEXTROSE 5% IN WATE 1000ML INJ 1,000 ML IV SCH ×2 (08:17)
[2017-09-26] MEDS: PRAVASTATIN SOD 40 MG TAB PO SCH (08:27)
[2017-09-26] MEDS: CHLORHEXIDINE 0.12% (ORAL KIT) 15 ML CUP MT SCH (08:46)
--- NOTE | 2017-09-26 08:49 | HHI.CCPN ---
Subjective Remarks/Hospital Course Patient is a 56-year-old female with past medical history of hypertension, depression, atrial fibrillation on Xarelto, COPD, hyperlipidemia, tobacco abuse , noncompliant, who was admitted to hospitalist service yesterday for shortness of breath. She was discharged from [facility] on 09/08/2017 after she was treated for atrial fibrillation with rapid ventricular response. The patient also reported a productive cough with green phlegm and a low grade fever. On arrival to the ED, she was in atrial fibrillation with RVR. Chest x -ray on admission showed no evidence of any acute cardiopulmonary disease. Her initial laboratory data showed creatinine 1.19 with a BUN of 10 and BNP 876. Repeat labs from yesterday showed a drop of hemoglobin from 8.7 to 7.5 and a mild increase in creatinine to 1.27 from 1.9. Earlier today, the patient was found lethargic by nursing staff. ABG was performed on 2 liters nasal cannula, which showed a severe metabolic acidosis with a pH of 7.15, CO2 of 32, bicarbonate of 11, saturation of 93%. Her laboratory data from today showed a marked worsening in her renal function with a BUN of 29, creatinine 2.84 and severe lactic acidemia with a lactic acid level of 13.2. In addition , the patient was hyperkalemic with a potassium level of 6.4. She was intubated and placed on full mechanical ventilation. A chest x-ray post- intubation showed ET tube above the zach and no obvious infiltrates or effusions. 09/26 Patient is intubated, sedated with Fentanyl infusion and maxed out on multiple pressors ( On Neosyn, Levophed, Vasopressin, Epi). Lactic acid increased 21.5 this morning from 13 yesterday. Started on CVVHD last night however it was clogged off. Patient was made no code DNR. CT abd/pelvis yesterday showed possible early ischemic changes, no free air, obstruction or retroperitoneal bleed. On bicarb drip. Objective Vital Signs Date Time Temp Pulse Resp B/P (MAP) Pulse Ox O2 Delivery O2 Flow Rate FiO2 09/26/17 08:16 110 37/15 09/26/17 08:11 95 100 09/26/17 05:00 94.8 20 09/25/17 08:18 Nasal Cannula 2.00 Intake and Output 09/26/17 09/26/17 09/27/17 08:00 16:00 00:00 Intake Total 4216 ml Output Total 0 ml Balance 4216 ml Result Diagram: 09/26/17 0350 09/26/17 0350 Other Results Laboratory Tests Test 09/25/17 09:55 09/25/17 11:15 09/25/17 12:14 09/25/17 15:56 Blood Gas Puncture Site RT RADIAL RT RADIAL Blood Gas Patient Temperature 98.6 98.6 Blood Gas HCO3 11 mmol/L 14 mmol/L Blood Gas Base Excess -16.4 mmol/L -12.9 mmol/L Blood Gas Oxygen Saturation 93 % 83 % Arterial Blood pH 7.15 7.16 Arterial Blood Partial Pressure CO2 32 mmHg 41 mmHg Arterial Blood Partial Pressure O2 109 mmHg 69 mmHg Arterial Blood Oxygen Content 11.0 Vol % 8.8 Vol % Arterial Blood Carboxyhemoglobin 0.7 % 0.7 % Arterial Blood Methemoglobin 1.6 % 1.6 % Blood Gas Hemoglobin 8.3 G/DL 7.5 G/DL Oxygen Delivery Device NASAL CANNULA VENTILATOR Blood Gas Liter Flow 2 L/M White Blood Count 11.2 TH/MM3 Red Blood Count 3.57 MIL/MM3 Hemoglobin 7.5 GM/DL Hematocrit 28.2 % Mean Corpuscular Volume 79.2 FL Mean Corpuscular Hemoglobin 21.0 PG Mean Corpuscular Hemoglobin Concent 26.5 % Red Cell Distribution Width 19.5 % Platelet Count 395 TH/MM3 Mean Platelet Volume 8.7 FL Neutrophils (%) (Auto) 85.8 % Lymphocytes (%) (Auto) 7.1 % Monocytes (%) (Auto) 6.4 % Eosinophils (%) (Auto) 0.0 % Basophils (%) (Auto) 0.7 % Neutrophils # (Auto) 9.6 TH/MM3 Lymphocytes # (Auto) 0.8 TH/MM3 Monocytes # (Auto) 0.7 TH/MM3 Eosinophils # (Auto) 0.0 TH/MM3 Basophils # (Auto) 0.1 TH/MM3 CBC Comment AUTO DIFF Differential Total Cells Counted 100 Neutrophils % (Manual) 81 % Band Neutrophils % 8 % Lymphocytes % 10 % Neutrophils # (Manual) 10.1 TH/MM3 Metamyelocytes 1 % Nucleated Red Blood Cells 59 /100 WBC Differential Comment FINAL DIFF MANUAL Platelet Estimate NORMAL Platelet Morphology Comment NORMAL Ovalocytes 1+ Prothrombin Time 36.3 SEC Prothromb Time International Ratio 3.6 RATIO Fibrinogen 328 mg/dL Blood Urea Nitrogen 29 MG/DL Creatinine 2.84 MG/DL Random Glucose 79 MG/DL Total Protein 5.9 GM/DL Albumin 2.8 GM/DL Calcium Level 6.9 MG/DL Phosphorus Level 7.3 MG/DL Magnesium Level 2.0 MG/DL Alkaline Phosphatase 106 U/L Aspartate Amino Transf (AST/SGOT) 112 U/L Alanine Aminotransferase (ALT/SGPT) 48 U/L Total Bilirubin 1.0 MG/DL Sodium Level 139 MEQ/L Potassium Level 6.4 MEQ/L Chloride Level 101 MEQ/L Carbon Dioxide Level 14.4 MEQ/L Anion Gap 24 MEQ/L Estimat Glomerular Filtration Rate 17 ML/MIN Lactic Acid Level 13.2 mmol/L Protein Corrected Calcium 7.5 MG/DL Total Creatine Kinase 117 U/L Creatine Kinase MB 3.5 NG/ML Troponin I LESS THAN 0.02 NG/ML Blood Gas Ventilator Setting PRVC/AC 16/500 Blood Gas Inspired Oxygen 100 % Hepatitis A IgM Antibody NONREACTIVE Hepatitis B Surface Antigen NONREACTIVE Hepatitis B Core IgM Antibody NONREACTIVE Hepatitis C IgG Antibody NONREACTIVE Test 09/25/17 17:24 09/25/17 23:32 09/26/17 03:50 Hemoglobin 9.0 GM/DL 9.0 GM/DL Hematocrit 32.4 % 32.3 % Prothrombin Time 24.9 SEC Prothromb Time International Ratio 2.5 RATIO Blood Urea Nitrogen 29 MG/DL 31 MG/DL 29 MG/DL Creatinine 3.07 MG/DL 3.26 MG/DL 3.15 MG/DL Random Glucose 250 MG/DL 408 MG/DL 442 MG/DL Total Protein 5.2 GM/DL 5.0 GM/DL 4.6 GM/DL Calcium Level 6.4 MG/DL 5.8 MG/DL 5.2 MG/DL Sodium Level 137 MEQ/L 128 MEQ/L 130 MEQ/L Potassium Level 6.0 MEQ/L 5.7 MEQ/L 4.7 MEQ/L Chloride Level 93 MEQ/L 87 MEQ/L 85 MEQ/L Carbon Dioxide Level 16.9 MEQ/L 12.5 MEQ/L 11.3 MEQ/L Anion Gap 27 MEQ/L 29 MEQ/L 34 MEQ/L Estimat Glomerular Filtration Rate 16 ML/MIN 15 ML/MIN 15 ML/MIN Lactic Acid Level 17.0 mmol/L 18.8 mmol/L 21.5 mmol/L Protein Corrected Calcium 7.3 MG/DL 6.7 MG/DL 6.2 MG/DL Lipase 338 U/L White Blood Count 33.9 TH/MM3 Red Blood Count 3.72 MIL/MM3 Mean Corpuscular Volume 87.0 FL Mean Corpuscular Hemoglobin 24.3 PG Mean Corpuscular Hemoglobin Concent 28.0 % Red Cell Distribution Width 18.6 % Platelet Count 193 TH/MM3 Mean Platelet Volume 9.5 FL CBC Comment AUTO DIFF Differential Total Cells Counted 100 Neutrophils % (Manual) 70 % Band Neutrophils % 11 % Lymphocytes % 6 % Monocytes % 1 % Neutrophils # (Manual) 31.5 TH/MM3 Metamyelocytes 10 % Myelocytes 1 % Promyelocytes 1 % Nucleated Red Blood Cells 21 /100 WBC Differential Comment FINAL DIFF MANUAL Toxic Vacuolation PRESENT Platelet Estimate NORMAL Platelet Morphology Comment NORMAL Spherocytes OCC [place] Cells 1+ Albumin 2.1 GM/DL Alkaline Phosphatase 117 U/L Aspartate Amino Transf (AST/SGOT) 06430 U/L Alanine Aminotransferase (ALT/SGPT) 3887 U/L Total Bilirubin 2.3 MG/DL Imaging Last Impressions Chest X-Ray 09/25/17 0000 Signed Impressions: Service Date/Time: Monday, September 25, 2017 11:14 - CONCLUSION: Endotracheal tube and nasogastric tube now in place. Nasogastric tube side port at the gastroesophageal junction. Lungs grossly clear. Wolf Maldonado MD Abdomen/Pelvis CT 09/25/17 0000 Signed Impressions: Service Date/Time: Monday, September 25, 2017 17:42 - CONCLUSION: 1. Marked attenuation of the superior mesenteric artery, the celiac artery and its branches and the bilateral renal arteries, presumably on the basis of vasospasm. There is hypoattenuation of the solid organs and early ischemic changes would be conceivable. If there is ischemia of bowel, it appears to be very early as well. There is ascites but no organized or drainable fluid. 2. Sludge versus numerous small stones in the gallbladder. 3. Mild atelectasis of both visualized lung bases. There is a trace pleural effusion on the right. Findings discussed with Dr. Hogue and Dr. Flores. Khadar Díaz MD Objective Remarks GENERAL: Patient is 56 yo critically ill on multiple pressors SKIN: Warm and dry. HEAD: Normocephalic. EYES: No scleral icterus. No injection or drainage. NECK: Supple, trachea midline. No JVD or lymphadenopathy. CARDIOVASCULAR: Tachycardic without murmurs, gallops, or rubs. RESPIRATORY: Breath sounds equal bilaterally. No accessory muscle use. GASTROINTESTINAL: Abdomen soft, non-tender, nondistended. MUSCULOSKELETAL: No cyanosis, or edema. BACK: Nontender without obvious deformity. No CVA tenderness. neuro: Intubated, sedated A/P Assessment and Plan 1. VDRF 2. Septic shock 3. Lactic acidemia. 4. Acute renal failure. 5. Anion gap metabolic acidosis. 6 Hepatic shock 6. Anemia. 7. Coagulopathy. 8. History of COPD 9. Hyperlipidemia. 10. Chronic atrial fibrillation, 11. Previous automated implantable cardioverter-defibrillator placement. 12 Leukocytosis Plan Neuro: Monitor neuro status, fentanyl infusion for sedation Pulm: Continue with vent support and maintain sats>92%. Bronchodilators , ICU vent bundle. CV: Continue with pressors ( Neosyn, Levo, Vaso, Epi) keep MAP> 65 mmHg. Serial lactic acid monitoring On stress dose steroids- HC 100mg IV Q8 For 2D echo : Monitor renal function, I's and O's and avoid nephrotoxins. Nephrology is following- on CVVHD On D5W+3amps bicarb @125ml/hr Cr: 3.15 GI: On Pepcid for GI prophylaxis. Monitor LFT's- elevated LFT's 2nd hepatic shock ID: Continue abx per ID ( On vancomycin, Merrem, Micafungin, Levaquin)Monitor for signs of infection( fever and WBC). Follow up on blood and sputum cx CT abd/pelvis: Marked attenuation of the superior mesenteric artery, the celiac artery and its branches and the bilateral renal arteries, presumably on the basis of vasospasm. There is hypoattenuation of the solid organs and early ischemic changes would be conceivable. General surgery is following- Dr. Mykel Medel: Monitor CBC, coags, Fibrinogen level 328: Xarelto placed on hold- Remains coagulopathic with INR 2.5 from 3.6.Hgb 9.0 from 7.5 She was given K-centra, Vitamin K, 2u PRBC Endo: SSI with Accu-Cheks for glycemic control. DVT prophylaxis with SCDs. The patient's INR is 2.5 from 3.6 GI prophylaxis with Pepcid Lines: left femoral vascath, right Femoral central line placed 09/25 Palliative care is following Patient is critically ill with respiratory failure, acute renal failure, severe lactic acidemia, hepatic shock, septic shock, MODS. Very poor prognosis. Discussed with patient's son this morning for possible transition to comfort care CCT 40 mins Orly Romero MD Sep 26, 2017 08:49
--- NOTE | 2017-09-26 10:19 | HHI.NPPN ---
Subjective General Problems: Hypotension, Mebatolic Acidosis Renal Failure: Acute History of Present Illness Patient is a 56-year-old female with past medical history of hypertension, depression, atrial fibrillation, COPD, and hyperlipidemia. She was admitted yesterday with shortness of breath and reported productive cough with green phlegm was also found to be in atrial fibrillation with rapid ventricular response. She had recent discharge from [facility] on 09/08/2017 after she was treated for atrial fibrillation with rapid ventricular response. Patient was found earlier today lethargic and she is now sedated and intubated with severe metabolic acidosis. Nephrology was consulted for acute kidney injury. Her initial laboratory data showed creatinine 1.19 BUN of 10. The patients creatinine is rapidly raising is now 2.84 and the patient is hyperkalemic with a potassium level of 6.4 which has been treated with IV insulin, dextrose, bicarbonate, and calcium. Laboratory also showing severe lactic acidemia with lactic acid level of 13.2. Patient is hypotensive on multiple pressors will be going for CT of abdomen to r/o ischemic bowel. Additional Remarks Patient is vented on multiple Kiran- synephrine, Levophed, vasopressin, and epinephrine. Family is meeting with palliative care (Elisabeth Stover) Review of Systems General General Remarks Unable to do ROS. Intubated and unresponsive (Elisabeth Stover) Objective Data Data Vital Signs Date Time Temp Pulse Resp B/P (MAP) Pulse Ox O2 Delivery O2 Flow Rate FiO2 09/26/17 08:16 110 37/15 09/26/17 08:11 95 100 09/26/17 06:40 110 09/26/17 06:36 110 70/28 09/26/17 06:35 110 09/26/17 05:00 94.8 109 20 33/17 (22) 52 09/26/17 04:41 60 100 09/26/17 04:12 100 40 09/26/17 04:01 94.3 101 20 71/31 (44) 100 09/26/17 04:00 100 09/26/17 04:00 102 09/26/17 04:00 101 106/59 09/26/17 04:00 101 106/59 09/26/17 04:00 101 106/59 09/26/17 04:00 101 106/59 09/26/17 03:54 94.3 101 20 106/59 (75) 100 09/26/17 03:01 94.3 106 20 81/58 (66) 100 09/26/17 03:00 94.3 106 20 100 09/26/17 02:15 84 104/52 09/26/17 02:15 84 104/52 09/26/17 02:15 84 104/52 09/26/17 02:15 84 104/52 09/26/17 02:10 84 09/26/17 02:08 84 09/26/17 02:01 94.5 84 0 103/50 (67) 100 09/26/17 01:12 100 40 09/26/17 01:01 94.6 80 14 88/58 (68) 98 09/26/17 00:12 82 124/59 09/26/17 00:01 95.2 82 20 104/52 (69) 100 09/26/17 00:00 100 09/26/17 00:00 82 09/26/17 00:00 82 124/59 09/26/17 00:00 82 124/59 09/26/17 00:00 82 124/59 09/25/17 23:14 95.7 82 20 124/59 (80) 99 09/25/17 22:33 80 89/50 09/25/17 22:33 80 89/50 18 22:31 80 18 22:31 80 18 22:27 80 18 22:24 80 09/25/17 22:01 96.3 79 14 97/81 (86) 100 09/25/17 21:50 100 40 18 21:00 96.6 73 20 74/47 (56) 100 18 20:58 68 18 20:01 96.6 71 20 86/52 (63) 100 18 20:00 100 18 20:00 71 18 18:20 100 104/52 18 18:18 68 80/60 24/18 18:00 99 100 2418 18:00 74 2418 16:57 72 96/39 18 16:52 94.9 74 20 96/39 100 4/24/18 16:40 94.9 83 20 82/52 100 09/25/17 16:01 100 40 09/25/17 16:00 104 09/25/17 16:00 95.5 104 20 100/63 (75) 100 09/25/17 16:00 100 09/25/17 14:00 97 09/25/17 13:51 98 40 09/25/17 12:00 100 09/25/17 12:00 86 09/25/17 11:43 65 103/44 09/25/17 11:05 100 100 09/25/17 11:01 100 (Elisabeth Stover) -: 09/26/17 0350 09/26/17 0350 Microbiology 09/25/17 Aerobic Blood Culture, Received Pending 09/25/17 Anaerobic Blood Culture, Received Pending 09/25/17 Aerobic Blood Culture, Received Pending 09/25/17 Anaerobic Blood Culture, Received Pending 09/25/17 Gram Stain - Final, Resulted 09/25/17 Sputum Culture, Resulted Pending Imaging Last Impressions Chest X-Ray 09/25/17 0000 Signed Impressions: Service Date/Time: Monday, September 25, 2017 11:14 - CONCLUSION: Endotracheal tube and nasogastric tube now in place. Nasogastric tube side port at the gastroesophageal junction. Lungs grossly clear. Wolf Maldonado MD Abdomen/Pelvis CT 09/25/17 0000 Signed Impressions: Service Date/Time: Monday, September 25, 2017 17:42 - CONCLUSION: 1. Marked attenuation of the superior mesenteric artery, the celiac artery and its branches and the bilateral renal arteries, presumably on the basis of vasospasm. There is hypoattenuation of the solid organs and early ischemic changes would be conceivable. If there is ischemia of bowel, it appears to be very early as well. There is ascites but no organized or drainable fluid. 2. Sludge versus numerous small stones in the gallbladder. 3. Mild atelectasis of both visualized lung bases. There is a trace pleural effusion on the right. Findings discussed with Dr. Hogue and Dr. Flores. Khadar Díaz MD Tubes & Lines: [facility] (Elisabeth Stover) Physical Exam General Appearance Remarks Intubated (Elisabeth Stover) Pulmonary Resp Exam: Rhonchi, Decreased Bases (Elisabeth Stover) Cardiology CV Exam: Tachycardia (Elisabeth Stover) Gastrointestinal/Abdomen GI Exam: Distended (Elisabeth Stover) Integumentary Skin Exam: Warm (Elisabeth Stover) Extremeties Extremeties Remarks extremities cool (Elisabeth Stover) Neurologic Neuro Exam: Unresponsive (Elisabeth Stover) Assessment/Plan Problem List: (1) Acute kidney failure ICD Codes: N17.9 - Acute kidney failure, unspecified Plan: Acute kidney injury most likely ATN related to severe sepsis and hypotension Has chronic kidney disease stage 3 most likely related to HTN or renovascular disease Vas cath placed in left groin per CC Plan Plan was to have CVVHD however line clotted off Creatinine at 3.15 from 3.26 and potassium normal. Hypotension with Kiran- synephrine, Levophed, vasopressin, and epinephrine infusing for blood pressure support D5 W with 3 amps of bicarbonate infusing. Patient is now a DNR and family is meeting with palliative care. Will hold dialysis. (2) Sepsis ICD Codes: A41.9 - Sepsis, unspecified organism Plan: Managed per CC (3) Respiratory failure ICD Codes: J96.90 - Respiratory failure, unspecified, unspecified whether with hypoxia or hypercapnia Plan: per CC (Elisabeth Stover) Problem List: (1) Acute kidney failure ICD Codes: N17.9 - Acute kidney failure, unspecified Plan: Acute kidney injury most likely ATN related to severe sepsis and hypotension Has chronic kidney disease stage 3 most likely related to HTN or renovascular disease Vas cath placed in left groin per CC Plan Plan was to have CVVHD however line clotted off Creatinine at 3.15 from 3.26 and potassium normal. Hypotension with Kiran- synephrine, Levophed, vasopressin, and epinephrine infusing for blood pressure support D5 W with 3 amps of bicarbonate infusing. Patient is now a DNR and family is meeting with palliative care. Will hold dialysis. Patient has gone to Hospice. (2) Sepsis ICD Codes: A41.9 - Sepsis, unspecified organism Plan: Managed per CC (3) Respiratory failure ICD Codes: J96.90 - Respiratory failure, unspecified, unspecified whether with hypoxia or hypercapnia Plan: per CC (Darrell Gonzalez MD) Elisabeth Stover Sep 26, 2017 10:18 Darrell Gonzalez MD Sep 26, 2017 19:16
[2017-09-26] MEDS ORDERED: LORazepam 2 MG/ML VIAL IV PUSH ONE ×2 (11:00→11:15)
[2017-09-26] MEDS ORDERED: HYOSCYAMINE 0.5 MG/ML AMP IV PUSH ONE (11:00)
[2017-09-26] MEDS ORDERED: HYDROmorphone HCL PF 2 MG/ML VIAL IV PUSH ONE (11:00)
[2017-09-26] MEDS ORDERED: HYOSCYAMINE 0.5 MG/ML AMP IV PUSH PRN (11:30)
[2017-09-26] MEDS ORDERED: HYDROmorphone HCL PF 2 MG/ML VIAL IV PUSH PRN (11:30)
[2017-09-26] MEDS ORDERED: HYDROmorphone HCL PF 0.5 MG/0.5 ML SYRINGE IV PUSH ONE (11:30)
[2017-09-26] MEDS ORDERED: ACETAMINOPHEN 650 MG SUPP RECTAL PRN (11:30)
[2017-09-26] MEDS ORDERED: LORazepam 2 MG/ML VIAL IV PUSH PRN ×2 (11:30)
[2017-09-26] MEDS ORDERED: HYDROmorphone HCL PF 0.5 MG/0.5 ML SYRINGE IV PUSH PRN (11:30)
[2017-09-26] MEDS ORDERED: FUROSEMIDE 20 MG/2 ML VIAL IV PUSH PRN (11:30)
[2017-09-26] MEDS ORDERED: fentaNYL DRIP 250 ML IV PRN (11:30)
[2017-09-26] MEDS ORDERED: BISACODYL 10 MG SUPP RECTAL PRN (11:30)
[2017-09-26] MEDS ORDERED: RASS Change Order XX ONE (11:45)
[2017-09-26] MEDS ORDERED: VANCOMYCIN INJ 1,250 MG in SODIUM CHLOR 0.9% 250 ML INJ 250 ML IV SCH (12:00)
[2017-09-26] MEDS ORDERED: LORazepam 2 MG/ML VIAL IV PUSH SCH (12:00)
--- NOTE | 2017-09-26 12:16 | HHI.HCPN ---
Reason for visit a. To assist with evaluation and management of symptoms including: Shortness of breath, debility b. To assist medical decision maker(s) with: better understanding of current medical conditions; weighing benefits/burdens of medical treatment options; making medical treatment decisions. Subjective/Interval History Follow-up medically necessary for symptom management and further clarification of goals of care. Patient seen and examined in MICU. Patient remains intubated on mechanical ventilation. She is unresponsive, pupils fixed and dilated and her bilateral lower extremities are mottled from toes to knees. CVVHD was started last night 09/25/17 but was clogged off. Patient's blood pressure was very low with SBP in the 70s, pressors were titrated up and patient was started on an epinephrine infusion . Early this morning O2 saturation was low in the 60s and FiO2 was increased to 100%. Patient is currently on Kiran-Synephrine 500 mcg/min, Levophed infusion 50 mcg/min, vasopressin 0.04 U/min, epinephrine 10mcg/min, bicarbonate infusion at 125 ml per hour and fentanyl infusion at 100 mcg per hour. Last BP managed to be ordered obtained was 78/55 and currently bedside RN is unable to get a blood pressure. Bedside RN unable to obtain O2 saturation. Abdomen/pelvis CT on 09/25/17 revealed mild attenuation of the superior mesenteric artery, the celiac artery and its branches in the bilateral renal arteries, presumably on the basis of vasospasm. There is hypoattenuation of the solid organs and iliac ischemic changes would be conceivable. If there is ischemia of bowel, it appears to be very early as well. There is ascites but no organized or drainable fluid. Sludge versus numerous small stones in the gallbladder. Mild atelectasis of both visualized lung bases. There is trace pleural effusion on the right. Laboratory workup today revealing WBC 33.9, hemoglobin 9.0, hematocrit 32.3, platelet count 193, sodium 130, potassium 4.7, BUN/creatinine 29/3.15, lactic acid 21.5, PCC 6.2, total bilirubin 2.3, AST 27826, ALT 3887, protein 4.6, albumin 2.1. Lengthy conversation with patient's son Bruce Casillas, niece Bethanie Smallwood, patient`s long time friend and a granddaughter Mariangel from patient`s previous marriage. Updated patient`s son and the rest of the family on patient`s current medical condition. Discussed patient's past medical history, events leading to this hospitalization and treatment that has been rendered thus far. Patient's son with the support of other family members, mentioned that patient patient has always spoken in the past that she would not want to be able to put on life support and being intubated, on mechanical ventilation is definitely against her wishes. Family mentioned that patient always spoke against prolonging her suffering with artificial means. Patient's son made patient a DNR last night after patient`s condition became worse overnight. Given ongoing comorbidities, multiple hospitalizations and current patient's medical status, patient's son Bruce Casillas with the support of his family have decided to forego any further aggressive treatment and would like to proceed with compassionately withdrawing patient from life support to honor her wishes no no further escalation of care. Introduced hospice philosophy and benefits. Patient's son agreeable with transitioning patient to comfort care through hospice services after compassionately withdrawing patient from life support. Exhibits B and C signed. Patient`s son will wait for a few family members to arrive before compassionately withdrawing patient from life support. Offered assembly inspector services and family reported that pentecostalism was not a big part of patient`s life and patient would most likely not want a international marketing executive to be involved. Case discussed with Dr. Werner, Dr. Whiteside, bedside RN Evens and pinking machine operator Juliette. . Family/friend interactions Lengthy conversation with patient`s son Bruce Casillas, his , Bethanie (niece who lived with patient) and other family members. . Advance Directives Living Will: Completed, but not made available Health Care Surrogate: Never completed Durable Power of Food Service Sales Representatives: Never completed Advance Directive Specifics Health Care Surrogate(s): Health Proxy -Son Bruce CasillasGwgozn-[phone] . Significant change in goals: Patient's son with the support of family would like to compassionately withdraw patient from life support and transition her to comfort care only through hospice services. . Objective Vital Signs Date Time Temp Pulse Resp B/P (MAP) Pulse Ox O2 Delivery O2 Flow Rate FiO2 09/26/17 10:00 99.0 109 20 98/55 (69) 1 09/26/17 10:00 109 09/26/17 08:16 110 37/15 09/26/17 08:11 95 100 09/26/17 08:00 100 09/26/17 08:00 97.5 109 20 75/30 (45) 1 09/26/17 08:00 109 09/26/17 07:00 96.5 110 20 32/17 (22) 49 09/26/17 06:40 110 09/26/17 06:36 110 70/28 09/26/17 06:35 110 09/26/17 05:00 94.8 109 20 33/17 (22) 52 09/26/17 04:41 60 100 09/26/17 04:12 100 40 09/26/17 04:01 94.3 101 20 71/31 (44) 100 09/26/17 04:00 100 09/26/17 04:00 102 09/26/17 04:00 101 106/59 09/26/17 04:00 101 106/59 09/26/17 04:00 101 106/59 09/26/17 04:00 101 106/59 09/26/17 03:54 94.3 101 20 106/59 (75) 100 09/26/17 03:01 94.3 106 20 81/58 (66) 100 09/26/17 03:00 94.3 106 20 100 09/26/17 02:15 84 104/52 09/26/17 02:15 84 104/52 09/26/17 02:15 84 104/52 09/26/17 02:15 84 104/52 09/26/17 02:10 84 09/26/17 02:08 84 09/26/17 02:01 94.5 84 0 103/50 (67) 100 09/26/17 01:12 100 40 09/26/17 01:01 94.6 80 14 88/58 (68) 98 09/26/17 00:12 82 124/59 09/26/17 00:01 95.2 82 20 104/52 (69) 100 09/26/17 00:00 100 09/26/17 00:00 82 09/26/17 00:00 82 124/59 18 00:00 82 124/59 09/26/17 00:00 82 124/59 09/25/17 23:14 95.7 82 20 124/59 (80) 99 09/25/17 22:33 80 89/50 09/25/17 22:33 80 89/50 09/25/17 22:31 80 09/25/17 22:31 80 09/25/17 22:27 80 09/25/17 22:24 80 09/25/17 22:01 96.3 79 14 97/81 (86) 100 09/25/17 21:50 100 40 09/25/17 21:00 96.6 73 20 74/47 (56) 100 09/25/17 20:58 68 09/25/17 20:01 96.6 71 20 86/52 (63) 100 09/25/17 20:00 100 09/25/17 20:00 71 09/25/17 18:20 100 104/52 09/25/17 18:18 68 80/60 09/25/17 18:00 99 100 09/25/17 18:00 74 09/25/17 16:57 72 96/39 09/25/17 16:52 94.9 74 20 96/39 100 09/25/17 16:40 94.9 83 20 82/52 100 09/25/17 16:01 100 40 09/25/17 16:00 104 09/25/17 16:00 95.5 104 20 100/63 (75) 100 09/25/17 16:00 100 09/25/17 14:00 97 09/25/17 13:51 98 40 09/25/17 12:00 100 09/25/17 12:00 86 09/25/17 11:43 65 103/44 Intake & Output 09/26/17 09/26/17 07:00 19:00 Intake Total 5966 ml Output Total 0 ml Balance 5966 ml IV Total 5966 ml Other 0 ml Output Urine Total 0 ml Gastric Drainage Total 0 ml # Bowel Movements 0 Physical Exam CONSTITUTIONAL/GENERAL: Patient unresponsive, pale and has significant mottling to lower extremity. TUBES/LINES/DRAINS: ETT, OG tube, Avalos catheter, central line, Vas-Cath, warming blanket on. SKIN: No jaundice, rashes, or lesions. Ecchymoses on upper extremities. No wounds seen anteriorly. Hypothermic, has a warming blanket on. HEAD: Atraumatic. Normocephalic. EYES: Pupils 7mm, fixed and dilated. Scleral edema noted. Fundi not examined. ENT: Nose without bleeding or purulent drainage. NECK: Trachea midline. Supple, nontender. CARDIOVASCULAR: Atrial fibrillation. No JVD. Peripheral pulses weak. RESPIRATORY/CHEST: Intubated on mechanical ventilation. Diminished breath sounds. FIO2 100% O2 saturation undetectable. GASTROINTESTINAL: Abdomen soft, non-tender, nondistended. No bowel sounds. GENITOURINARY: Without palpable bladder distension. Avalos catheter in place. MUSCULOSKELETAL: Extremities without clubbing. Cyanotic bilateral upper extremities. No clubbing. Mottling to lower extremities NEUROLOGICAL: Intubated on mechanical ventilation. Patient is unresponsive. PSYCHIATRIC: Unable to assess at this time Diagnostic Tests Laboratory Laboratory Tests Test 09/23/17 21:39 09/23/17 21:50 09/23/17 22:10 09/24/17 00:30 White Blood Count 9.4 TH/MM3 (4.0-11.0) Red Blood Count 4.05 MIL/MM3 (4.00-5.30) Hemoglobin 8.7 GM/DL (11.6-15.3) Hematocrit 30.5 % (35.0-46.0) Mean Corpuscular Volume 75.5 FL (80.0-100.0) Mean Corpuscular Hemoglobin 21.5 PG (27.0-34.0) Mean Corpuscular Hemoglobin Concent 28.5 % (32.0-36.0) Red Cell Distribution Width 19.6 % (11.6-17.2) Platelet Count 471 TH/MM3 (150-450) Mean Platelet Volume 8.3 FL (7.0-11.0) Neutrophils (%) (Auto) 77.1 % (16.0-70.0) Lymphocytes (%) (Auto) 15.7 % (9.0-44.0) Monocytes (%) (Auto) 6.1 % (0.0-8.0) Eosinophils (%) (Auto) 0.3 % (0.0-4.0) Basophils (%) (Auto) 0.8 % (0.0-2.0) Neutrophils # (Auto) 7.3 TH/MM3 (1.8-7.7) Lymphocytes # (Auto) 1.5 TH/MM3 (1.0-4.8) Monocytes # (Auto) 0.6 TH/MM3 (0-0.9) Eosinophils # (Auto) 0.0 TH/MM3 (0-0.4) Basophils # (Auto) 0.1 TH/MM3 (0-0.2) CBC Comment AUTO DIFF Differential Comment AUTO DIFF CONFIRMED Target Cells 1+ (NORMAL) Prothrombin Time 12.3 SEC (9.8-11.6) Prothromb Time International Ratio 1.2 RATIO Activated Partial Thromboplast Time 23.8 SEC (24.3-30.1) Blood Urea Nitrogen 10 MG/DL (7-18) Creatinine 1.19 MG/DL (0.50-1.00) Random Glucose 253 MG/DL (74-106) Total Protein 7.4 GM/DL (6.4-8.2) Albumin 3.4 GM/DL (3.4-5.0) Calcium Level 8.7 MG/DL (8.5-10.1) Magnesium Level 1.9 MG/DL (1.5-2.5) Alkaline Phosphatase 149 U/L (45-117) Aspartate Amino Transf (AST/SGOT) 20 U/L (15-37) Alanine Aminotransferase (ALT/SGPT) 21 U/L (10-53) Total Bilirubin 0.6 MG/DL (0.2-1.0) Sodium Level 138 MEQ/L (136-145) Potassium Level 4.1 MEQ/L (3.5-5.1) Chloride Level 102 MEQ/L (98-107) Carbon Dioxide Level 26.8 MEQ/L (21.0-32.0) Anion Gap 9 MEQ/L (5-15) Estimat Glomerular Filtration Rate 47 ML/MIN (>89) Total Creatine Kinase 93 U/L (26-192) Troponin I 0.05 NG/ML (0.02-0.05) C-Reactive Protein 1.00 MG/DL (0.00-0.30) B-Type Natriuretic Peptide 876 PG/ML (0-100) Lipase 342 U/L (73-393) Lactic Acid Level 2.2 mmol/L (0.4-2.0) 1.7 mmol/L (0.4-2.0) Urine Color YELLOW (YELLW/STRAW) Urine Turbidity CLEAR (CLEAR) Urine pH 5.0 (5.0-8.5) Urine Specific [place] 1.018 (1.002-1.035) Urine Protein TRACE mg/dL (NEG-TRACE) Urine Glucose (UA) 1000 mg/dL (NEG) Urine Ketones NEG mg/dL (NEG) Urine Occult Blood NEG (NEG) Urine Nitrite NEG (NEG) Urine Bilirubin NEG (NEG) Urine Urobilinogen LESS THAN 2.0 MG/DL (LESS Urine Leukocyte Esterase SMALL (NEG) Urine RBC 2 /hpf (0-3) Urine WBC 2 /hpf (0-5) Urine Squamous Epithelial Cells 5 /hpf (0-5) Urine Bacteria RARE /hpf (NONE) Urine Mucus FEW /lpf (OCC) Microscopic Urinalysis Comment CULT NOT INDICATED Test 09/24/17 01:00 09/24/17 06:38 09/25/17 09:55 09/25/17 11:15 Nasal Screen MRSA (PCR) MRSA NOT DETECTED (NOT White Blood Count 10.5 TH/MM3 (4.0-11.0) 11.2 TH/MM3 (4.0-11.0) Red Blood Count 3.52 MIL/MM3 (4.00-5.30) 3.57 MIL/MM3 (4.00-5.30) Hemoglobin 7.5 GM/DL (11.6-15.3) 7.5 GM/DL (11.6-15.3) Hematocrit 27.0 % (35.0-46.0) 28.2 % (35.0-46.0) Mean Corpuscular Volume 76.6 FL (80.0-100.0) 79.2 FL (80.0-100.0) Mean Corpuscular Hemoglobin 21.3 PG (27.0-34.0) 21.0 PG (27.0-34.0) Mean Corpuscular Hemoglobin Concent 27.8 % (32.0-36.0) 26.5 % (32.0-36.0) Red Cell Distribution Width 19.7 % (11.6-17.2) 19.5 % (11.6-17.2) Platelet Count 424 TH/MM3 (150-450) 395 TH/MM3 (150-450) Mean Platelet Volume 8.2 FL (7.0-11.0) 8.7 FL (7.0-11.0) Neutrophils (%) (Auto) 83.0 % (16.0-70.0) 85.8 % (16.0-70.0) Lymphocytes (%) (Auto) 11.4 % (9.0-44.0) 7.1 % (9.0-44.0) Monocytes (%) (Auto) 4.4 % (0.0-8.0) 6.4 % (0.0-8.0) Eosinophils (%) (Auto) 0.3 % (0.0-4.0) 0.0 % (0.0-4.0) Basophils (%) (Auto) 0.9 % (0.0-2.0) 0.7 % (0.0-2.0) Neutrophils # (Auto) 8.7 TH/MM3 (1.8-7.7) 9.6 TH/MM3 (1.8-7.7) Lymphocytes # (Auto) 1.2 TH/MM3 (1.0-4.8) 0.8 TH/MM3 (1.0-4.8) Monocytes # (Auto) 0.5 TH/MM3 (0-0.9) 0.7 TH/MM3 (0-0.9) Eosinophils # (Auto) 0.0 TH/MM3 (0-0.4) 0.0 TH/MM3 (0-0.4) Basophils # (Auto) 0.1 TH/MM3 (0-0.2) 0.1 TH/MM3 (0-0.2) CBC Comment AUTO DIFF AUTO DIFF Differential Total Cells Counted 100 100 Neutrophils % (Manual) 78 % (16-70) 81 % (16-70) Band Neutrophils % 13 % (0-6) 8 % (0-6) Lymphocytes % 7 % (9-44) 10 % (9-44) Monocytes % 1 % (0-8) Basophils % 1 % (0-2) Neutrophils # (Manual) 9.6 TH/MM3 (1.8-7.7) 10.1 TH/MM3 (1.8-7.7) Nucleated Red Blood Cells 2 /100 WBC (0-0) 59 /100 WBC (0-0) Differential Comment FINAL DIFF MANUAL FINAL DIFF MANUAL Platelet Estimate NORMAL (NORMAL) NORMAL (NORMAL) Platelet Morphology Comment NORMAL (NORMAL) NORMAL (NORMAL) Target Cells 1+ (NORMAL) Blood Urea Nitrogen 11 MG/DL (7-18) 29 MG/DL (7-18) Creatinine 1.27 MG/DL (0.50-1.00) 2.84 MG/DL (0.50-1.00) Random Glucose 276 MG/DL (74-106) 79 MG/DL (74-106) Calcium Level 8.4 MG/DL (8.5-10.1) 6.9 MG/DL (8.5-10.1) Sodium Level 137 MEQ/L (136-145) 139 MEQ/L (136-145) Potassium Level 5.0 MEQ/L (3.5-5.1) 6.4 MEQ/L (3.5-5.1) Chloride Level 103 MEQ/L (98-107) 101 MEQ/L (98-107) Carbon Dioxide Level 21.3 MEQ/L (21.0-32.0) 14.4 MEQ/L (21.0-32.0) Anion Gap 13 MEQ/L (5-15) 24 MEQ/L (5-15) Estimat Glomerular Filtration Rate 44 ML/MIN (>89) 17 ML/MIN (>89) Blood Gas Puncture Site RT RADIAL Blood Gas Patient Temperature 98.6 Blood Gas HCO3 11 mmol/L (22-26) Blood Gas Base Excess -16.4 mmol/L (-2-2) Blood Gas Oxygen Saturation 93 % (90-100) Arterial Blood pH 7.15 (7.380-7.420) Arterial Blood Partial Pressure CO2 32 mmHg (38-42) Arterial Blood Partial Pressure O2 109 mmHg (61-120) Arterial Blood Oxygen Content 11.0 Vol % (12.0-20.0) Arterial Blood Carboxyhemoglobin 0.7 % (0-4) Arterial Blood Methemoglobin 1.6 % (0-2) Blood Gas Hemoglobin 8.3 G/DL (12.0-16.0) Oxygen Delivery Device NASAL CANNULA Blood Gas Liter Flow 2 L/M Metamyelocytes 1 % (0-1) Ovalocytes 1+ (NORMAL) Prothrombin Time 36.3 SEC (9.8-11.6) Prothromb Time International Ratio 3.6 RATIO Fibrinogen 328 mg/dL (227-377) Total Protein 5.9 GM/DL (6.4-8.2) Albumin 2.8 GM/DL (3.4-5.0) Phosphorus Level 7.3 MG/DL (2.5-4.9) Magnesium Level 2.0 MG/DL (1.5-2.5) Alkaline Phosphatase 106 U/L (45-117) Aspartate Amino Transf (AST/SGOT) 112 U/L (15-37) Alanine Aminotransferase (ALT/SGPT) 48 U/L (10-53) Total Bilirubin 1.0 MG/DL (0.2-1.0) Lactic Acid Level 13.2 mmol/L (0.4-2.0) Protein Corrected Calcium 7.5 MG/DL (8.5-10.1) Total Creatine Kinase 117 U/L (26-192) Creatine Kinase MB 3.5 NG/ML (0.5-3.6) Troponin I LESS THAN 0.02 NG/ML Test 09/25/17 12:14 09/25/17 15:56 09/25/17 17:24 09/25/17 23:32 Blood Gas Puncture Site RT RADIAL Blood Gas Patient Temperature 98.6 Blood Gas HCO3 14 mmol/L (22-26) Blood Gas Base Excess -12.9 mmol/L (-2-2) Blood Gas Oxygen Saturation 83 % (90-100) Arterial Blood pH 7.16 (7.380-7.420) Arterial Blood Partial Pressure CO2 41 mmHg (38-42) Arterial Blood Partial Pressure O2 69 mmHg (61-120) Arterial Blood Oxygen Content 8.8 Vol % (12.0-20.0) Arterial Blood Carboxyhemoglobin 0.7 % (0-4) Arterial Blood Methemoglobin 1.6 % (0-2) Blood Gas Hemoglobin 7.5 G/DL (12.0-16.0) Oxygen Delivery Device VENTILATOR Blood Gas Ventilator Setting [facility]/ 16/500 Blood Gas Inspired Oxygen 100 % Hepatitis A IgM Antibody NONREACTIVE (NONREACTIVE) Hepatitis B Surface Antigen NONREACTIVE (NONREACTIVE) Hepatitis B Core IgM Antibody NONREACTIVE (NONREACTIVE) Hepatitis C IgG Antibody NONREACTIVE (NONREACTIVE) Hemoglobin 9.0 GM/DL (11.6-15.3) Hematocrit 32.4 % (35.0-46.0) Prothrombin Time 24.9 SEC (9.8-11.6) Prothromb Time International Ratio 2.5 RATIO Blood Urea Nitrogen 29 MG/DL (7-18) 31 MG/DL (7-18) Creatinine 3.07 MG/DL (0.50-1.00) 3.26 MG/DL (0.50-1.00) Random Glucose 250 MG/DL (74-106) 408 MG/DL (74-106) Total Protein 5.2 GM/DL (6.4-8.2) 5.0 GM/DL (6.4-8.2) Calcium Level 6.4 MG/DL (8.5-10.1) 5.8 MG/DL (8.5-10.1) Sodium Level 137 MEQ/L (136-145) 128 MEQ/L (136-145) Potassium Level 6.0 MEQ/L (3.5-5.1) 5.7 MEQ/L (3.5-5.1) Chloride Level 93 MEQ/L (98-107) 87 MEQ/L (98-107) Carbon Dioxide Level 16.9 MEQ/L (21.0-32.0) 12.5 MEQ/L (21.0-32.0) Anion Gap 27 MEQ/L (5-15) 29 MEQ/L (5-15) Estimat Glomerular Filtration Rate 16 ML/MIN (>89) 15 ML/MIN (>89) Lactic Acid Level 17.0 mmol/L (0.4-2.0) 18.8 mmol/L (0.4-2.0) Protein Corrected Calcium 7.3 MG/DL (8.5-10.1) 6.7 MG/DL (8.5-10.1) Lipase 338 U/L (73-393) Test 09/26/17 03:50 White Blood Count 33.9 TH/MM3 (4.0-11.0) Red Blood Count 3.72 MIL/MM3 (4.00-5.30) Hemoglobin 9.0 GM/DL (11.6-15.3) Hematocrit 32.3 % (35.0-46.0) Mean Corpuscular Volume 87.0 FL (80.0-100.0) Mean Corpuscular Hemoglobin 24.3 PG (27.0-34.0) Mean Corpuscular Hemoglobin Concent 28.0 % (32.0-36.0) Red Cell Distribution Width 18.6 % (11.6-17.2) Platelet Count 193 TH/MM3 (150-450) Mean Platelet Volume 9.5 FL (7.0-11.0) CBC Comment AUTO DIFF Differential Total Cells Counted 100 Neutrophils % (Manual) 70 % (16-70) Band Neutrophils % 11 % (0-6) Lymphocytes % 6 % (9-44) Monocytes % 1 % (0-8) Neutrophils # (Manual) 31.5 TH/MM3 (1.8-7.7) Metamyelocytes 10 % (0-1) Myelocytes 1 % (0-0) Promyelocytes 1 % (0-0) Nucleated Red Blood Cells 21 /100 WBC (0-0) Differential Comment FINAL DIFF MANUAL Toxic Vacuolation PRESENT (NONE SEEN) Platelet Estimate NORMAL (NORMAL) Platelet Morphology Comment NORMAL (NORMAL) Spherocytes OCC (NORMAL) Emerson Cells 1+ (NORMAL) Blood Urea Nitrogen 29 MG/DL (7-18) Creatinine 3.15 MG/DL (0.50-1.00) Random Glucose 442 MG/DL (74-106) Total Protein 4.6 GM/DL (6.4-8.2) Albumin 2.1 GM/DL (3.4-5.0) Calcium Level 5.2 MG/DL (8.5-10.1) Alkaline Phosphatase 117 U/L (45-117) Aspartate Amino Transf (AST/SGOT) 59596 U/L (15-37) Alanine Aminotransferase (ALT/SGPT) 3887 U/L (10-53) Total Bilirubin 2.3 MG/DL (0.2-1.0) Sodium Level 130 MEQ/L (136-145) Potassium Level 4.7 MEQ/L (3.5-5.1) Chloride Level 85 MEQ/L (98-107) Carbon Dioxide Level 11.3 MEQ/L (21.0-32.0) Anion Gap 34 MEQ/L (5-15) Estimat Glomerular Filtration Rate 15 ML/MIN (>89) Lactic Acid Level 21.5 mmol/L (0.4-2.0) Protein Corrected Calcium 6.2 MG/DL (8.5-10.1) Random Vancomycin Level 2.5 COMMENT Result Diagram: 09/26/17 0350 09/26/17 0350 Microbiology Microbiology Date/Time Source Procedure Growth Status 09/25/17 13:54 Blood Peripheral Aerobic Blood Culture - Preliminary NO GROWTH IN 1 DAY Resulted 09/25/17 13:54 Blood Peripheral Anaerobic Blood Culture - Preliminary NO GROWTH IN 1 DAY Resulted 09/25/17 13:49 Blood Peripheral Aerobic Blood Culture - Preliminary NO GROWTH IN 1 DAY Resulted 09/25/17 13:49 Blood Peripheral Anaerobic Blood Culture - Preliminary NO GROWTH IN 1 DAY Resulted 09/23/17 21:50 Blood Peripheral Aerobic Blood Culture - Preliminary NO GROWTH IN 3 DAYS Resulted 09/23/17 21:50 Blood Peripheral Anaerobic Blood Culture - Preliminary NO GROWTH IN 3 DAYS Resulted 09/23/17 21:45 Blood Peripheral Aerobic Blood Culture - Preliminary NO GROWTH IN 3 DAYS Resulted 09/23/17 21:45 Blood Peripheral Anaerobic Blood Culture - Preliminary NO GROWTH IN 3 DAYS Resulted 09/25/17 17:30 Sputum Endotracheal Gram Stain - Final Resulted 09/25/17 17:30 Sputum Endotracheal Sputum Culture Pending Resulted Imaging Last 48 hours Impressions Chest X-Ray 09/25/17 0000 Signed Impressions: Service Date/Time: Monday, September 25, 2017 11:14 - CONCLUSION: Endotracheal tube and nasogastric tube now in place. Nasogastric tube side port at the gastroesophageal junction. Lungs grossly clear. Wolf Maldonado MD Chest X-Ray 09/25/17 0000 Signed Impressions: Service Date/Time: Monday, September 25, 2017 09:44 - CONCLUSION: 1. Anatomic detail is somewhat limited by respiratory motion artifact but there is no obvious acute infiltrate/effusion. 2. Possible minimal atelectasis or scarring above the left hemidiaphragm. Inocente Cameron MD Abdomen/Pelvis CT 09/25/17 0000 Signed Impressions: Service Date/Time: Monday, September 25, 2017 17:42 - CONCLUSION: 1. Marked attenuation of the superior mesenteric artery, the celiac artery and its branches and the bilateral renal arteries, presumably on the basis of vasospasm. There is hypoattenuation of the solid organs and early ischemic changes would be conceivable. If there is ischemia of bowel, it appears to be very early as well. There is ascites but no organized or drainable fluid. 2. Sludge versus numerous small stones in the gallbladder. 3. Mild atelectasis of both visualized lung bases. There is a trace pleural effusion on the right. Findings discussed with Dr. Hogue and Dr. Flores. Khadar Díaz MD Procedures 09/25/2017-intubation 09/25/2017-central line placement 09/25/[id number] placement . Assessment and Plan Disease Oriented Problem List: (1) Respiratory failure (2) Sepsis (3) Diabetes (4) Acute kidney failure (5) Coagulopathy Symptom Scale: (1) Shortness of breath 0-10 Scale: Unable to quantify Comment: Hx of COPD, CHF and tobacco use. . (2) Debility 0-10 Scale: Unable to quantify Comment: Progressive. . Pertinent Non-Medical Issues Psychosocial:Patient was born and raised in [place]. He highest level of education is 12th grade. Patient has a son. Patient is a , he a week ago. Patient has been unemployed for a long time. Spiritual: No anabaptist affiliation Legal: Family reported that she completed a living will but they are unable to locate Ethical issues impacting care: None identified at this time . Important Contacts Healthcare proxy -Son-Bruce Casillas [phone] Niece (Sisters` daughter who lived with patient) -Bethanie Hunter-[phone] [id number]-[id number] (late husbands` sister)-Lizzie HamptonBvhajnj-[phone] Granddaughter-Sonja August [phone] . Prognosis Mrs. Hampton is a 56-year-old with a past medical history significant for atrial fibrillation on Xarelto, congestive heart failure, hypertension, COPD, chronic kidney disease, diabetes mellitus and depression. Patient presented to the ER on 09/23/17 with complaints of shortness of breath, productive cough and congestion for the past 2 weeks. Patient's clinical course complicated with worsening respiratory distress, lactic acidemia, renal failure. Given ongoing comorbidities, patient remains at high risk for further complications, deterioration and decline. . Code Status: No Code Plan PLAN: Legal decision maker: Patient is currently intubated on mechanical ventilation and is not able to participate in medical decision making. According to [place] statute, patient's adult son Bruce Casillas will save is here healthcare proxy. Goals: Aggressive while we try to contact patient's healthcare proxy (son- Bruce Casillas) CODE STATUS: No code DNR/DNI Lengthy conversation with patient's son Bruce Casillas, niece Bethanie Smallwood, patient`s long time friend and a granddaughter Mariangel from patient`s previous marriage. Updated patient`s son and the rest of the family on patient`s current medical condition. Discussed patient's past medical history, events leading to this hospitalization and treatment that has been rendered thus far. Patient's son with the support of other family members, mentioned that patient patient has always spoken in the past that she would not want to be able to put on life support and being intubated, on mechanical ventilation is definitely against her wishes. Family mentioned that patient always spoke against prolonging her suffering with artificial means. Patient's son made patient a DNR last night after patient`s condition became worse overnight. Given ongoing comorbidities, multiple hospitalizations and current patient's medical status, patient's son Bruce Casillas with the support of his family have decided to forego any further aggressive treatment and would like to proceed with compassionately withdrawing patient from life support to honor her wishes no no further escalation of care. Introduced hospice philosophy and benefits. Patient's son agreeable with transitioning patient to comfort care through hospice services after compassionately withdrawing patient from life support. Exhibits B and C signed. Patient`s son will wait for a few family members to arrive before compassionately withdrawing patient from life support. Offered assembly inspector services and family reported that pentecostalism was not a big part of patient`s life and patient would most likely not want a international marketing executive to be involved. SYMPTOMS: * Shortness of breath: Patient has history of CHF, COPD and smokes cigarettes. Patient came in with complaints of shortness of breath, productive cough and congestion. Patient has had worsening respiratory failure requiring intubation and mechanical ventilation. Chest x-ray showed minimal atelectasis. Patient is on hydrocortisone, and duo nebs. FIO2 100% -O2 saturation undetectable. Patient`s lips cyanotic- mottling to bilateral extremities. Patient not perfusing well. Patient on high rates of pressors. No recommendations at this time. * Debility: Progressive. Patient has had multiple hospitalizations (x7) since June of this year. HCP wants to transition patient to comfort care only with hospice services. No further aggressive treatment or escalation of care. Palliative care will continue to follow the patient during hospital course as condition evolves, to assist patient/decision-maker with understanding of their medical conditions, weighing benefits/burdens of treatment options, for clarification of goals of treatment. Additionally will assist with any symptoms of palliative concern Time Spent Total Floor Time (mins): 76 Attestation To help prompt me to consider important information that might be impacting today's encounter and assessment, information from prior notes written by myself or my colleagues may have been "brought forward" into today's note. My signature on this note, however, is an attestation that I personally performed the exam, history, and/or decision-making noted today, and, unless otherwise indicated, the interactions with patient, family, and staff as well as the review of records all occurred today. I also attest that the listed assessment and stated plan reflect my best clinical judgment today based on the combination of historical information, prior notes, and today's exam/ interactions. When time spent is documented, it refers only to time spent today by the signer, or if indicated, combined time spent today by collaborating physician/nurse practitioner. Denis Barros Sep 26, 2017 12:16
--- NOTE | 2017-09-26 15:21 | HHI.PR ---
cc: Zohaib Hogue MD Subjective Subjective Notes Patient seen at about 0900 Intubated/Sedated Unresponsive Family at bedside Objective Vitals/I&O Vital Signs Date Time Temp Pulse Resp B/P (MAP) Pulse Ox O2 Delivery O2 Flow Rate FiO2 09/26/17 11:45 Room Air 09/26/17 10:00 99.0 109 20 98/55 (69) 1 09/26/17 08:11 100 09/25/17 08:18 2.00 Labs Laboratory Tests Test 09/25/17 15:56 09/25/17 17:24 09/25/17 23:32 09/26/17 03:50 Hepatitis A IgM Antibody NONREACTIVE Hepatitis B Surface Antigen NONREACTIVE Hepatitis B Core IgM Antibody NONREACTIVE Hepatitis C IgG Antibody NONREACTIVE Hemoglobin 9.0 9.0 Hematocrit 32.4 32.3 Prothrombin Time 24.9 Prothromb Time International Ratio 2.5 Blood Urea Nitrogen 29 31 29 Creatinine 3.07 3.26 3.15 Random Glucose 250 408 442 Total Protein 5.2 5.0 4.6 Calcium Level 6.4 5.8 5.2 Sodium Level 137 128 130 Potassium Level 6.0 5.7 4.7 Chloride Level 93 87 85 Carbon Dioxide Level 16.9 12.5 11.3 Anion Gap 27 29 34 Estimat Glomerular Filtration Rate 16 15 15 Lactic Acid Level 17.0 18.8 21.5 Protein Corrected Calcium 7.3 6.7 6.2 Lipase 338 White Blood Count 33.9 Red Blood Count 3.72 Mean Corpuscular Volume 87.0 Mean Corpuscular Hemoglobin 24.3 Mean Corpuscular Hemoglobin Concent 28.0 Red Cell Distribution Width 18.6 Platelet Count 193 Mean Platelet Volume 9.5 CBC Comment AUTO DIFF Differential Total Cells Counted 100 Neutrophils % (Manual) 70 Band Neutrophils % 11 Lymphocytes % 6 Monocytes % 1 Neutrophils # (Manual) 31.5 Metamyelocytes 10 Myelocytes 1 Promyelocytes 1 Nucleated Red Blood Cells 21 Differential Comment FINAL DIFF MANUAL Toxic Vacuolation PRESENT Platelet Estimate NORMAL Platelet Morphology Comment NORMAL Spherocytes OCC Masoud Cells 1+ Albumin 2.1 Alkaline Phosphatase 117 Aspartate Amino Transf (AST/SGOT) 91982 Alanine Aminotransferase (ALT/SGPT) 3887 Total Bilirubin 2.3 Random Vancomycin Level 2.5 Date/Time Source Procedure Growth Status 09/25/17 13:54 Blood Peripheral Aerobic Blood Culture - Preliminary NO GROWTH IN 1 DAY Resulted 09/25/17 13:54 Blood Peripheral Anaerobic Blood Culture - Preliminary NO GROWTH IN 1 DAY Resulted 09/25/17 17:30 Sputum Endotracheal Gram Stain - Final Resulted 09/25/17 17:30 Sputum Endotracheal Sputum Culture - Preliminary No growth. Resulted Radiology Last 48 hours Impressions Chest X-Ray 09/25/17 0000 Signed Impressions: Service Date/Time: Monday, September 25, 2017 11:14 - CONCLUSION: Endotracheal tube and nasogastric tube now in place. Nasogastric tube side port at the gastroesophageal junction. Lungs grossly clear. Wolf Maldonado MD Chest X-Ray 09/25/17 0000 Signed Impressions: Service Date/Time: Monday, September 25, 2017 09:44 - CONCLUSION: 1. Anatomic detail is somewhat limited by respiratory motion artifact but there is no obvious acute infiltrate/effusion. 2. Possible minimal atelectasis or scarring above the left hemidiaphragm. Inocente Cameron MD Chest X-Ray [id number] Signed Impressions: Service Date/Time: Saturday, September 23, 2017 21:43 - CONCLUSION: No acute cardiopulmonary abnormality is identified. Khadar Farrell MD Cardiovascular: Other (tachycardic ) Lungs: Clear Abdomen: Other (distended ) Narrative Exam multiple areas of skin that is mottled diffuse severe edema cold extremities unable to get oxygen sat on patient A/P Assessment and Plan 56 year old female with lactic acidosis; Increasing BUN/Cr; respiratory failure -Nothing surgical at this time -Increasing lactic acid -Increasing need for vasopressor medications -Unable to do CRRT due to clotted off catheter -Patient with multiple organ failure; unlikely to survive this hospitalization -Palliative Care following and family meeting at this time Attending Note - Dr. Hogue Poor status; not survivable Surgery will not help her survive Nothing further to add The exam, history, and the medical decision-making described in the above note were completed with the assistance of the mid-level provider. I reviewed and agree with the findings presented. I attest that I had a [id number] encounter with the patient on the same day, and personally performed and documented my assessment and findings in the medical record. Claudia Mora/First Josias SEYMOUR Sep 26, 2017 15:21 Zohaib Hogue MD Sep 27, 2017 14:58
== END 2017-09-26 11:55 | disposition expired | DRG 291 ==
LOC: NEPC 21:13 → NEDA 23:38 → HIMN 09-24 00:45
PROVIDERS: ADMIT Internal Medicine Critical Care Medicine; ATTEND Internal Medicine Critical Care Medicine
PROC: 02HV33Z Insertion of Infusion Device into Superior Vena Cava, Percutaneous Approach (ICD-10-PCS; principal; 2017-09-25)
PROC: 5A1945Z Respiratory Ventilation, 24-96 Consecutive Hours (ICD-10-PCS; 2017-09-25)
PROC: 0BH17EZ Insertion of Endotracheal Airway into Trachea, Via Natural or Artificial Opening (ICD-10-PCS; 2017-09-25)
PROC: 30233K1 Transfusion of Nonautologous Frozen Plasma into Peripheral Vein, Percutaneous Approach (ICD-10-PCS; 2017-09-25)
PROC: 30233N1 Transfusion of Nonautologous Red Blood Cells into Peripheral Vein, Percutaneous Approach (ICD-10-PCS; 2017-09-25)
PROC: 0D9670Z Drainage of Stomach with Drainage Device, Via Natural or Artificial Opening (ICD-10-PCS; 2017-09-25)
DX: I50.22 Chronic systolic (congestive) heart failure (principal); A41.9 Sepsis, unspecified organism; R65.21 Severe sepsis with septic shock; N17.0 Acute kidney failure with tubular necrosis; J96.90 Respiratory failure, unspecified, unspecified whether with hypoxia or hypercapnia; G93.40 Encephalopathy, unspecified; J44.1 Chronic obstructive pulmonary disease with (acute) exacerbation; E87.2 Acidosis; D68.9 Coagulation defect, unspecified; I13.0 Hypertensive heart and chronic kidney disease with heart failure and stage 1 through stage 4 chronic kidney disease, or unspecified chronic kidney disease; J98.11 Atelectasis; I46.9 Cardiac arrest, cause unspecified; I49.01 Ventricular fibrillation; N18.3 Chronic kidney disease, stage 3 (moderate); I48.0 Paroxysmal atrial fibrillation; I27.20 Pulmonary hypertension, unspecified; F17.210 Nicotine dependence, cigarettes, uncomplicated; E78.5 Hyperlipidemia, unspecified; M19.90 Unspecified osteoarthritis, unspecified site; E78.00 Pure hypercholesterolemia, unspecified; I25.10 Atherosclerotic heart disease of native coronary artery without angina pectoris; K21.9 Gastro-esophageal reflux disease without esophagitis; F32.9 Major depressive disorder, single episode, unspecified; E87.5 Hyperkalemia; D64.9 Anemia, unspecified; I48.2 Chronic atrial fibrillation; E03.9 Hypothyroidism, unspecified; G47.30 Sleep apnea, unspecified; E11.22 Type 2 diabetes mellitus with diabetic chronic kidney disease; Z53.9 Procedure and treatment not carried out, unspecified reason; Z79.01 Long term (current) use of anticoagulants; Z86.73 Personal history of transient ischemic attack (TIA), and cerebral infarction without residual deficits; Z91.19 Patient's noncompliance with other medical treatment and regimen; Z95.0 Presence of cardiac pacemaker; Z91.14 Patient's other noncompliance with medication regimen; Z51.5 Encounter for palliative care; Z66 Do not resuscitate
CPT/HCPCS: 31500; 36430; 36600; 71045; 74177; 76937; 80048; 80053; 80074; 80202; 81001; 82550; 82552; 82805; 82948; 83605; 83690; 83735; 83880; 84100; 84155; 84484; 85007; 85014; 85018; 85025; 85027; 85384; 85610; 85730; 86140; 86850; 86900; 86901; 86920; 86927; 87040; 87070; 87205; 87641; 93005; 94002; 94003; 94640; 94664; 96365; 96366; C9132; J0171; J0610; J1170; J1720; J1815; J1940; J1956; J1980; J2060; J2185; J2248; J2370; J2405; J2543; J2920; J3010; J3370; J3430; J7030; J7050; J7060; J7070; P9016; P9017; Q9967